=== PATIENT | female | born 1935 | race Caucasian/White ===

== ENCOUNTER → 2017-01-16 | Outpatient (CLI) | payer OTHER ==
[~2017-01-16] MED LIST: ASPI325T45 PO; ATOR-22 PO; CALCTAB5 PO; CHOL1000 PO; DOCU-94 PO; DONE10TA12 PO; GUAI1TAB55 PO; LISI20TA3 PO; LSN40 PO; MCRK/20 PO; MELA1TAB5 PO; METO25TA56 PO; MULT-190 PO; NITR-5 PO; NMN10 PO; NRV/5 PO; NXM/40 PO; OMEP20CA9 PO; POTA-335 PO; TIMO0.2528 OPB; TMPOPS2510 OPB; TRAM-10 PO
[2017-01-16 17:46] LABS: BASO % 0.3 %; BASO ABS # 0.02 K/uL (0-0.2); COMPLETE YES; HEMATOCRIT 36.5 % (37-47); IG% 0.1 %; LYMPH % 39.7 %; LYMPH ABS # 2.76 K/uL (1.2-3.4); MEAN CELL VOLUME 92.2 fL (80-100); MEAN CORPUSCULAR HEMOGLOBIN 30.8 pg (25-34); MEAN CORPUSCULAR HGB CONC 33.4 g/dl (32-36); MEAN PLATELET VOLUME 9.9 fL (7.4-10.4); MONO % 6.2 %; NEUT % 51.7 %; PLATELET COUNT 251 K/uL (130-400); RED BLOOD COUNT 3.96 M/uL (4.2-5.4); WHITE BLOOD COUNT 6.96 K/uL (4.8-10.8)
[2017-01-16 18:12] LABS: ALT/SGPT 24 U/L (12-78); BLOOD UREA NITROGEN 20 mg/dl (7-18); BUN/CREATININE RATIO 23.9 (10-20); CALCIUM 9.3 mg/dl (8.5-10.1); CARBON DIOXIDE 24 mmol/L (21-32); CHLORIDE 105 mmol/L (98-107); CHOLESTEROL 142 mg/dl (0-200); CREATININE 0.84 mg/dl (0.60-1.20); GLUCOSE 126 mg/dl (70-99); POTASSIUM 4.5 mmol/L (3.5-5.1); SODIUM 140 mmol/L (136-145)
[2017-01-16 18:22] LABS: ALB/GLOB RATIO 0.8 (0.9-2); ALKALINE PHOSPHATASE 96 U/L (45-117); AST/SGOT 21 U/L (15-37); CHOLESTEROL/HDL RATIO 2.4; HDL CHOLESTEROL 60 mg/dl; LDL CHOLESTEROL CALCULATED 49 mg/dl; TRIGLYCERIDES 166 mg/dl (0-150); VERY LOW DENSITY LIPOPROT CALC 33 mg/dl
[2017-01-17 06:06] LABS: ESTIMATED AVERAGE GLUCOSE 134 mg/dl; HA1C FLAG Normal (Normal)
== END | disposition home or self-care (01) ==
LOC: C.LABBFT 13:48
PROVIDERS: ATTEND Internal Medicine
DX: E78.5 Hyperlipidemia, unspecified (principal); R73.01 Impaired fasting glucose; I10 Essential (primary) hypertension

== ENCOUNTER 2017-06-14 19:54 | Emergency (ER) | payer OTHER ==
[~2017-06-14] VITALS: Ht 152.4 cm; Wt 62.1 kg
[~2017-06-14 19:54] MED LIST changes: -LSN40 PO; -MCRK/20 PO; -NITR-5 PO; -NRV/5 PO; -OMEP20CA9 PO; -TMPOPS2510 OPB
[2017-06-14 20:17] VITALS: TEMP 36.8; Ht 152.4 cm; Wt 62.1 kg
[2017-06-14 20:55] LABS: URINE APPEARANCE CLEAR (CLEAR); URINE BILIRUBIN NEG (NEG); URINE COLOR YELLOW; URINE NITRITE POS (NEG); URINE SPECIFIC GRAVITY 1.026 (1.000-1.030); UROBILINOGEN NEG (NEG); ZZUR CULT IF INDIC CLEAN CATCH YES
[2017-06-14] MEDS ORDERED: NITR-5 PO (20:55)
[2017-06-14 20:57] LABS: MANUAL MICROSCOPIC REQUIRED? NO; REVIEW REQ? NO
[2017-06-14] MEDS ORDERED: MACROBID 100MG HOME PACK 1 EA VIAL PO ONE (21:00)
[2017-06-14] MEDS ORDERED: MCRK/20 PO (21:01)
[2017-06-14] MEDS ORDERED: TMPOPS2510 OPB (21:01)
[2017-06-14] MEDS ORDERED: OMEP20CA9 PO (21:01)
[2017-06-14] MEDS ORDERED: LSN40 PO (21:01)
[2017-06-14] MEDS ORDERED: NRV/5 PO (21:01)
[2017-06-14 21:21] VITALS: BP 164/69; PULSE 54; O2SAT 96
--- NOTE | 2017-06-14 21:27 | EMERGENCY ROOM VISIT NOTE ---
History First contact with patient: 20:26 Chief Complaint: URINARY SYMPTOMS Stated Complaint: URINARY TRACT INFECTION Nursing Triage Summary: Pt reports UTI for few weeks. Reports increase in urination and burning. History of Present Illness The patient is a 81 year old female who presents to the Emergency Room with complaints of urinary discomfort, suprapubic pressure, burning sensation and incontinence. The patient reports she frequently gets a urinary tract infection , and reports that it always feels the same with the above symptoms. She denies any back pain, fever, nausea or vomiting. The patient has not seen her family doctor for these symptoms. She cannot recall the last antibiotic she received for a UTI, which was approximately 7 months ago. She has never been hospitalized for pyelonephritis. Review of Systems 10 system review was performed and was negative except for pertinent positives and negatives as indicated in history of present illness Past Medical/Surgical History Medical Problems: (1) CVA (cerebral vascular accident) (2) Hypertension (3) Patella fracture Family History Patient reports no known family medical history. Social History Smoking Status: Former Smoker Marital Status: Housing Status: lives with family Occupation Status: retired Current/Historical Medications Scheduled Amlodipine Besylate (Amlodipine Besylate), 5 MG PO DAILY Atorvastatin (Lipitor), 20 MG PO DAILY Cholecalciferol (Vitamin D3), 1 TAB PO DAILY Lisinopril (Lisinopril), 40 MG PO DAILY Memantine (Namenda), 10 MG PO BID Metoprolol Tartrate (Lopressor) (Lopressor), 25 MG PO BID Nitrofurantoin Monohyd Macrocr (Macrobid), 100 MG PO BID Ocuvite Preservision (Ocuvite Preservision), 1 TAB PO DAILY Omeprazole (Prilosec), 20 MG PO DAILY Potassium Chloride (Potassium Chloride ER), 20 MEQ PO DAILY Timolol Maleate (Timolol Maleate), 1 DROP OPB DAILY Physical Exam Vital Signs Date Time Temp Pulse Resp B/P (MAP) Pulse Ox O2 Delivery O2 Flow Rate FiO2 06/14/17 20:17 36.8 58 18 163/66 94 Room Air Physical Exam CONSTITUTIONAL: Healthy and well nourished. Alert and oriented X 3 with positive affect. Patient does not appear in any acute distress. HEENT: Normocephalic, atraumatic. Pupils equal, round and reactive. NECK: Full active range of motion without discomfort. RESPIRATORY: Clear to auscultation bilaterally with no wheezing, crackles, rhonchi or stridor. CARDIOVASCULAR: Regular rate and rhythm with no murmurs, rubs or gallops. GASTROINTESTINAL: Bowel sounds present in all quadrants. Patient has minimal suprapubic tenderness to palpation. Negative McBurney's point tenderness. No left lower quadrant tenderness to palpation. Negative CVA tenderness. MUSCULOSKELETAL: Full range of motion of all joints without discomfort. INTEGUMENTARY: No rash or other significant dermatologic conditions noted. NEUROLOGIC: No focal neurologic deficits noted. Medical Decision & Procedures Laboratory Results Test 06/14/17 20:35 Urine Color YELLOW Urine Appearance CLEAR (CLEAR) Urine pH 5.0 (4.5-7.5) Urine Specific [place] 1.026 (1.000-1.030) Urine Protein TRACE (NEG) Urine Glucose (UA) NEG (NEG) Urine Ketones NEG (NEG) Urine Occult Blood 1+ (NEG) Urine Nitrite POS (NEG) Urine Bilirubin NEG (NEG) Urine Urobilinogen NEG (NEG) Urine Leukocyte Esterase MODERATE (NEG) Urine WBC (Auto) >30 /hpf (0-5) Urine RBC (Auto) 5-10 /hpf (0-4) Urine Hyaline Casts (Auto) 10-30 /lpf (0-5) Urine Epithelial Cells (Auto) 5-10 /lpf (0-5) Urine Bacteria (Auto) 4+ (NEG) Urine microscopy is consistent with UTI. Urine cultures are pending. Medications Administered Medications (Trade) Dose Ordered Sig/[place] Route Start Time Stop Time Status Last Admin Dose Admin Nitrofurantoin (Macrobid Homepack 100MG) 1 homepack UD ONCE PO 06/14/17 21:00 06/14/17 21:01 DC 06/14/17 21:08 1 HOMEPACK ED Course Patient history and physical exam were performed. Nurse's notes were reviewed. Vital signs were reviewed and normal. History and clinical exam, along with urinalysis results, are consistent with UTI. I did review prior medical records from the PCPs office and [facility] records. We were unable to find any recent antibiotic treatment or urinalysis/urine culture results in the PCPs office. Review of hospital records shows that the patient had a presumptive enterococcus infection in 2009, showing sensitivity to Macrobid, and resistance to the most common oral antibiotics. She also had a Citrobacter infection in 2008 that was also susceptible to Macrobid. The case and prior cultures were discussed with Dr. Chinchilla, ED attending physician, who agreed with choosing Macrobid antibiotics for treatment. Dr. Chinchilla also performed an evaluation and agrees with workup and plan of care. The patient was provided a home pack and prescription for Macrobid. She was instructed to follow-up with her family doctor in the next 2-3 days for recheck , returning to the emergency department for any significant worsening pain, fever, vomiting or back pain. Medical Decision Medication Reconcilliation Current Medication List: was personally reviewed by me Blood Pressure Screening Patient's blood pressure: Normal blood pressure Impression Primary Impression: Urinary tract infection Additional Impression: Incontinence in female Departure Information Dispostion Home / Self-Care Prescriptions Nitrofurantoin Monohyd Macrocr (Macrobid) 100 Mg Cap 100 MG PO BID for 6 Days, #12 CAP Prov: Yrn Wilkinson PA 06/14/17 Forms HOME CARE DOCUMENTATION FORM, IMPORTANT VISIT INFORMATION Patient Instructions My [facility] Additional Instructions Complete all nitrofurantoin antibiotics as prescribed, twice daily for a total of 7 days. Your prescription was sent to your pharmacy, and should be available for pickup tomorrow morning during regular business hours. Suggest follow-up with your family doctor if symptoms have not significantly improved within the next 48 hours. Return to the emergency department for progressively worsening pain, back pain, nausea, vomiting or developing fever. Problem Qualifiers Primary Impression: Urinary tract infection Urinary tract infection type: acute cystitis Hematuria presence: with hematuria Qualified Codes: N30.01 - Acute cystitis with hematuria
--- NOTE | 2017-06-15 02:26 | EMERGENCY ROOM VISIT NOTE ---
ED Visit Note First contact with patient: 20:26 HPI: dysuria and lower abdominal pain PE: AFVSS, NAD NC/AT RRR, no murmurs CTAB Abd soft NT/ND Ext: no edema, erythema Neuro: grossly intact Plan: UA+, Patient with h/o of resistant organisms. Resistance review and macrobid previously sensitive. d/c with macrobid and pcp f/u. I reviewed the patient's past medical history, medications, and visit nursing notes. I discussed the case with the physician speech language assistant, examined the patient, and agree with the findings and plan as documented in the physician assistants note.
--- NOTE | 2017-06-16 11:23 | Pharmacy Progress Note ---
ED Pharmacist Culture FollowUp Date of Service: Jun 16, 2017. Patient was sent home with a prescription for Macrobid 100mg PO BID x 7 days total, which should cover the klebsiella pneumoniae growing from the patient's URINE culture. No further action required.
== END 2017-06-14 21:23 | disposition home or self-care (01) ==
LOC: C.EDB 19:55
DX: N30.01 Acute cystitis with hematuria (principal); R32 Unspecified urinary incontinence; I10 Essential (primary) hypertension; Z87.440 Personal history of urinary (tract) infections; Z86.73 Personal history of transient ischemic attack (TIA), and cerebral infarction without residual deficits; Z87.891 Personal history of nicotine dependence; Z79.899 Other long term (current) drug therapy

== ENCOUNTER → 2017-07-31 | Outpatient (CLI) | payer OTHER ==
[~2017-07-31] MED LIST changes: -ASPI325T45 PO; -CALCTAB5 PO; -DOCU-94 PO; -DONE10TA12 PO; -GUAI1TAB55 PO; -LISI20TA3 PO; +LSN40 PO; +MCRK/20 PO; -MELA1TAB5 PO; +NRV/5 PO; -NXM/40 PO; +OMEP20CA9 PO; -POTA-335 PO; -TIMO0.2528 OPB; +TMPOPS2510 OPB; -TRAM-10 PO
[2017-07-31 12:08] LABS: HEMATOCRIT 36.9 % (37-47); MEAN CELL VOLUME 91.6 fL (80-100); MEAN CORPUSCULAR HEMOGLOBIN 30.3 pg (25-34); MEAN CORPUSCULAR HGB CONC 33.1 g/dl (32-36); MEAN PLATELET VOLUME 9.7 fL (7.4-10.4); PLATELET COUNT 238 K/uL (130-400); RED BLOOD COUNT 4.03 M/uL (4.2-5.4); WHITE BLOOD COUNT 8.93 K/uL (4.8-10.8)
[2017-07-31 12:18] LABS: ALT/SGPT 26 U/L (12-78); AST/SGOT 21 U/L (15-37); BLOOD UREA NITROGEN 17 mg/dl (7-18); BUN/CREATININE RATIO 20.6 (10-20); CALCIUM 9.7 mg/dl (8.5-10.1); CARBON DIOXIDE 25 mmol/L (21-32); CHLORIDE 107 mmol/L (98-107); CHOLESTEROL 142 mg/dl (0-200); CREATININE 0.84 mg/dl (0.60-1.20); GLUCOSE 93 mg/dl (70-99); POTASSIUM 4.4 mmol/L (3.5-5.1); SODIUM 139 mmol/L (136-145); TRIGLYCERIDES 167 mg/dl (0-150); VERY LOW DENSITY LIPOPROT CALC 33 mg/dl
[2017-07-31 12:27] LABS: ESTIMATED AVERAGE GLUCOSE 134 mg/dl; HA1C FLAG Normal (Normal)
[2017-07-31 12:28] LABS: ALB/GLOB RATIO 0.8 (0.9-2); ALKALINE PHOSPHATASE 102 U/L (45-117); CHOLESTEROL/HDL RATIO 2.7; HDL CHOLESTEROL 52 mg/dl; LDL CHOLESTEROL CALCULATED 57 mg/dl; THYROID STIMULATING HORMONE 0.855 uIu/ml (0.300-4.500)
== END | disposition home or self-care (01) ==
LOC: C.LABBFT 10:54
PROVIDERS: ATTEND Internal Medicine
DX: E78.5 Hyperlipidemia, unspecified (principal); R73.01 Impaired fasting glucose; I10 Essential (primary) hypertension

== ENCOUNTER → 2017-08-01 | Outpatient (CLI) | payer OTHER ==
[2017-08-01 16:50] LABS: URINE APPEARANCE TURBID (CLEAR); URINE BILIRUBIN NEG (NEG); URINE COLOR YELLOW; URINE NITRITE NEG (NEG); URINE SPECIFIC GRAVITY 1.025 (1.000-1.030); UROBILINOGEN NEG (NEG)
[2017-08-01 16:53] LABS: MANUAL MICROSCOPIC REQUIRED? NO; REVIEW REQ? YES
== END | disposition home or self-care (01) ==
LOC: C.LABSPEC 13:14
PROVIDERS: ATTEND Internal Medicine
DX: N39.0 Urinary tract infection, site not specified (principal)

== ENCOUNTER → 2018-02-02 | Outpatient (CLI) | payer OTHER ==
[2018-02-02 17:11] LABS: ALBUMIN 3.7 gm/dl (3.4-5.0); ALT/SGPT 28 U/L (12-78); AST/SGOT 24 U/L (15-37); BLOOD UREA NITROGEN 17 mg/dl (7-18); CALCIUM 9.3 mg/dl (8.5-10.1); CARBON DIOXIDE 26 mmol/L (21-32); CHOLESTEROL 137 mg/dl (0-200); GLUCOSE 82 mg/dl (70-99); POTASSIUM 4.2 mmol/L (3.5-5.1); SODIUM 139 mmol/L (136-145)
[2018-02-02 17:14] LABS: ALKALINE PHOSPHATASE 97 U/L (45-117); LDL CHOLESTEROL CALCULATED 45 mg/dl; TOTAL PROTEIN 7.8 gm/dl (6.4-8.2)
[2018-02-03 06:56] LABS: HEMOGLOBIN A1C 6.3 % (4.5-5.6)
== END | disposition home or self-care (01) ==
LOC: C.LABBFT 13:02
PROVIDERS: ATTEND Internal Medicine
DX: R73.01 Impaired fasting glucose (principal); E78.5 Hyperlipidemia, unspecified

== ENCOUNTER 2019-10-16 18:38 | Inpatient (IN) ==
[2019-10-16] MEDS ORDERED: SODIUM CHLORIDE 0.9% 500 ML IV ONE ×2 (18:43→18:52)
[2019-10-16 18:52] LABS: Basophils # (auto) 0.04 K/uL (0-0.2); Basophils % (auto) 0.4 %; Eosinophils # (auto) 0.06 K/uL (0-0.5); Eosinophils % (auto) 0.6 %; Hematocrit (blood only) 34.9 % (37-47); Hemoglobin 11.5 g/dL (12.0-16.0); Immature Granulocytes # (auto) 0.02 K/uL (0.00-0.02); Immature Granulocytes % (auto) 0.2 %; Lymphocytes # (auto) 3.01 K/uL (1.2-3.4); Lymphocytes % (auto) 27.9 %; Mean Corpuscular Hemoglobin 31.2 pg (25-34); Mean Corpuscular Volume 94.6 fL (80-100); Mean Platelet Volume 11.1 fL (7.4-10.4); Monocytes # (auto) 0.56 K/uL (0.11-0.59); Monocytes % (auto) 5.2 %; Neutrophils # (auto) 7.08 K/uL (1.4-6.5); Neutrophils % (auto) 65.7 %; Platelet Count 272 K/uL (130-400); RDW Coefficient of Variation 13.9 % (11.5-14.5); Red Blood Count 3.69 M/uL (4.2-5.4); White Blood Count 10.77 K/uL (4.8-10.8)
[2019-10-16 19:05] LABS: Prothrombin Time 10.2 Seconds (9.0-12.0)
[2019-10-16 19:08] LABS: iSTAT Creatinine 1.5 mg/dl (0.6-1.3); iSTAT Hemoglobin 10.9 g/dl (12.0-16.0); iSTAT Ionized Calcium 1.12 mmol/l (1.12-1.32); iSTAT Potassium 4.4 mEq/L (3.3-5.0)
[2019-10-16 19:08] LABS: BUN Creatinine Ratio 19.8 (10-20); Calcium 8.9 mg/dl (8.5-10.1); Creatinine Clr Calc Pharmacy 22.4 ml/min; Est GFR (African American) 35.7; Est GFR (Non-African American) 30.8; Magnesium 2.4 mg/dl (1.8-2.4); Potassium 4.4 mmol/L (3.5-5.1)
[2019-10-16 19:19] LABS: Albumin Globulin Ratio 0.7 (0.9-2); Bilirubin,Total 0.5 mg/dl (0.2-1); Globulin 4.4 gm/dl (2.5-4.0); Phosphorus 3.2 mg/dl (2.5-4.9); Thyroid Stimulating Hormone 2.52 uIu/ml (0.300-4.500); Total Protein 7.4 gm/dl (6.4-8.2); Troponin I 0.023 ng/ml (0-0.045)
--- NOTE | 2019-10-16 19:21 | Emergency Department Note ---
Entered by Lisandro Eddy acting as a scribe for History of Present Illness General Chief complaint: Syncope Stated complaint: SYNCOPE X 2, Time Seen by Provider: 10/16/19 18:42 Source: patient, family (sister) and other (ED nurse) History of Present Illness Onset (ago): hour(s) (prior to arrival) Location: head (syncope) Pain Consistency: + other (episodes) Relieved By: + none Associated symptoms: + denies other symptoms (dizziness) and + loss of appetite The patient is a 83 year old F who presents to the Emergency Room with complaints of episodes of syncope that occurred prior to arrival. The HPI was primarily provided by the patients sister. She states that the patient was lying on her couch when she experienced her first episode of syncope. She notes that she thought, at first, that the patient was experiencing a seizure. She adds that when the patient regained consciousness, she took the patient to the bathroom. She states that when the patient got up, she experienced another episode of syncope. She denies that the patient hit her head during her second episode of syncope. The patient notes that she does not remember passing out. Th e patients sister notes that EMS was called at that time. The ED nurse adds that when EMS arrived, the patient went into V-tach. The patient denies currently experiencing any dizziness. The patients sister adds that the patient experienced a loss of appetite today. She notes that the patient has a history of bradycardia. She adds that the patient is on Levaquin and Lisinopril, among her other medications. She notes that the patients medications were increased recently. Home Medications Home Medications Medication Instructions Recorded Confirmed Type melatonin 3 mg tablet 3 mg PO HS PRN tab 06/21/19 10/16/19 History timolol maleate 0.5 % eye drops 1 drops OPHTHALMIC (EYE) DAILY ml 06/21/19 10/16/19 History calcium carbonate 600 mg calcium 600 mg PO DAILY tab 08/17/19 10/16/19 History (1,500 mg) tablet docusate sodium 100 mg capsule 100 mg PO BID PRN #60 cap 08/17/19 10/16/19 History vit C,W-Hf-wgbxhq-lutein-zeaxan 60 1 cap PO DAILY cap 08/17/19 10/16/19 History mg-13.5 mg-15 mg-2 mg-6 mg capsule potassium chloride 20 mEq 20 meq PO DAILY #90 tab 09/06/19 10/16/19 Rx tablet,extended release memantine 10 mg tablet 10 mg PO BID 90 Days #180 tab 09/10/19 10/16/19 Rx amlodipine 10 mg tablet 10 mg PO DAILY #90 tab 09/27/19 10/16/19 Rx atorvastatin 20 mg tablet 20 mg PO HS #90 tab 09/27/19 10/16/19 Rx lisinopril 40 mg tablet 40 mg PO DAILY #90 tab 09/27/19 10/16/19 Rx omeprazole 20 mg capsule,delayed 20 mg PO DAILY #90 cap 09/27/19 10/16/19 Rx release Allergies Allergy/AdvReac Type Severity Reaction Status Date / Time aspirin Allergy Verified 09/10/19 11:13 Sulfa (Sulfonamide Allergy Verified 09/10/19 11:13 Antibiotics) Past Med/Surg History Medical History Anxiety (Chronic) Bradycardia 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) Cerebral ischemia (Acute) Dementia (Chronic) Depression (Chronic) Dyslipidemia (Chronic) Esophageal reflux Fibromyalgia (Chronic) Glaucoma (Chronic) Hemiparesis (Acute) Hypertension (Chronic) Impaired fasting glucose (Chronic) Migraine headache (Chronic) Family History Brother Diabetes Colon cancer Prostate cancer Mother CHF (congestive heart failure) Tobacco use Sister Diabetes Glaucoma Macular degeneration Father Prostate cancer Tobacco use Pneumonia Daughter Dea disease Social History Preferred Language: Bangladeshi Communication Ability: Effective [employer] Required: No Beliefs That Will Affect Care: None Current Living Situation: Family Current Living Situation Comment: lives w/ sisters Other Information That Helps Us Care for You: No Feels Safe at Home: Yes Safety Concerns: Feels Safe At This Time Smoking Status: Never smoker Do You Dip or Chew Tobacco: No ; Second Hand Exposure: No ; Tobacco Cessation Education Requested by Patient: No Hx Alcohol Use: No Hx Substance Use: No Review of Systems See HPI for pertinent positives & negatives. and A total of 10 systems reviewed and were otherwise negative Physical Exam Vital Signs Vital Signs - 24 hr 10/16/19 18:55 10/16/19 18:59 10/16/19 19:02 Temperature 36.4 C L Temperature Source Oral Pulse Rate 32 L Pulse Rate [Apical] 38 L Pulse Rate from SpO2 Sensor Pulse Rhythm Irregular Pulse Rhythm [Apical] Pulse Strength [Apical] Respiratory Rate 15 14 Respiratory Effort / Characteristics Non-Labored Respiratory Depth Normal Respiratory Pattern Regular Blood Pressure 210/100 H Blood Pressure [Left Arm] 210/100 H Blood Pressure Mean 136 Blood Pressure Mean [Left Arm] 136 Blood Pressure Position Lying Pulse Oximetry 93 91 Oxygen Delivery Method Nasal Cannula Nasal Cannula Oxygen Flow Rate 3 4 Sepsis Recent Fever Within 48 Hours No Sepsis New/Unexplained Change in Mental Status No Sepsis Action Taken by Nursing No Action Required 10/16/19 19:03 10/16/19 19:10 10/16/19 19:33 Temperature Temperature Source Pulse Rate Pulse Rate [Apical] 28 L Pulse Rate from SpO2 Sensor Pulse Rhythm Pulse Rhythm [Apical] Pulse Strength [Apical] Respiratory Rate 12 Respiratory Effort / Characteristics Respiratory Depth Respiratory Pattern Blood Pressure Blood Pressure [Left Arm] 215/58 H Blood Pressure Mean Blood Pressure Mean [Left Arm] 110 Blood Pressure Position Pulse Oximetry 92 Oxygen Delivery Method Nasal Cannula Nasal Cannula Nasal Cannula Oxygen Flow Rate 4 4 Sepsis Recent Fever Within 48 Hours Sepsis New/Unexplained Change in Mental Status Sepsis Action Taken by Nursing 10/16/19 20:01 10/16/19 20:03 10/16/19 20:10 Temperature 36.6 C Temperature Source Pulse Rate 36 L 28 L Pulse Rate [Apical] 35 L Pulse Rate from SpO2 Sensor 29 L 29 L Pulse Rhythm Pulse Rhythm [Apical] Pulse Strength [Apical] Respiratory Rate 14 18 8 L Respiratory Effort / Characteristics Respiratory Depth Respiratory Pattern Blood Pressure Blood Pressure [Left Arm] 215/58 H Blood Pressure Mean Blood Pressure Mean [Left Arm] 110 Blood Pressure Position Pulse Oximetry 92 90 93 Oxygen Delivery Method Nasal Cannula Oxygen Flow Rate 4 Sepsis Recent Fever Within 48 Hours Sepsis New/Unexplained Change in Mental Status Sepsis Action Taken by Nursing 10/16/19 20:20 10/16/19 20:26 10/16/19 20:31 Temperature 36.6 C Temperature Source Oral Pulse Rate 34 L 30 L Pulse Rate [Apical] 29 L Pulse Rate from SpO2 Sensor 33 L 30 L Pulse Rhythm Pulse Rhythm [Apical] Regular Pulse Strength [Apical] Normal Respiratory Rate 18 16 10 L Respiratory Effort / Characteristics Non-Labored Spontaneous Respiratory Depth Normal Respiratory Pattern Blood Pressure Blood Pressure [Left Arm] 201/39 H Blood Pressure Mean Blood Pressure Mean [Left Arm] 93 Blood Pressure Position Pulse Oximetry 91 91 93 Oxygen Delivery Method Nasal Cannula Oxygen Flow Rate 2 Sepsis Recent Fever Within 48 Hours Sepsis New/Unexplained Change in Mental Status Sepsis Action Taken by Nursing 10/16/19 20:33 10/16/19 20:41 10/16/19 20:50 Temperature Temperature Source Pulse Rate 29 L 27 L Pulse Rate [Apical] 30 L Pulse Rate from SpO2 Sensor 29 L 28 L Pulse Rhythm Pulse Rhythm [Apical] Pulse Strength [Apical] Respiratory Rate 12 18 22 Respiratory Effort / Characteristics Respiratory Depth Respiratory Pattern Blood Pressure Blood Pressure [Left Arm] 220/58 H Blood Pressure Mean Blood Pressure Mean [Left Arm] 112 Blood Pressure Position Pulse Oximetry 90 92 94 Oxygen Delivery Method Nasal Cannula Oxygen Flow Rate 2 Sepsis Recent Fever Within 48 Hours Sepsis New/Unexplained Change in Mental Status Sepsis Action Taken by Nursing 10/16/19 21:00 Temperature Temperature Source Pulse Rate 28 L Pulse Rate [Apical] 28 L Pulse Rate from SpO2 Sensor 28 L Pulse Rhythm Pulse Rhythm [Apical] Pulse Strength [Apical] Respiratory Rate 20 Respiratory Effort / Characteristics Respiratory Depth Respiratory Pattern Blood Pressure Blood Pressure [Left Arm] 216/60 H Blood Pressure Mean Blood Pressure Mean [Left Arm] 112 Blood Pressure Position Pulse Oximetry 89 L Oxygen Delivery Method Nasal Cannula Oxygen Flow Rate 4 Sepsis Recent Fever Within 48 Hours Sepsis New/Unexplained Change in Mental Status Sepsis Action Taken by Nursing GENERAL: Awake, alert, fatigued-appearing, in no distress HENT: Normocephalic, atraumatic. Oropharynx with dry mucous membranes and otherwise unremarkable. EYES: Normal conjunctiva. Sclera non-icteric. NECK: Supple. No nuchal rigidity. FROM. No JVD. RESPIRATORY: Diminished at bases, otherwise, clear. CARDIAC: Bradycardic rate, regular rhythm. Extremities warm and well perfused. Strong peripheral Pulses are equal. ABDOMEN: Soft, non-distended. No tenderness to palpation. No rebound or guarding. No masses. RECTAL: Deferred. MUSCULOSKELETAL: Chest examination reveals no tenderness. The back is symmetrical on inspection without obvious abnormality. There is no CVA tenderness to palpation. No joint edema. LOWER EXTREMITIES: Calves are equal size bilaterally and non-tender. No edema. No discoloration. NEURO: Normal sensorium. No sensory or motor deficits noted. SKIN: No rash or jaundice noted. Course Course 1843: The patient was evaluated in room C3. A complete history and physical exam was performed. 1939: I reviewed the patient's case with Dr. Burnett, [facility] [place] [place]. He agrees that there is no need to pace the patient because she is mentating, has pressures, and agrees with keeping her pads on. After seeing how this evolved, he states that Timolol is the likely culprit and less likely to be due to amlodipine. 2040: The patient had a 20-30 seconds polymorphic VT episode. The patient continued to mentate but felt heaviness in her chest. She subsequently went back into a complete heart block with a rate of 30. I discussed this episode with Dr. Burnett, [facility] [place], [place]. He states that transcutaneous pacing could be trialed for now. He states that it is unlikely that the patient will require a transvenous pacer at this stage. 2124: I attempted to pace the patient transcutaneously. I initially obtained capture with 10 milliamps but then capture was lost. Subsequently, Girish Gaines, [facility] PA-C discussed case with Dr. Nj, interventional cardiology, recommends that if the patient is mentating and is hemodynamically stable, then there is no need to pace. He states that Dr. Nj, appetizer packer, will be available for an emergent pacer if necessary. 2127: I reviewed the patient's case with Dr. Kam Kenyon, [facility] Hospitalist. He will evaluate the patient for further management. Administered Medications Acetaminophen (Tylenol) 650 mg PO Q4H PRN PRN Reason: Pain Stop: 11/16/19 13:34 Last Admin: 10/17/19 23:36 Dose: 650 mg Documented by: [id number] Heparin Sodium (Porcine) (Heparin Sodium (Porcine)) 5,000 units SQ Q12 [place] Stop: 11/16/19 08:59 Last Admin: 10/17/19 19:47 Dose: 5,000 units Documented by: [id number] Cosigned by: [id number] Admin: 10/17/19 12:04 Dose: 5,000 units Documented by: [id number] Cosigned by: [id number] Ceftriaxone Sodium 1,000 mg/ (Dextrose) 50 mls @ 100 mls/hr IV Q24H [place]; Protocol Stop: 10/27/19 00:59 Last Infusion: 10/18/19 01:48 Dose: 0 mls/hr Documented by: [id number] Admin: 10/18/19 01:10 Dose: 100 mls/hr Documented by: [id number] Infusion: 10/17/19 02:39 Dose: 0 mls/hr Documented by: [id number] Admin: 10/17/19 00:38 Dose: 100 mls/hr Documented by: [id number] Discontinued Medications Acetaminophen (Tylenol) Confirm Administered Dose 650 mg .ROUTE .STK-MED ONE Stop: 10/17/19 13:39 Last Admin: 10/17/19 13:40 Dose: 650 mg Documented by: [id number] Fentanyl Citrate (Fentanyl Citrate) Confirm Administered Dose 100 mcg .ROUTE .STK-MED ONE Stop: 10/16/19 21:24 Last Increment: 10/16/19 21:25 Dose: 50 mcg Documented by: [id number] Fentanyl Citrate (Fentanyl Citrate) Confirm Administered Dose 100 mcg .ROUTE .STK-MED ONE Stop: 10/17/19 09:51 Last Admin: 10/17/19 11:42 Dose: Not Given Documented by: [id number] Heparin Sodium (Porcine) (Heparin Iv Bolus (Innovation Analyst Use Only)) Confirm Administered Dose 10,000 units .ROUTE .STK-MED ONE Stop: 10/17/19 09:50 Last Admin: 10/17/19 11:41 Dose: Not Given Documented by: [id number] Heparin Sodium/Sodium Chloride (Heparin/Nss 1000 Unit/500ml Flush Bag) Confirm Administered Dose 3,000 units IV .STK-MED ONE Stop: 10/17/19 09:51 Last Admin: 10/17/19 11:42 Dose: Not Given Documented by: [id number] Hydralazine HCl (Hydralazine Hcl) 10 mg IV NOW STA Stop: 10/17/19 09:27 Last Admin: 10/17/19 09:36 Dose: 10 mg Documented by: [id number] Hydralazine HCl (Hydralazine Hcl) 15 mg IV NOW STA Stop: 10/17/19 11:47 Last Admin: 10/17/19 12:04 Dose: 15 mg Documented by: [id number] Sodium Chloride (Nss) 500 mls @ 999 mls/hr IV .Q31M ONE Stop: 10/16/19 19:13 Last Infusion: 10/16/19 21:00 Dose: 0 mls/hr Documented by: [id number] Infusion: 10/16/19 19:05 Dose: 100 mls/hr Documented by: [id number] Admin: 10/16/19 19:00 Dose: 999 mls/hr Documented by: [id number] Sodium Chloride (Nss) 500 mls @ 999 mls/hr IV .Q31M ONE Stop: 10/16/19 19:22 Last Admin: 10/16/19 19:05 Dose: Not Given Documented by: [id number] Magnesium Sulfate/Dextrose (Magnesium Sulfate / D5w) 1 gm in 100 mls @ 100 mls/hr IV ONE ONE Stop: 10/16/19 21:34 Last Infusion: 10/16/19 20:59 Dose: 0 mls/hr Documented by: [id number] Infusion: 10/16/19 20:41 Dose: 400 mls/hr Documented by: [id number] Admin: 10/16/19 20:40 Dose: 100 mls/hr Documented by: [id number] Magnesium Sulfate/Dextrose (Magnesium Sulfate / D5w) 1 gm in 100 mls @ 100 mls/hr IV ONE ONE Stop: 10/17/19 05:58 Last Infusion: 10/17/19 06:18 Dose: 0 mls/hr Documented by: [id number] Admin: 10/17/19 05:12 Dose: 100 mls/hr Documented by: [id number] Lorazepam (Ativan) Confirm Administered Dose 2 mg .ROUTE .STK-MED ONE Stop: 10/16/19 20:55 Last Increment: 10/16/19 21:14 Dose: 0.5 mg Documented by: [id number] Midazolam HCl (Versed) Confirm Administered Dose 2 mg .ROUTE .STK-MED ONE Stop: 10/17/19 09:51 Last Admin: 10/17/19 11:42 Dose: Not Given Documented by: [id number] Nicardipine HCl (Cardene) Confirm Administered Dose 25 mg .ROUTE .STK-MED ONE Stop: 10/17/19 09:50 Last Admin: 10/17/19 11:41 Dose: Not Given Documented by: [id number] Nitroglycerin/Dextrose (Nitroglycerin/D5w 100 Mcg/Ml 20ml Syringe) Confirm Administered Dose 2,000 mcg .ROUTE .STK-MED ONE Stop: 10/17/19 09:51 Last Admin: 10/17/19 11:42 Dose: Not Given Documented by: [id number] Critical Care Time Critical Care Time: Yes Total Critical Care Time: 125 I have personally spent 125 minutes of critical care time in the direct management of this patient. This includes bedside care, interpretation of rosina gnostic studies, and testing, discussion with consultants, patient, and family members, and other required patient management activities. This 125 minutes is in excess of all separately billable procedures. Medical Decision Making Differential Diagnosis Differential diagnosis: Etiologies such as vasovagal event, infection, hypoglycemia, electrolyte abnormalities, cardiac sources, intracerebral event, toxicologic, neurologic, as well as others were entertained. Medical Records Attestation: I reviewed the patient's medical records. Home Medications Current Medication List: was personally reviewed by me Laboratory Data Attestation: I reviewed the patient's lab results. Result diagrams: 10/17/19 04:35 10/17/19 04:35 Lab Results 10/16/19 10/16/19 10/16/19 Range/Units 18:25 18:25 18:25 WBC 10.77 (4.8-10.8) K/uL RBC 3.69 L (4.2-5.4) M/uL Hgb 11.5 L (12.0-16.0) g/dL POC Hgb (12.0-16.0) g/dl Hct 34.9 L (37-47) % POC Hct (37-47) % MCV 94.6 (80-100) fL MCH 31.2 (25-34) pg MCHC 33.0 (32-36) g/dL RDW Std Deviation 48.0 H (36.4-46.3) fL RDW Coeff of Vinh 13.9 (11.5-14.5) % Plt Count 272 (130-400) K/uL MPV 11.1 H (7.4-10.4) fL Immature Gran % (Auto) 0.2 % Neut % (Auto) 65.7 % Lymph % (Auto) 27.9 % [place] % (Auto) 5.2 % Eos % (Auto) 0.6 % Baso % (Auto) 0.4 % Immature Gran # (Auto) 0.02 (0.00-0.02) K/uL Neut # (Auto) 7.08 H (1.4-6.5) K/uL Lymph # (Auto) 3.01 (1.2-3.4) K/uL [place] # (Auto) 0.56 (0.11-0.59) K/uL Eos # (Auto) 0.06 (0-0.5) K/uL Baso # (Auto) 0.04 (0-0.2) K/uL PT 10.2 (9.0-12.0) Seconds INR 1.0 (0.9-1.1) POC Sodium (135-144) mEq/L Sodium 145 (136-145) mmol/L POC Potassium (3.3-5.0) mEq/L Potassium 4.4 (3.5-5.1) mmol/L POC Chloride (101-112) mEq/L Chloride 115 H (98-107) mmol/L Carbon Dioxide 21 (21-32) mmol/L POC Total CO2 (24-31) mEq/l Anion Gap 9.0 (3-11) POC Anion Gap (16-25) mmol/L POC BUN (7-18) mg/dl BUN 31 H (7-18) mg/dl Creatinine 1.56 H (0.6-1.2) mg/dl POC Creatinine (0.6-1.3) mg/dl Est Cr Clr Drug Dosing 22.4 ml/min Est GFR ( Amer) 35.7 Est GFR (Non-Af Amer) 30.8 BUN/Creatinine Ratio 19.8 (10-20) Glucose 124 H (70-99) mg/dl POC Glucose (other) (70-99) mg/dl Calcium 8.9 (8.5-10.1) mg/dl POC Ioniz Calcium Carlos (1.12-1.32) mmol/l Phosphorus 3.2 (2.5-4.9) mg/dl Magnesium 2.4 (1.8-2.4) mg/dl Total Bilirubin 0.5 (0.2-1) mg/dl AST 99 H (15-37) U/L ALT 89 H (12-78) U/L Alkaline Phosphatase 170 H (45-117) U/L Troponin I 0.023 (0-0.045) ng/ml Total Protein 7.4 (6.4-8.2) gm/dl Albumin 3.0 L (3.4-5.0) gm/dl Globulin 4.4 H (2.5-4.0) gm/dl Albumin/Globulin Ratio 0.7 L (0.9-2) Lipase 272 (73-393) U/L TSH 2.520 (0.300-4.500) uIu/ml Random Cortisol mcg/dl Urine Color Urine Appearance (Clear) Urine pH (4.5-7.5) Ur Specific [place] (1.000-1.030) Urine Protein (Negative) Urine Glucose (UA) (Negative) Urine Ketones (Negative) Urine Blood (Negative) Urine Nitrite (Negative) Urine Bilirubin (Negative) Urine Urobilinogen (Negative) Ur Leukocyte Esterase (Negative) Urine RBC (0-4) /hpf Urine WBC (0-5) /hpf Ur Epithelial Cells (0-5) /lpf Ur Renal Epithelial Cell (0-5) /lpf Urine Bacteria (Negative) Hyaline Casts (0-5) /lpf Lyme Disease IgG Ab (Negative) Lyme Disease IgM Ab (Negative) 10/16/19 10/16/19 10/16/19 Range/Units 18:25 18:25 18:56 WBC (4.8-10.8) K/uL RBC (4.2-5.4) M/uL Hgb (12.0-16.0) g/dL POC Hgb 10.9 L (12.0-16.0) g/dl Hct (37-47) % POC Hct 32 L (37-47) % MCV (80-100) fL MCH (25-34) pg MCHC (32-36) g/dL RDW Std Deviation (36.4-46.3) fL RDW Coeff of Vinh (11.5-14.5) % Plt Count (130-400) K/uL MPV (7.4-10.4) fL Immature Gran % (Auto) % Neut % (Auto) % Lymph % (Auto) % [place] % (Auto) % Eos % (Auto) % Baso % (Auto) % Immature Gran # (Auto) (0.00-0.02) K/uL Neut # (Auto) (1.4-6.5) K/uL Lymph # (Auto) (1.2-3.4) K/uL [place] # (Auto) (0.11-0.59) K/uL Eos # (Auto) (0-0.5) K/uL Baso # (Auto) (0-0.2) K/uL PT (9.0-12.0) Seconds INR (0.9-1.1) POC Sodium 145 H (135-144) mEq/L Sodium (136-145) mmol/L POC Potassium 4.4 (3.3-5.0) mEq/L Potassium (3.5-5.1) mmol/L POC Chloride 114 H (101-112) mEq/L Chloride (98-107) mmol/L Carbon Dioxide (21-32) mmol/L POC Total CO2 21 L (24-31) mEq/l Anion Gap (3-11) POC Anion Gap 16.0 (16-25) mmol/L POC BUN 26 H (7-18) mg/dl BUN (7-18) mg/dl Creatinine (0.6-1.2) mg/dl POC Creatinine 1.5 H (0.6-1.3) mg/dl Est Cr Clr Drug Dosing ml/min Est GFR ( Amer) Est GFR (Non-Af Amer) BUN/Creatinine Ratio (10-20) Glucose (70-99) mg/dl POC Glucose (other) 127 H (70-99) mg/dl Calcium (8.5-10.1) mg/dl POC Ioniz Calcium Carlos 1.12 (1.12-1.32) mmol/l Phosphorus (2.5-4.9) mg/dl Magnesium (1.8-2.4) mg/dl Total Bilirubin (0.2-1) mg/dl AST (15-37) U/L ALT (12-78) U/L Alkaline Phosphatase (45-117) U/L Troponin I (0-0.045) ng/ml Total Protein (6.4-8.2) gm/dl Albumin (3.4-5.0) gm/dl Globulin (2.5-4.0) gm/dl Albumin/Globulin Ratio (0.9-2) Lipase (73-393) U/L TSH (0.300-4.500) uIu/ml Random Cortisol 40.12 mcg/dl Urine Color Urine Appearance (Clear) Urine pH (4.5-7.5) Ur Specific [place] (1.000-1.030) Urine Protein (Negative) Urine Glucose (UA) (Negative) Urine Ketones (Negative) Urine Blood (Negative) Urine Nitrite (Negative) Urine Bilirubin (Negative) Urine Urobilinogen (Negative) Ur Leukocyte Esterase (Negative) Urine RBC (0-4) /hpf Urine WBC (0-5) /hpf Ur Epithelial Cells (0-5) /lpf Ur Renal Epithelial Cell (0-5) /lpf Urine Bacteria (Negative) Hyaline Casts (0-5) /lpf Lyme Disease IgG Ab Negative (Negative) Lyme Disease IgM Ab Negative (Negative) 10/16/19 Range/Units 19:20 WBC (4.8-10.8) K/uL RBC (4.2-5.4) M/uL Hgb (12.0-16.0) g/dL POC Hgb (12.0-16.0) g/dl Hct (37-47) % POC Hct (37-47) % MCV (80-100) fL MCH (25-34) pg MCHC (32-36) g/dL RDW Std Deviation (36.4-46.3) fL RDW Coeff of Vinh (11.5-14.5) % Plt Count (130-400) K/uL MPV (7.4-10.4) fL Immature Gran % (Auto) % Neut % (Auto) % Lymph % (Auto) % [place] % (Auto) % Eos % (Auto) % Baso % (Auto) % Immature Gran # (Auto) (0.00-0.02) K/uL Neut # (Auto) (1.4-6.5) K/uL Lymph # (Auto) (1.2-3.4) K/uL [place] # (Auto) (0.11-0.59) K/uL Eos # (Auto) (0-0.5) K/uL Baso # (Auto) (0-0.2) K/uL PT (9.0-12.0) Seconds INR (0.9-1.1) POC Sodium (135-144) mEq/L Sodium (136-145) mmol/L POC Potassium (3.3-5.0) mEq/L Potassium (3.5-5.1) mmol/L POC Chloride (101-112) mEq/L Chloride (98-107) mmol/L Carbon Dioxide (21-32) mmol/L POC Total CO2 (24-31) mEq/l Anion Gap (3-11) POC Anion Gap (16-25) mmol/L POC BUN (7-18) mg/dl BUN (7-18) mg/dl Creatinine (0.6-1.2) mg/dl POC Creatinine (0.6-1.3) mg/dl Est Cr Clr Drug Dosing ml/min Est GFR ( Amer) Est GFR (Non-Af Amer) BUN/Creatinine Ratio (10-20) Glucose (70-99) mg/dl POC Glucose (other) (70-99) mg/dl Calcium (8.5-10.1) mg/dl POC Ioniz Calcium Carlos (1.12-1.32) mmol/l Phosphorus (2.5-4.9) mg/dl Magnesium (1.8-2.4) mg/dl Total Bilirubin (0.2-1) mg/dl AST (15-37) U/L ALT (12-78) U/L Alkaline Phosphatase (45-117) U/L Troponin I (0-0.045) ng/ml Total Protein (6.4-8.2) gm/dl Albumin (3.4-5.0) gm/dl Globulin (2.5-4.0) gm/dl Albumin/Globulin Ratio (0.9-2) Lipase (73-393) U/L TSH (0.300-4.500) uIu/ml Random Cortisol mcg/dl Urine Color Yellow Urine Appearance Slightly Cloudy (Clear) Urine pH 5.5 (4.5-7.5) Ur Specific [place] >= 1.030 (1.000-1.030) Urine Protein 2+ H (Negative) Urine Glucose (UA) Negative (Negative) Urine Ketones Negative (Negative) Urine Blood Trace H (Negative) Urine Nitrite Positive A (Negative) Urine Bilirubin Negative (Negative) Urine Urobilinogen Negative (Negative) Ur Leukocyte Esterase Negative (Negative) Urine RBC 0-4 (0-4) /hpf Urine WBC 10-30 H (0-5) /hpf Ur Epithelial Cells >30 H (0-5) /lpf Ur Renal Epithelial Cell 0-5 (0-5) /lpf Urine Bacteria 4+ H (Negative) Hyaline Casts 0-5 (0-5) /lpf Lyme Disease IgG Ab (Negative) Lyme Disease IgM Ab (Negative) Imaging Data Radiologist's Impression: Radiology results as stated below per my review and the radiologist's interpretation: XR chest 1V portable CLINICAL HISTORY: Chest Pain COMPARISON STUDY: Chest radiograph October 02, 2015. FINDINGS: There is no pneumothorax. Moderate to large left pleural effusion is noted. A small right pleural effusion is noted. There is pulmonary edema. Moderate enlargement of the cardiac silhouette is noted. Bibasilar opacities, left greater than right, are noted. IMPRESSION: 1. Moderate to large left pleural effusion with left basilar opacity which may reflect atelectasis or consolidation. Radiographic follow-up is recommended. 2. Pulmonary edema. 3. Cardiomegaly. Electronically signed by: Genaro Encinas M.D. 10/16/2019 7:[address] OF THE HEAD WITHOUT CONTRAST CLINICAL HISTORY: hx cva, bradycardic, r/o stroke COMPARISON STUDY: Head CT October 04, 2015. CT DOSE: 1270.46 mGy.cm TECHNIQUE: Helical axial images of the head were obtained without IV contrast. Automated exposure control was utilized for the study. A dose lowering technique was utilized adhering to the principles of ALARA. FINDINGS: No acute intracranial hemorrhage, midline shift or mass effect is present. Ventricular system is stable. Old left basal ganglia infarct is noted. White matter hypodensity has slightly progressed. This suggests small vessel disease. There are no findings to suggest acute dural sinus thrombosis or acute territorial infarct. The basilar cisterns are patent. There are no extra axial c ollections. There are no significant calvarial abnormalities. IMPRESSION: 1. No acute intracranial findings. 2. No significant change in appearance of the brain. Old left basal ganglia infarct. Electronically signed by: Genaro Encinas M.D. 10/16/2019 10:[address] OF THE ABDOMEN AND PELVIS WITHOUT CONTRAST CLINICAL HISTORY: transaminitis, assess liver COMPARISON STUDY: CT of the abdomen May 18, 2010. TECHNIQUE: Axial images of the abdomen and pelvis were obtained without IV contrast. Images were reviewed in the axial, sagittal, and coronal planes. Automated exposure control was utilized for the study. A dose lowering technique was utilized adhering to the principles of ALARA. FINDINGS: Please note that the chest CT will be reported separately. Evaluation of the abdomen and pelvis is suboptimal on this unenhanced examination. Unen hanced images of the liver, spleen, adrenal glands, right kidney and pancreas are unremarkable. There is a left renal cysts, as shown on prior contrast enhanced CT. There is no biliary or pancreatic ductal dilatation. There is no evidence for a bowel obstruction. The appendix is normal. Bueno balloon is noted within the bladder which is collapsed. There is no ascites or lymphadenopathy. There are no suspicious osseous lesions. No hydronephrosis is present. Caliber of the abdominal aorta is normal. There is moderate atherosclerotic plaque. No hemoperitoneum or pneumoperitoneum is present. IMPRESSION: 1. No acute process within the abdomen or pelvis on unenhanced exam. 2. No biliary or pancreatic ductal dilatation. 3. Left renal cyst. 4. No bowel obstruction. Normal appendix. Electronically signed by: Genaro Encinas M.D. 10/16/2019 10:[address] OF THE CHEST WITHOUT IV CONTRAST CLINICAL HISTORY: Shortness of breath. COMPARISON STUDY: Chest radiograph October 02, 2015 and October 16, 2019 at 7:09 PM. TECHNIQUE: Axial images of the chest were obtained without IV contrast. Images were reviewed in the axial, sagittal, and coronal planes. IV contrast was not administered for this examination. Automated exposure control was utilized for the study. A dose lowering technique was utilized adhering to the principles of ALARA. FINDINGS: No enlarged axillary, mediastinal or hilar lymph nodes are present. The heart is moderately enlarged. Moderate coronary artery calcification is noted. There is no pericardial effusion. Multiple thyroid nodules are noted, including a exophytic nodule arising from the lower pole of the left lobe. Moderate bilateral pleural effusions, left larger than right, are noted. Extensive left lower lobe opacity with volume loss is noted. There is no pneumothorax. Mild interstitial pulmonary edema is noted. Numerous solid pulmonary nodules measure up to 4 mm. There are additional groundglass nodular opacities within the lungs. Bony thorax is unremarkable. Abdomen and pelvis will be reported separately. IMPRESSION: 1. Mild pulmonary edema with moderate bilateral pleural effusions, left larger than right. Extensive left lower lobe opacity which favors atelectasis although consolidation could appear similar. 2. Numerous indeterminate small solid and groundglass nodules within the lungs. A follow up chest CT in 3 months is recommended. 3. Moderate cardiomegaly and coronary artery calcification. Electronically signed by: Genaro Encinas M.D. 10/16/2019 10:33 PM ECG Data Attestation: I personally reviewed and interpreted this ECG as follows: Indication: + syncope Rate (beats per minute): 31 Rhythm: + other (compete heart block) ECG Intervals/blocks: + Left bundle branch block and + Normal QT-c (458) ECG ST segments: no ST elevation Blood Pressure Blood Pressure Findings: Elevated blood pressure Blood Pressure Disposition: further management by hospitalist SORAIDA Sanderson The patient is a pleasant 83-year-old woman with a past medical history of hypertension, hyperlipidemia, dementia who presents per department with 2 syncopal episodes that occurred just prior to arrival found to be in complete heart block with intermittent brief runs of NSVT of 4-5 beats per HPI. On arrival the patient is fatigued appearing but no acute distress, afebrile with heart rate in the 30s but blood pressure normal to hypertensive. Patient is mentating normally. Bedside echo was negative for pericardial effusion but does show bilateral moderate to large pleural effusions left greater than right. EF is grossly normal. WBC within normal limits. H/H 11.5/34.9 without prior recent values for comparison. Platelets within normal limits. Chemistry with sodium of 145 consistent with the patient's clinically dry appearance. Anion is 1.5 with BUN of 31 consistent with the patient's clinical dry appearance and new from recent. LFTs elevated with AST 99 and ALT 989, nonspecific. Troponin within normal limits 0.023. Reviewed the patient's medications with the patient and her family at the bedside. The family reports that she recently had her amlodipine increased from 5 mg to 10 mg 2 weeks ago and following that began to feel nauseated and had decreased oral intake. She is also on timolol drops which certainly could contribute to the patient's symptoms however is unclear how compliant she is with these medications. Case was reviewed with Dr. Burnett, not any cardiology on-call, and we agree that given the patient is currently mentating normally at her baseline and with stable blood pressure no indication for emergent transvenous or transcutaneous pacing. Agrees with keeping transcutaneous pads on as precaution, Hold Timolol gtts, and admission for [facility] management. Case was discussed with Dr. Kenyon, [facility] hospitalist, who will evaluate the patient for admission. Subsequently the patient had a 20-32nd episode of polymorphic V. tach where she continued to mentate and maintain blood pressures but was symptomatic with heaviness in her chest. Upon resolution of the V. tach she resumed in a bradycardic rhythm with complete heart block. She was ordered for 1 g of magnesium though her exam level was within normal limits. This episode was reviewed with Dr. Kenyon [place] hospitalist. Additionally updated Dr. Burnett, cardiology, regarding the patient's episode and given the patient is continued to mentate with stable blood pressures does not feel emergent pacing is necessary. Could trial transcutaneous pacing if need/if patient is able to tolerate. Can hold anti-arrhythmics (Lidocaine or Amiodarone) for now. TC pacing was attempted however while initially able to obtain mechanical capture subsequently it was lost despite increasing to 40 mA at which point the patient was becoming more restless despite anxiolytic and analgesia, likely further exacerbated in the setting of her dementia; frequently forgetting the explanation of why she was feeling this sensation. ICU JUVENTINO Gaines additionally discussed the case with Dr. Welch, ICU dope heater and subsequently with Dr. Nj, interventional cardiology. Given patient is main taining stable BP and mentation can hold TC pacing at this time and no emergent need for TV pacing however he will be available overnight if emergent pacing is required. Impression & Plan CHB (complete heart block), Syncope, Hypernatremia, Non-sustained ventricular tachycardia, Pleural effusion, bilateral Discharge Plan Visit Data *Final* Discharge Date/Time: 10/16/19 22:04 Chief Complaint: Syncope Stated Complaint: SYNCOPE X 2, ED Provider: Chance Chinchilla Discharge Problem: CHB (complete heart block), Syncope, Hypernatremia, Non-sustained ventricular tachycardia, Pleural effusion, bilateral Patient Disposition: Admitted As Inpatient Discharge Instructions Interventions: ED Discharge Assessment Last Done: 10/16/19 22:04 Discharge Problem: Syncope Qualifiers: Syncope type: unspecified Qualified Code(s): R55 - Syncope and collapse The scribe's documentation has been prepared under my direction and personally reviewed by me in its entirety. I confirm that the note above accurately reflects all work, treatment, procedures, and medical decision making performed by me.
[2019-10-16 19:38] LABS: Appearance Urine Slightly Cloudy (Clear); Bilirubin Urine Negative (Negative); Blood Urine Trace (Negative); Color Urine Yellow; Glucose Urine UA Negative (Negative); Ketones Urine Negative (Negative); Leukocyte Esterase Urine Negative (Negative); Nitrite Urine Positive (Negative); Protein Urine 2+ (Negative); Specific Gravity Urine >= 1.030 (1.000-1.030); Urobilinogen Urine Negative (Negative); pH Urine 5.5 (4.5-7.5)
[2019-10-16 19:55] LABS: Bacteria Urine 4+ (Negative); Epithelial Cell Urine >30 /lpf (0-5); Hyaline Casts Urine 0-5 /lpf (0-5); RBC Urine 0-4 /hpf (0-4); Renal Epithelial Cells Urine 0-5 /lpf (0-5)
[2019-10-16] MEDS ORDERED: MAGNESIUM SULFATE / D5W 1 GM/100 ML BAG IV ONE (20:35)
[2019-10-16] MEDS ORDERED: LORazepam 2 MG/4 ML VIAL ONE (20:54)
[2019-10-16] MEDS ORDERED: fentaNYL citrate 100 MCG/2 ML VIAL ONE (21:23)
--- NOTE | 2019-10-16 21:30 | History & Physical Report ---
Date of Service October 16, 2019 Assessment & Plan (1) Third degree heart block: Ms. Head is a 83-year-old very pleasant female with a past medical history of hemorrhagic CVA, hypertension, dementia, impaired fasting glucose, GERD, hyperlipidemia and glaucoma who was brought to [facility] by ALS due to 2 syncopal episodes prior to arrival. ED course: 500 mL normal saline bolus, 1 g magnesium sulfate, 0.5 mg IV Ativan, 50 mcg IV fentanyl Third-degree heart block with intermittent runs of ventricular tachycardia -Admit to ICU -Patient does not have a prior cardiac history -No precipitating medications on patient's home list, patient is not on a beta- kasey -Patient with elevated blood pressure -200/60 at the time of my examination. Patient asymptomatic and mentating well -Suspect syncopal episodes at home are related to episodes of ventricular tachycardia as opposed to bradycardia -pacer pads in place in case transcutaneous pacing becomes necessary -Rest of management per ICU Left-sided pleural effusion -Chest x-ray revealed moderate to large left-sided pleural effusion with left basilar opacity -Continue oxygen as needed to maintain saturations greater than 94% -will order CT of chest to further evaluate Transaminitis -LFTs elevated on arrival, with an AST of 99, an ALT of 89 and an alk phos of 170 -Likely related to hepatic congestion, however will order a CT abdomen and pelvis to evaluate further Acute kidney injury -Creatinine 1.56 on admission, elevated from normal baseline of 1 -likely prerenal in etiology, related to poor forward flow -avoid nephrotoxic agents -dukes in place, monitor I/Os Positive UA -Urine positive for protein, blood, nitrite, white cells and bacteria as well as epithelial cells -Urine sent for culture -Patient asymptomatic, will defer treatment at this time History of CVA -Patient has a history of hemorrhagic CVA, does not have any residual deficits -Noncontrast CT head ordered Hypertension -Hold home antihypertensives GERD -Hold home PPI given n.p.o. Impaired fasting glucose -Glucose 124 on arrival -Most recent HbA1c was 6.1% -ICU hyperglycemia protocol Dyslipidemia -Hold home atorvastatin given n.p.o. Dementia -Hold home memantine given n.p.o. Glaucoma -Hold home eyedrops CODE STATUS: Extensive discussion was had with the family [2 sisters], as well as the patient, who decided on a FULL CODE STATUS DVT prophylaxis: Heparin 5000 units subcutaneous twice daily Disposition: Admit to ICU (2) Ventricular tachycardia: (3) Esophageal reflux: (4) Impaired fasting glucose: (5) Dyslipidemia: (6) Cerebral ischemia: (7) Dementia: (8) Depression: (9) Glaucoma: (10) Hypertension: History of Present Illness Chief Complaint: Bradycardia Primary Care Provider: Brian Sanchez MD Ms. Head is a 83-year-old very pleasant female with a past medical history of hemorrhagic CVA, hypertension, dementia, impaired fasting glucose, GERD, hyperlipidemia and glaucoma who was brought to [facility] by ALS due to 2 syncopal episodes prior to arrival. Per EMS, patient was in third- degree heart block, and had 2 brief runs of V. tach en route to the hospital. History is largely supplied by the family, as Ms. Head is pleasantly demented and is unsure of the circumstances that brought her into the hospital. Her 2 sisters at the bedside [whom she lives with] report that she was in her usual state of health until earlier this evening. They state that she has 2 separate syncopal episodes. Her sisters were present for these, and states that she did not fall, or hit her head. States states that she was shaking her extremities, but denies a prior history of seizures, and states that she did not bite her tongue, or have any incontinence. Her sister states that she does not have any history of prior heart problems. They do report that her blood pressure medications were changed recently. She was on metoprolol in the past, however this was discontinued, and she is currently on lisinopril and amlodipine. With regards to her history of hemorrhagic CVA, she was life flighted from [facility] to [place] for this approximately 10 years ago. She does not have any residual deficits from this. Ms. Head reports that she feels well at the current time. She denies any chest pain, or shortness of breath. She is aware that she is at [facility], but believes it is the year 1936. Allergies Allergy/AdvReac Type Severity Reaction Status Date / Time aspirin Allergy Verified 09/10/19 11:13 Sulfa (Sulfonamide Allergy Verified 09/10/19 11:13 Antibiotics) Home Medications Home Medications Medication Instructions Recorded Confirmed Type melatonin 3 mg tablet 3 mg PO HS PRN tab 06/21/19 10/16/19 History timolol maleate 0.5 % eye drops 1 drops OPHTHALMIC (EYE) DAILY ml 06/21/19 10/16/19 History calcium carbonate 600 mg calcium 600 mg PO DAILY tab 08/17/19 10/16/19 History (1,500 mg) tablet docusate sodium 100 mg capsule 100 mg PO BID PRN #60 cap 08/17/19 10/16/19 History vit C,O-Kx-uepvuy-lutein-zeaxan 60 1 cap PO DAILY cap 08/17/19 10/16/19 History mg-13.5 mg-15 mg-2 mg-6 mg capsule potassium chloride 20 mEq 20 meq PO DAILY #90 tab 09/06/19 10/16/19 Rx tablet,extended release memantine 10 mg tablet 10 mg PO BID 90 Days #180 tab 09/10/19 10/16/19 Rx amlodipine 10 mg tablet 10 mg PO DAILY #90 tab 09/27/19 10/16/19 Rx atorvastatin 20 mg tablet 20 mg PO HS #90 tab 09/27/19 10/16/19 Rx lisinopril 40 mg tablet 40 mg PO DAILY #90 tab 09/27/19 10/16/19 Rx omeprazole 20 mg capsule,delayed 20 mg PO DAILY #90 cap 09/27/19 10/16/19 Rx release Past Med/Surg History Medical History Anxiety (Chronic) Bradycardia 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) Cerebral ischemia (Acute) Dementia (Chronic) Depression (Chronic) Dyslipidemia (Chronic) Esophageal reflux Fibromyalgia (Chronic) Glaucoma (Chronic) Hemiparesis (Acute) Hypertension (Chronic) Impaired fasting glucose (Chronic) Migraine headache (Chronic) Family History Brother Diabetes Colon cancer Prostate cancer Mother CHF (congestive heart failure) Tobacco use Sister Diabetes Glaucoma Macular degeneration Father Prostate cancer Tobacco use Pneumonia Daughter [place] disease Social History Preferred Language: Hungarian Communication Ability: Effective Patient Care Assistant Required: No Beliefs That Will Affect Care: None Current Living Situation: Family Current Living Situation Comment: lives w/ sisters Other Information That Helps Us Care for You: No Feels Safe at Home: Yes Safety Concerns: Feels Safe At This Time Smoking Status: Never smoker Do You Dip or Chew Tobacco: No ; Second Hand Exposure: No ; Tobacco Cessation Education Requested by Patient: No Hx Alcohol Use: No Hx Substance Use: No Review of Systems Constitutional: no fever, no chills and no fatigue Respiratory: no cough, no dyspnea and no wheezing Cardiovascular: + syncope; no chest pain, no palpitations, no edema and no calf pain Gastrointestinal: no abdominal pain, no nausea, no vomiting and no change in bowel habits Genitourinary: no difficulty urinating Musculoskeletal: no back pain Physical Exam Constitutional: WD/WN, vitals as above no acute distress Eyes: PERRL, conjunctivae normal, anicteric sclerae ENMT: external ear and nose normal, oropharynx normal Respiratory: normal respiratory effort; no respiratory distress and no labored breathing Diminished breath sounds over left lung Cardiovascular: Rate/Rhythm: + bradycardic Extremities: normal capillary refill; no calf tenderness and no pedal edema Gastrointestinal (Abdomen): normal bowel sounds, soft, nontender, no hepatosplenomegaly Musculoskeletal: no cyanosis or clubbing, extremities motor strength 5/5 Skin: no rashes, warm and dry Neurologic: PERRL, EOMI, accommodation nl, no face palsy, no dysarthria moves all extremities; no focal motor deficits Motor/Sensory: no tremor Psychiatric: Orientation: alert Oriented to person and location, however not to time Results & Data Vital Signs (Past 12 Hours) Vital Signs Temp Pulse Pulse Resp BP BP Pulse Ox 10/16/19 21:00 28 L 20 216/60 H 90 10/16/19 20:33 30 L 12 220/58 H 90 10/16/19 20:03 35 L 18 215/58 H 90 10/16/19 19:33 28 L 12 215/58 H 92 10/16/19 19:02 38 L 14 91 10/16/19 18:59 36.4 C L 32 L 15 210/100 H 93 10/16/19 18:55 210/100 H Code Status & VTE Plan VTE Prophylaxis Plan VTE Prophylaxis will be ordered: Yes Critical Care Time Critical Care Time: Yes Total Critical Care Time: 55 Total critical care time was 55 minutes Supervising Physician Co-Signing Physician Notes Attending addendum: I have physically seen this patient, have supervised the medical residents activities, and agree with the H&P unless as otherwise noted. Assessment and Plan: Third-degree heart block/escape ventricular tachycardia- Admit to the ICU Heart rate in the upper 20s to low 30s, with systolic blood pressure in the 200s. Syncopal episodes at home most likely related to V. tach as opposed to her third-degree heart block. Pacer pads in place. Would likely need an AICD. Hold atenolol and discussed with ophthalmology alternative glaucoma medications. 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 Anasarca/left-sided pleural effusion- CT to further assess. Echocardiogram to further assess. Remainder of orders and notations as noted, and per consultants. Resident Activity Tracking Resident Involvement: Resident Care Provided Care Provided: Adult Hospital Medicine
--- NOTE | 2019-10-16 22:01 | Critical Care Consultation ---
Date of Consultation October 16, 2019 History of Present Illness Allergies Allergy/AdvReac Type Severity Reaction Status Date / Time aspirin Allergy Verified 09/10/19 11:13 Sulfa (Sulfonamide Allergy Verified 09/10/19 11:13 Antibiotics) Home Medications Home Medications Medication Instructions Recorded Confirmed Type melatonin 3 mg tablet 3 mg PO HS PRN tab 06/21/19 10/16/19 History timolol maleate 0.5 % eye drops 1 drops OPHTHALMIC (EYE) DAILY ml 06/21/19 10/16/19 History calcium carbonate 600 mg calcium 600 mg PO DAILY tab 08/17/19 10/16/19 History (1,500 mg) tablet docusate sodium 100 mg capsule 100 mg PO BID PRN #60 cap 08/17/19 10/16/19 History vit C,A-Wo-teoiqo-lutein-zeaxan 60 1 cap PO DAILY cap 08/17/19 10/16/19 History mg-13.5 mg-15 mg-2 mg-6 mg capsule potassium chloride 20 mEq 20 meq PO DAILY #90 tab 09/06/19 10/16/19 Rx tablet,extended release memantine 10 mg tablet 10 mg PO BID 90 Days #180 tab 09/10/19 10/16/19 Rx amlodipine 10 mg tablet 10 mg PO DAILY #90 tab 09/27/19 10/16/19 Rx atorvastatin 20 mg tablet 20 mg PO HS #90 tab 09/27/19 10/16/19 Rx lisinopril 40 mg tablet 40 mg PO DAILY #90 tab 09/27/19 10/16/19 Rx omeprazole 20 mg capsule,delayed 20 mg PO DAILY #90 cap 09/27/19 10/16/19 Rx release Patient History Medical History Anxiety (Chronic) Bradycardia 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) Cerebral ischemia (Acute) Dementia (Chronic) Depression (Chronic) Dyslipidemia (Chronic) Esophageal reflux Fibromyalgia (Chronic) Glaucoma (Chronic) Hemiparesis (Acute) Hypertension (Chronic) Impaired fasting glucose (Chronic) Migraine headache (Chronic) Family History Brother Diabetes Colon cancer Prostate cancer Mother CHF (congestive heart failure) Tobacco use Sister Diabetes Glaucoma Macular degeneration Father Prostate cancer Tobacco use Pneumonia Daughter Dea disease Social History Feels Safe at Home: Yes Smoking Status: Unknown if ever smoked Results & Data Vital Signs (Past 12 Hours) Vital Signs Temp Pulse Pulse Resp BP BP Pulse Ox 10/16/19 21:30 28 L 14 200/60 H 92 10/16/19 21:00 28 L 20 216/60 H 90 10/16/19 20:33 30 L 12 220/58 H 90 10/16/19 20:03 35 L 18 215/58 H 90 10/16/19 19:33 28 L 12 215/58 H 92 10/16/19 19:02 38 L 14 91 10/16/19 18:59 36.4 C L 32 L 15 210/100 H 93 10/16/19 18:55 210/100 H
--- NOTE | 2019-10-16 22:28 | CT Scan Report ---
CT OF THE HEAD WITHOUT CONTRAST CLINICAL HISTORY: hx cva, bradycardic, r/o stroke COMPARISON STUDY: Head CT October 04, 2015. CT DOSE: 1270.46 mGy.cm TECHNIQUE: Helical axial images of the head were obtained without IV contrast. Automated exposure con trol was utilized for the study. A dose lowering technique was utilized adhering to the principles o f ALARA. FINDINGS: No acute intracranial hemorrhage, midline shift or mass effect is present. Ventricular syst em is stable. Old left basal ganglia infarct is noted. White matter hypodensity has slightly progress ed. This suggests small vessel disease. There are no findings to suggest acute dural sinus thrombosis or acute territorial infarct. The basilar cisterns are patent. There are no extra axial collections. There are no significant calvarial abnormalities. IMPRESSION: 1. No acute intracranial findings. 2. No significant change in appearance of the brain. Old left basal ganglia infarct. Electronically signed by: Genaro Encinas M.D. 10/16/2019 10:25 PM
--- NOTE | 2019-10-16 22:34 | CT Scan Report ---
CT OF THE CHEST WITHOUT IV CONTRAST CLINICAL HISTORY: Shortness of breath. COMPARISON STUDY: Chest radiograph October 02, 2015 and October 16, 2019 at 7:09 PM. TECHNIQUE: Axial images of the chest were obtained without IV contrast. Images were reviewed in the axial, sagittal, and coronal planes. IV contrast was not administered for this examination. Automat ed exposure control was utilized for the study. A dose lowering technique was utilized adhering to t he principles of ALARA. FINDINGS: No enlarged axillary, mediastinal or hilar lymph nodes are present. The heart is moderatel y enlarged. Moderate coronary artery calcification is noted. There is no pericardial effusion. Multip le thyroid nodules are noted, including a exophytic nodule arising from the lower pole of the left lo be. Moderate bilateral pleural effusions, left larger than right, are noted. Extensive left lower lob e opacity with volume loss is noted. There is no pneumothorax. Mild interstitial pulmonary edema is n oted. Numerous solid pulmonary nodules measure up to 4 mm. There are additional groundglass nodular o pacities within the lungs. Bony thorax is unremarkable. Abdomen and pelvis will be reported separatel y. IMPRESSION: 1. Mild pulmonary edema with moderate bilateral pleural effusions, left larger than right. Extensive left lower lobe opacity which favors atelectasis although consolidation could appear similar. 2. Numerous indeterminate small solid and groundglass nodules within the lungs. A follow up chest CT in 3 months is recommended. 3. Moderate cardiomegaly and coronary artery calcification. Electronically signed by: Genaro Encinas M.D. 10/16/2019 10:33 PM
--- NOTE | 2019-10-16 22:40 | CT Scan Report ---
CT OF THE ABDOMEN AND PELVIS WITHOUT CONTRAST CLINICAL HISTORY: transaminitis, assess liver COMPARISON STUDY: CT of the abdomen May 18, 2010. TECHNIQUE: Axial images of the abdomen and pelvis were obtained without IV contrast. Images were revi ewed in the axial, sagittal, and coronal planes. Automated exposure control was utilized for the stefanie dy. A dose lowering technique was utilized adhering to the principles of ALARA. FINDINGS: Please note that the chest CT will be reported separately. Evaluation of the abdomen and pe lvis is suboptimal on this unenhanced examination. Unenhanced images of the liver, spleen, adrenal gl ands, right kidney and pancreas are unremarkable. There is a left renal cysts, as shown on prior cont rast enhanced CT. There is no biliary or pancreatic ductal dilatation. There is no evidence for a bow el obstruction. The appendix is normal. Bueno balloon is noted within the bladder which is collapsed. There is no ascites or lymphadenopathy. There are no suspicious osseous lesions. No hydronephrosis i s present. Caliber of the abdominal aorta is normal. There is moderate atherosclerotic plaque. No hem operitoneum or pneumoperitoneum is present. IMPRESSION: 1. No acute process within the abdomen or pelvis on unenhanced exam. 2. No biliary or pancreatic ductal dilatation. 3. Left renal cyst. 4. No bowel obstruction. Normal appendix. Electronically signed by: Genaro Encinas M.D. 10/16/2019 10:38 PM
[2019-10-16] MEDS ORDERED: ICU PROTOCOL FOR HYPERGLYCEMIA PRN (22:41)
--- NOTE | 2019-10-16 23:30 | Critical Care Consultation ---
Date of Consultation October 16, 2019 Assessment & Plan (1) Admitted to intensive care unit: Reason Critically Ill: 83-year-old female with profound bradycardia and symptomatic runs of ventricular tachyarrhythmia requiring close hemodynamic monitoring and possible need for transcutaneous versus transvenous pacing. NEURO - * CAM ICU: NEGATIVE * Dementia: * Continue home Rx as prescribed. * h/o Hemorrhagic CVA: * w/o significant residual deficits. * Monitor neuro status. * Will add CT head to r/o other possible contributing factors of bradycardia (i.e. cerebral edema) however much less likely given patient's current state of mentation. CARDIAC/VASCULAR - * Complete Heart Block: * With profound bradycardia. * Patient has h/o bradycardia w/ HRs in the 30s at baseline. * Uncertain as to acuity of CHB, however. * Patient has remained hemodynamically stable and actually hypertensive thro ughout. Assume patient to be reliant on afterload for consistent perfusion as a compensation for her profound bradycardia. * Will allow permissive HTN at this time. * Will not pace as she is completely asymptomatic at this juncture. * Concerns for a Tachy-Byron pattern w/ breakthrough escape V-tach rhythms. * Received mag load in the ED. * Continue to monitor for sustained V-tach. * Would consider addition of dopamine, dobutamine, or isoproterenol if patient becomes symptomatic. * Will check Lyme for sake of completion. Will be on Rocephin regardless for UTI/PNA. * Will defer to cardiology for further recommendations as to pacer/defibrillator necessity. * EKG: Complete heart block w/ marked bradycardia. QTc 448ms. * Monitor on telemetry. RESPIRATORY - * Hypoxia: * concerns for pulmonary edema with bilateral pleural effusions. * ??infectious consolidation in the LLL. * Will cover w/ Rocephin in the setting of UTI. * Supplemental O2 PRN GI/NUTRITION - * NPO pending possible need for emergent transvenous pacer placement. * Elevated liver enzymes. * ??congestive changes for decreased forward flow 2/2 above. * Will trend. RENAL/LYTES - * ROSY: * Received IVF in the ED. * Would avoid further aggressive IVF in the setting of profound HTN and pulmonary edema. - * UTI: * Will cover w/ Rocephin. * Bueno in place - Strict I&Os. ENDO - * No h/o DM or Thyroid Dz * BSGs per unit protocol. ISS --> gtt per unit policy. HEME - * Stable H&H ID - * UTI w/ ??LLL PNA: * Will cover w/ Rocephin LINES/IV ACCESS - * PIVs x2 * Bueno DVT PROPHYLAXIS - * Heparin sq * SCDs CODE STATUS - * Had an extensive conversation with patient r and family at bedside. In addition, I did speak with the patient's son, Ari ([phone]), regarding previous discussions of CODE STATUS and aggressive measures. At this point, they all agreed with proceeding with full CODE STATUS in the event of any cardiovascular collapse or respiratory event. I have personally spent 60 minutes of critical care time in the direct management of this patient. This is a life/limb threatening event. This includes time spent evaluating patient, direct bedside care, chart review, placing orders, interpretation of diagnostic studies, discussion with consultants, patient, and family members, as well as other required patient management activities. This time is exclusive of all separately billable procedures, and teaching time and separate from and in addition to any other critical care service time. Thank you for allowing us to participate in the care of this patient. Please refer to my attending physician's documentation for any further recommendations. (2) CHB (complete heart block): (3) Non-sustained ventricular tachycardia: (4) Syncope: (5) Ventricular tachycardia: (6) Third degree heart block: (7) Pleural effusion, bilateral: (8) Glaucoma: (9) Dyslipidemia: History of Present Illness Attending Physician: Kam Kenyon MD History of Present Illness Patient is an 83-year-old female with a significant past medical history of hypertension, hemorrhagic CVA, glaucoma, dementia, and carotid artery occlusion who presented to the emergency department via EMS secondary to syncope episodes x2. Per family, the patient was noted to have 2 separate episodes of loss of consciousness. Upon EMS arrival, the patient was noted to be bradycardic. The patient went into V. tach transiently as well. She has had increase in her blood pressure medications recently. She is on no beta-blockers. She does have history of bradycardia at baseline. While in the emergency department, the patient was noted to be in complete heart block with a rate in the 20s to 30s. She is mentating well despite her heart rate. Blood pressures been hypertensive with systolic blood pressures in the 200s. She did have an additional run of V. tach lasting 20 to 30 seconds during which time the patient complained of heaviness in her chest. She remained awake throughout this. She received IV magnesium with concerns for polymorphic V. tach. After conversation with cardiology, the patient had a trial of transcutaneous pacing. Despite pacing, the patient had no change in blood pressure. She remained mentating throughout. Upon evaluation in the emergency department, the patient is awake, alert, and oriented to place and date of . Apparently short-term memory is difficult for the patient since her CVA. I did discuss the case with my attending physician and subsequently spoke with interventional cardiology. At this point, interventionalist agrees with avoiding transcutaneous pacing if the patient remains hemodynamically stable and mentating well otherwise. Additionally, he would avoid medications unless absolutely necessary. He agrees that he would be available by phone in the event of need for emergent transvenous pacemaker placement. Allergies Allergy/AdvReac Type Severity Reaction Status Date / Time aspirin Allergy Verified 09/10/19 11:13 Sulfa (Sulfonamide Allergy Verified 09/10/19 11:13 Antibiotics) Home Medications Home Medications Medication Instructions Recorded Confirmed Type melatonin 3 mg tablet 3 mg PO HS PRN tab 06/21/19 10/16/19 History timolol maleate 0.5 % eye drops 1 drops OPHTHALMIC (EYE) DAILY ml 06/21/19 10/16/19 History calcium carbonate 600 mg calcium 600 mg PO DAILY tab 08/17/19 10/16/19 History (1,500 mg) tablet docusate sodium 100 mg capsule 100 mg PO BID PRN #60 cap 08/17/19 10/16/19 History vit C,G-Fi-twcqsb-lutein-zeaxan 60 1 cap PO DAILY cap 08/17/19 10/16/19 History mg-13.5 mg-15 mg-2 mg-6 mg capsule potassium chloride 20 mEq 20 meq PO DAILY #90 tab 09/06/19 10/16/19 Rx tablet,extended release memantine 10 mg tablet 10 mg PO BID 90 Days #180 tab 09/10/19 10/16/19 Rx amlodipine 10 mg tablet 10 mg PO DAILY #90 tab 09/27/19 10/16/19 Rx atorvastatin 20 mg tablet 20 mg PO HS #90 tab 09/27/19 10/16/19 Rx lisinopril 40 mg tablet 40 mg PO DAILY #90 tab 09/27/19 10/16/19 Rx omeprazole 20 mg capsule,delayed 20 mg PO DAILY #90 cap 09/27/19 10/16/19 Rx release Patient History Medical History Anxiety (Chronic) Bradycardia 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) Cerebral ischemia (Acute) Dementia (Chronic) Depression (Chronic) Dyslipidemia (Chronic) Esophageal reflux Fibromyalgia (Chronic) Glaucoma (Chronic) Hemiparesis (Acute) Hypertension (Chronic) Impaired fasting glucose (Chronic) Migraine headache (Chronic) Family History Brother Diabetes Colon cancer Prostate cancer Mother CHF (congestive heart failure) Tobacco use Sister Diabetes Glaucoma Macular degeneration Father Prostate cancer Tobacco use Pneumonia Daughter [place]a disease Social History Preferred Language: Latvian Communication Ability: Effective Manager Of Patient Required: No Beliefs That Will Affect Care: None Current Living Situation: Family Current Living Situation Comment: lives w/ sisters Other Information That Helps Us Care for You: No Feels Safe at Home: Yes Safety Concerns: Feels Safe At This Time Smoking Status: Never smoker Do You Dip or Chew Tobacco: No ; Second Hand Exposure: No ; Tobacco Cessation Education Requested by Patient: No Hx Alcohol Use: No Hx Substance Use: No Review of Systems Review of Systems: A complete 10 point review of systems was reviewed with the patient with pertinent positives and negatives as per history of present illness. All else were negative. Physical Exam Physical Exam: VITAL SIGNS - Vital signs and nursing notes were reviewed. GENERAL - 83-year-old female appearing her stated age who is in no acute distress. Communicates well with provider and answers questions appropriately. Short term memory seems to be an issue. SKIN - Without rashes. HEAD - NC/AT. EYES - PERRL with EOMI bilaterally. Sclera anicteric. Palpebral conjunctiva pink and moist with no injection noted. EARS - No deformities of external structures noted on gross examination bilaterally. NOSE - Midline and without cyanosis. No epistaxis or purulent drainage noted. MOUTH/OROPHARYNX - Without perioral cyanosis. Buccal mucosa pink and moist and without leukoplakia. Tongue midline with equal elevation of palate bilaterally. NECK - Neck with FROM. Supple to palpation. No nuchal rigidity. LUNGS - Chest wall symmetric without accessory muscle use, intercostals retractions, or central cyanosis. Normal vesicular breath sounds CTA B/L. No wheezes, rales, or rhonchi appreciated. CARDIAC - RRR with S1/S2. No murmur, rubs, or gallops appreciated. ABDOMEN - Abdominal contour flat without pulsations or visible masses. BS normoactive all four quadrants. No tenderness, palpable masses, hepatospl enomegaly, or ascites noted. EXTREMITIES - No clubbing or peripheral cyanosis. No pretibial edema present. +3/5 radial and dorsalis pedis pulses palpated throughout. +5/5 strength noted in UE/LE bilaterally. NEUROLOGIC - Cranial nerves II through XII grossly intact. Sensory intact to light touch throughout. PSYCH -patient is alert and oriented to location, date of , remote memory, but with minimal short-term memory. Results & Data Vital Signs (Past 12 Hours) Vital Signs Temp Pulse Pulse Resp BP BP Pulse Ox 10/16/19 22:57 36.6 C 38 L 20 130/80 93 10/16/19 22:04 28 L 14 215/62 H 92 10/16/19 21:30 28 L 14 200/60 H 92 10/16/19 21:00 28 L 20 216/60 H 90 10/16/19 20:33 30 L 12 220/58 H 90 10/16/19 20:03 35 L 18 215/58 H 90 10/16/19 19:33 28 L 12 215/58 H 92 10/16/19 19:02 38 L 14 91 10/16/19 18:59 36.4 C L 32 L 15 210/100 H 93 10/16/19 18:55 210/100 H Coding Level of Care Code Critical Care 1st 30-74 mins Diagnoses Admitted to intensive care unit Z78.9 CHB (complete heart block) I44.2 Non-sustained ventricular tachycardia I47.2 Syncope R55 Syncope type: unspecified Ventricular tachycardia I47.2 Third degree heart block I44.2 Pleural effusion, bilateral J90 Glaucoma H40.9 Dyslipidemia E78.5 (1) Syncope Syncope type: unspecified Qualified Code(s): R55 - Syncope and collapse
--- NOTE | 2019-10-16 23:33 | Procedure Note ---
Procedure Note Date of Service October 16, 2019 Procedure: Arterial Line Placement Attending: Dr. Welch APC: Girish Gaines PA-C Indication: Monitoring on Pressors Anesthesia: Lidocaine 1% Patient is extremely bradycardic with heart rates in the 20s to 30s precluding the use of standard and IVP blood pressure readings and making manual blood pressure readings extremely difficult. After extensive conversation with patient and family, they are agreeable to performing arterial line for close hemodynamic monitoring, particularly in the bradycardic patient with occasional runs of V. tach. Indication, risks, and benefits were explained at length. Emergent consent implied given the lack of ability to perform blood pressure readings and need for immediate close monitoring. A time-out was completed verifying correct patient, procedure, site, positioning, and implant(s) or special equipment if applicable. Allens test was performed to ensure adequate perfusion. Patients LEFT wrist was prepped and draped in the usual sterile fashion. Ultrasound guidance was used to aid needle placement. A 20g Arrow arterial line was introduced into the LEFT Radial artery. Catheter was threaded, and the needle was removed with appropriate blood return. Good waveform was observed. The patient tolerated the procedure well. Confirmation of placement with ultrasound. Blood Loss: Minimal Complications: None Procedural Ultrasound Guidance: Procedure Date: 10/16/2019 Indication: BP monitoring, Frequent lab draws, ABGs, etc. Attending: Dr. Welch APC: Girish Gaines PA-C Artery Identified: YES Line confirmed in Artery with ultrasound: YES Complications: NONE Patient tolerated procedure: WELL Coding CPT Codes Tubes, Drains, and Vasc Access - Tubes, Drains, and Vasc Access: [id number] Insertion Catheter, Artery ([id number])
[2019-10-17] MEDS: cefTRIAXone SODIUM 1,000 MG in DEXTROSE 5% 50 ML IV SCH (00:38)
[2019-10-17 01:10] LABS: Lyme Ab IgG w/WB Rflx Negative (Negative); Lyme Ab IgM w/WB Rflx Negative (Negative)
[2019-10-17] MEDS ORDERED: PNEUMOCOCCAL Polysaccharide Vaccine 25mcg/0.5mL vial/Syr IM ONE (04:00)
[2019-10-17 04:52] LABS: Basophils # (auto) 0.04 K/uL (0-0.2); Basophils % (auto) 0.4 %; Eosinophils # (auto) 0.05 K/uL (0-0.5); Eosinophils % (auto) 0.5 %; Hematocrit (blood only) 33.1 % (37-47); Hemoglobin 10.9 g/dL (12.0-16.0); Immature Granulocytes # (auto) 0.02 K/uL (0.00-0.02); Immature Granulocytes % (auto) 0.2 %; Lymphocytes # (auto) 2.76 K/uL (1.2-3.4); Lymphocytes % (auto) 27.5 %; Mean Corpuscular Hemoglobin 30.7 pg (25-34); Mean Corpuscular Hgb Conc 32.9 g/dL (32-36); Mean Corpuscular Volume 93.2 fL (80-100); Mean Platelet Volume 10.8 fL (7.4-10.4); Monocytes # (auto) 0.78 K/uL (0.11-0.59); Monocytes % (auto) 7.8 %; Neutrophils # (auto) 6.37 K/uL (1.4-6.5); Neutrophils % (auto) 63.6 %; Platelet Count 232 K/uL (130-400); RDW Coefficient of Variation 14.2 % (11.5-14.5); RDW Standard Deviation 48.7 fL (36.4-46.3); Red Blood Count 3.55 M/uL (4.2-5.4); White Blood Count 10.02 K/uL (4.8-10.8)
[2019-10-17] MEDS ORDERED: MAGNESIUM SULFATE / D5W 1 GM/100 ML BAG IV ONE (04:59)
[2019-10-17 05:13] LABS: Albumin Level 2.7 gm/dl (3.4-5.0); BUN Creatinine Ratio 20.1 (10-20); Bilirubin Direct 0.1 mg/dl (0-0.2); Calcium 8.5 mg/dl (8.5-10.1); Creatinine Clr Calc Pharmacy 26.8 ml/min; Est GFR (African American) 44.6; Est GFR (Non-African American) 38.4; Magnesium 2.9 mg/dl (1.8-2.4); Potassium 4.3 mmol/L (3.5-5.1)
[2019-10-17] MEDS ORDERED: ICU PROTOCOL FOR HYPERGLYCEMIA PRN (05:36)
[2019-10-17 05:40] LABS: Bilirubin,Total 0.4 mg/dl (0.2-1); Phosphorus 4.1 mg/dl (2.5-4.9); Total Protein 6.6 gm/dl (6.4-8.2); Troponin I 0.026 ng/ml (0-0.045)
[2019-10-17] MEDS ORDERED: HydrALAZINE HCL 20 MG/ML VIAL IV STA ×2 (09:26→11:46)
[2019-10-17] MEDS ORDERED: HEPARIN (PORCINE) 1000 UNIT/ML 10 ML (CATH LAB USE ONLY) ONE (09:49)
[2019-10-17] MEDS ORDERED: NiCARDipine HCL INJ 2.5 MG/ML 10 ML AMP ONE (09:49)
[2019-10-17] MEDS ORDERED: NITROGLYCERIN/D5W 100MCG/ML 20ML SYR ONE (09:50)
[2019-10-17] MEDS ORDERED: MIDAZOLAM HCL 1 MG/ML 2ML VIAL ONE (09:50)
[2019-10-17] MEDS ORDERED: fentaNYL citrate 100 MCG/2 ML VIAL ONE (09:50)
--- NOTE | 2019-10-17 10:15 | Post Operative Brief Note ---
Cardiology Brief Post Op Date of Surgery October 17, 2019 Pre & Post Diagnosis Operation Date: 10/17/19 10:00 CHB and need for temp pacer Procedure 6 albanian IJ line placed under US guidance. A temp Pacer was placed in the right IJ. Confirmed by mo. Loss of capture at 0.3MA pacer set at 2ma. sutured in place Molder Vacuum Margarita Nj Driver Salesman none Estimated Blood Loss 0 Findings Consistent with Post-Op Diagnosis Pacer dependant Complications none Disposition Accompanied Patient To Recovery: Yes Disposition: Surgical ICU Overlapping Procedure I was immediately available: during the entire case.
[2019-10-17] MEDS: HEPARIN SOD 5,000 UNIT/0.5 ML VIAL SQ SCH ×2 (12:04→19:47)
[2019-10-17] MEDS ORDERED: ACETAMINOPHEN 325 MG TAB ONE (13:38)
--- NOTE | 2019-10-17 14:05 | Cardiology Consultation ---
Date of Consultation October 17, 2019 Assessment & Plan (1) Syncope: It appears that the patient's syncopal events were likely secondary to polymorphic ventricular tachycardia. Have asked Dr. Margarita Nj to place a temporary ventricular pacemaker as this will likely reduce the chance of re current ventricular tachycardia. Discussed the case with Dr. Palmer who agrees. (2) CHB (complete heart block): As above, we will proceed with a temporary ventricular pacemaker. Will ask Dr. Jenkins to place a permanent pacemaker tomorrow. (3) Ventricular tachycardia: Polymorphic ventricular tachycardia likely related to her profound bradycardia and complete heart block. As above, we will place a temporary ventricular pacemaker to reduce the chance of recurrence. No need for amiodarone at this time. (4) Hypertension: Would use intravenous hydralazine to control her blood pressure prior to pacemaker implantation. History of Present Illness Attending Physician: Kam Kenyon MD History of Present Illness Mrs. Head is an 83-year-old female admitted after 2 episodes of syncope and diagnosed with complete heart block during her emergency room evaluation. This constitutes order to assist in her management. The history is obtained from the medical record as the patient has dementia clouds her memory. The patient is currently living with 2 of her sisters. She was witnessed by the sister's to experience 2 separate episodes of syncope and loss of consciousness. Fortunately, she was seated during both of those episodes. The sisters describe shaking extremities while the patient was unresponsive. There was no incontinence nor a postictal state. An ambulance was summoned and during the transport, the patient had 2 episodes of ventricular tachycardia. The patient does not carry a cardiac history. There is no evidence of cardiac catheterization with in her medical record. She does typically follow with Dr. Sanchez in the outpatient setting. The patient was admitted to the intensive care unit and a transcutaneous pacemaker was applied. She had 2 episodes of polymorphic ventricular tachycardia which both resulted in loss of consciousness. Currently, patient is resting comfortably in bed without complaints. Past medical and surgical history 1. Hypertension 2. Hypercholesterolemia 3. Hyperglycemia 4. GERD 5. History of hemorrhagic CVA-2008 6. Dementia 7. Glaucoma Social history , lives with her 2 sisters No tobacco or alcohol. Family history Noncontributory Review of systems A 10 point review of systems was negative except for that described above. Allergies Allergy/AdvReac Type Severity Reaction Status Date / Time aspirin Allergy Verified 11/08/19 11:13 Sulfa (Sulfonamide Allergy Verified 09/10/19 11:13 Antibiotics) Home Medications Home Medications Medication Instructions Recorded Confirmed Type melatonin 3 mg tablet 3 mg PO HS PRN tab 06/21/19 10/16/19 History timolol maleate 0.5 % eye drops 1 drops OPHTHALMIC (EYE) DAILY ml 06/21/19 10/16/19 History calcium carbonate 600 mg calcium 600 mg PO DAILY tab 08/17/19 10/16/19 History (1,500 mg) tablet docusate sodium 100 mg capsule 100 mg PO BID PRN #60 cap 08/17/19 10/16/19 History vit C,O-Rt-ezgthz-lutein-zeaxan 60 1 cap PO DAILY cap 08/17/19 10/16/19 History mg-13.5 mg-15 mg-2 mg-6 mg capsule potassium chloride 20 mEq 20 meq PO DAILY #90 tab 09/06/19 10/16/19 Rx tablet,extended release memantine 10 mg tablet 10 mg PO BID 90 Days #180 tab 09/10/19 10/16/19 Rx amlodipine 10 mg tablet 10 mg PO DAILY #90 tab 09/27/19 10/16/19 Rx atorvastatin 20 mg tablet 20 mg PO HS #90 tab 09/27/19 10/16/19 Rx lisinopril 40 mg tablet 40 mg PO DAILY #90 tab 09/27/19 10/16/19 Rx omeprazole 20 mg capsule,delayed 20 mg PO DAILY #90 cap 09/27/19 10/16/19 Rx release Patient History Medical History Anxiety (Chronic) Bradycardia 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) Cerebral ischemia (Acute) Dementia (Chronic) Depression (Chronic) Dyslipidemia (Chronic) Esophageal reflux Fibromyalgia (Chronic) Glaucoma (Chronic) Hemiparesis (Acute) Hypertension (Chronic) Impaired fasting glucose (Chronic) Migraine headache (Chronic) Family History Brother Diabetes Colon cancer Prostate cancer Mother CHF (congestive heart failure) Tobacco use Sister Diabetes Glaucoma Macular degeneration Father Prostate cancer Tobacco use Pneumonia Daughter [place] disease Social History Preferred Language: Polish Communication Ability: Effective Furniture Rental Consultant Required: No Beliefs That Will Affect Care: None Current Living Situation: Family Current Living Situation Comment: lives w/ sisters Other Information That Helps Us Care for You: No Feels Safe at Home: Yes Safety Concerns: Feels Safe At This Time Smoking Status: Never smoker Do You Dip or Chew Tobacco: No ; Second Hand Exposure: No ; Tobacco Cessation Education Requested by Patient: No Hx Alcohol Use: No Hx Substance Use: No Physical Exam Physical Exam: In general this is an elderly white female lying supine in bed without complaints. HEENT exam is negative. Neck is supple with full carotid upstrokes. No obvious bruits. Jugular venous pressure is difficult to assess. Cardiovascular exam reveals a regular rhythm with distant heart sounds. No obvious murmurs. Lungs no decreased breath sounds at the bases but no rales, rhonchi or wheezes. Abdomen is soft without bruits. Extremities reveal intact radial artery pulses bilaterally. There is no peripheral edema. Results & Data Vital Signs (Past 12 Hours) Vital Signs Temp Pulse Resp BP Pulse Ox 10/17/19 13:45 80 26 H 94 10/17/19 13:30 80 27 H 94 10/17/19 13:15 80 32 H 94 10/17/19 13:06 81 23 162/69 H 93 10/17/19 13:00 80 31 H 92 10/17/19 12:45 80 33 H 93 10/17/19 12:33 80 22 165/63 H 93 10/17/19 12:30 80 24 93 10/17/19 12:16 80 26 H 165/63 H 93 10/17/19 12:15 80 25 H 93 10/17/19 12:00 80 22 93 10/17/19 11:54 80 213/64 H 10/17/19 11:45 80 24 92 10/17/19 11:36 80 26 H 179/65 H 93 10/17/19 11:30 80 94 10/17/19 11:15 80 95 10/17/19 11:00 80 95 10/17/19 10:45 80 96 10/17/19 10:32 80 10/17/19 09:30 30 L 90 10/17/19 09:15 36 L 90 10/17/19 09:00 29 L 89 L 10/17/19 08:45 33 L 91 10/17/19 08:30 27 L 90 10/17/19 08:15 28 L 91 10/17/19 08:00 28 L 208/64 H 90 10/17/19 07:45 28 L 92 10/17/19 07:30 28 L 90 10/17/19 07:15 27 L 91 10/17/19 07:00 33 L 91 10/17/19 06:45 29 L 94 10/17/19 06:10 29 L 92 10/17/19 06:00 27 L 91 10/17/19 05:50 29 L 92 10/17/19 05:40 36.7 C 35 L 91 10/17/19 05:36 31 L 10/17/19 05:30 39 L 91 10/17/19 05:20 30 L 91 10/17/19 05:10 36 L 92 10/17/19 05:00 35 L 90 10/17/19 04:50 42 L 91 10/17/19 04:40 37 L 91 10/17/19 04:30 37 L 90 10/17/19 04:20 34 L 91 10/17/19 04:10 31 L 90 10/17/19 04:00 36.7 C 29 L 91 10/17/19 03:50 36 L 90 10/17/19 03:40 40 L 91 10/17/19 03:30 40 L 91 10/17/19 03:20 38 L 91 10/17/19 03:10 37 L 91 10/17/19 03:00 36 L 91 10/17/19 02:50 39 L 91 10/17/19 02:40 39 L 91 10/17/19 02:30 29 L 91 10/17/19 02:20 30 L 91 10/17/19 02:10 30 L 90 10/17/19 02:00 38 L 92 Laboratory Results CBC notes hemoglobin of 10.9, hematocrit of 33.1, white count 10.02, and platelet count of [id number]. Electrolytes note a sodium of 144, potassium 4.3, chloride 117, CO2 of 21, BUN 26, creatinine 1.3, glucose of 138. Magnesium level on presentation was 2.4 with a follow-up value of 2.9. Initial troponin was 0.023 with a follow-up value of 0.026. TSH was normal at 2.52. Diagnostic Findings EKG notes sinus bradycardia with complete AV dissociation. There is a junctional escape mechanism. pvc monitor noted several episodes of polymorphic ventricular tachycardia. Chest x-ray notes cardiomegaly and a large left pleural effusion. Abdominal CT was negative. Chest CT noted cardiomegaly, pulmonary edema, and bilateral pleural effusions. CT scan of the head was negative. PG Care Time/CCT Total # of Minutes Spent Total Time Spent with Patient: Total time spent is greater than 50% in coordin ation of care (as documented) at patient's floor/unit and/or counseling patient: (1) Syncope Syncope type: unspecified Qualified Code(s): R55 - Syncope and collapse
--- NOTE | 2019-10-17 17:34 | Hospitalist Progress Note ---
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 A temporary ventricular pacemaker is placed by Dr. Margarita Nj to prevent recurrent ventricular tachycardia. Will refer to Dr. Jenkins for placement of a permanent pacemaker as per cardiology notes. Echocardiogram significant for ejection fraction of 60-65%.No regional wall motion abnormality noted. There is a mild concentric left ventricular hypertrophy. An LD has is normal. Patient has large left pleural effusion. There is mild tricuspid regurgitation and mitral regurgitation. Hydralazine for elevated blood pressure as per cardiology. Hold home meds for now amlodipine 10 mg p.o. daily, lisinopril 40 mg p.o. daily. DVT prophylaxis heparin 5000 units every 12 hours. Full code Present on Admission?: Yes (2) CHB (complete heart block): As above, continue management as per ICU team. Present on Admission?: Yes (3) Dyslipidemia: Continue home medicine atorvastatin 20 mg p.o. nightly. Fasting lipid panel pending. Present on Admission?: Yes (4) Dementia: Continue home medicine memantine 10 mg p.o. twice daily. Present on Admission?: Yes (5) UTI (urinary tract infection): Urine positive for trace blood and nitrates. Large epithelial cell and bacteria -not a clean-catch. Urine culture pending. Empirically started ceftriaxone for possible urinary tract infection. Present on Admission?: Yes Subjective Patient is in the ICU , resting in the bed. She is sleepy but arousable. There is a report of syncopal events likely due to polymorphic ventricular tachycardia. Temporary ventricular pacemaker was placed to reduce chance of recurrent ventricular tachycardia by Dr. Margarita Nj. Patient is poor historian and it is difficult to obtain any history from her. Review of Systems Review of Systems: All systems reviewed & are unremarkable except as noted in HPI & below Physical Exam Constitutional: WD/WN, vitals as above no acute distress Eyes: PERRL, conjunctivae normal, anicteric sclerae ENMT: external ear and nose normal, oropharynx normal Respiratory: normal respiratory effort; no respiratory distress and no labored breathing Cardiovascular: Rate/Rhythm: + bradycardic (Severe bradycardia to 28, patient sleeping asymptomatic) Vessels: dorsalis pedis pulses present Extremities: normal capillary refill; no calf tenderness and no pedal edema Gastrointestinal (Abdomen): normal bowel sounds, soft, nontender, no hepatosplenomegaly Musculoskeletal: no cyanosis or clubbing, extremities motor strength 5/5 Skin: no rashes, warm and dry Neurologic: PERRL, EOMI, accommodation nl, no face palsy, no dysarthria moves all extremities; no focal motor deficits Motor/Sensory: no tremor Psychiatric: Orientation: alert Results & Data Vital Signs (Past 12 Hours) Vital Signs Temp Pulse Resp BP Pulse Ox 10/17/19 16:04 80 23 166/62 H 95 10/17/19 16:00 80 24 94 10/17/19 15:45 80 20 94 10/17/19 15:30 80 19 94 10/17/19 15:15 80 21 94 10/17/19 15:04 80 28 H 154/69 H 95 10/17/19 15:00 80 19 94 10/17/19 14:45 80 21 95 10/17/19 14:30 80 21 94 10/17/19 14:15 80 24 95 10/17/19 14:05 80 21 158/74 H 94 10/17/19 14:00 80 24 95 10/17/19 13:45 80 26 H 94 10/17/19 13:30 80 27 H 94 10/17/19 13:15 80 32 H 94 10/17/19 13:06 81 23 162/69 H 93 10/17/19 13:00 80 31 H 92 10/17/19 12:45 80 33 H 93 10/17/19 12:33 80 22 165/63 H 93 10/17/19 12:30 80 24 93 10/17/19 12:16 80 26 H 165/63 H 93 10/17/19 12:15 80 25 H 93 10/17/19 12:00 80 22 93 10/17/19 11:54 80 213/64 H 10/17/19 11:45 80 24 92 10/17/19 11:36 80 26 H 179/65 H 93 10/17/19 11:30 80 94 10/17/19 11:15 80 95 10/17/19 11:00 80 95 10/17/19 10:45 80 96 10/17/19 10:32 80 10/17/19 09:30 30 L 90 10/17/19 09:15 36 L 90 10/17/19 09:00 29 L 89 L 10/17/19 08:45 33 L 91 10/17/19 08:30 27 L 90 10/17/19 08:15 28 L 91 10/17/19 08:00 28 L 208/64 H 90 10/17/19 07:45 28 L 92 10/17/19 07:30 28 L 90 10/17/19 07:15 27 L 91 10/17/19 07:00 33 L 91 10/17/19 06:45 29 L 94 10/17/19 06:10 29 L 92 10/17/19 06:00 27 L 91 10/17/19 05:50 29 L 92 10/17/19 05:40 36.7 C 35 L 91 10/17/19 05:36 31 L PG Care Time/CCT Total # of Minutes Spent Total Time Spent with Patient: Total time spent is greater than 50% in coordination of care (as documented) at patient's floor/unit and/or counseling patient: (1) Syncope Syncope type: unspecified Qualified Code(s): R55 - Syncope and collapse
--- NOTE | 2019-10-17 20:56 | Billing Data ---
Date of Service October 17, 2019 Coding Level of Care Code Critical Care 1st - mins
[2019-10-17] MEDS: ACETAMINOPHEN 325 MG TAB PO PRN (23:36)
[2019-10-18] MEDS: cefTRIAXone SODIUM 1,000 MG in DEXTROSE 5% 50 ML IV SCH (01:10)
[2019-10-18 04:58] LABS: Basophils # (auto) 0.03 K/uL (0-0.2); Basophils % (auto) 0.3 %; Eosinophils # (auto) 0.16 K/uL (0-0.5); Eosinophils % (auto) 1.8 %; Hematocrit (blood only) 33.7 % (37-47); Hemoglobin 10.9 g/dL (12.0-16.0); Immature Granulocytes # (auto) 0.03 K/uL (0.00-0.02); Immature Granulocytes % (auto) 0.3 %; Lymphocytes # (auto) 2.24 K/uL (1.2-3.4); Lymphocytes % (auto) 25.3 %; Mean Corpuscular Hemoglobin 30.5 pg (25-34); Mean Corpuscular Hgb Conc 32.3 g/dL (32-36); Mean Corpuscular Volume 94.4 fL (80-100); Mean Platelet Volume 10.3 fL (7.4-10.4); Monocytes # (auto) 0.61 K/uL (0.11-0.59); Monocytes % (auto) 6.9 %; Neutrophils # (auto) 5.77 K/uL (1.4-6.5); Neutrophils % (auto) 65.4 %; Platelet Count 213 K/uL (130-400); RDW Coefficient of Variation 14.4 % (11.5-14.5); RDW Standard Deviation 49.2 fL (36.4-46.3); Red Blood Count 3.57 M/uL (4.2-5.4); White Blood Count 8.84 K/uL (4.8-10.8)
[2019-10-18 05:24] LABS: Albumin Level 2.4 gm/dl (3.4-5.0); BUN Creatinine Ratio 19.4 (10-20); Bilirubin Direct 0.1 mg/dl (0-0.2); Bilirubin,Total 0.5 mg/dl (0.2-1); Calcium 8.1 mg/dl (8.5-10.1); Creatinine Clr Calc Pharmacy 37.9 ml/min; Est GFR (African American) 67.7; Est GFR (Non-African American) 58.4; Magnesium 2.5 mg/dl (1.8-2.4); Phosphorus 3.9 mg/dl (2.5-4.9); Total Protein 6.1 gm/dl (6.4-8.2)
[2019-10-18] MEDS ORDERED: CEFAZOLIN 250 MG/ML 1 GM VIAL IV SCH (06:00)
--- NOTE | 2019-10-18 07:24 | Critical Care Progress Note ---
Date of Service October 18, 2019 Assessment & Plan (1) Admitted to intensive care unit: Reason Critically Ill: 83-year-old female with profound bradycardia and symptomatic runs of ventricular tachyarrhythmia requiring close hemodynamic monitoring and possible need for transcutaneous versus transvenous pacing. NEURO - CAM ICU: NEGATIVE Dementia: -Continue home Rx as prescribed. 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 -Monitor neuro status. -Will add CT head to r/o other possible contributing factors of bradycardia (i.e. cerebral edema) however much less likely given patient's current state of mentation. CARDIAC/VASCULAR - Complete Heart Block: With profound bradycardia. Patient has h/o bradycardia w/ HRs in the 30s at baseline. Uncertain as to acuity of CHB, however. Patient has remained hemodynamically stable and actually hypertensive throughout. Assume patient to be reliant on afterload for consistent perfusion as a compensation for her profound bradycardia. Patient was not paced as she was completely asymptomatic at that time, permissive hypertension was allowed this was thought to allow for adequate perfusion. There were concerns for tachybradycardia pattern with breakthrough escape V. tach rhythms. We optimized her electrolytes giving a magnesium load in the emergency department. Lyme negative, ekg on presentation was EKG: Complete heart block w/ marked bradycardia. QTc 448ms. -Monitor on telemetry for sustained V-tach. -Temporary pacemaker placed in the evening of 10/17 Loss of capture at 0.3MA pacer set at 2ma -consider addition of dopamine, dobutamine, or isoproterenol if patient becomes symptomatic. -Has been n.p.o. overnight for permanent pacemaker placement today RESPIRATORY - Hypoxia: concerns for pulmonary edema with bilateral pleural effusions with/ without infectious consolidation in the LLL. -Will cover w/ Rocephin in the setting of UTI. -Supplemental O2 PRN GI/NUTRITION - Has been n.p.o. for pacemaker placement Elevated liver enzymes. congestive changes for decreased forward flow 2/2 above. -now downtrending RENAL/LYTES - ROSY: Received IVF in the ED. Would avoid further aggressive IVF in the setting of profound HTN and pulmonary edema. - UTI: continue Rocephin. Bueno in place - Strict I&Os. ENDO - No h/o DM or Thyroid Dz BSGs per unit protocol. ISS --> gtt per unit policy. HEME - Stable H&H ID - UTI w/ ??LLL PNA: Continue Rocephin LINES/IV ACCESS - PIVs x2 Bueno DVT PROPHYLAXIS - Heparin sq SCDs Dispo: ICU CODE STATUS - Per extensive conversation with patient, family at bedside, and patient's son, Ari ([phone]), regarding previous discussions of CODE STATUS and aggressive measures. At this point, they all agreed with proceeding with full CODE STATUS in the event of any cardiovascular collapse or respiratory event. Thank you for allowing us to participate in the care of this patient. Please refer to my attending physician's documentation for any further recommendations. (2) Third degree heart block: (3) Ventricular tachycardia: (4) Esophageal reflux: (5) Impaired fasting glucose: (6) Dyslipidemia: (7) Cerebral ischemia: (8) Dementia: (9) Depression: (10) Glaucoma: (11) Hypertension: Supervising Physician Co-Signing Physician Notes Dr. Wallis was resident physician during care of patient. I separately evaluated patient for gastelum portions of the history and the exam. I was present during the critical portion of medical decision making, and I discussed the case with the resident. I generally agree with the findings and plan. Patient was discussed in multidisciplinary rounds, I evaluated the patient after her return from permanent pacemaker placement. There is no shadowing on the dressing, her pacer appears to be functioning. We have discontinued her pacer pads. She is stable for downgrade out of the ICU. Subjective Patient resting comfortably in bed this morning in no acute distress. Reports no acute events overnight, temporary pacer placed yesterday. Patient has been n.p.o. overnight for permanent pacemaker placement. All questions answered, no acute concerns at present. Physical Exam Physical Exam: General: No acute distress HEENT: Normocephalic atraumatic Neck: No significant lymphadenopathy, trachea midline, normal to visual ins pection Cardiac: Regular rate and rhythm, normal S1, normal S2, I did not appreciated any significant murmurs rubs or gallops, I did not appreciate any significant pedal edema, No calf tenderness, capillary refill is less than 3 seconds Respiratory: Clear to auscultation bilaterally with symmetrical chest rise, I did not appreciate any significant wheezes, rales, rhonchi, no increased work of breathing GI: Normal bowel sounds, soft, nontender in all 4 quadrants, nondistended MSK: No sensory or motor changes, moves all extremities without issue, extremities are warm and well-perfused Skin: [place], clean, dry, intact. Temporary pacemaker in place Neuro: Alert and oriented x4 Psych: Calm, cooperative, logical thought process Results & Data Vital Signs (Past 12 Hours) Vital Signs Temp Pulse Resp BP Pulse Ox 10/18/19 06:00 80 21 151/79 H 92 10/18/19 05:00 80 19 162/86 H 95 10/18/19 04:00 36.5 C 80 19 151/78 H 92 10/18/19 03:00 80 19 158/56 H 93 10/18/19 02:05 80 21 148/54 H 92 10/18/19 01:00 80 20 141/72 H 93 10/18/19 00:35 80 10/18/19 00:00 36.9 C 80 25 H 172/66 H 92 10/17/19 23:00 80 23 159/76 H 93 10/17/19 22:00 80 20 167/66 H 93 10/17/19 21:00 81 25 H 175/66 H 94 10/17/19 20:00 36.7 C 80 25 H 165/66 H 93 Laboratory Results 10/18/19 10/18/19 10/17/19 Range/Units 04:39 04:39 16:00 WBC 8.84 (4.8-10.8) K/uL RBC 3.57 L (4.2-5.4) M/uL Hgb 10.9 L (12.0-16.0) g/dL Hct 33.7 L (37-47) % MCV 94.4 (80-100) fL MCH 30.5 (25-34) pg MCHC 32.3 (32-36) g/dL RDW Std Deviation 49.2 H (36.4-46.3) fL RDW Coeff of Vinh 14.4 (11.5-14.5) % Plt Count 213 (130-400) K/uL MPV 10.3 (7.4-10.4) fL Immature Gran % (Auto) 0.3 % Neut % (Auto) 65.4 % Lymph % (Auto) 25.3 % [place] % (Auto) 6.9 % Eos % (Auto) 1.8 % Baso % (Auto) 0.3 % Immature Gran # (Auto) 0.03 H (0.00-0.02) K/uL Neut # (Auto) 5.77 (1.4-6.5) K/uL Lymph # (Auto) 2.24 (1.2-3.4) K/uL [place] # (Auto) 0.61 H (0.11-0.59) K/uL Eos # (Auto) 0.16 (0-0.5) K/uL Baso # (Auto) 0.03 (0-0.2) K/uL Sodium 140 (136-145) mmol/L Potassium 4.0 (3.5-5.1) mmol/L Chloride 113 H (98-107) mmol/L Carbon Dioxide 23 (21-32) mmol/L Anion Gap 4.0 (3-11) BUN 18 (7-18) mg/dl Creatinine 0.92 D (0.6-1.2) mg/dl Est Cr Clr Drug Dosing 37.9 ml/min Est GFR ( Amer) 67.7 Est GFR (Non-Af Amer) 58.4 BUN/Creatinine Ratio 19.4 (10-20) Glucose 107 H (70-99) mg/dl POC Glucose 111 H (70-99) Calcium 8.1 L (8.5-10.1) mg/dl Phosphorus 3.9 (2.5-4.9) mg/dl Magnesium 2.5 H (1.8-2.4) mg/dl Total Bilirubin 0.5 (0.2-1) mg/dl Direct Bilirubin 0.1 (0-0.2) mg/dl AST 31 (15-37) U/L ALT 46 (12-78) U/L Alkaline Phosphatase 128 H (45-117) U/L Total Protein 6.1 L (6.4-8.2) gm/dl Albumin 2.4 L (3.4-5.0) gm/dl Medications Administered Current Inpatient Medications Acetaminophen (Tylenol) 650 mg PO Q4H PRN PRN Reason: Pain Stop: 11/16/19 13:34 Last Admin: 10/17/19 23:36 Dose: 650 mg Documented by: Acetaminophen (Tylenol) 650 mg PO Q4H PRN PRN Reason: Mild pain (rating 1,2,3) Stop: 11/17/19 13:33 Acetaminophen/Codeine Phosphate (Tylenol W/Codeine #3) 1 - 2 tab PO Q4H PRN PRN Reason: Moderate-Severe Pain Stop: 11/17/19 13:33 Cefazolin Sodium (Ancef) 1,000 mg IV PREOP [facility]; Protocol Stop: 10/18/19 23:59 Last Admin: 10/18/19 14:20 Dose: 1,000 mg Documented by: Heparin Sodium (Porcine) (Heparin Sodium (Porcine)) 5,000 units SQ Q12 [facility] Stop: 11/16/19 08:59 Last Admin: 10/18/19 11:29 Dose: Not Given Documented by: Ceftriaxone Sodium 1,000 mg/ (Dextrose) 50 mls @ 100 mls/hr IV Q24H [facility]; Protocol Stop: 10/27/19 00:59 Last Infusion: 10/18/19 01:48 Dose: Infused Documented by: Lactated Ringer's (Lr) 1,000 mls @ 15 mls/hr IV .Q24H [facility] Stop: 10/21/19 05:09 Last Admin: 10/18/19 10:06 Dose: 15 mls/hr Documented by: Miscellaneous (Icu Protocol For Hyperglycemia) 1 ea N/A PRN PRN; Protocol PRN Reason: Hyperglycemia Protocol Stop: 10/18/19 22:40 Resident Activity Tracking Resident Involvement: Resident Care Provided Care Provided: Adult Hospital Medicine (ICU)
--- NOTE | 2019-10-18 08:29 | Hospitalist Progress Note ---
Date of Service October 18, 2019 Assessment & Plan (1) Third degree heart block: Patient is stable now to be transferred to PCU on telemetry from the ICU. Permanent pacemaker is placed by Dr. 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 Patient tolerated procedure well. Continue supportive treatment. DVT prophylaxis Heparin 5000 units every 12 hours. Cefazolin given prophylactically by cardiology post transfer. Continues a full code per family request. Present on Admission?: Yes (2) Ventricular tachycardia: As above. Continue telemetry. Present on Admission?: Yes (3) Esophageal reflux: Continue omeprazole 20 mg p.o. daily. Present on Admission?: Yes (4) Impaired fasting glucose: Hemoglobin A1c pending. Type II diabetic diet for now. Present on Admission?: Yes (5) Dyslipidemia: Continue home medicine atorvastatin 20 mg p.o. nightly. Fasting lipid panel pending. (6) Dementia: Continue home medicine memantine 10 mg p.o. twice daily. (7) Glaucoma: Continue timolol maleate 0.5% 1 drop in the bilateral eye Present on Admission?: Yes (8) Hypertension: Restart home medicine because patient blood pressure is now picking up. Patient takes at home lisinopril 40 mg p.o. daily, amlodipine 10 mg p.o. daily. Present on Admission?: Yes Subjective Patient is seen and examined at the bedside. She had the placement of permanent pacemaker by Dr. Jenkins today and now she is stable and transfer out of the ICU. Patient is comfortably resting in the bed. She tolerated procedure well. Patient has severe dementia and her son needed to sign a consent for the procedure to be done. Patient is poor historian and it is difficult to review systems with her. Patient is afebrile . Review of Systems Review of Systems: All systems reviewed & are unremarkable except as noted in HPI & below Physical Exam Constitutional: WD/WN, vitals as above no acute distress Eyes: PERRL, conjunctivae normal, anicteric sclerae ENMT: external ear and nose normal, oropharynx normal Respiratory: normal respiratory effort; no respiratory distress and no labored breathing Cardiovascular: Rate/Rhythm: + bradycardic (Severe bradycardia to 28, patient sleeping asymptomatic) Vessels: dorsalis pedis pulses present Extremities: normal capillary refill; no calf tenderness and no pedal edema Gastrointestinal (Abdomen): normal bowel sounds, soft, nontender, no hepatosplenomegaly Musculoskeletal: no cyanosis or clubbing, extremities motor strength 5/5 Skin: no rashes, warm and dry Neurologic: PERRL, EOMI, accommodation nl, no face palsy, no dysarthria moves all extremities; no focal motor deficits Motor/Sensory: no tremor Psychiatric: Orientation: alert Results & Data Vital Signs (Past 12 Hours) Vital Signs Temp Pulse Resp BP Pulse Ox 10/18/19 07:30 80 17 93 10/18/19 07:15 80 21 92 10/18/19 07:05 80 20 137/78 93 10/18/19 07:00 80 19 92 10/18/19 06:45 80 21 93 10/18/19 06:00 80 21 151/79 H 92 10/18/19 05:00 80 19 162/86 H 95 10/18/19 04:00 36.5 C 80 19 151/78 H 92 10/18/19 03:00 80 19 158/56 H 93 10/18/19 02:05 80 21 148/54 H 92 10/18/19 01:00 80 20 141/72 H 93 10/18/19 00:35 80 10/18/19 00:00 36.9 C 80 25 H 172/66 H 92 10/17/19 23:00 80 23 159/76 H 93 10/17/19 22:00 80 20 167/66 H 93 10/17/19 21:00 81 25 H 175/66 H 94 PG Care Time/CCT Total # of Minutes Spent Total Time Spent with Patient: Total time spent is greater than 50% in coordination of care (as documented) at patient's floor/unit and/or counseling patient:
--- NOTE | 2019-10-18 09:49 | Cardiology Progress Note ---
Date of Service October 18, 2019 Assessment & Plan (1) Syncope: Although we do not know for sure why she passed out, she does have complete heart block and she has nonsustained ventricular tachycardia which is polymorphic and appears to be due to an R-on-T phenomenon related to bradycardia. That is the likely cause of her intermittent syncope although I cannot exclude the slow heart rate by itself. (2) CHB (complete heart block): She remains in complete heart block, she is currently pacer dependent when the rate was turned down to 30 bpm. There appears to be no reversible cause. She will need a pacemaker. I discussed this with her and she is agreeable. I also discussed it at length with her daughter sister over the phone including the indications, procedure, risks and alternatives and both are agreeable. Telephone consent was signed by her sister Richelle. She also has 2 sons both of whom are aware that she is having the procedure today. I also discussed conscious sedation and obtained telephone consent for that as well. (3) Ventricular tachycardia: Polymorphic ventricular tachycardia likely related to her profound bradycardia and complete heart block. She has had no recurrence now with an appropriate heart rate with ventricular pacing. It is not likely that she has a substrate for ongoing ventricular arrhythmias since she does not have structural heart disease, she does not have a history of long QT syndrome or medication therapy to cause long QT. I would opt for a pacemaker implantation not an ICD, if we do detect VT on pacemaker monitoring we will need either medical therapy or an ICD upgrade but that is unlikely. (4) Hypertension: Her blood pressure is better controlled with an appropriate heart rate. Subjective She is awake and alert today, she is conversational but has a poor memory. She has no cardiovascular complaints currently but does not really know where she is. Physical Exam Physical Exam: Constitutional: Alert, cooperative and in no distress. HEENT: Unremarkable Neck: No jugular venous distention, carotid pulses are normal and equal bilaterally without bruits. Pulmonary: Clear to auscultation bilaterally. Cardiac: Regular rhythm with no murmur, gallop or rub. Abdomen: Soft, nontender with normal bowel sounds. Extremities: No edema. Distal pulses intact. Neurologic: No focal findings. Gait is steady. Skin: No rash, ecchymoses or petechiae. Results & Data Vital Signs (Past 12 Hours) Vital Signs Temp Pulse Resp BP Pulse Ox 12/16/19 07:30 80 17 93 10/18/19 07:15 80 21 92 10/18/19 07:05 80 20 137/78 93 10/18/19 07:00 80 19 92 10/18/19 06:45 80 21 93 10/18/19 06:00 80 21 151/79 H 92 10/18/19 05:00 80 19 162/86 H 95 10/18/19 04:00 36.5 C 80 19 151/78 H 92 10/18/19 03:00 80 19 158/56 H 93 10/18/19 02:05 80 21 148/54 H 92 10/18/19 01:00 80 20 141/72 H 93 10/18/19 00:35 80 10/18/19 00:00 36.9 C 80 25 H 172/66 H 92 10/17/19 23:00 80 23 159/76 H 93 10/17/19 22:00 80 20 167/66 H 93 Laboratory Results Abnormal lab results 10/17/19 10/17/19 10/18/19 Range/Units 12:08 16:00 04:39 RBC 3.57 L (4.2-5.4) M/uL Hgb 10.9 L (12.0-16.0) g/dL Hct 33.7 L (37-47) % RDW Std Deviation 49.2 H (36.4-46.3) fL Immature Gran # (Auto) 0.03 H (0.00-0.02) K/uL [place] # (Auto) 0.61 H (0.11-0.59) K/uL Chloride (98-107) mmol/L Glucose (70-99) mg/dl POC Glucose 132 H 111 H (70-99) Calcium (8.5-10.1) mg/dl Magnesium (1.8-2.4) mg/dl Alkaline Phosphatase (45-117) U/L Total Protein (6.4-8.2) gm/dl Albumin (3.4-5.0) gm/dl 10/18/19 Range/Units 04:39 RBC (4.2-5.4) M/uL Hgb (12.0-16.0) g/dL Hct (37-47) % RDW Std Deviation (36.4-46.3) fL Immature Gran # (Auto) (0.00-0.02) K/uL [place] # (Auto) (0.11-0.59) K/uL Chloride 113 H (98-107) mmol/L Glucose 107 H (70-99) mg/dl POC Glucose (70-99) Calcium 8.1 L (8.5-10.1) mg/dl Magnesium 2.5 H (1.8-2.4) mg/dl Alkaline Phosphatase 128 H (45-117) U/L Total Protein 6.1 L (6.4-8.2) gm/dl Albumin 2.4 L (3.4-5.0) gm/dl Diagnostic Findings Electrocardiogram: Evidence of sinus rhythm without conduction, ventricular paced rhythm Pacemaker: Turning the temporary pacemaker down results in a ventricular paced rhythm at 30 bpm with no AV conduction, underlying sinus tachycardia Telemetry: Ventricular paced rhythm, no VT since pacemaker implantation PG Care Time/CCT Total # of Minutes Spent Total Time Spent with Patient: Total time spent is greater than 50% in coordination of care (as documented) at patient's floor/unit and/or counseling patient: (1) Syncope Syncope type: unspecified Qualified Code(s): R55 - Syncope and collapse
[2019-10-18] MEDS: LACTATED RINGER'S 1,000 ML IV SCH (10:06)
[2019-10-18] MEDS ORDERED: Nursing to Pharmacy Communication ONE (10:44)
[2019-10-18] MEDS ORDERED: BACITRACIN INJ 50,000 UNIT VIAL ONE (11:26)
[2019-10-18] MEDS ORDERED: LIDOCAINE HCL 1% 20 ML VIAL ONE ×2 (11:26→12:05)
[2019-10-18] MEDS ORDERED: BUPIVACAINE 0.25% 30 ML VIAL ONE (11:26)
[2019-10-18] MEDS: HEPARIN SOD 5,000 UNIT/0.5 ML VIAL SQ SCH ×2 (11:29→20:21)
--- NOTE | 2019-10-18 12:00 | History & Physical Bridge Note ---
Date of Service October 18, 2019 History & Physical Bridge Note I have examined the patient, reviewed the History & Physical and in the interval since the performance of the History & Physical I have noted the following changes of clinical significance: no changes noted
--- NOTE | 2019-10-18 12:01 | Pre Anesthesia Assessment ---
Date of Service October 18, 2019 Pre Sedation Assessment Vital Signs Temp Pulse Resp BP Pulse Ox 10/18/19 07:30 80 17 93 10/18/19 07:15 80 21 92 10/18/19 07:05 80 20 137/78 93 10/18/19 07:00 80 19 92 10/18/19 06:45 80 21 93 10/18/19 06:00 80 21 151/79 H 92 10/18/19 05:00 80 19 162/86 H 95 10/18/19 04:00 36.5 C 80 19 151/78 H 92 10/18/19 03:00 80 19 158/56 H 93 10/18/19 02:05 80 21 148/54 H 92 10/18/19 01:00 80 20 141/72 H 93 10/18/19 00:35 80 10/18/19 00:00 36.9 C 80 25 H 172/66 H 92 10/17/19 23:00 80 23 159/76 H 93 10/17/19 22:00 80 20 167/66 H 93 10/17/19 21:00 81 25 H 175/66 H 94 10/17/19 20:00 36.7 C 80 25 H 165/66 H 93 10/17/19 19:04 80 23 159/67 H 94 10/17/19 19:00 80 24 159/67 H 93 10/17/19 18:00 80 27 H 153/60 H 95 10/17/19 17:00 80 25 H 165/81 H 95 10/17/19 16:04 80 23 166/62 H 95 10/17/19 16:00 80 24 94 10/17/19 15:45 80 20 94 10/17/19 15:30 80 19 94 10/17/19 15:15 80 21 94 10/17/19 15:04 80 28 H 154/69 H 95 10/17/19 15:00 80 19 94 10/17/19 14:45 80 21 95 10/17/19 14:30 80 21 94 10/17/19 14:15 80 24 95 10/17/19 14:05 80 21 158/74 H 94 10/17/19 14:00 80 24 95 10/17/19 13:45 80 26 H 94 10/17/19 13:30 80 27 H 94 10/17/19 13:15 80 32 H 94 12/15/19 13:06 81 23 162/69 H 93 10/17/19 13:00 80 31 H 92 10/17/19 12:45 80 33 H 93 10/17/19 12:33 80 22 165/63 H 93 10/17/19 12:30 80 24 93 10/17/19 12:16 80 26 H 165/63 H 93 10/17/19 12:15 80 25 H 93 Cardiovascular RRR, no murmur, no edema Respiratory normal respiratory effort, lungs clear to auscultation Pre-Sedation Airway Assessment Smoking Status: Never smoker Short, Thick Neck: No Thyromental Distance: > or= 3.5 Finger Breadths Mallampati Class: I ASA: ASA3 NPO Status Date of Last Intake of Fluids: 10/17/19 Time of Last Intake of Fluids: 18:00 Date of Last Intake of Solid Food: 10/17/19 Time of Last Intake of Solid Foods: 18:00 Procedure Planning Contraindications for Sedation: none Current Medications Reviewed: Yes Notes The planned sedation has been discussed with the patient. Informed Consent was obtained. I have identified the patient, determined the appropriateness of sedation and have assessed the patient immediately prior to the procedure. All medicine(s) and interventions are by my order.
[2019-10-18] MEDS ORDERED: MIDAZOLAM HCL 1 MG/ML 2ML VIAL ONE (12:05)
[2019-10-18] MEDS ORDERED: fentaNYL citrate 100 MCG/2 ML VIAL ONE (12:05)
[2019-10-18] MEDS ORDERED: CEFAZOLIN 250 MG/ML 1 GM VIAL ONE (12:06)
[2019-10-18] MEDS ORDERED: WATER, STERILE FOR INJ 10 ML VIAL ONE (12:06)
[2019-10-18] MEDS ORDERED: BACITRACIN OINT 0.9 GM PKT ONE (13:26)
--- NOTE | 2019-10-18 13:33 | Operative Report ---
PG Post Operative Report Pre & Post Diagnosis Operation Date: 10/18/19 11:35 Preoperative diagnosis: Complete heart block Postoperative diagnosis: Same I identified the patient and participated in the time-out.: Yes Procedure Operation Date: 10/18/19 11:35 Actual Procedures p Pacer with A/V Leads (Dual) - Jcarlos Jenkins MD Surgeon Jcarlos Jenkins MD Legal Support Assistant none Estimated Blood Loss 20 Findings Consistent with Post-Op Diagnosis Specimens None Anesthesia Type Local Complications none Disposition Accompanied Patient To Recovery: Yes Disposition: Recovery Room Description of Procedure After obtaining informed consent for the procedure, the patient was brought to the laboratory and prepped and draped in the standard sterile manner. The left prepectoral region was anesthetized with 1% lidocaine local anesthetic and dye was injected the left arm IV site to opacify the left subclavian vein. The subclavian vein was identified and found to be free of obstruction. Left axillary venipuncture was performed by percutaneous technique and a guidewire placed through the left subclavian vein into the superior vena cava. The area was further infiltrated with 1% lidocaine local anesthetic and a 5 cm incision was made parallel to the left clavicle and 2 cm below it and carried down to the anterior pectoralis fascia. A pacemaker pocket was formed by blunt dissection anterior to the pectoralis fascia and a bacitracin-soaked sponge (50,000 units in 50 cc normal saline solution) was placed in the pocket. An 8 [place] Medtronic lead introducer was placed over the guidewire into the left subclavian vein, the dilator and guidewire were removed and a bipolar active fixation steroid tipped ventricular lead was advanced through the introducer into the superior vena cava. A guidewire was placed through the introducer and the introducer was stripped from the lead and guidewire. Another 8 [place] Medtronic lead introducer was placed over the guidewire into the left subclavian vein, the dilator and guidewire were removed and a bipolar active fixation steroid tipped atrial lead was advanced through the introducer into the superior vena cava. A guidewire was placed back through the introducer and the introducer was stripped from the lead and guidewire. Using a curved stylette the ventricular lead was advanced through the right ventricular outflow tract into the pulmonary artery and then using a straight stylette was positioned in the right ventricular apex. The screw was extended fixing the lead in position. Pacing and sensing thresholds were evaluated in bipolar configuration and are recorded on the implant data sheet. Using a curved stylette the atrial lead was positioned in the region of the atrial appendage and the screw extended fixing the lead in position. Pacing and sensing thresholds were evaluated in bipolar configuration and are recorded on the implant data sheet. Once the leads were in position they were attached to the anterior pectoralis fascia using 2 sutures of 2-0 silk around each lead collar. The bacitracin- soaked sponge was removed from the pocket, hemostasis was obtained, the pacemaker was attached to the leads and placed in the pocket with the leads coiled beneath it. Once the permanent pacemaker was attached to the leads and placed in the incision the temporary pacemaker was removed without difficulty. The incision was closed with a running double subcutaneous closure of 3-0 Vicryl absorbable suture, followed by running subcuticular skin closure of 4-0 Vicryl absorbable suture. Bacitracin ointment was placed on the incision and a pressure dressing applied. I attest to the content of the Intraoperative Record and any orders documented therein. Any exceptions are noted below.
[2019-10-18] MEDS ORDERED: ACETAMINOPHEN W/CODEINE #3 1 TAB PO PRN (13:34)
[2019-10-18] MEDS ORDERED: ACETAMINOPHEN 325 MG TAB PO PRN (13:34)
--- NOTE | 2019-10-18 15:20 | Post Anesthesia Assessment ---
Date of Service October 18, 2019 Post Sedation Assessment Vital Signs Temp Pulse Pulse Resp BP BP Pulse Ox 10/18/19 14:46 93 H 14 93 10/18/19 14:45 94 H 16 149/94 H 95 10/18/19 14:30 87 16 94 10/18/19 14:15 94 H 13 95 10/18/19 14:05 172/88 H 96 10/18/19 14:02 95 10/18/19 13:50 89 18 173/77 H 93 10/18/19 13:45 94 H 18 182/90 H 93 10/18/19 13:40 94 H 18 182/90 H 93 10/18/19 11:15 80 22 94 10/18/19 11:05 80 22 175/75 H 94 10/18/19 11:00 80 20 93 10/18/19 10:45 80 25 H 94 10/18/19 10:30 80 21 93 10/18/19 10:15 80 21 93 10/18/19 10:05 80 20 188/82 H 93 10/18/19 10:00 80 23 93 10/18/19 09:45 80 20 94 10/18/19 09:30 80 21 93 10/18/19 09:15 80 20 93 10/18/19 09:05 80 19 141/75 H 93 10/18/19 09:00 80 19 93 10/18/19 08:45 80 19 93 10/18/19 08:30 80 20 93 10/18/19 08:15 80 19 93 10/18/19 08:04 80 23 160/103 H 93 10/18/19 08:00 80 20 93 10/18/19 07:45 80 25 H 91 10/18/19 07:30 80 17 93 10/18/19 07:15 80 21 92 10/18/19 07:05 80 20 137/78 93 10/18/19 07:00 80 19 92 10/18/19 06:45 80 21 93 10/18/19 06:00 80 21 151/79 H 92 10/18/19 05:00 80 19 162/86 H 95 10/18/19 04:00 36.5 C 80 19 151/78 H 92 10/18/19 03:00 80 19 158/56 H 93 10/18/19 02:05 80 21 148/54 H 92 10/18/19 01:00 80 20 141/72 H 93 10/18/19 00:35 80 10/18/19 00:00 36.9 C 80 25 H 172/66 H 92 10/17/19 23:00 80 23 159/76 H 93 10/17/19 22:00 80 20 167/66 H 93 10/17/19 21:00 81 25 H 175/66 H 94 10/17/19 20:00 36.7 C 80 25 H 165/66 H 93 10/17/19 19:04 80 23 159/67 H 94 10/17/19 19:00 80 24 159/67 H 93 10/17/19 18:00 80 27 H 153/60 H 95 10/17/19 17:00 80 25 H 165/81 H 95 10/17/19 16:04 80 23 166/62 H 95 10/17/19 16:00 80 24 94 10/17/19 15:45 80 20 94 10/17/19 15:30 80 19 94 Recovery Score Activity: Moves 4 extremities Respiration: Deep Breath/Cough Circulation: +/-20% PreAnes Value Consciousness: Fully Awake Oxygen Saturation: > 92% On Room Air Post Anesthesia Score: 10 Discharge Sedation Level of Care: Fast Track Phase II Post Sedation Plan On clinical assessment, the patient appears to have tolerated the sedation without complications. Patient is recovering as anticipated. Patient will continue to be monitored by nursing and may be discharged when sedation discharge criteria are met per below protocol. Upon Completions of procedure up to 15 minutes continue every 5 minute vital signs and the P.A.R. score; then discharge to a Phase I or Fast Track to Phase II per the following guidelines: * Discharge Patient to appropriate Phase II area if PAR is 8 or greater or return to pre- procedure baseline. The post - procedure orders will be as directed. * If PAR score is less than 8 or not return to pre-procedure baseline then patient will follow Phase I monitoring till PAR is reached for Phase II. The Phase I may be done in procedure room or may call to secure a Phase I area. * If naloxone or flumazenil are used for reversal, hold in Phase I for continued monitoring from when last reversal dose was given for a minimum of 60 minutes or longer pending the nurse and/or physician discretion of patient condition before discharge to Phase II. Please call the Sedation Physician to re-evaluate and complete post-note for discharge to Phase II area. Do NOT discharge from procedure sedation or Phase 1 until post- sedation evaluation note is complete by procedure /sedation MD Sedation Discharge Instructions to be given to the patient at discharge to home.
--- NOTE | 2019-10-18 15:43 | Billing Data ---
Date of Service October 18, 2019 Coding Level of Care Code 05356 Subseq Hosp Care Lvl 2
[2019-10-18] MEDS: METOPROLOL TARTRATE 50 MG TAB PO SCH (18:38)
[2019-10-18] MEDS: ACETAMINOPHEN 325 MG TAB PO PRN (19:36)
[2019-10-19] MEDS: ACETAMINOPHEN 325 MG TAB PO PRN ×2 (04:02→12:24)
[2019-10-19 07:53] LABS: Basophils # (auto) 0.03 K/uL (0-0.2); Basophils % (auto) 0.4 %; Eosinophils # (auto) 0.22 K/uL (0-0.5); Eosinophils % (auto) 2.7 %; Hemoglobin 11.3 g/dL (12.0-16.0); Immature Granulocytes # (auto) 0.04 K/uL (0.00-0.02); Immature Granulocytes % (auto) 0.5 %; Lymphocytes # (auto) 2.35 K/uL (1.2-3.4); Lymphocytes % (auto) 28.7 %; Mean Corpuscular Hemoglobin 30.5 pg (25-34); Mean Corpuscular Hgb Conc 33.2 g/dL (32-36); Mean Corpuscular Volume 91.9 fL (80-100); Mean Platelet Volume 10.2 fL (7.4-10.4); Monocytes # (auto) 0.64 K/uL (0.11-0.59); Monocytes % (auto) 7.8 %; Neutrophils # (auto) 4.92 K/uL (1.4-6.5); Neutrophils % (auto) 59.9 %; Platelet Count 171 K/uL (130-400); RDW Coefficient of Variation 14.1 % (11.5-14.5); RDW Standard Deviation 46.5 fL (36.4-46.3)
[2019-10-19 08:21] LABS: Albumin Level 2.3 gm/dl (3.4-5.0); BUN Creatinine Ratio 23.8 (10-20); Bilirubin Direct 0.1 mg/dl (0-0.2); Calcium 8.4 mg/dl (8.5-10.1); Creatinine Clr Calc Pharmacy 36.7 ml/min; Est GFR (African American) 65.1; Est GFR (Non-African American) 56.2; Magnesium 2.4 mg/dl (1.8-2.4)
[2019-10-19 08:24] LABS: Bilirubin,Total 0.6 mg/dl (0.2-1); Phosphorus 3.9 mg/dl (2.5-4.9); Total Protein 5.9 gm/dl (6.4-8.2)
[2019-10-19] MEDS: METOPROLOL TARTRATE 50 MG TAB PO SCH ×2 (08:31→21:12)
--- NOTE | 2019-10-19 10:17 | Cardiology Progress Note ---
Date of Service October 19, 2019 Assessment & Plan (1) Syncope: Although we do not know for sure why she passed out, she did have complete heart block and she had nonsustained ventricular tachycardia which was polymorphic and appeared to be due to an R-on-T phenomenon related to bradycardia. That is the likely cause of her intermittent syncope although I cannot exclude the slow heart rate by itself. (2) CHB (complete heart block): She remains in complete heart block, she is currently pacer dependent when the rate was turned down to 40 bpm. There appears to be no reversible cause. The pacemaker is working appropriately to control her ventricular rate. (3) Ventricular tachycardia: Polymorphic ventricular tachycardia likely is related to her profound bradycardia and complete heart block. She has had no recurrence now with an appropriate heart rate with ventricular pacing. It is not likely that she has a substrate for ongoing ventricular arrhythmias since she does not have structural heart disease, she does not have a history of long QT syndrome or medication therapy to cause long QT. The pacemaker will monitor for ventricular arrhythmias and we can treat if indicated. (4) Hypertension: Her blood pressure is better controlled today, with an appropriate heart rate I added beta-blockade yesterday and I would continue it, perhaps even incre asing it if her heart rate continues to be elevated and she continues to be hypertensive. Subjective She is feeling quite well today, she was unaware that she had a pacemaker placed yesterday. She is not having discomfort at her pacemaker site. She has no chest discomfort. Physical Exam Physical Exam: Her pacemaker site is clean and dry, minimal ecchymosis, no swelling or bleeding. Dressing changed. Lungs are clear to examination Cardiac rhythm is regular with no rubs Results & Data Vital Signs (Past 12 Hours) Vital Signs Temp Pulse Pulse Resp BP Pulse Ox 10/19/19 07:29 36.7 C 78 18 159/75 H 93 10/19/19 03:39 37.0 C 79 17 176/76 H 93 10/19/19 00:00 36.7 C 79 75 16 153/71 H 95 Laboratory Results Abnormal lab results 10/19/19 10/19/19 Range/Units 07:35 07:35 RBC 3.70 L (4.2-5.4) M/uL Hgb 11.3 L (12.0-16.0) g/dL Hct 34.0 L (37-47) % RDW Std Deviation 46.5 H (36.4-46.3) fL Immature Gran # (Auto) 0.04 H (0.00-0.02) K/uL [place] # (Auto) 0.64 H (0.11-0.59) K/uL Chloride 109 H (98-107) mmol/L BUN 23 H (7-18) mg/dl BUN/Creatinine Ratio 23.8 H (10-20) Calcium 8.4 L (8.5-10.1) mg/dl Total Protein 5.9 L (6.4-8.2) gm/dl Albumin 2.3 L (3.4-5.0) gm/dl Diagnostic Findings Electrocardiogram post implantation: Sinus rhythm with atrial sensing and ventricular pacing appropriately. Telemetry: Atrial sensing and ventricular pacing, however the telemetry monitors are not picking up the pacer spikes and her QRS is fairly narrow (I did place the lead high in the septum) therefore on telemetry it appears that she is in sinus rhythm but she is not, she is pacing all of the time in the ventricle appropriately. No further ventricular tachycardia. Pacemaker evaluation: Excellent characteristics, she has no R waves and is pacer dependent Chest x-ray: Good lead position, no pneumothorax PG Care Time/CCT Total # of Minutes Spent Total Time Spent with Patient: Total time spent is greater than 50% in coordination of care (as documented) at patient's floor/unit and/or counseling patient: (1) Syncope Syncope type: unspecified Qualified Code(s): R55 - Syncope and collapse
[2019-10-19] MEDS: cefTRIAXone SODIUM 2,000 MG in DEXTROSE 5% 50 ML IV SCH (14:11)
[2019-10-19] MEDS ORDERED: CALCIUM CARBONATE 500 MG CHEWABLE TAB PO PRN (15:05)
[2019-10-19] MEDS: AMLODIPINE BESYLATE 5 MG TAB PO SCH (16:16)
[2019-10-19] MEDS: MEMANTINE HCL 10 MG TAB PO SCH (16:16)
[2019-10-19] MEDS: PANTOprazole 40 MG TAB PO SCH (16:16)
[2019-10-19] MEDS: ATORVASTATIN 20 MG TAB PO SCH (16:17)
[2019-10-19] MEDS: TIMOLOL GFS 0.5% OPH SOLN 74 DROPS/5 ML BTL OPB SCH (16:17)
--- NOTE | 2019-10-19 18:22 | XRay Report ---
XR chest 2V PA/lateral CLINICAL HISTORY: Post pacer implant COMPARISON STUDY: Chest radiograph and chest CT October 16, 2019. FINDINGS: Interval placement of a dual-lead left subclavian pacemaker is noted. Lead tip projects ove r the right atrial appendage and right ventricle. Cardiomegaly is noted. There is no pneumothorax. Mo derate left and small right pleural effusions persist. There is persistent pulmonary edema. IMPRESSION: 1. No pneumothorax following placement of a dual lead left subclavian pacemaker. 2. Moderate left and small right pleural effusions, as shown on prior exam. 3. Persistent pulmonary edema. Electronically signed by: Genaro Encinas M.D. 10/19/2019 6:20 PM
--- NOTE | 2019-10-19 18:23 | Hospitalist Progress Note ---
Date of Service October 19, 2019 Assessment & Plan (1) Third degree heart block: Patient is slowly improving. Permanent pacemaker was placed yesterday by Dr. 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 Patient tolerated procedure well. Continue supportive treatment. DVT prophylaxis Heparin 5000 units every 12 hours. Cefazolin given prophylactically by cardiology post transfer. Continues a full code per family request. Repeat chest x-rays for proper placement of the wires. Continues a full code per her sister's wishes. Home medication is now on the patient schedule. (2) Ventricular tachycardia: As above. Continue telemetry. (3) Esophageal reflux: Continue pantoprazole 40 mg p.o. daily. (4) Impaired fasting glucose: Hemoglobin A1c pending. Type II diabetic diet for now. (5) Dyslipidemia: Continue home medicine atorvastatin 20 mg p.o. nightly. Fasting lipid panel pending. (6) Dementia: Continue home medicine memantine 10 mg p.o. twice daily. (7) Glaucoma: Continue timolol maleate 0.5% 1 drop in the bilateral eye (8) Hypertension: Restart home medicine because patient blood pressure is now picking up. Patient takes at home lisinopril 40 mg p.o. daily, amlodipine 10 mg p.o. daily. Subjective Pt is seen and examined at the bedside together with her family members 2 sisters that take care of patient since her stroke. She is resting in the bed she is comfortable and pleasant. She is at her baseline dementia as per her sisters. Patient is a alert and oriented in person only which is her baseline. P.o. intake is good. Patient had placed pacemaker yesterday which she tolerated very well. The wound is clean dry and intact. No bleeding or bruising is noted or infection. Patient reports no pain whatsoever or any chest discomfort. Patient is poor historian otherwise and complete review of system is not possible with her. Review of Systems Review of Systems: All systems reviewed & are unremarkable except as noted in HPI & below Physical Exam Constitutional: WD/WN, vitals as above no acute distress Eyes: PERRL, conjunctivae normal, anicteric sclerae ENMT: external ear and nose normal, oropharynx normal Respiratory: normal respiratory effort; no respiratory distress and no labored breathing Cardiovascular: Rate/Rhythm: + bradycardic (Severe bradycardia to 28, patient sleeping asymptomatic) Vessels: dorsalis pedis pulses present Extremities: normal capillary refill; no calf tenderness and no pedal edema Gastrointestinal (Abdomen): normal bowel sounds, soft, nontender, no hepatosplenomegaly Musculoskeletal: no cyanosis or clubbing, extremities motor strength 5/5 Skin: no rashes, warm and dry Neurologic: PERRL, EOMI, accommodation nl, no face palsy, no dysarthria moves all extremities; no focal motor deficits Motor/Sensory: no tremor Psychiatric: Orientation: alert Results & Data Vital Signs (Past 12 Hours) Vital Signs Temp Pulse Resp BP Pulse Ox 10/19/19 15:25 36.9 C 66 20 151/73 H 95 10/19/19 12:00 36.7 C 64 19 164/74 H 95 10/19/19 07:29 36.7 C 78 18 159/75 H 93 PG Care Time/CCT Total # of Minutes Spent Total Time Spent with Patient: Total time spent is greater than 50% in coordination of care (as documented) at patient's floor/unit and/or counseling patient:
[2019-10-19] MEDS ORDERED: Nursing to Pharmacy Communication ONE (20:39)
[2019-10-19] MEDS: LACTATED RINGER'S 1,000 ML IV SCH (20:40)
[2019-10-19] MEDS: DOCUSATE SODIUM 100 MG CAP PO SCH (21:05)
[2019-10-19] MEDS: FUROSEMIDE 20 MG in SYRINGE 0 ML IV SCH (21:05)
[2019-10-20] MEDS ORDERED: ONDANSETRON INJ 2 MG/ML 2 ML VIAL IV PRN (07:13)
[2019-10-20 07:17] LABS: Basophils # (auto) 0.03 K/uL (0-0.2); Basophils % (auto) 0.3 %; Eosinophils # (auto) 0.11 K/uL (0-0.5); Eosinophils % (auto) 0.9 %; Hematocrit (blood only) 34.8 % (37-47); Hemoglobin 11.7 g/dL (12.0-16.0); Immature Granulocytes # (auto) 0.05 K/uL (0.00-0.02); Immature Granulocytes % (auto) 0.4 %; Lymphocytes # (auto) 2.55 K/uL (1.2-3.4); Lymphocytes % (auto) 21.7 %; Mean Corpuscular Hemoglobin 30.9 pg (25-34); Mean Corpuscular Hgb Conc 33.6 g/dL (32-36); Mean Corpuscular Volume 91.8 fL (80-100); Mean Platelet Volume 10.3 fL (7.4-10.4); Monocytes # (auto) 0.85 K/uL (0.11-0.59); Monocytes % (auto) 7.2 %; Neutrophils # (auto) 8.16 K/uL (1.4-6.5); Neutrophils % (auto) 69.5 %; Platelet Count 184 K/uL (130-400); RDW Coefficient of Variation 13.8 % (11.5-14.5); RDW Standard Deviation 45.3 fL (36.4-46.3); Red Blood Count 3.79 M/uL (4.2-5.4); White Blood Count 11.75 K/uL (4.8-10.8)
[2019-10-20] MEDS ORDERED: ONDANSETRON INJ 2 MG/ML 2 ML VIAL ONE (07:22)
[2019-10-20 07:40] LABS: Estimated Average Glucose 128 mg/dl; Hemoglobin A1C 6.1 % (4.5-5.6)
[2019-10-20 07:50] LABS: Albumin Level 2.4 gm/dl (3.4-5.0); BUN Creatinine Ratio 25.3 (10-20); Calcium 8.6 mg/dl (8.5-10.1); Creatinine Clr Calc Pharmacy 30.1 ml/min; Est GFR (African American) 51.1; Est GFR (Non-African American) 44.1; Potassium 4.1 mmol/L (3.5-5.1)
[2019-10-20 07:54] LABS: Albumin Globulin Ratio 0.6 (0.9-2); Bilirubin,Total 0.4 mg/dl (0.2-1); Total Protein 6.4 gm/dl (6.4-8.2)
--- NOTE | 2019-10-20 07:54 | XRay Report ---
KUB HISTORY: Acute nausea and vomiting vomiting COMPARISON: CT abdomen and pelvis 10/16/2019. FINDINGS: The bowel gas pattern is non-obstructive. Vascular calcifications are noted within the pelv is. There is no organomegaly. No renal calculi. No ureteral calculi. No pneumoperitoneum or pneumato sis. Degenerative changes of the spine, pelvis and hips. No fracture. IMPRESSION: Nonobstructive bowel gas pattern. ACT 112: Negative or not required by law. The above report was generated using voice recognition software. It may contain grammatical, syntax o r spelling errors. Electronically signed by: Mitul Fletcher M.D. 10/20/2019 7:53 AM
[2019-10-20] MEDS: DOCUSATE SODIUM 100 MG CAP PO SCH ×2 (08:41→20:40)
[2019-10-20] MEDS: lisinopriL 40 MG TAB PO SCH (08:42)
[2019-10-20] MEDS: FUROSEMIDE 20 MG in SYRINGE 0 ML IV SCH ×2 (08:42→20:38)
[2019-10-20] MEDS: METOPROLOL TARTRATE 50 MG TAB PO SCH ×2 (08:42→20:39)
[2019-10-20] MEDS: AMLODIPINE BESYLATE 5 MG TAB PO SCH (08:42)
[2019-10-20] MEDS: ATORVASTATIN 20 MG TAB PO SCH (08:42)
[2019-10-20] MEDS: PANTOprazole 40 MG TAB PO SCH (08:42)
[2019-10-20] MEDS: MEMANTINE HCL 10 MG TAB PO SCH (08:43)
[2019-10-20] MEDS: TIMOLOL GFS 0.5% OPH SOLN 74 DROPS/5 ML BTL OPB SCH (08:43)
[2019-10-20] MEDS: HEPARIN SOD 5,000 UNIT/0.5 ML VIAL SQ SCH ×2 (08:43→20:39)
[2019-10-20] MEDS: POTASSIUM CHLORIDE 20 MEQ TABCR PO SCH (09:30)
--- NOTE | 2019-10-20 12:24 | XRay Report ---
XR chest 1V portable HISTORY: 83 years-old Female possible aspiration acute shortness of breath with possible aspiration pneumonitis COMPARISON: Chest radiograph 10/19/2019 TECHNIQUE: Portable AP view the chest FINDINGS: Cardiac silhouette is enlarged, unchanged. Small bilateral pleural effusions with decreased pulmonary edema. No pneumothorax.. Aeration of the right lung base. Persistent left lung base opacities. Calci fic plaque of the thoracic aortic arch. Left subclavian pacer is unchanged. Degenerative changes note d about the shoulders and spine. IMPRESSION: 1. Cardiomegaly with decreased pulmonary edema. 2. Improved aeration of the right lung base with persistent left lung base opacities suggestive of at electasis or pneumonitis. 3. Small pleural effusions. ACT 112: Negative or not required by law. The above report was generated using voice recognition software. It may contain grammatical, syntax o r spelling errors. Electronically signed by: Mitul Fletcher M.D. 10/20/2019 12:22 PM
[2019-10-20] MEDS: cefTRIAXone SODIUM 2,000 MG in DEXTROSE 5% 50 ML IV SCH (14:40)
--- NOTE | 2019-10-20 16:33 | Hospitalist Progress Note ---
Date of Service October 20, 2019 Assessment & Plan (1) Third degree heart block: Patient is slowly improving. Permanent pacemaker was placed on 10/[address] 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 Patient tolerated procedure well. Continue supportive treatment. DVT prophylaxis Heparin 5000 units every 12 hours. Cefazolin given prophylactically by cardiology post transfer. Continues a full code per family request. (2) Ventricular tachycardia: As above. Continue telemetry. (3) Esophageal reflux: Continue pantoprazole 40 mg p.o. daily. (4) Impaired fasting glucose: Hemoglobin A1c 6.1. Type II diabetic diet continues. Recheck A1c in 3 months with PCP. (5) Dyslipidemia: Continue home medicine atorvastatin 20 mg p.o. nightly. Fasting lipid panel pending. (6) Dementia: Continue home medicine memantine 10 mg p.o. twice daily. (7) Glaucoma: Continue timolol maleate 0.5% 1 drop in the bilateral eye (8) Hypertension: Restart home medicine because patient blood pressure is now picking up. Patient takes at home lisinopril 40 mg p.o. daily, amlodipine 10 mg p.o. daily. (9) Aspiration pneumonitis: On the chest x-rays and clinical exam patient appears to have aspiration pneumonitis. Patient is already on ceftriaxone for urinary tract infection. Added doxycycline 100 mg p.o. twice daily for prophylaxis of developing pneumonia. Procalcitonin negative for now. Patient has slightly elevated white blood cell count, which was not present yesterday. Trend down white blood cell count. Will refer to to speech and swallowing. DuoNebs every 4 hours as needed for cough and shortness of breath. Present on Admission?: Yes (10) Discharge planning issues: If patient clinically stable and signs of infection subsides would consider discharging her home with her sisters and give additional treatment of antibiotics for 5 days. Patient is at high risk of developing pneumonia. Present on Admission?: Yes (11) Acute CHF: On the x-rays it is visible that patient has pulmonary edema with small pleural effusions and atelectasis/pneumonitis, which is decreasing now. Patient is strict in and out, daily weight low-sodium diet and restriction of p.o. fluid to 1200 mils daily. Patient is also on furosemide 20 mg p.o. twice daily. Congestive heart failure appears to be systolic. Present on Admission?: Yes Subjective Pt is seen and examined at the bedside. Patient had episode of vomiting and coughing this morning and she was not awake as usual. There is a concern that she aspirated saliva or food. Chest x-rays continue to be positive for pulmonary edema and possible pneumonitis. Aspiration pneumonitis is not excluded even though procalcitonin is negative. P.o. intake is not as good as yesterday and patient appears to be tired. Patient had placed pacemaker on 10/18 which she tolerated very well. The wound is clean dry and intact. No bleeding or bruising is noted or infection. Patient reports no pain whatsoever or any chest discomfort. Patient is poor historian otherwise and complete review of system is not possible. Patient is afebrile. Review of Systems Review of Systems: All systems reviewed & are unremarkable except as noted in HPI & below Physical Exam Constitutional: WD/WN, vitals as above no acute distress Eyes: PERRL, conjunctivae normal, anicteric sclerae ENMT: external ear and nose normal, oropharynx normal Respiratory: normal respiratory effort; no respiratory distress and no labored breathing Cardiovascular: RRR, no murmur, no edema Vessels: dorsalis pedis pulses present Extremities: normal capillary refill Gastrointestinal (Abdomen): normal bowel sounds, soft, nontender, no hepatosplenomegaly Musculoskeletal: no cyanosis or clubbing, extremities motor strength 5/5 Skin: no rashes, warm and dry Neurologic: PERRL, EOMI, accommodation nl, no face palsy, no dysarthria moves all extremities; no focal motor deficits Motor/Sensory: no tremor Psychiatric: Orientation: alert Results & Data Vital Signs (Past 12 Hours) Vital Signs Temp Pulse Resp BP Pulse Ox 10/20/19 15:15 36.6 C 63 18 166/66 H 96 10/20/19 12:00 36.8 C 69 18 159/66 H 95 10/20/19 08:00 37.0 C 76 16 149/72 H 95 PG Care Time/CCT Total # of Minutes Spent Total Time Spent with Patient: Total time spent is greater than 50% in coor dination of care (as documented) at patient's floor/unit and/or counseling patient:
[2019-10-20] MEDS ORDERED: ALBUT/IPRATROP 3MG/0.5MG NEB 3 ML VIAL NEB PRN (17:03)
[2019-10-20] MEDS: DOXYCYCLINE HYCLATE 100 MG in DEXTROSE 5% 100 ML IV SCH (20:40)
[2019-10-21 07:30] LABS: Basophils # (auto) 0.03 K/uL (0-0.2); Basophils % (auto) 0.4 %; Eosinophils % (auto) 1.2 %; Hematocrit (blood only) 34.7 % (37-47); Hemoglobin 11.8 g/dL (12.0-16.0); Immature Granulocytes # (auto) 0.03 K/uL (0.00-0.02); Immature Granulocytes % (auto) 0.4 %; Lymphocytes # (auto) 2.38 K/uL (1.2-3.4); Lymphocytes % (auto) 28.5 %; Mean Corpuscular Volume 91.1 fL (80-100); Mean Platelet Volume 10.5 fL (7.4-10.4); Monocytes % (auto) 9.6 %; Neutrophils % (auto) 59.9 %; Platelet Count 173 K/uL (130-400); RDW Coefficient of Variation 13.9 % (11.5-14.5); RDW Standard Deviation 45.7 fL (36.4-46.3); Red Blood Count 3.81 M/uL (4.2-5.4); White Blood Count 8.34 K/uL (4.8-10.8)
[2019-10-21 07:58] LABS: Albumin Level 2.4 gm/dl (3.4-5.0); BUN Creatinine Ratio 22.7 (10-20); Creatinine Clr Calc Pharmacy 36.7 ml/min; Est GFR (African American) 65.1; Est GFR (Non-African American) 56.2; Potassium 3.9 mmol/L (3.5-5.1)
[2019-10-21 08:03] LABS: Albumin Globulin Ratio 0.6 (0.9-2); Bilirubin,Total 0.4 mg/dl (0.2-1); Globulin 3.9 gm/dl (2.5-4.0); Total Protein 6.3 gm/dl (6.4-8.2)
[2019-10-21] MEDS: ATORVASTATIN 20 MG TAB PO SCH (08:58)
[2019-10-21] MEDS: lisinopriL 40 MG TAB PO SCH (08:58)
[2019-10-21] MEDS: METOPROLOL TARTRATE 50 MG TAB PO SCH (08:58)
[2019-10-21] MEDS: DOCUSATE SODIUM 100 MG CAP PO SCH (08:58)
[2019-10-21] MEDS: AMLODIPINE BESYLATE 5 MG TAB PO SCH (08:58)
[2019-10-21] MEDS: POTASSIUM CHLORIDE 20 MEQ TABCR PO SCH (08:58)
[2019-10-21] MEDS: PANTOprazole 40 MG TAB PO SCH (08:58)
[2019-10-21] MEDS: MEMANTINE HCL 10 MG TAB PO SCH (08:58)
[2019-10-21] MEDS: FUROSEMIDE 20 MG in SYRINGE 0 ML IV SCH (08:58)
[2019-10-21] MEDS: HEPARIN SOD 5,000 UNIT/0.5 ML VIAL SQ SCH (08:58)
[2019-10-21] MEDS: TIMOLOL GFS 0.5% OPH SOLN 74 DROPS/5 ML BTL OPB SCH (08:59)
[2019-10-21] MEDS: DOXYCYCLINE HYCLATE 100 MG in DEXTROSE 5% 100 ML IV SCH (09:05)
--- NOTE | 2019-10-21 17:27 | Discharge Summary ---
Date of Service October 21, 2019 Admission HPI Per Admitting Provider Ms. Head is a 83-year-old very pleasant female with a past medical history of hemorrhagic CVA, hypertension, dementia, impaired fasting glucose, GERD, hyperlipidemia and glaucoma who was brought to [facility] by ALS due to 2 syncopal episodes prior to arrival. Per EMS, patient was in third- degree heart block, and had 2 brief runs of V. tach en route to the hospital. History is largely supplied by the family, as Ms. Head is pleasantly demented and is unsure of the circumstances that brought her into the hospital. Her 2 sisters at the bedside [whom she lives with] report that she was in her usual state of health until earlier this evening. They state that she has 2 separate syncopal episodes. Her sisters were present for these, and states that she did not fall, or hit her head. States states that she was shaking her extremities, but denies a prior history of seizures, and states that she did not bite her tongue, or have any incontinence. Her sister states that she does not have any history of prior heart problems. They do report that her blood pressure medications were changed recently. She was on metoprolol in the past, however this was discontinued, and she is currently on lisinopril and amlodipine. With regards to her history of hemorrhagic CVA, she was life flighted from [facility] to [place] for this approximately 10 years ago. She does not have any residual deficits from this. Ms. Head reports that she feels well at the current time. She denies any chest pain, or shortness of breath. She is aware that she is at [facility], but believes it is the year 1937. Principal Diagnosis Complete heart block Discharge Exam Constitutional WD/WN, vitals as above Eyes EOM intact bilaterally; no conjunctival abnormality ENMT external ear and nose normal, oropharynx normal Neck trachea midline, no thyromegaly normal visual inspection Respiratory normal respiratory effort, lungs clear to auscultation no respiratory distress Cardiovascular RRR, no murmur, no edema Gastrointestinal (Abdomen) Inspection/Auscultation: abdomen normal to inspection; abdomen not distended Musculoskeletal no cyanosis or clubbing, extremities motor strength 5/5 Skin no rashes, warm and dry Neurologic moves all extremities and awake Psychiatric Orientation: alert, oriented to person and cooperative Discharge Data Allergies Allergy/AdvReac Type Severity Reaction Status Date / Time aspirin Allergy Verified 09/10/19 11:13 Sulfa (Sulfonamide Allergy Verified 09/10/19 11:13 Antibiotics) Consultations 10/16/19 19:48 ED Decision to Admit Stat 10/16/19 22:41 Consult Case Management - Discharge Planning Routine Consult Aviation Safety Equipment Technician Routine 10/17/19 05:36 Consult Case Management - Discharge Planning Routine 10/17/19 06:41 Consult Cardiology Routine Procedures Performed Operation Date: 10/17/19 10:00 Actual Procedures p Ins/RemTemporary Transvenous Pacer - Margarita Nj s Ultrasound Vascular Access - Margarita Nj Operation Date: 10/18/19 11:35 Actual Procedures p Pacer with A/V Leads (Dual) - Jcarlos Jenkins MD Ordered Studies 10/16/19 18:52 US point of care ultrasound Stat 10/16/19 21:29 CT abd pelvis wo con Stat CT chest wo con Stat CT head/brain wo con Stat 10/17/19 09:51 CL Cath Imgs for PACS use only Stat 10/18/19 11:34 CL Cath Imgs for PACS use only Routine Hospital Course (1) Third degree heart block: Permanent pacemaker was placed on 10/[address] 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 - Patient tolerated procedure well. - On the day of discharge, Dr. Jenkins reviewed telemetry. She has clear atrial spikes, but her ventricular lead doesn't show the spike, possibly because it is in the conduction system. However, it is firing well and RH was normal. The patient felt well and wanted to go home. Follow up with cardiology. (2) Aspiration pneumonitis: On the chest x-rays and clinical exam patient appears to have aspiration pneumonitis. - Patient improved over 24 hours. Was on room air by discharge with no shortness of breath. - Seen by SUPPLY SPECIALIST without concerns. - Finish Augmentin x 5 days total. Will also cover her possible UTI. (3) Ventricular tachycardia: As above. Continue telemetry. (4) Esophageal reflux: Continue pantoprazole 40 mg p.o. daily. (5) Impaired fasting glucose: Hemoglobin A1c 6.1. Type II diabetic diet continues. Recheck A1c in 3 months with PCP. (6) Dyslipidemia: Continue home medicine atorvastatin 20 mg p.o. nightly. Fasting lipid panel pending. (7) Dementia: Continue home medicine memantine 10 mg p.o. twice daily. (8) Glaucoma: Continue timolol maleate 0.5% 1 drop in the bilateral eye (9) Hypertension: Restart home medicine because patient blood pressure is now picking up. Patient takes at home lisinopril 40 mg p.o. daily, amlodipine 10 mg p.o. daily. Total Time Total Time Spent Total Time Spent (In Minutes): 35 Discharge Plan Discharge Items Patient Disposition: Home - Home Health Services Reason For Visit: COMPLETE HEART BLOCK Discharge Diagnosis: Complete heart block Activity: Resume your previous activity Non-emergency contact: Primary Care Provider and Padded Products Finisher Call non-emergency contact if: you have any medication questions, your symptoms worsen and your pain is worsening Follow-up/Referrals: Jcarlos Jenkins MD [Physician] - 11/17/18 4:00 pm (Please, follow up at [facility] Cardiology Office with Dr. Jenkins on FridayNovember 17 at 4:00 pm. *[address] [facility], next to this hospital. If you need to change this appointment, call the office at [phone].) Brian Sanchez III, MD [Primary Care Provider] - 10/28/19 3:00 pm (Please, follow up at Dr. Sanchez's office with his associate, Nica MEREDITH, on October 28 at 3:00 pm. *If you need to change this appointment, call their office at [phone].) Diet: Heart Healthy Addtl Attending Provider Instructions: Please take your antibiotics for 3 more days. ACTIVITY RECOMMENDATIONS: * Do not raise affected arm over head for 2 weeks. SPECIAL CARE INSTRUCTIONS: * If bleeding occurs, apply direct pressure to area for 5 minutes. * Call your doctor if you have severe pain, fever, drainage or bleeding at site. * Keep any scheduled doctor's appointment. * Implant Card - hand held device with website information given. SKIN IRRITATION: * You may experience some redness and/or swelling in the area where radiation was administered. If any skin irritation occurs, please contact your family physician. FOLLOW UP VISIT: Keep any scheduled doctor appointments. Pending Studies at Discharge: No Stand-Alone Forms: My [facility] Mail'Inside, Smoking Cessation Medications and DC Order Prescriptions: New acetaminophen-codeine 300-30 mg Tablet 1 tab PO Q4H PRN (Reason: pain) Qty: 10 RF: 0 amoxicillin-pot clavulanate 875-125 mg tablet 1 tab PO BID Qty: 7 RF: 0 Continued potassium chloride 20 mEq tablet extended release 20 meq PO DAILY Qty: 90 RF: 3 amlodipine 10 mg tablet 10 mg PO DAILY Qty: 90 RF: 1 atorvastatin 20 mg tablet 20 mg PO HS Qty: 90 RF: 1 lisinopril 40 mg tablet 40 mg PO DAILY Qty: 90 RF: 1 omeprazole 20 mg capsule,delayed release(DR/EC) 20 mg PO DAILY Qty: 90 RF: 1 timolol maleate 0.5 % drops 1 drops ophthalmic (eye) DAILY RF: 0 melatonin 3 mg tablet 3 mg PO HS PRN (Reason: Insomnia) RF: 0 docusate sodium 100 mg capsule 100 mg PO BID PRN (Reason: Constipation) Qty: 60 RF: 0 vit C,A-Ef-rgdav-lutein-zeaxan 60 mg-13.5 mg- 15 mg-2 mg-6 mg capsule 1 cap PO DAILY RF: 0 calcium carbonate 600 mg calcium (1,500 mg) tablet 600 mg PO DAILY RF: 0 memantine 10 mg tablet 10 mg PO BID 90 Days Qty: 180 RF: 3 Discharge Orders: Discharge Order (Routine); Ordered 10/21/19 Ordered By: James Patiño Admission Data Admit Date/Time: 10/16/19 21:04 Attending Provider: James Patiño Admit Provider: Radha Coughlin Primary Care Provider: Brian Sanchez III Other Providers: Ozzy Welch ; Shola Flores ; Kevin May ; Jonathan Burnett ; Mayank Pena ; Jcarlos Jenkins ; Anibal Owens Jr ; Huang Butler ; Lalitha Savage ; Sri Lerner ; John Bedoya ; John Palmer ; Otoniel Khan ; Julianne Velazco ; Margarita Nj ; James Patiño ; [facility] Other Interventions: Discharge Summary Assessment (RN) Last Done: 10/21/19 14:15 DC Date/Time DO NOT enter until pt leaves facility: 10/21/19 16:50
== END 2019-10-21 16:50 | disposition home health service (06) | DRG 242 ==
LOC: ED 18:38 → SUATTDRO 21:04 → 1E 21:04 → 2S 10-18 15:40

== ENCOUNTER 2022-05-25 03:51 | Inpatient (IN) ==
[2022-05-25] MEDS ORDERED: SODIUM CHLORIDE 0.9% 1000ML 1,000 ML IV STA (04:10)
[2022-05-25] MEDS ORDERED: SODIUM CHLORIDE 0.9% 500 ML IV STA (04:10)
[2022-05-25] MEDS ORDERED: cefTRIAXone SODIUM 1,000 MG/50 ML BAG IV STA (04:14)
[2022-05-25] MEDS ORDERED: fentaNYL citrate 100 MCG/2 ML VIAL IV ONE ×2 (04:28→06:36)
[2022-05-25] MEDS ORDERED: ONDANSETRON INJ 2 MG/ML 2 ML VIAL IV STA (04:28)
[2022-05-25 04:47] LABS: Hematocrit (blood only) 35.8 % (34.1-44.9); Hemoglobin 11.9 g/dl (12.0-16.0); Mean Corpuscular Hemoglobin 29.8 pg (25.0-34.0); Mean Corpuscular Hgb Conc 33.2 g/dL (32.0-36.0); Mean Corpuscular Volume 89.7 fL (80.0-100.0); Mean Platelet Volume 9.8 fL (9.4-12.3); Platelet Count 276 K/uL (130-400); RDW Coefficient of Variation 13.5 % (11.5-14.5); RDW Standard Deviation 44.3 fL (36.4-46.3); Red Blood Count 3.99 M/uL (3.93-5.22); White Blood Count 9.32 K/ul (4.8-10.8)
[2022-05-25 04:56] LABS: Alanine Aminotransferase 54 U/L (7-52); Albumin Globulin Ratio 1.1 (0.9-2); Albumin Level 4.1 gm/dl (3.4-5.0); Alkaline Phosphatase 114 U/L (34-104); Anion Gap 15 (3-11); Aspartate Aminotransferase 58 U/L (13-39); BUN Creatinine Ratio 33.3 (10-20); Bilirubin,Total 0.7 mg/dl (0.2-1.0); Blood Urea Nitrogen 36 mg/dl (6-23); Calcium 9.5 mg/dl (8.5-10.1); Carbon Dioxide 19 mmol/L (21-32); Chloride 102 mmol/L (98-107); Est GFR (African American) 54.6 ml/min; Est GFR (Non-African American) 47.1 ml/min; Globulin 3.8 gm/dl (2.5-4.0); Glucose 182 mg/dl (70-99(Fasting)); Lipase 38 U/L (11-82); Potassium 3.8 mmol/L (3.5-5.1); Sodium 136 mmol/L (136-145); Total Protein 7.9 gm/dl (6.0-8.3)
[2022-05-25] MEDS ORDERED: SODIUM CHLORIDE 0.9% 1000ML 1,000 ML IV ONE (04:59)
[2022-05-25] MEDS ORDERED: PIPERACILLIN/TAZOBACTAM 4.5 GM/120 ML BAG IV ONE (05:01)
[2022-05-25 05:15] LABS: Basophils # (auto) 0.02 K/uL (0-0.2); Basophils % (auto) 0.2 %; Eosinophils # (auto) 0.02 K/uL (0-0.50); Eosinophils % (auto) 0.2 %; Immature Granulocytes # (auto) 0.13 K/uL (0.00-0.02); Immature Granulocytes % (auto) 1.4 %; Lymphocytes # (auto) 0.62 K/uL (1.2-3.4); Lymphocytes % (auto) 6.7 %; Monocytes # (auto) 0.04 K/uL (0.24-0.82); Monocytes % (auto) 0.4 %; Neutrophils # (auto) 8.49 K/uL (1.4-6.5); Neutrophils % (auto) 91.1 %
--- NOTE | 2022-05-25 05:31 | Emergency Department Note ---
History of Present Illness General Chief complaint: Hematuria Stated complaint: BLOOD IN URINE Time Seen by Provider: 05/25/22 04:10 Source: patient, family and RN notes reviewed Mode of arrival: ambulatory Limitations: clinical acuity (Pain) History of Present Illness Provider complaint: Left flank pain, hematuria Onset (ago): day(s) 5 Location: abdomen (Left) Severity: moderate Pain Consistency: + constant Maximum Pain Intensity: 4 Current Pain Intensity: 4 Quality: + aching Relieved By: + none Exacerbated By: + movement Associated symptoms: + fever/chills Treatments prior to arrival: cold therapy Home Medications Medication Instructions Recorded Confirmed Type melatonin 3 mg tablet 3 mg PO HS PRN Insomnia 06/21/19 02/19/22 History timolol maleate 0.5 % eye drops 1 drops OPB DAILY 06/21/19 02/19/22 History calcium carbonate 600 mg calcium 600 mg PO DAILY 08/17/19 02/19/22 History (1,500 mg) tablet docusate sodium 100 mg capsule 100 mg PO BID PRN Constipation #60 08/17/1902/01 History caps vit C,K-Sb-xpcotn-lutein-zeaxan 60 1 cap PO DAILY 08/17/19 02/19/22 History mg-13.5 mg-15 mg-2 mg-6 mg capsule potassium chloride 20 mEq 20 meq PO DAILY #90 tabs 09/04/20 08/06/21 Rx tablet,extended release lisinopril 40 mg tablet 40 mg PO DAILY #90 tabs 09/06/20 08/06/21 Rx aspirin 81 mg tablet,delayed 81 mg PO DAILY 10/17/20 02/19/22 History release (Adult Low Dose Aspirin) cafvpqqelb-lupgzkyuowsbr-kmfazudc 1 cap PO Q6H PRN headache #30 caps 03/13/21 02/19/22 Rx 50 mg-325 mg-40 mg capsule cholecalciferol (vitamin D3) 25 25 mcg PO DAILY 03/22/21 02/19/22 History mcg (1,000 unit) capsule mecobalamin (vitamin B12) 1,000 1,000 mcg PO DAILY 03/22/21 02/19/22 History mcg chewable tablet memantine 10 mg tablet 10 mg PO BID 90 days #180 tabs 09/12/21 02/19/22 Rx nystatin 100,000 unit/gram topical 1 applic topical BID #30 grams 10/12/21 02/19/22 Rx powder amlodipine 10 mg tablet 10 mg PO DAILY #90 tabs 01/15/22 02/19/22 Rx metformin 500 mg tablet 500 mg PO DAILY #90 tabs 01/30/22 02/19/22 Rx omeprazole 20 mg capsule,delayed 20 mg PO DAILY #90 caps 03/14/22 Rx release atorvastatin 40 mg tablet 40 mg PO HS #90 tabs 04/30/22 Rx Allergies Allergy/AdvReac Type Severity Reaction Status Date / Time aspirin Allergy Unknown Verified 02/19/22 14:10 Sulfa (Sulfonamide Allergy Unknown Verified 02/19/22 14:10 Antibiotics) Past Med/Surg History Medical History Anxiety Bradycardia 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 Cerebral ischemia CHB (complete heart block) with pacemaker insertion CVA (cerebral vascular accident) Dementia Depression Dyslipidemia Esophageal reflux Fibromyalgia Glaucoma Hemiparesis Hypertension Migraine headache Patella fracture Type 2 diabetes mellitus without complication Ventricular tachycardia Surgical History History of cataract surgery Status post biventricular cardiac pacemaker insertion (10/18/19) Recurrent syncope, 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 Family History Brother Diabetes Colon cancer Prostate cancer Mother CHF (congestive heart failure) Tobacco use Sister Diabetes Glaucoma Macular degeneration Father Prostate cancer Tobacco use Pneumonia Daughter Clayton disease Other Coronary heart disease Denies family history of Ovarian cancer Breast cancer Social History Smoking Status: Never smoker Second Hand Exposure: No; Hx Alcohol Use: No Hx Substance Use: No Preferred Language: Tamazight Communication Ability: Impaired Scoring Machine Operator Required: No Beliefs That Will Affect Care: None marital status: marital status details: previously twice Current Living Situation: Family Current Living Situation Comment: lives w/ sisters (2) + niece current occupational status: retired 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 and A total of 10 systems reviewed and were otherwise negative Physical Exam Vital Signs Vital Signs - 24 hr 05/25/22 05:54 05/25/22 06:27 05/25/22 06:50 Pulse Rate Pulse Rate [Left Apical] 74 114 H 117 H Pulse Rate from SpO2 Sensor Pulse Rhythm [Left Apical] Regular Pulse Strength [Left Apical] Normal Respiratory Rate 20 24 20 Respiratory Effort / Characteristics Non-Labored Spontaneous Non-Labored Spontaneous Non-Labored Respiratory Depth Normal Normal Normal Respiratory Pattern Tachypnea Blood Pressure Blood Pressure [Right Arm] 154/62 H 152/46 H 134/75 Blood Pressure Mean Blood Pressure Mean [Right Arm] 92 81 94 Blood Pressure Position [Right Arm] Lying Pulse Oximetry 94 97 92 Oxygen Delivery Method Room Air Room Air Room Air 05/25/22 07:10 05/25/22 08:00 05/25/22 08:00 Pulse Rate 118 H 95 H Pulse Rate [Left Apical] 95 H Pulse Rate from SpO2 Sensor 95 H Pulse Rhythm [Left Apical] Pulse Strength [Left Apical] Respiratory Rate 16 19 Respiratory Effort / Characteristics Non-Labored Respiratory Depth Normal Respiratory Pattern Blood Pressure 146/67 H 133/72 Blood Pressure [Right Arm] 133/72 Blood Pressure Mean 92 Blood Pressure Mean [Right Arm] 92 Blood Pressure Position [Right Arm] Pulse Oximetry 91 95 Oxygen Delivery Method Room Air Room Air Vital signs reviewed. General: Somewhat ill-appearing 86-year-old female, in discomfort but no dis tress. HEENT: No scleral icterus, PERRLA, neck supple. Dry mucous membranes Cardiovascular: Tachycardic but regular, no extra sounds Pulmonary: Clear to auscultation bilaterally, normal work of breathing. Abdomen: Soft, nontender to percussion of the anterior abdomen, pain noted to palpation over the central to mid left abdomen, no rebound or guarding Musculoskeletal: Atraumatic, no peripheral edema. Neurologic: Awake, alert and oriented x3. Answers questions really. Skin: Warm, dry, no rash Eyes PERRL, conjunctivae normal, anicteric sclerae ENMT external ear and nose normal, oropharynx normal Neck trachea midline, no thyromegaly Respiratory normal respiratory effort, lungs clear to auscultation Cardiovascular RRR, no murmur, no edema Gastrointestinal (Abdomen) normal bowel sounds, soft, nontender, no hepatosplenomegaly Course Administered Medications Cyanocobalamin (Cyanocobalamin (B-12) 500 Mcg Tablet) 1,000 mcg PO DAILY [place] Stop: 06/24/22 11:59 Last Admin: 05/25/22 12:51 Dose: 1,000 mcg Documented By: ALEX Lactated Ringer's (Lr) 1,000 mls @ 80 mls/hr IV .[id number] [place] Stop: 05/26/22 12:26 Last Admin: 05/26/22 00:03 Dose: 80 mls/hr Documented By: Infusion: 05/26/22 00:03 Dose: 80 mls/hr Documented By: Admin: 05/25/22 11:33 Dose: 80 mls/hr Documented By: ALEX Cefepime HCl 2,000 mg/ Syringe 20 mls @ 5 mls/min IV Q24H [facility]; Protocol Stop: 06/04/22 13:59 Last Admin: 05/25/22 14:46 Dose: 5 mls/min Documented By: ALEX Insulin Aspart (Insulin Aspart Per Unit) 0 units SC ACHS [place] Stop: 06/24/22 11:29 Last Admin: 05/25/22 20:36 Dose: Not Given Documented By: Admin: 05/25/22 17:29 Dose: Not Given Documented By: Admin: 05/25/22 12:39 Dose: 1 units Documented By: ALEX Co-signed By: ANGELES Lactobacillus Acidophilus (Advanced Probiotic 1250 Mg Capsule) 2 cap PO DAILY [place] Stop: 06/24/22 11:59 Last Admin: 05/25/22 12:51 Dose: 2 cap Documented By: ALEX Memantine (Memantine Hcl 10 Mg Tab) 10 mg PO BID [place] Stop: 06/24/22 11:59 Last Admin: 05/25/22 21:30 Dose: 10 mg Documented By: Admin: 05/25/22 12:51 Dose: 10 mg Documented By: ALEX Miscellaneous (*Fioricet*Order Awaiting Action) 1 each N/A QS [place] Stop: 06/24/22 15:59 Last Admin: 05/26/22 00:02 Dose: Not Given Documented By: Admin: 05/25/22 15:31 Dose: Not Given Documented By: ALEX Multivitamins/Minerals (Cerovite Adv Formula Tab) 1 tab PO DAILY [place] Stop: 06/24/22 11:59 Last Admin: 05/25/22 12:51 Dose: 1 tab Documented By: ALEX Nystatin (Nystatin Powder 15gm Btl) 1 appln EXT BID [place] Stop: 06/24/22 11:59 Last Admin: 05/25/22 21:30 Dose: 1 appln Documented By: Admin: 05/25/22 12:51 Dose: 1 appln Documented By: ALEX Pantoprazole Sodium (Pantoprazole 40 Mg Tab) 40 mg PO BID [place] Stop: 06/24/22 11:59 Last Admin: 05/25/22 21:29 Dose: 40 mg Documented By: Admin: 05/25/22 12:51 Dose: 40 mg Documented By: ALEX Timolol Maleate (Timolol Maleate 0.5% Op Soln 5 Ml Btl) 1 drops OPB DAILY [place] Stop: 06/24/22 11:59 Last Admin: 05/25/22 12:52 Dose: 1 drops Documented By: ALEX Discontinued Medications Acetaminophen (Acetaminophen 1000 Mg/100 Ml Iv) 1,000 mg IV NOW STA Stop: 05/25/22 06:37 Last Admin: 05/25/22 06:53 Dose: 1,000 mg Documented By: AUDREY Fentanyl Citrate (Fentanyl Citrate 100 Mcg/2 Ml Vial) 25 mcg IV NOW ONE Stop: 05/25/22 04:29 Last Admin: 05/25/22 05:13 Dose: 25 mcg Documented By: AUDREY Fentanyl Citrate (Fentanyl Citrate 100 Mcg/2 Ml Vial) 25 mcg IV NOW ONE Stop: 05/25/22 06:37 Last Admin: 05/25/22 09:00 Dose: 25 mcg Documented By: MAGGY Fentanyl Citrate (Fentanyl Citrate 100 Mcg/2 Ml Vial) Confirm Administered Dose 100 mcg .ROUTE .STK-MED ONE Stop: 05/25/22 08:58 Last Admin: 05/25/22 09:00 Dose: Not Given Documented By: MAGGY Sodium Chloride (Nss 1000ml) 1,000 mls @ 125 mls/hr IV .Q8H [facility]A Stop: 05/25/22 12:09 Last Infusion: 05/25/22 14:46 Dose: 0 mls/hr Documented By: Admin: 05/25/22 05:57 Dose: 125 mls/hr Documented By: AUDREY Sodium Chloride (Nss) 500 mls @ 999 mls/hr IV .Q31M [facility]A Stop: 05/25/22 04:40 Last Infusion: 05/25/22 05:15 Dose: 0 mls/hr Documented By: Admin: 05/25/22 04:15 Dose: 999 mls/hr Documented By: TW Ceftriaxone Sodium (Rocephin) 1,000 mg in 50 mls @ 100 mls/hr IV NOW STA Stop: 05/25/22 04:43 Last Infusion: 05/25/22 05:32 Dose: 0 mls/hr Documented By: Admin: 05/25/22 05:03 Dose: 100 mls/hr Documented By: AUDREY Sodium Chloride (Nss 1000ml) 1,000 mls @ 999 mls/hr IV .Q1H1M ONE Stop: 05/25/22 05:59 Last Infusion: 05/25/22 05:56 Dose: 0 mls/hr Documented By: Admin: 05/25/22 05:03 Dose: 999 mls/hr Documented By: AUDREY Piperacillin Sod/Tazobactam Sod (Zosyn) 4.5 gm in 120 mls @ 240 mls/hr IV NOW ONE Stop: 05/25/22 05:30 Last Infusion: 05/25/22 05:57 Dose: 0 mls/hr Documented By: Admin: 05/25/22 05:14 Dose: 240 mls/hr Documented By: AUDREY Ioversol (Optiray 320 100ml) 95 ml IV ONCE ONE Stop: 05/25/22 05:52 Last Admin: 05/25/22 05:48 Dose: 95 ml Documented By: LUNA Metoprolol Tartrate (Metoprolol Tartrate 1 Mg/Ml Vial) 5 mg IV NOW STA Stop: 05/25/22 07:03 Last Admin: 05/25/22 07:10 Dose: 5 mg Documented By: MAGGY Ondansetron HCl (Ondansetron Inj 2 Mg/Ml 2 Ml Vial) 4 mg IV NOW STA Stop: 05/25/22 04:29 Last Admin: 05/25/22 04:33 Dose: 4 mg Documented By: ROCHELLE Medical Decision Making Differential Diagnosis Appendicitis, ovarian cyst, ovarian torsion, ectopic , TOA, PID, infections, diverticulitis, UTI, obstruction, mesenteric ischemia, aortic pathology, inflammatory bowel disease, renal colic, PUD, pancreatitis, biliary pathology, hernia, volvulus, constipation, as well as other pathologies. Medical Records Attestation: I reviewed the patient's medical records. Home Medications Current Medication List: was personally reviewed by me Laboratory Data Attestation: I reviewed the patient's lab results. Result diagrams: 05/25/22 18:47 05/25/22 04:25 Lab Results 05/25/22 05/25/22 05/25/22 Range/Units 04:25 04:25 04:25 WBC 9.32 (4.8-10.8) K/ul RBC 3.99 (3.93-5.22) M/uL Hgb 11.9 L (12.0-16.0) g/dl Hct 35.8 (34.1-44.9) % MCV 89.7 (80.0-100.0) fL MCH 29.8 (25.0-34.0) pg MCHC 33.2 (32.0-36.0) g/dL RDW Std Deviation 44.3 (36.4-46.3) fL RDW Coeff of Vinh 13.5 (11.5-14.5) % Plt Count 276 (130-400) K/uL MPV 9.8 (9.4-12.3) fL Immature Gran % (Auto) 1.4 % Neut % (Auto) 91.1 % Lymph % (Auto) 6.7 % Camas % (Auto) 0.4 % Eos % (Auto) 0.2 % Baso % (Auto) 0.2 % Neut # (Auto) 8.49 H (1.4-6.5) K/uL Lymph # (Auto) 0.62 L (1.2-3.4) K/uL [place] # (Auto) 0.04 L (0.24-0.82) K/uL Eos # (Auto) 0.02 (0-0.50) K/uL Baso # (Auto) 0.02 (0-0.2) K/uL Immature Gran # (Auto) 0.13 H (0.00-0.02) K/uL Sodium 136 (136-145) mmol/L Potassium 3.8 (3.5-5.1) mmol/L Chloride 102 (98-107) mmol/L Carbon Dioxide 19 L (21-32) mmol/L Anion Gap 15 H (3-11) BUN 36 H (6-23) mg/dl Creatinine 1.08 (0.6-1.2) mg/dl Est Cr Clr Drug Dosing Not Reportable Est GFR ( Amer) 54.6 ml/min Est GFR (Non-Af Amer) 47.1 ml/min BUN/Creatinine Ratio 33.3 H (10-20) Glucose 182 H (70-99(Fasting)) mg/dl Lactate 4.3 H* (0.4-2.0) mmol/L Calcium 9.5 (8.5-10.1) mg/dl Magnesium (1.7-2.4) mg/dl Total Bilirubin 0.7 (0.2-1.0) mg/dl AST 58 H (13-39) U/L ALT 54 H (7-52) U/L Alkaline Phosphatase 114 H (34-104) U/L Total Protein 7.9 (6.0-8.3) gm/dl Albumin 4.1 (3.4-5.0) gm/dl Globulin 3.8 (2.5-4.0) gm/dl Albumin/Globulin Ratio 1.1 (0.9-2) Lipase 38 (11-82) U/L Urine Color Urine Appearance (Clear) Urine pH (4.5-7.5) Ur Specific Goodman (1.000-1.030) Urine Protein (Negative) Urine Glucose (UA) (Negative) Urine Ketones (Negative) Urine Blood (Negative) Urine Nitrite (Negative) Urine Bilirubin (Negative) Urine Urobilinogen (Negative) Ur Leukocyte Esterase (Negative) Urine RBC (0-4) /hpf Urine WBC (0-5) /hpf Ur Epithelial Cells (0-5) /lpf Urine Bacteria (Negative) SARS-CoV-2, RNA, NAAT (NEGATIVE) 05/25/22 05/25/22 05/25/22 Range/Units 04:25 05:21 06:23 WBC (4.8-10.8) K/ul RBC (3.93-5.22) M/uL Hgb (12.0-16.0) g/dl Hct (34.1-44.9) % MCV (80.0-100.0) fL MCH (25.0-34.0) pg MCHC (32.0-36.0) g/dL RDW Std Deviation (36.4-46.3) fL RDW Coeff of Vinh (11.5-14.5) % Plt Count (130-400) K/uL MPV (9.4-12.3) fL Immature Gran % (Auto) % Neut % (Auto) % Lymph % (Auto) % Cam[place] % (Auto) % Eos % (Auto) % Baso % (Auto) % Neut # (Auto) (1.4-6.5) K/uL Lymph # (Auto) (1.2-3.4) K/uL Cam[place] # (Auto) (0.24-0.82) K/uL Eos # (Auto) (0-0.50) K/uL Baso # (Auto) (0-0.2) K/uL Immature Gran # (Auto) (0.00-0.02) K/uL Sodium (136-145) mmol/L Potassium (3.5-5.1) mmol/L Chloride (98-107) mmol/L Carbon Dioxide (21-32) mmol/L Anion Gap (3-11) BUN (6-23) mg/dl Creatinine (0.6-1.2) mg/dl Est Cr Clr Drug Dosing Est GFR ( Amer) ml/min Est GFR (Non-Af Amer) ml/min BUN/Creatinine Ratio (10-20) Glucose (70-99(Fasting)) mg/dl Lactate 5.1 H* (0.4-2.0) mmol/L Calcium (8.5-10.1) mg/dl Magnesium 1.8 (1.7-2.4) mg/dl Total Bilirubin (0.2-1.0) mg/dl AST (13-39) U/L ALT (7-52) U/L Alkaline Phosphatase (34-104) U/L Total Protein (6.0-8.3) gm/dl Albumin (3.4-5.0) gm/dl Globulin (2.5-4.0) gm/dl Albumin/Globulin Ratio (0.9-2) Lipase (11-82) U/L Urine Color Urine Appearance (Clear) Urine pH (4.5-7.5) Ur Specific Goodman (1.000-1.030) Urine Protein (Negative) Urine Glucose (UA) (Negative) Urine Ketones (Negative) Urine Blood (Negative) Urine Nitrite (Negative) Urine Bilirubin (Negative) Urine Urobilinogen (Negative) Ur Leukocyte Esterase (Negative) Urine RBC (0-4) /hpf Urine WBC (0-5) /hpf Ur Epithelial Cells (0-5) /lpf Urine Bacteria (Negative) SARS-CoV-2, RNA, NAAT NEGATIVE (NEGATIVE) 05/25/22 Range/Units 06:23 WBC (4.8-10.8) K/ul RBC (3.93-5.22) M/uL Hgb (12.0-16.0) g/dl Hct (34.1-44.9) % MCV (80.0-100.0) fL MCH (25.0-34.0) pg MCHC (32.0-36.0) g/dL RDW Std Deviation (36.4-46.3) fL RDW Coeff of Vinh (11.5-14.5) % Plt Count (130-400) K/uL MPV (9.4-12.3) fL Immature Gran % (Auto) % Neut % (Auto) % Lymph % (Auto) % [place] % (Auto) % Eos % (Auto) % Baso % (Auto) % Neut # (Auto) (1.4-6.5) K/uL Lymph # (Auto) (1.2-3.4) K/uL [place] # (Auto) (0.24-0.82) K/uL Eos # (Auto) (0-0.50) K/uL Baso # (Auto) (0-0.2) K/uL Immature Gran # (Auto) (0.00-0.02) K/uL Sodium (136-145) mmol/L Potassium (3.5-5.1) mmol/L Chloride (98-107) mmol/L Carbon Dioxide (21-32) mmol/L Anion Gap (3-11) BUN (6-23) mg/dl Creatinine (0.6-1.2) mg/dl Est Cr Clr Drug Dosing Est GFR ( Amer) ml/min Est GFR (Non-Af Amer) ml/min BUN/Creatinine Ratio (10-20) Glucose (70-99(Fasting)) mg/dl Lactate (0.4-2.0) mmol/L Calcium (8.5-10.1) mg/dl Magnesium (1.7-2.4) mg/dl Total Bilirubin (0.2-1.0) mg/dl AST (13-39) U/L ALT (7-52) U/L Alkaline Phosphatase (34-104) U/L Total Protein (6.0-8.3) gm/dl Albumin (3.4-5.0) gm/dl Globulin (2.5-4.0) gm/dl Albumin/Globulin Ratio (0.9-2) Lipase (11-82) U/L Urine Color Red Urine Appearance Cloudy A (Clear) Urine pH 7.5 (4.5-7.5) Ur Specific Goodman 1.020 (1.000-1.030) Urine Protein 2+ H (Negative) Urine Glucose (UA) Negative (Negative) Urine Ketones Negative (Negative) Urine Blood 3+ H (Negative) Urine Nitrite Negative (Negative) Urine Bilirubin Negative (Negative) Urine Urobilinogen Negative (Negative) Ur Leukocyte Esterase 1+ H (Negative) Urine RBC >30 H (0-4) /hpf Urine WBC >30 H (0-5) /hpf Ur Epithelial Cells 0-5 (0-5) /lpf Urine Bacteria Negative (Negative) SARS-CoV-2, RNA, NAAT (NEGATIVE) Imaging Data Radiologist's Impression: Abdomen/Pelvis CT 05/25/22 04:10 CT SCAN OF THE ABDOMEN AND PELVIS WITH IV CONTRAST CLINICAL HISTORY: Generalized abdominal pain. Hematuria. COMPARISON STUDY: Abdominal CT dated 10/11/2020. TECHNIQUE: Following the IV administration of 95 cc of Optiray 320, CT scan of the abdomen and pelvis is performed from the lung bases to the proximal femora. Images are reviewed in the axial, sagittal, and coronal planes. IV contrast was administered without complication. A dose lowering technique was utilized adhering to the principles of ALARA. CT DOSE: 335.83 mGy.cm FINDINGS: Lung bases: The heart is enlarged and without pericardial effusion. The coronary arteries are densely calcified. Pacemaker leads are noted. Scattered bibasilar pulmonary nodules measure up to 3 mm and are unchanged. The lung bases are otherwise clear noting bibasilar scarring/atelectasis. Circumferential wall thickening is noted in the distal esophagus. Liver: The contrast-enhanced liver is enlarged, measuring 19.7 cm in length. Hepatic attenuation is heterogeneous. There is no intrahepatic biliary ductal dilatation. The hepatic veins and portal veins are patent. There is mild periportal edema, likely related to hydration status. Gallbladder: Mildly distended but otherwise normal in appearance. Spleen: Heterogeneity and parenchymal scarring of the spleen is consistent with a remote splenic infarct.. Pancreas: Moderately atrophic and grossly unremarkable. Adrenal glands: Unremarkable. Kidneys: The contrast enhanced kidneys demonstrate mild cortical atrophy. There is mild left hydronephrosis with an extrarenal pelvis. There is significant urothelial thickening and enhancement seen involving the left ureter and the left renal pelvis with left-sided perinephric inflammation. No obstructing calculus or lesion is identified. A 4.1 cm simple cyst is again seen in the left kidney. Left renal enhancement is slightly heterogeneous. There is no right- sided hydronephrosis. A 1.0 cm cyst is noted in the right kidney. Abdominal vasculature: The abdominal aorta is normal in course and caliber noting moderate to advanced atherosclerotic calcification. Bowel: There is no bowel obstruction. The appendix is well-visualized and normal. Peritoneum: There is no intraperitoneal free air or abdominal ascites. There is a small fat-containing umbilical hernia. Lymphadenopathy: None. Pelvic viscera: The the bladder wall appears thickened and there is mild pericystic infiltration. The uterus and adnexa are normal as visualized. Skeletal structures: The skeletal structures are osteopenic. There is mild lumbosacral spondylosis. No lytic or blastic lesions are seen. IMPRESSION: 1. Findings suggest cystitis with ascending urinary tract infection/pyelonephritis on the left. Correlate with clinical findings and urinalysis. 2. There is mild associated left-sided hydronephrosis. No obstructing calculus or lesion is identified. 3. The distal esophagus appears circumferentially thick walled. Correlate clinically for evidence of esophagitis. This could be further assessed with endoscopy if clinically warranted. 4. Hepatomegaly. 5. Additional findings as above. ACT 112: Negative or not required by law. Electronically signed by: Ranjith Galarza M.D. 05/25/2022 6:17 AM Blood Pressure Blood Pressure Findings: Elevated blood pressure Blood Pressure Disposition: Referred to patients primary care provider MDM Narrative This patient was evaluated and appeared to be in no significant distress. IV access was obtained and laboratory work was drawn. The patient was medicated wi th IV fentanyl for her discomfort. IV hydration was initiated. CT imaging was performed of the abdomen pelvis after the laboratory work reveals mild leukocytosis. Patient is set up to have a colonoscopy performed. She was given additional IV fentanyl for her discomfort and lastly a dose of intravenous acetaminophen. Patient symptoms seem to improved. CT reveals evidence of diverticulitis without abscess or perforation. The patient was given 4.5 g of IV Zosyn. IV fluids were continued. I did speak with the hospitalist service will evaluate the patient for admission and further management. I also spoke with general surgery who will see the patient for consult. Impression & Plan Diverticular disease Discharge Plan Visit Data Chief Complaint: Hematuria Stated Complaint: BLOOD IN URINE ED Provider: Jess Santos Discharge Problem: Diverticular disease Patient Disposition: Admitted As Inpatient Condition: Fair Discharge Instructions Interventions: ED Discharge Assessment Last Done: 05/25/22 10:39
[2022-05-25] MEDS ORDERED: OPTIRAY 320 100ml IV ONE (05:51)
--- NOTE | 2022-05-25 06:19 | CT Scan Report ---
CT SCAN OF THE ABDOMEN AND PELVIS WITH IV CONTRAST CLINICAL HISTORY: Generalized abdominal pain. Hematuria. COMPARISON STUDY: Abdominal CT dated 10/11/2020. TECHNIQUE: Following the IV administration of 95 cc of Optiray 320, CT scan of the abdomen and pelvi s is performed from the lung bases to the proximal femora. Images are reviewed in the axial, sagittal , and coronal planes. IV contrast was administered without complication. A dose lowering technique wa s utilized adhering to the principles of ALARA. CT DOSE: 335.83 mGy.cm FINDINGS: Lung bases: The heart is enlarged and without pericardial effusion. The coronary arteries are densely calcified. Pacemaker leads are noted. Scattered bibasilar pulmonary nodules measure up to 3 mm and a re unchanged. The lung bases are otherwise clear noting bibasilar scarring/atelectasis. Circumferenti al wall thickening is noted in the distal esophagus. Liver: The contrast-enhanced liver is enlarged, measuring 19.7 cm in length. Hepatic attenuation is h eterogeneous. There is no intrahepatic biliary ductal dilatation. The hepatic veins and portal veins are patent. There is mild periportal edema, likely related to hydration status. Gallbladder: Mildly distended but otherwise normal in appearance. Spleen: Heterogeneity and parenchymal scarring of the spleen is consistent with a remote splenic infa rct.. Pancreas: Moderately atrophic and grossly unremarkable. Adrenal glands: Unremarkable. Kidneys: The contrast enhanced kidneys demonstrate mild cortical atrophy. There is mild left hydronep hrosis with an extrarenal pelvis. There is significant urothelial thickening and enhancement seen inv olving the left ureter and the left renal pelvis with left-sided perinephric inflammation. No obstruc ting calculus or lesion is identified. A 4.1 cm simple cyst is again seen in the left kidney. Left re nal enhancement is slightly heterogeneous. There is no right-sided hydronephrosis. A 1.0 cm cyst is n oted in the right kidney. Abdominal vasculature: The abdominal aorta is normal in course and caliber noting moderate to advance d atherosclerotic calcification. Bowel: There is no bowel obstruction. The appendix is well-visualized and normal. Peritoneum: There is no intraperitoneal free air or abdominal ascites. There is a small fat-containin g umbilical hernia. Lymphadenopathy: None. Pelvic viscera: The the bladder wall appears thickened and there is mild pericystic infiltration. The uterus and adnexa are normal as visualized. Skeletal structures: The skeletal structures are osteopenic. There is mild lumbosacral spondylosis. N o lytic or blastic lesions are seen. IMPRESSION: 1. Findings suggest cystitis with ascending urinary tract infection/pyelonephritis on the left. Corre late with clinical findings and urinalysis. 2. There is mild associated left-sided hydronephrosis. No obstructing calculus or lesion is identifie d. 3. The distal esophagus appears circumferentially thick walled. Correlate clinically for evidence of esophagitis. This could be further assessed with endoscopy if clinically warranted. 4. Hepatomegaly. 5. Additional findings as above. ACT 112: Negative or not required by law. Electronically signed by: Ranjith Galarza M.D. 05/25/2022 6:17 AM
[2022-05-25] MEDS ORDERED: ACETAMINOPHEN 1000 MG/100 ML IV IV STA (06:36)
[2022-05-25] MEDS ORDERED: METOPROLOL TARTRATE 1 MG/ML VIAL IV STA (07:02)
[2022-05-25 07:27] LABS: Appearance Urine Cloudy (Clear); Bilirubin Urine Negative (Negative); Blood Urine 3+ (Negative); Color Urine Red; Glucose Urine UA Negative (Negative); Ketones Urine Negative (Negative); Leukocyte Esterase Urine 1+ (Negative); Nitrite Urine Negative (Negative); Protein Urine 2+ (Negative); Urobilinogen Urine Negative (Negative); pH Urine 7.5 (4.5-7.5)
[2022-05-25 07:32] LABS: Bacteria Urine Negative (Negative); Epithelial Cell Urine 0-5 /lpf (0-5); RBC Urine >30 /hpf (0-4); WBC Urine >30 /hpf (0-5)
--- NOTE | 2022-05-25 08:33 | History & Physical Report ---
Date of Service May 25, 2022 Assessment & Plan (1) Sepsis: Plan: 2nd to GNR UTI. There is a urine culture from 05/24/22 growing >100,000 CFU of GNR. Blood cultures sent. Has associated lactic acidosis, confusion, dehydration. Plan - * follow blood/urine cx's * place on telemetry * lactated ringers 80cc/hr x 2 L * repeat lactate now * abx - cefepime, then narrow once full culture results are available * pain meds prn * start with clear liquid diet due to recent vomiting * other supportive care (2) Pyelonephritis of left kidney: Plan: 2nd to GNR. see #1 above. IV fluids, antibiotics, pain meds. (3) Gross hematuria: Plan: 2nd to UTI/pyelonephritis. I cannot exclude a passed kidney stone but unlikely (2019 CT a/p without any kidney stones). Hematuria should clear as infection clears. Hold aspirin for now. If any worsening of hematuria then urology consultation. She may need dukes if the hematuria starts to clot and causes retention. (4) Acute metabolic encephalopathy: Plan: 2nd to #1. Supportive care. Avoid sedatives. (5) Hypertension: Plan: HOLD amlodipine. HOLD lisinopril. (6) Glaucoma: Plan: Continue usual drops. (7) Dementia: Plan: By history it sounds as if she has mod-severe dementia. Chronic poor appetite could be dementia-related. Continue namenda. (8) Dyslipidemia: Plan: Hold statin due to abnormal LFTs. (9) Type 2 diabetes mellitus without complication: Plan: Hold metformin. BSGs ac/hs. Dm clear liquid diet. Novolog SSI - correction only since she will be on a restricted diet for now. (10) Esophageal reflux: Plan: Esophageal thickening on CT despite use of PPI at home. Increase PPI to BID dosing. (11) Abnormal LFTs: Plan: 2nd fatty liver? Gall bladder distended on CT but no other signs of acute cholecystitis. Hold statin. Repeat LFTs am. (12) History of stroke: Plan: Hold his asa for now due to severity of hematuria. But resume when safe to do so. (13) Status cardiac pacemaker: (14) DVT prophylaxis: Plan: SCDs for now due to hematuria. Plan Will contact her sons to update them about her admission. 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 The patient lives with 2 younger sisters and a niece. However, she is accompanied in the ER by a close friend who provides most of the history. During my assessment the patient complains of mild left sided abdominal pain and left flank pain. She had fever with rigors just prior to coming to the ER according to her friend. Additionally, she has had poor oral intake, but her friend states her appetite is chronically poor. Lastly, her friend states that Ms Head was more confused that her typical baseline when she went to her home to pick her up to bring her to [facility]. In the ER the patient received 30cc/kg of isotonic fluid, broad-spectrum IV antibiotics, and lopressor for tachycardia. EKG with ventricular pacing. During my assessment was back in NSR with ectopy. Allergies Allergy/AdvReac Type Severity Reaction Status Date / Time aspirin Allergy Unknown Verified 02/19/22 14:10 Sulfa (Sulfonamide Allergy Unknown Verified 02/19/22 14:10 Antibiotics) Home Medications Medication Instructions Recorded Confirmed Type melatonin 3 mg tablet 3 mg PO HS PRN Insomnia 06/21/19 02/19/22 History timolol maleate 0.5 % eye drops 1 drops OPB DAILY 06/21/19 02/19/22 History calcium carbonate 600 mg calcium 600 mg PO DAILY 08/17/19 02/19/22 History (1,500 mg) tablet docusate sodium 100 mg capsule 100 mg PO BID PRN Constipation #60 08/17/19 02/19/22 History caps vit C,Q-Fr-lsqzqd-lutein-zeaxan 60 1 cap PO DAILY 08/17/19 02/19/22 History mg-13.5 mg-15 mg-2 mg-6 mg capsule potassium chloride 20 mEq 20 meq PO DAILY #90 tabs 09/04/20 08/06/21 Rx tablet,extended release lisinopril 40 mg tablet 40 mg PO DAILY #90 tabs 09/06/20 08/06/21 Rx aspirin 81 mg tablet,delayed 81 mg PO DAILY 10/17/20 02/19/22 History release (Adult Low Dose Aspirin) ttuklfmdoc-kbcsxcibciwjm-nxuorwgn 1 cap PO Q6H PRN headache #30 caps 03/13/21 02/19/22 Rx 50 mg-325 mg-40 mg capsule cholecalciferol (vitamin D3) 25 25 mcg PO DAILY 03/22/21 02/19/22 History mcg (1,000 unit) capsule mecobalamin (vitamin B12) 1,000 1,000 mcg PO DAILY 03/22/21 02/19/22 History mcg chewable tablet memantine 10 mg tablet 10 mg PO BID 90 days #180 tabs 09/12/21 02/19/22 Rx nystatin 100,000 unit/gram topical 1 applic topical BID #30 grams 10/12/21 02/19/22 Rx powder amlodipine 10 mg tablet 10 mg PO DAILY #90 tabs 01/15/22 02/19/22 Rx metformin 500 mg tablet 500 mg PO DAILY #90 tabs 01/30/22 02/19/22 Rx omeprazole 20 mg capsule,delayed 20 mg PO DAILY #90 caps 03/14/22 Rx release atorvastatin 40 mg tablet 40 mg PO HS #90 tabs 04/30/22 Rx Past Med/Surg History Medical History (Updated 05/25/22 @ 08:36 by Corbin Raines) Anxiety Bradycardia 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 Cerebral ischemia CHB (complete heart block) with pacemaker insertion CVA (cerebral vascular accident) Dementia Depression Dyslipidemia Esophageal reflux Fibromyalgia Glaucoma Hemiparesis Hypertension Migraine headache Patella fracture Type 2 diabetes mellitus without complication Ventricular tachycardia Surgical History (Updated 05/25/22 @ 08:36 by Corbin Raines) History of cataract surgery Status post biventricular cardiac pacemaker insertion (10/18/19) Recurrent syncope, 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 Family History Brother Diabetes Colon cancer Prostate cancer Mother CHF (congestive heart failure) Tobacco use Sister Diabetes Glaucoma Macular degeneration Father Prostate cancer Tobacco use Pneumonia Daughter [place] disease Other Coronary heart disease Denies family history of Ovarian cancer Breast cancer Social History (Updated 05/25/22 @ 08:29 by Corbin Raines) Smoking Status: Never smoker Second Hand Exposure: No; Hx Alcohol Use: No Hx Substance Use: No Preferred Language: Swedish Communication Ability: Effective Criminal Investigator Customs Required: No Beliefs That Will Affect Care: None marital status: marital status details: previously twice Current Living Situation: Family Current Living Situation Comment: lives w/ sisters (2) + niece current occupational status: retired 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 [employer] How many Children do You have: 2 How many Children do You have Comment: sons Feels Safe at Home: Yes caffeine: Yes Seatbelt Use: always Review of Systems Review of Systems: limited ROS due to her confusion - By report - fevers and rigors at home; poor appetite chronically; ?weight loss Denies headaches Denies chest pain Denies cough or dyspnea Vomiting x 1 in the ER upon arrival Endorses abdominal pain and flank/back pain Endorses dysuria and frequency with hematuria Denies arthralgias/myalgias Denies headache Physical Exam Physical Exam: gen - looks unwell, confused, but awake & follows commands eyes - lens implants b/l, PERRL HENT - TMs not seen 2nd cerumen; MM dry in mouth; no lesions neck - no JVD; ?goiter heart - tachycardic, s1 s2, no murmur lungs - CTA b/l abd - soft, tender left upper abdomen with +CVA tenderness on left, ND, BS+, no HSM ext - no edema, pulses 2+ b/l skin - no rash lymph - no cervical lymph nodes neuro - strength 5/5 x 4 exts; DTRs 2+ b/l upper & lower exts; no facial droop psych - awake, but oriented to person only Results & Data Results & Data ([facility]) Vital Signs (Past 12 Hours) Vital Signs Temp Pulse Pulse Resp BP BP Pulse Ox 05/25/22 08:00 95 H 16 133/72 91 05/25/22 07:10 118 H 146/67 H 05/25/22 06:50 117 H 20 134/75 92 05/25/22 06:27 114 H 24 152/46 H 97 05/25/22 05:54 74 20 154/62 H 94 05/25/22 05:09 60 24 150/81 H 95 05/25/22 04:20 123 H 22 95 05/25/22 04:11 96 05/25/22 03:55 37.7 C H 124 H 20 118/67 95 O2 Del Method 05/25/22 08:00 Room Air 05/25/22 07:10 05/25/22 06:50 Room Air 05/25/22 06:27 Room Air 05/25/22 05:54 Room Air 05/25/22 05:09 Room Air 05/25/22 04:20 Room Air 05/25/22 04:11 Room Air 05/25/22 03:55 Room Air Laboratory Results Laboratory Results - last 24 hr 05/25/22 05/25/22 05/25/22 04:25 04:25 04:25 WBC 9.32 RBC 3.99 Hgb 11.9 L Hct 35.8 MCV 89.7 MCH 29.8 MCHC 33.2 RDW Std Deviation 44.3 RDW Coeff of Vinh 13.5 Plt Count 276 MPV 9.8 Immature Gran % (Auto) 1.4 Neut % (Auto) 91.1 Lymph % (Auto) 6.7 [place] % (Auto) 0.4 Eos % (Auto) 0.2 Baso % (Auto) 0.2 Neut # (Auto) 8.49 H Lymph # (Auto) 0.62 L [place] # (Auto) 0.04 L Eos # (Auto) 0.02 Baso # (Auto) 0.02 Immature Gran # (Auto) 0.13 H Sodium 136 Potassium 3.8 Chloride 102 Carbon Dioxide 19 L Anion Gap 15 H BUN 36 H Creatinine 1.08 Est Cr Clr Drug Dosing Not Reportable Est GFR ( Amer) 54.6 Est GFR (Non-Af Amer) 47.1 BUN/Creatinine Ratio 33.3 H Glucose 182 H Lactate 4.3 H* Calcium 9.5 Total Bilirubin 0.7 AST 58 H ALT 54 H Alkaline Phosphatase 114 H Total Protein 7.9 Albumin 4.1 Globulin 3.8 Albumin/Globulin Ratio 1.1 Lipase 38 Urine Color Urine Appearance Urine pH Ur Specific [place] Urine Protein Urine Glucose (UA) Urine Ketones Urine Blood Urine Nitrite Urine Bilirubin Urine Urobilinogen Ur Leukocyte Esterase Urine RBC Urine WBC Ur Epithelial Cells Urine Bacteria SARS-CoV-2, RNA, NAAT 05/25/22 05/25/22 05/25/22 05:21 06:23 06:23 WBC RBC Hgb Hct MCV MCH MCHC RDW Std Deviation RDW Coeff of Vinh Plt Count MPV Immature Gran % (Auto) Neut % (Auto) Lymph % (Auto) [place] % (Auto) Eos % (Auto) Baso % (Auto) Neut # (Auto) Lymph # (Auto) [place] # (Auto) Eos # (Auto) Baso # (Auto) Immature Gran # (Auto) Sodium Potassium Chloride Carbon Dioxide Anion Gap BUN Creatinine Est Cr Clr Drug Dosing Est GFR ( Amer) Est GFR (Non-Af Amer) BUN/Creatinine Ratio Glucose Lactate 5.1 H* Calcium Total Bilirubin AST ALT Alkaline Phosphatase Total Protein Albumin Globulin Albumin/Globulin Ratio Lipase Urine Color Red Urine Appearance Cloudy A Urine pH 7.5 Ur Specific [place] 1.020 Urine Protein 2+ H Urine Glucose (UA) Negative Urine Ketones Negative Urine Blood 3+ H Urine Nitrite Negative Urine Bilirubin Negative Urine Urobilinogen Negative Ur Leukocyte Esterase 1+ H Urine RBC >30 H Urine WBC >30 H Ur Epithelial Cells 0-5 Urine Bacteria Negative SARS-CoV-2, RNA, NAAT NEGATIVE Diagnostic Findings Abdomen/Pelvis CT 05/25/22 04:10 CT SCAN OF THE ABDOMEN AND PELVIS WITH IV CONTRAST CLINICAL HISTORY: Generalized abdominal pain. Hematuria. COMPARISON STUDY: Abdominal CT dated 10/11/2020. TECHNIQUE: Following the IV administration of 95 cc of Optiray 320, CT scan of the abdomen and pelvis is performed from the lung bases to the proximal femora. Images are reviewed in the axial, sagittal, and coronal planes. IV contrast was administered without complication. A dose lowering technique was utilized adhering to the principles of ALARA. CT DOSE: 335.83 mGy.cm FINDINGS: Lung bases: The heart is enlarged and without pericardial effusion. The coronary arteries are densely calcified. Pacemaker leads are noted. Scattered bibasilar pulmonary nodules measure up to 3 mm and are unchanged. The lung bases are otherwise clear noting bibasilar scarring/atelectasis. Circumferential wall thickening is noted in the distal esophagus. Liver: The contrast-enhanced liver is enlarged, measuring 19.7 cm in length. Hepatic attenuation is heterogeneous. There is no intrahepatic biliary ductal dilatation. The hepatic veins and portal veins are patent. There is mild periportal edema, likely related to hydration status. Gallbladder: Mildly distended but otherwise normal in appearance. Spleen: Heterogeneity and parenchymal scarring of the spleen is consistent with a remote splenic infarct.. Pancreas: Moderately atrophic and grossly unremarkable. Adrenal glands: Unremarkable. Kidneys: The contrast enhanced kidneys demonstrate mild cortical atrophy. There is mild left hydronephrosis with an extrarenal pelvis. There is significant urothelial thickening and enhancement seen involving the left ureter and the lef t renal pelvis with left-sided perinephric inflammation. No obstructing calculus or lesion is identified. A 4.1 cm simple cyst is again seen in the left kidney. Left renal enhancement is slightly heterogeneous. There is no right-sided hydronephrosis. A 1.0 cm cyst is noted in the right kidney. Abdominal vasculature: The abdominal aorta is normal in course and caliber noting moderate to advanced atherosclerotic calcification. Bowel: There is no bowel obstruction. The appendix is well-visualized and normal. Peritoneum: There is no intraperitoneal free air or abdominal ascites. There is a small fat-containing umbilical hernia. Lymphadenopathy: None. Pelvic viscera: The the bladder wall appears thickened and there is mild pericystic infiltration. The uterus and adnexa are normal as visualized. Skeletal structures: The skeletal structures are osteopenic. There is mild lumbosacral spondylosis. No lytic or blastic lesions are seen. IMPRESSION: 1. Findings suggest cystitis with ascending urinary tract infection/pyelonephritis on the left. Correlate with clinical findings and urinalysis. 2. There is mild associated left-sided hydronephrosis. No obstructing calculus or lesion is identified. 3. The distal esophagus appears circumferentially thick walled. Correlate clinically for evidence of esophagitis. This could be further assessed with endoscopy if clinically warranted. 4. Hepatomegaly. 5. Additional findings as above. ACT 112: Negative or not required by law. Electronically signed by: Ranjith Galarza M.D. 05/25/2022 6:17 AM EKG - atrial sensed ventricularly paced rhythm Code Status & VTE Plan Code Status per pt's friend - no advanced directive/living will to her knowledge patient unable to answer her wishes about code status - thus, full code unless her sons feel otherwise VTE Prophylaxis Plan VTE Prophylaxis will be ordered: Yes PG Care Time/CCT Total # of Minutes Spent Total Time Spent with Patient: Total time spent is greater than 50% in coordination of care (as documented) at patient's floor/unit and/or counseling patient: Coding Level of Care Code 25104 Initial Inpt Care Lvl 3 Diagnoses Sepsis A41.9 Pyelonephritis of left kidney N12 Gross hematuria R31.0 Acute metabolic encephalopathy G93.41 Hypertension I10 Glaucoma H40.9 Dementia F03.90 Dyslipidemia E78.5 Type 2 diabetes mellitus without complication E11.9 Esophageal reflux K21.9 Abnormal LFTs R79.89 History of stroke Z86.73 Status cardiac pacemaker Z95.0 DVT prophylaxis Z29.9
[2022-05-25] MEDS ORDERED: fentaNYL citrate 100 MCG/2 ML VIAL ONE (08:57)
[2022-05-25] MEDS ORDERED: MELATONIN 3 MG TAB PO PRN (11:27)
[2022-05-25] MEDS ORDERED: ONDANSETRON INJ 2 MG/ML 2 ML VIAL IV PRN (11:27)
[2022-05-25] MEDS ORDERED: ACETAMINOPHEN 325 MG TAB PO PRN (11:27)
[2022-05-25] MEDS: LACTATED RINGER'S 1,000 ML IV SCH (11:33)
[2022-05-25] MEDS ORDERED: GLUCOSE 10 TAB/TUBE PO PRN (12:00)
[2022-05-25] MEDS ORDERED: CARBOHYDRATES FOR HYPOGLYCEMIA PO PRN (12:00)
[2022-05-25] MEDS ORDERED: GLUCAGON FOR INJ 1 MG VIAL IM PRN (12:00)
[2022-05-25] MEDS ORDERED: DEXTROSE 50% 50 ML SYRINGE IV PRN (12:00)
[2022-05-25] MEDS ORDERED: GLUCOSE 40% GEL 15 GM TUBE PO PRN (12:00)
[2022-05-25] MEDS: INSULIN ASPART PER UNIT SC SCH ×3 (12:39→20:36)
[2022-05-25] MEDS: CEROVITE ADV FORMULA TAB PO SCH (12:51)
[2022-05-25] MEDS: ADVANCED PROBIOTIC 1250 MG CAPSULE PO SCH (12:51)
[2022-05-25] MEDS: MEMANTINE HCL 10 MG TAB PO SCH ×2 (12:51→21:30)
[2022-05-25] MEDS: NYSTATIN POWDER 15GM BTL EXT SCH ×2 (12:51→21:30)
[2022-05-25] MEDS: CYANOCOBALAMIN (B-12) 500 MCG TABLET PO SCH (12:51)
[2022-05-25] MEDS: PANTOprazole 40 MG TAB PO SCH ×2 (12:51→21:29)
[2022-05-25] MEDS: TIMOLOL MALEATE 0.5% OP SOLN 5 ML BTL OPB SCH (12:52)
[2022-05-25] MEDS ORDERED: CEFEPIME 2,000 MG in SYRINGE 0 ML IV SCH (14:00)
[2022-05-25 18:57] LABS: Hematocrit (blood only) 30.4 % (34.1-44.9); Hemoglobin 10.1 g/dl (12.0-16.0)
--- NOTE | 2022-05-25 20:36 | Urology Consultation ---
Date of Consultation May 25, 2022 Assessment & Plan (1) Gross hematuria: Patient has been admitted on the hospitalist service. We recommend proceeding as follows: Continue resuscitation with IV fluids and continue broad-spectrum antibiotics (patient is receiving cefepime) secondary to sepsis. Follow for results of blood and urine cultures and antibiotics can thereafter be tailored based on these culture results Maintain Dukes catheter for present time until hematuria clears and also for maximal drainage I suspect the patient's gross hematuria is in part due to patient's underlying pyelonephritis and possible cystitis. After discussion with RN it was also noted that the patient was pulling on her Dukes catheter which may have contributed to this problem. It is noted that the hematuria is starting to clear so we will continue to follow this. If patient's Dukes catheter becomes clogged with clots manual irrigation can be employed. The patient is noted to have a drop of her hemoglobin and hematocrit. I do suspect that this is in large part due to the fact that she may have been deh ydrated at time of admission and then received resuscitation with IV fluids it could have caused some of this noted drop. Would recommend following serial labs. The patient is noted to be hemodynamically stable she has been normotensive since admission. She was noted to be tachycardic at time of admission with a heart rate as high as 118. This has subsequently normalized. It should also be noted that the patient did have 1 recorded fever on 05/25/2022 at approximately 4:00 AM and she has been afebrile since. At the present time there is no need for any urologic procedure. Supervising Physician Co-Signing Physician Notes Discussed patient with RAQUEL. Agree with plan. Reviewed patient's chart, labs and imaging. Hemodynamically stable, leukocytosis and lactic acidosis downtrending, creatinine stable. CT scan shows findings concerning for pyelonephritis with left hydronephrosis. 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 No other obvious source of obstruction. Agree that anemia is partly due to hemodilution as hematuria is mild and typically does not cause a significant drop. Continue IV antibiotics and follow up cultures. Maintain dukes catheter. Notify urology if patient decompensates as we would then likely need to discuss left ureteral stent placement. History of Present Illness Reason for Consultation: Pyelonephritis and hematuria Attending Physician: Corbin Raines History of Present Illness This is an 86-year-old female who presented to [facility] secondary to sepsis. Should be noted that the patient has dementia and was therefore noted to be a poor historian. Patient reportedly presented to the emergency department after 5 to 7 days of not feeling well with some generalized abdominal and back pain. There is also report the patient developed gross hematuria. Patient reportedly had some fevers and rigors prior to coming to the emergency department. She was also noted to have poor oral intake. No additional information could be obtained due to to the fact that the patient had dementia. Patient had a Dukes catheter placed due to her gross hematuria. She was resuscitated with intravenous fluids. She had blood and urine cultures obtained. And she has been initiated on antibiotics and initially received Rocephin and Zosyn in the emergency department. Her antibiotics have subsequently and switched to cefepime. Since admission to the hospital the patient has had labs and imaging which I independent reviewed. She did have a CT scan of the abdomen and pelvis that showed findings concerning for cystitis along with pyelonephritis on the left- hand side. There is also some left-sided hydronephrosis. No obstructing renal stones were noted. Labs including CBC were white blood cell count was normal. Her initial hemoglobin at time of presentation was 11.9. It is subsequently dropped to 10.1. Initial hematocrit was 35.8 which is now dropped to 30.4. Platelet count was noted to be within normal range. Chemistry profile showed sodium and potassium are both normal. Patient's BUN and creatinine are were 36 and 1.0. At time of presentation the patient did have a lactic acid level of 4.3 which peaked at 5.1. Subsequent values have shown a decrease of this value to 2.5. Urinalysis did show 3+ blood. It was negative for nitrites but did have 1+ leukocyte Estrace. There were greater than 30 white blood cells per high-power field and no bacteria. A COVID test was noted be negative. At the time of my interview the patient was resting comfortably in bed and she was in no distress. Allergies Allergy/AdvReac Type Severity Reaction Status Date / Time aspirin Allergy Unknown Verified 02/19/22 14:10 Sulfa (Sulfonamide Allergy Unknown Verified 02/19/22 14:10 Antibiotics) Home Medications Medication Instructions Recorded Confirmed Type melatonin 3 mg tablet 3 mg PO HS PRN Insomnia 06/21/19 02/19/22 History timolol maleate 0.5 % eye drops 1 drops OPB DAILY 06/21/19 02/19/22 History calcium carbonate 600 mg calcium 600 mg PO DAILY 08/17/19 02/19/22 History (1,500 mg) tablet docusate sodium 100 mg capsule 100 mg PO BID PRN Constipation #60 08/17/19 02/19/22 History caps vit C,V-Ep-jxnabi-lutein-zeaxan 60 1 cap PO DAILY 08/17/19 02/19/22 History mg-13.5 mg-15 mg-2 mg-6 mg capsule potassium chloride 20 mEq 20 meq PO DAILY #90 tabs 09/04/20 08/06/21 Rx tablet,extended release lisinopril 40 mg tablet 40 mg PO DAILY #90 tabs 09/06/20 08/06/21 Rx aspirin 81 mg tablet,delayed 81 mg PO DAILY 10/17/20 02/19/22 History release (Adult Low Dose Aspirin) lnahrcoqzx-miqfgmdrfqvpj-tdbohjvg 1 cap PO Q6H PRN headache #30 caps 03/13/21 02/19/22 Rx 50 mg-325 mg-40 mg capsule cholecalciferol (vitamin D3) 25 25 mcg PO DAILY 03/22/21 02/19/22 History mcg (1,000 unit) capsule mecobalamin (vitamin B12) 1,000 1,000 mcg PO DAILY 03/22/21 02/19/22 History mcg chewable tablet memantine 10 mg tablet 10 mg PO BID 90 days #180 tabs 09/12/21 02/19/22 Rx nystatin 100,000 unit/gram topical 1 applic topical BID #30 grams 10/12/21 02/19/22 Rx powder amlodipine 10 mg tablet 10 mg PO DAILY #90 tabs 01/15/22 02/19/22 Rx metformin 500 mg tablet 500 mg PO DAILY #90 tabs 01/30/22 02/19/22 Rx omeprazole 20 mg capsule,delayed 20 mg PO DAILY #90 caps 03/14/22 Rx release atorvastatin 40 mg tablet 40 mg PO HS #90 tabs 04/30/22 Rx Patient History Medical History Anxiety Bradycardia 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 Cerebral ischemia CHB (complete heart block) with pacemaker insertion CVA (cerebral vascular accident) Dementia Depression Dyslipidemia Esophageal reflux Fibromyalgia Glaucoma Hemiparesis Hypertension Migraine headache Patella fracture Type 2 diabetes mellitus without complication Ventricular tachycardia Surgical History History of cataract surgery Status post biventricular cardiac pacemaker insertion (10/18/19) Recurrent syncope, 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 Family History Brother Diabetes Colon cancer Prostate cancer Mother CHF (congestive heart failure) Tobacco use Sister Diabetes Glaucoma Macular degeneration Father Prostate cancer Tobacco use Pneumonia Daughter Dea disease Other Coronary heart disease Denies family history of Ovarian cancer Breast cancer Social History Smoking Status: Never smoker Second Hand Exposure: No; Hx Alcohol Use: No Hx Substance Use: No Preferred Language: Thai Communication Ability: Impaired Traffic Control Specialist Required: No Beliefs That Will Affect Care: None marital status: marital status details: previously twice Current Living Situation: Family Current Living Situation Comment: lives w/ sisters (2) + niece current occupational status: retired 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 [employer] How many Children do You have: 2 How many Children do You have Comment: sons Feels Safe at Home: Yes caffeine: Yes Seatbelt Use: always Assistive Devices: Wheelchair Review of Systems Review of Systems: Unobtainable due to cognitive status Physical Exam Constitutional: WD/WN, vitals as above Eyes: no conjunctival abnormality ENMT: Ears: no hearing impairment Mouth: no oropharynx abnormality Neck: trachea midline Respiratory: normal respiratory effort; no respiratory distress and no labored breathing Cardiovascular: Rate/Rhythm: regular rate and regular rhythm Vessels: dorsalis pedis pulses present and radial pulses present Gastrointestinal (Abdomen): Soft, nonrigid, nondistended, and nontender to palpation Musculoskeletal: No calf tenderness. Feet are warm and nonmottled with palpable pulses. Skin: no rashes Neurologic: moves all extremities Psychiatric: Alert to person. Confused to place and time. Genitourinary: no CVA tenderness Dukes catheter is noted to be in place. Blood-tinged urine is noted in the collection bag however Dukes is noted to be draining appropriately. Results & Data ([facility]) Vital Signs (Past 12 Hours) Vital Signs Temp Pulse Pulse Pulse Resp BP BP 05/25/22 19:29 36.8 C 83 15 130/69 05/25/22 16:00 37.2 C 82 18 137/73 05/25/22 11:27 97 H 05/25/22 11:06 05/25/22 11:06 37.0 C 98 H 20 05/25/22 10:39 36.5 C 98 H 18 138/70 05/25/22 09:30 95 H 22 123/66 05/25/22 09:00 97 H 20 05/25/22 08:30 94 H 24 121/67 BP Pulse Ox O2 Del Method 05/25/22 19:29 95 Room Air 05/25/22 16:00 98 Room Air 05/25/22 11:27 05/25/22 11:06 Room Air 05/25/22 11:06 154/75 H 95 Room Air 05/25/22 10:39 94 Room Air 05/25/22 09:30 93 Room Air 05/25/22 09:00 94 Room Air 05/25/22 08:30 95 Room Air PG Care Time/CCT Total # of Minutes Spent Total Time Spent with Patient: Total time spent is greater than 50% in coordination of care (as documented) at patient's floor/unit and/or counseling patient: Coding Level of Care Code 17732 Inpt Consult Level 5 Diagnoses Gross hematuria R31.0
[2022-05-26] MEDS: LACTATED RINGER'S 1,000 ML IV SCH (00:03)
[2022-05-26 06:38] LABS: Hematocrit (blood only) 30.4 % (34.1-44.9); Mean Corpuscular Hemoglobin 29.8 pg (25.0-34.0); Mean Corpuscular Hgb Conc 32.9 g/dL (32.0-36.0); Mean Corpuscular Volume 90.5 fL (80.0-100.0); Mean Platelet Volume 9.5 fL (9.4-12.3); Platelet Count 194 K/uL (130-400); RDW Coefficient of Variation 14.4 % (11.5-14.5); RDW Standard Deviation 47.4 fL (36.4-46.3); Red Blood Count 3.36 M/uL (3.93-5.22); White Blood Count 27.63 K/ul (4.8-10.8)
[2022-05-26 07:11] LABS: BUN Creatinine Ratio 19.1 (10-20); Bilirubin,Total 0.5 mg/dl (0.2-1.0); Calcium 8.3 mg/dl (8.5-10.1); Creatinine Clr Calc Pharmacy 28.8 ml/min; Est GFR (African American) 43.2 ml/min; Est GFR (Non-African American) 37.3 ml/min; Globulin 3.1 gm/dl (2.5-4.0); Potassium 4.1 mmol/L (3.5-5.1); Total Protein 6.1 gm/dl (6.0-8.3)
[2022-05-26] MEDS: INSULIN ASPART PER UNIT SC SCH ×4 (08:27→20:44)
[2022-05-26] MEDS: MEMANTINE HCL 10 MG TAB PO SCH ×2 (08:27→20:43)
[2022-05-26] MEDS: CEROVITE ADV FORMULA TAB PO SCH (08:27)
[2022-05-26] MEDS: ADVANCED PROBIOTIC 1250 MG CAPSULE PO SCH (08:27)
[2022-05-26] MEDS: NYSTATIN POWDER 15GM BTL EXT SCH ×2 (08:27→20:44)
[2022-05-26] MEDS: CYANOCOBALAMIN (B-12) 500 MCG TABLET PO SCH (08:27)
[2022-05-26] MEDS: PANTOprazole 40 MG TAB PO SCH ×2 (08:27→20:43)
[2022-05-26] MEDS: TIMOLOL MALEATE 0.5% OP SOLN 5 ML BTL OPB SCH (08:27)
--- NOTE | 2022-05-26 08:34 | Urology Progress Note ---
Date of Service May 26, 2022 Assessment & Plan (1) Gross hematuria: (2) UTI (urinary tract infection): (3) Pyelonephritis of left kidney: Plan 86-year-old female who was admitted with suspected left pyelonephritis and hematuria Her labs did slightly worsened today which is not unexpected with her infection. Her CT scan this admission did show some left proximal hydroureter which was slightly worsened compared to a previous CT scan. 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 Sometimes you will see some hydronephrosis with pyelonephritis as well. As she is hemodynamically stable and afebrile, I do not think she warrants cystoscopy with left ureteral stent placement at this time. However, if her labs were to continue to worsen, would likely recommend intervention. We can conservatively monitor with antibiotics at this time. Maintain Bueno catheter. Continue antibiotics and follow-up cultures. Per the patient's request, I did speak with her Sister Richelle and updated her on her clinical course. Her son is her POA. Recommend making patient n.p.o. at midnight in the event that her labs continue to worsen tomorrow and we would need to discuss left ureteral stent placement Urology to follow Admission and Anticipated Discharge Date Admission Date: May 25, 2022 Subjective No acute issues overnight. Hemodynamically stable and afebrile. Patient denies any complaints today. She denies any left flank pain. Leukocytosis lucio to 27.6 from 9.3 yesterday. Creatinine slightly went up from 1.08-1.31. Lactate has down trended from 4.5-2.5. Hemoglobin stable at 10. Urine culture is growing Proteus which is sensitive to cefepime, which she is currently on. Blood cultures are prelim negative. Review of Systems Review of Systems: 14 point review of systems negative outside of what is listed above in HPI Physical Exam Physical Exam: General: Alert and oriented, no acute distress HEENT: Normocephalic, mucous membranes moist Cardiovascular: Regular rate Pulmonary: Nonlabored respirations Abdomen: Nondistended : No CVA tenderness. Bueno catheter draining pink-tinged urine Extremities: Moves all 4 spontaneously Neuro: No gross deficits Skin: Warm, dry, no rashes noted Results & Data ([facility]) Vital Signs (Past 12 Hours) Vital Signs Temp Pulse Resp BP Pulse Ox O2 Del Method 05/26/22 07:24 36.9 C 87 18 135/69 91 05/26/22 03:24 36.8 C 82 15 132/74 95 Room Air 05/25/22 23:04 36.7 C 87 17 133/74 94 Room Air PG Care Time/CCT Total # of Minutes Spent Total Time Spent with Patient: Total time spent is greater than 50% in coordination of care (as documented) at patient's floor/unit and/or counseling patient: Coding Level of Care Code 41160 Subseq Hosp Care Lvl 2 Diagnoses Gross hematuria R31.0 UTI (urinary tract infection) N39.0 Pyelonephritis of left kidney N12
--- NOTE | 2022-05-26 11:16 | Electrocardiogram Report ---
Test Reason : Blood Pressure : / mmHG Vent. Rate : 115 BPM Atrial Rate : 115 BPM P-R Int : 198 ms QRS Dur : 158 ms QT Int : 386 ms P-R-T Axes : 066 079 -17 degrees QTc Int : 533 ms Atrial-sensed ventricular-paced rhythm Sinus tachycardia Abnormal ECG When compared with ECG of 11-OCT-2020 14:05, Vent. rate has increased BY 15 BPM Confirmed by Modesto Bennett ([id number]) on 05/26/2022 11:15:34 AM Referred By: REFERRED SELF Confirmed By:Modesto Bennett
[2022-05-26] MEDS: MoRPHine SULFATE 2 MG/ML CARP IV PRN ×2 (11:37→17:17)
[2022-05-26] MEDS: cefTRIAXone SODIUM 1,000 MG in DEXTROSE 5% 50 ML IV SCH (13:02)
--- NOTE | 2022-05-26 15:31 | Ultrasound Report ---
US gallbladder CLINICAL HISTORY: abnormal LFTs, eval biliary tract pathology COMPARISON STUDY: Right upper quadrant ultrasound October 21, 2021. CT of the abdomen and pelvis Ju 2021. FINDINGS: No hepatic lesions are identified. There is no biliary ductal dilatation. Common bile duct measures 3 mm in caliber. Gallbladder is mildly distended. There are no gallstones. There is no gallb ladder wall thickening. No pancreatic abnormalities are identified by sonography. There is no right h ydronephrosis. Subcentimeter right renal cyst is incidentally noted. No right hydronephrosis. IMPRESSION: No gallstones or biliary ductal dilatation. ACT 112: Negative or not required by law. Electronically signed by: Genaro Encinas M.D. 05/26/2022 3:28 PM
--- NOTE | 2022-05-26 21:07 | Hospitalist Progress Note ---
Date of Service May 26, 2022 Assessment & Plan (1) Sepsis: Plan: 2nd to Proteus UTI/pyelonephritis on left. Blood cultures not final but thus far negative. Despite her looking much better today clinically her WBC count lucio and her Cr lucio a little as well. Plan - * follow blood cx's * despite the rise in WBC I think we can de-escalate abx from cefepime to rocephin 1gm daily IV * advance diet * dukes * appreciate urology consultation (2) Pyelonephritis of left kidney: Plan: 2nd to proteus. see #1 above. (3) Gross hematuria: Plan: 2nd to UTI/pyelonephritis. I cannot exclude a passed kidney stone but unlikely (2019 CT a/p without any kidney stones). Hematuria is beginning to clear as infection clears. Hold aspirin. Appreciate urology consult. Small chance, given the rise in creatinine overnight, she could need cysto. (4) Acute metabolic encephalopathy: Plan: 2nd to #1. Supportive care. Avoid sedatives. Improved today. (5) Hypertension: Plan: Cont to HOLD amlodipine and lisinopril. (6) Glaucoma: Plan: Continue usual drops. (7) Dementia: Plan: By history it sounds as if she has mod-severe dementia. Chronic poor appetite could be dementia-related. Continue namenda. (8) Dyslipidemia: Plan: Cont to hold statin due to abnormal LFTs. (9) Type 2 diabetes mellitus without complication: Plan: Hold metformin. BSGs ac/hs. Novolog SSI. (10) Esophageal reflux: Plan: Esophageal thickening on CT despite use of PPI at home. Increased PPI to BID dosing. (11) Abnormal LFTs: Plan: WORSE today. 2nd to sepsis/poor hepatic perfusion? other? Hold statin. Repeat LFTs am. GB u/s today just to ensure no other pathology. (12) History of stroke: Plan: Hold his asa for now due to severity of hematuria. But resume when safe to do so. (13) Status cardiac pacemaker: (14) DVT prophylaxis: Plan: SCDs for now due to hematuria. Plan updated pt's some Ari who lives in [place] (did so yesterday) updated pt's sister at bedside today Admission and Anticipated Discharge Date Admission Date: May 25, 2022 Subjective pt sitting up in bed just finished dinner sister at bedside - she stated that Cherelle ate "a good dinner" patient very awake/alert today - asking questions, even smiled c/o mild abd pain only tele overnight wnl urine in dukes bag nearly clear today - hematuria nearly resolved Review of Systems Review of Systems: gen - feeling better overall cv - no cp pulm - no dyspnea GI - no vomiting per report Physical Exam Physical Exam: gen - looks much better today, awake, alert mouth - MMM neck - no JVD heart - RRR, s1 s2, no murmur lungs - CTA b/l abd - soft, minimally tender central abdomen, BS+; no CVA tenderness b/l today ext - no edema, pulses 2+ b/l psych - awake, much more alert today - but oriented to person only Results & Data Results & Data ([facility]) Vital Signs (Past 12 Hours) Vital Signs Temp Pulse Resp BP Pulse Ox O2 Del Method 05/26/22 19:44 37.0 C 82 18 115/68 95 Room Air 05/26/22 15:29 37.1 C 76 18 136/74 94 Room Air 05/26/22 11:27 80 05/26/22 11:15 36.9 C 76 19 125/72 96 Laboratory Results Laboratory Results - last 24 hr 05/26/22 05/26/22 05/26/22 06:23 06:23 07:15 WBC 27.63 H RBC 3.36 L Hgb 10.0 L Hct 30.4 L MCV 90.5 MCH 29.8 MCHC 32.9 RDW Std Deviation 47.4 H RDW Coeff of Vinh 14.4 Plt Count 194 MPV 9.5 Sodium 135 L Potassium 4.1 Chloride 104 Carbon Dioxide 25 Anion Gap 6 BUN 25 H Creatinine 1.31 H Est Cr Clr Drug Dosing 28.8 Est GFR ( Amer) 43.2 Est GFR (Non-Af Amer) 37.3 BUN/Creatinine Ratio 19.1 Glucose 125 H POC Glucose 138 H Calcium 8.3 L Total Bilirubin 0.5 AST 326 H ALT 462 H Alkaline Phosphatase 99 Total Protein 6.1 D Albumin 3.0 L Globulin 3.1 Albumin/Globulin Ratio 1.0 05/26/22 05/26/22 05/26/22 11:12 16:22 20:29 WBC RBC Hgb Hct MCV MCH MCHC RDW Std Deviation RDW Coeff of Vinh Plt Count MPV Sodium Potassium Chloride Carbon Dioxide Anion Gap BUN Creatinine Est Cr Clr Drug Dosing Est GFR ( Amer) Est GFR (Non-Af Amer) BUN/Creatinine Ratio Glucose POC Glucose 134 H 113 H 179 H Calcium Total Bilirubin AST ALT Alkaline Phosphatase Total Protein Albumin Globulin Albumin/Globulin Ratio PG Care Time/CCT Total # of Minutes Spent Total Time Spent with Patient: Total time spent is greater than 50% in coordination of care (as documented) at patient's floor/unit and/or counseling patient: Coding Level of Care Code 87452 Subseq Hosp Care Lvl 2 Diagnoses Sepsis A41.9 Pyelonephritis of left kidney N12 Gross hematuria R31.0 Acute metabolic encephalopathy G93.41 Hypertension I10 Glaucoma H40.9 Dementia F03.90 Dyslipidemia E78.5 Type 2 diabetes mellitus without complication E11.9 Esophageal reflux K21.9 Abnormal LFTs R79.89 History of stroke Z86.73 Status cardiac pacemaker Z95.0 DVT prophylaxis Z29.9
[2022-05-27 07:14] LABS: Basophils # (auto) 0.06 K/uL (0-0.2); Basophils % (auto) 0.3 %; Eosinophils # (auto) 0.11 K/uL (0-0.50); Eosinophils % (auto) 0.6 %; Hematocrit (blood only) 29.6 % (34.1-44.9); Immature Granulocytes # (auto) 0.11 K/uL (0.00-0.02); Immature Granulocytes % (auto) 0.6 %; Lymphocytes # (auto) 2.75 K/uL (1.2-3.4); Lymphocytes % (auto) 15.1 %; Mean Corpuscular Hemoglobin 29.7 pg (25.0-34.0); Mean Corpuscular Hgb Conc 33.8 g/dL (32.0-36.0); Mean Corpuscular Volume 87.8 fL (80.0-100.0); Mean Platelet Volume 9.9 fL (9.4-12.3); Monocytes # (auto) 1.11 K/uL (0.24-0.82); Monocytes % (auto) 6.1 %; Neutrophils # (auto) 14.11 K/uL (1.4-6.5); Neutrophils % (auto) 77.3 %; Platelet Count 189 K/uL (130-400); RDW Coefficient of Variation 13.8 % (11.5-14.5); RDW Standard Deviation 44.7 fL (36.4-46.3); Red Blood Count 3.37 M/uL (3.93-5.22); White Blood Count 18.25 K/ul (4.8-10.8)
[2022-05-27 07:56] LABS: BUN Creatinine Ratio 18.1 (10-20); Bilirubin Direct 0.1 mg/dl (0-0.2); Bilirubin,Total 0.5 mg/dl (0.2-1.0); Calcium 8.3 mg/dl (8.5-10.1); Creatinine Clr Calc Pharmacy 40.1 ml/min; Est GFR (African American) 64.6 ml/min; Est GFR (Non-African American) 55.7 ml/min; Potassium 3.7 mmol/L (3.5-5.1); Total Protein 6.2 gm/dl (6.0-8.3)
[2022-05-27] MEDS: MEMANTINE HCL 10 MG TAB PO SCH ×2 (08:04→20:55)
[2022-05-27] MEDS: CYANOCOBALAMIN (B-12) 500 MCG TABLET PO SCH (08:04)
[2022-05-27] MEDS: ADVANCED PROBIOTIC 1250 MG CAPSULE PO SCH (08:04)
[2022-05-27] MEDS: CEROVITE ADV FORMULA TAB PO SCH (08:04)
[2022-05-27] MEDS: PANTOprazole 40 MG TAB PO SCH ×2 (08:04→20:56)
[2022-05-27] MEDS: NYSTATIN POWDER 15GM BTL EXT SCH ×2 (08:05→20:56)
[2022-05-27] MEDS: TIMOLOL MALEATE 0.5% OP SOLN 5 ML BTL OPB SCH (08:05)
[2022-05-27] MEDS: INSULIN ASPART PER UNIT SC SCH ×4 (08:05→20:40)
--- NOTE | 2022-05-27 09:30 | Urology Progress Note ---
Date of Service May 27, 2022 Assessment & Plan (1) Pyelonephritis of left kidney: (2) UTI (urinary tract infection): (3) Gross hematuria: Plan 86-year-old female who was admitted with suspected left pyelonephritis and hematuria -Remains afebrile and hemodynamically stable. -Labs reviewed-White count down from 27.6318.25 today, hemoglobin 10.0, creatinine 0.94. -Urine culture final with Proteus, repeat urine culture negative; Blood cultures prelim negative x48 hours. -Antibiotics changed from Cefepime to Rocephin. -No acute intervention warranted at this time. -Given her clinical improvement, will continue to conservatively monitor with antibiotics and supportive care. -Maintain Bueno catheter. Hematuria appears to be clearing. Continue to monitor. -Continue antibiotics and follow-up cultures. -Urology to follow Admission and Anticipated Discharge Date Admission Date: May 25, 2022 Subjective Patient examined at bedside this AM. Awake, resting in bed on arrival. No acute distress. No fevers. Denies any pain or discomfort. Bueno catheter intact, draining light pink urine with some sediment. Offers no additional complaints or concerns at time of exam. Review of Systems Constitutional: as per Subjective / HPI Genitourinary: as per Subjective / HPI Physical Exam Constitutional: no acute distress Respiratory: no respiratory distress and no labored breathing Gastrointestinal (Abdomen): Percussion/Palpation: abdomen soft; abdomen nontender Skin: No visible rashes or lesions Neurologic: awake Psychiatric: Orientation: alert, oriented to person and cooperative Genitourinary: Bueno catheter intact Results & Data ([facility]) Vital Signs (Past 12 Hours) Vital Signs Temp Pulse Pulse Resp BP Pulse Ox O2 Del Method 05/27/22 08:08 37.1 C 79 17 146/76 H 93 05/27/22 03:57 37.0 C 86 18 159/78 H 95 Room Air 05/26/22 22:20 80 05/26/22 23:38 37.2 C 83 16 129/74 Room Air PG Care Time/CCT Total # of Minutes Spent Total Time Spent with Patient: Total time spent is greater than 50% in coordination of care (as documented) at patient's floor/unit and/or counseling patient: Coding Level of Care Code 34593 Subseq Hosp Care Lvl 2 Diagnoses Pyelonephritis of left kidney N12 UTI (urinary tract infection) N39.0 Gross hematuria R31.0
[2022-05-27] MEDS: cefTRIAXone SODIUM 1,000 MG in DEXTROSE 5% 50 ML IV SCH (12:33)
[2022-05-27] MEDS ORDERED: BUTALBITAL/ACETAMIN/CAFFEINE TAB PO PRN (14:11)
--- NOTE | 2022-05-27 20:02 | Hospitalist Progress Note ---
Date of Service May 27, 2022 Assessment & Plan (1) Sepsis: Plan: 2nd to Proteus UTI/pyelonephritis on left. Blood cultures remain negative. Previous severe leukocytosis improved today. Plan - * follow blood cx's * cont rocephin 1gm daily IV - day #3 of IV abx * daily labs * dukes * appreciate urology consultation - since hematuria is resolving nicely no plans for cysto at this time Plan 10-14 days of antibiotic therapy for pyelo. (2) Pyelonephritis of left kidney: Plan: 2nd to proteus. see #1 above. (3) Gross hematuria: Plan: 2nd to UTI/pyelonephritis. I cannot exclude a passed kidney stone but unlikely (2019 CT a/p without any kidney stones). Hematuria continues to improve. Cont to hold aspirin at least 1-2 more days. Appreciate urology consult. NO plans for cystoscopy today. (4) Acute metabolic encephalopathy: Plan: 2nd to #1. Supportive care. Avoid sedatives. Improved. (5) Hypertension: Plan: Cont to HOLD amlodipine and lisinopril. Likely will need to reinstitute 1 of them soon. Trend BPs. (6) Glaucoma: Plan: Continue usual drops. (7) Dementia: Plan: By history it sounds as if she has mod-severe dementia. Chronic poor appetite could be dementia-related. Continue namenda. Lives with sister and her niece who provide 26/05 care. (8) Dyslipidemia: Plan: Cont to hold statin due to abnormal LFTs. (9) Type 2 diabetes mellitus without complication: Plan: Hold metformin. BSGs ac/hs. Novolog SSI. (10) Esophageal reflux: Plan: Esophageal thickening on CT despite use of PPI at home. Increased PPI to BID dosing. (11) Abnormal LFTs: Plan: 2nd to sepsis/poor hepatic perfusion? 2nd to cefepime use on hospital day #1? other? Cont to hold statin. Repeat LFTs am. GB u/s negative. AST/ALT did improve today. (12) History of stroke: Plan: Hold asa for now due to severity of hematuria. But resume when safe to do so. (13) Status cardiac pacemaker: (14) DVT prophylaxis: Plan: SCDs for now due to hematuria. Plan updated pt's son Ari 05/25 who lives in [place] -- phone: [phone] updated pt's sister at bedside yesterday updated pt's sister by phone today PT, OT needed Admission and Anticipated Discharge Date Admission Date: May 25, 2022 Subjective patient sleeping upon arrival easily awoke c/o minimal amount of abdominal discomfort no vomiting by report eating fair by report tele overnight wnl dukes - urine in bag MUCH improved; hematuria nearly resolved Review of Systems Review of Systems: cv - denies cp pulm - denies dyspnea GI - denies nausea Physical Exam Physical Exam: gen - NAD mouth - MMM neck - no JVD heart - RRR, s1 s2, no murmur lungs - CTA b/l abd - soft, NT, BS+; no CVA tenderness b/l ext - no edema, pulses 2+ b/l - dukes in place, urine in bag nearly cleared (ie no hematuria) psych - awake, oriented to person only Results & Data Results & Data ([facility]) Vital Signs (Past 12 Hours) Vital Signs Temp Pulse Resp BP Pulse Ox O2 Del Method 05/27/22 19:43 36.8 C 79 18 127/72 95 Room Air 05/27/22 15:53 37.3 C 70 17 131/74 93 Room Air 05/27/22 12:04 36.9 C 70 17 142/76 H 93 Room Air 05/27/22 10:13 67 05/27/22 08:08 37.1 C 79 17 146/76 H 93 Laboratory Results Laboratory Results - last 24 hr 05/26/22 05/27/22 05/27/22 20:29 06:47 06:47 WBC 18.25 H RBC 3.37 L Hgb 10.0 L Hct 29.6 L MCV 87.8 MCH 29.7 MCHC 33.8 RDW Std Deviation 44.7 RDW Coeff of Vinh 13.8 Plt Count 189 MPV 9.9 Immature Gran % (Auto) 0.6 Neut % (Auto) 77.3 Lymph % (Auto) 15.1 [place] % (Auto) 6.1 Eos % (Auto) 0.6 Baso % (Auto) 0.3 Neut # (Auto) 14.11 H Lymph # (Auto) 2.75 [place] # (Auto) 1.11 H Eos # (Auto) 0.11 Baso # (Auto) 0.06 Immature Gran # (Auto) 0.11 H Sodium 134 L Potassium 3.7 Chloride 102 Carbon Dioxide 24 Anion Gap 8 BUN 17 Creatinine 0.94 D Est Cr Clr Drug Dosing 40.1 Est GFR ( Amer) 64.6 Est GFR (Non-Af Amer) 55.7 BUN/Creatinine Ratio 18.1 Glucose 124 H POC Glucose 179 H Calcium 8.3 L Total Bilirubin 0.5 Direct Bilirubin 0.1 AST 117 H ALT 273 H Alkaline Phosphatase 103 Total Protein 6.2 Albumin 3.0 L 05/27/22 05/27/22 05/27/22 07:10 11:09 16:21 WBC RBC Hgb Hct MCV MCH MCHC RDW Std Deviation RDW Coeff of Vinh Plt Count MPV Immature Gran % (Auto) Neut % (Auto) Lymph % (Auto) [place] % (Auto) Eos % (Auto) Baso % (Auto) Neut # (Auto) Lymph # (Auto) [place] # (Auto) Eos # (Auto) Baso # (Auto) Immature Gran # (Auto) Sodium Potassium Chloride Carbon Dioxide Anion Gap BUN Creatinine Est Cr Clr Drug Dosing Est GFR ( Amer) Est GFR (Non-Af Amer) BUN/Creatinine Ratio Glucose POC Glucose 131 H 190 H 99 Calcium Total Bilirubin Direct Bilirubin AST ALT Alkaline Phosphatase Total Protein Albumin Diagnostic Findings blood cx's remain negative to date repeat urine cx from admission negative PG Care Time/CCT Total # of Minutes Spent Total Time Spent with Patient: Total time spent is greater than 50% in coordination of care (as documented) at patient's floor/unit and/or counseling patient: Coding Level of Care Code 58225 Subseq Hosp Care Lvl 2 Diagnoses Sepsis A41.9 Pyelonephritis of left kidney N12 Gross hematuria R31.0 Acute metabolic encephalopathy G93.41 Hypertension I10 Glaucoma H40.9 Dementia F03.90 Dyslipidemia E78.5 Type 2 diabetes mellitus without complication E11.9 Esophageal reflux K21.9 Abnormal LFTs R79.89 History of stroke Z86.73 Status cardiac pacemaker Z95.0 DVT prophylaxis Z29.9
[2022-05-28 08:41] LABS: Basophils # (auto) 0.04 K/uL (0-0.2); Basophils % (auto) 0.4 %; Eosinophils # (auto) 0.09 K/uL (0-0.50); Eosinophils % (auto) 0.8 %; Hematocrit (blood only) 33.3 % (34.1-44.9); Immature Granulocytes # (auto) 0.12 K/uL (0.00-0.02); Immature Granulocytes % (auto) 1.1 %; Lymphocytes # (auto) 2.17 K/uL (1.2-3.4); Lymphocytes % (auto) 20.3 %; Mean Corpuscular Hemoglobin 29.4 pg (25.0-34.0); Mean Platelet Volume 10.2 fL (9.4-12.3); Monocytes % (auto) 9.3 %; Neutrophils # (auto) 7.29 K/uL (1.4-6.5); Neutrophils % (auto) 68.1 %; Platelet Count 209 K/uL (130-400); RDW Coefficient of Variation 13.8 % (11.5-14.5); RDW Standard Deviation 44.9 fL (36.4-46.3); Red Blood Count 3.74 M/uL (3.93-5.22); White Blood Count 10.71 K/ul (4.8-10.8)
[2022-05-28] MEDS: INSULIN ASPART PER UNIT SC SCH ×2 (08:48→12:04)
[2022-05-28] MEDS: ADVANCED PROBIOTIC 1250 MG CAPSULE PO SCH (08:50)
[2022-05-28] MEDS: PANTOprazole 40 MG TAB PO SCH (08:50)
[2022-05-28] MEDS: CEROVITE ADV FORMULA TAB PO SCH (08:50)
[2022-05-28] MEDS: CYANOCOBALAMIN (B-12) 500 MCG TABLET PO SCH (08:51)
[2022-05-28] MEDS: TIMOLOL MALEATE 0.5% OP SOLN 5 ML BTL OPB SCH (08:52)
[2022-05-28] MEDS: NYSTATIN POWDER 15GM BTL EXT SCH (08:52)
[2022-05-28] MEDS: MEMANTINE HCL 10 MG TAB PO SCH (08:52)
[2022-05-28 09:04] LABS: BUN Creatinine Ratio 15.9 (10-20); Calcium 8.6 mg/dl (8.5-10.1); Creatinine Clr Calc Pharmacy 59.8 ml/min; Est GFR (African American) 95.5 ml/min; Est GFR (Non-African American) 82.4 ml/min; Potassium 3.6 mmol/L (3.5-5.1)
[2022-05-28] MEDS: cefTRIAXone SODIUM 1,000 MG in DEXTROSE 5% 50 ML IV SCH (12:06)
--- NOTE | 2022-05-28 13:33 | Urology Progress Note ---
Date of Service May 28, 2022 Assessment & Plan (1) Pyelonephritis of left kidney: (2) UTI (urinary tract infection): (3) Gross hematuria: Plan 86-year-old female who was admitted with suspected left pyelonephritis and hematuria -Remains afebrile and hemodynamically stable. -Labs reviewed-White count down to 10.71 today, hemoglobin 11.0, creatinine 0.63. -Urine culture final with Proteus, repeat urine culture negative; Blood cultures prelim negative x48 hours. -Continues on IV ceftriaxone. -No acute intervention warranted. -Hematuria has cleared. OK for voiding trial prior to discharge. -Continue antibiotics. Recommend treating based on Proteus positive culture, ca n transition to oral upon discharge for a total of 14 days of antibiotic therapy. -We will arrange outpatient follow-up with our service. -Urology will sign off for now. Please contact us with any further questions, concerns, or changes in patient status. Admission and Anticipated Discharge Date Admission Date: May 25, 2022 Subjective Patient examined at bedside this afternoon. Awake, resting in bed on arrival. No acute distress. Denies any pain or discomfort at present. Bueno catheter intact, draining clear yellow urine. No fevers. Denies nausea or vomiting. Offers no additional complaints at time of exam. Review of Systems Constitutional: as per Subjective / HPI Genitourinary: as per Subjective / HPI Physical Exam Constitutional: no acute distress Respiratory: no respiratory distress and no labored breathing Gastrointestinal (Abdomen): Percussion/Palpation: abdomen soft; abdomen nontender Neurologic: awake Psychiatric: Orientation: alert, oriented to person and cooperative Genitourinary: Bueno catheter intact Results & Data ([facility]) Vital Signs (Past 12 Hours) Vital Signs Temp Pulse Resp BP Pulse Ox O2 Del Method 05/28/22 11:00 36.8 C 71 18 144/73 H 96 Room Air 05/28/22 07:05 36.5 C 84 16 154/76 H 96 Room Air 05/28/22 03:34 36.6 C 85 18 137/76 94 Room Air PG Care Time/CCT Total # of Minutes Spent Total Time Spent with Patient: Total time spent is greater than 50% in coordination of care (as documented) at patient's floor/unit and/or counseling patient: Coding Level of Care Code 00396 Subseq Hosp Care Lvl 2 Diagnoses Pyelonephritis of left kidney N12 UTI (urinary tract infection) N39.0 Gross hematuria R31.0
--- NOTE | 2022-05-28 13:53 | Discharge Summary ---
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 The patient lives with 2 younger sisters and a niece. However, she is accompanied in the ER by a close friend who provides most of the history. During my assessment the patient complains of mild left sided abdominal pain and left flank pain. She had fever with rigors just prior to coming to the ER according to her friend. Additionally, she has had poor oral intake, but her friend states her appetite is chronically poor. Lastly, her friend states that Ms Head was more confused that her typical baseline when she went to her home to pick her up to bring her to [facility]. In the ER the patient received 30cc/kg of isotonic fluid, broad-spectrum IV antibiotics, and lopressor for tachycardia. EKG with ventricular pacing. During my assessment was back in NSR with ectopy. Principal Diagnosis Acute pyelonephritis, sepsis, gross hematuria Discharge Exam gen - NAD mouth - MMM neck - no JVD heart - RRR, s1 s2, no murmur lungs - CTA b/l abd - soft, NT, BS+; no CVA tenderness b/l ext - no edema, pulses 2+ b/l - dukes in place, urine in bag nearly cleared (ie no hematuria) psych - awake, oriented to person only Discharge Data Allergies Allergy/AdvReac Type Severity Reaction Status Date / Time aspirin Allergy Unknown Verified 02/19/22 14:10 Sulfa (Sulfonamide Allergy Unknown Verified 02/19/22 14:10 Antibiotics) Consultations 05/25/22 07:05 ED Decision to Admit Stat 05/25/22 19:34 Consult Urology Routine Ordered Studies 05/25/22 04:10 CT abd pelvis IV con only Urgent 05/26/22 09:34 US gallbladder Routine Hospital Course (1) Sepsis: 2nd to Proteus UTI/pyelonephritis on left. Blood cultures remain negative. Previous severe leukocytosis now resolved * Received rocephin 1gm daily IV x4 days and will convert to oral antibiotics on discharge -Cipro 500 Mg p.o. twice daily for 7 more days * dukes catheter was removed on the day of discharge and she is voiding * appreciate urology consultation - since hematuria is resolving nicely no plans for cysto at this time. Follow-up with urology as an outpatient-this will be arranged by urology (2) Pyelonephritis of left kidney: 2nd to proteus. see #1 above. (3) Gross hematuria: 2nd to UTI/pyelonephritis. I cannot exclude a passed kidney stone but unlikely (2019 CT a/p without any kidney stones). Hematuria now resolved Aspirin can be restarted on discharge Appreciate urology consult. NO plans for cystoscopy (4) Acute metabolic encephalopathy: 2nd to sepsis and pyelonephritis Now improved (5) Hypertension: Held amlodipine and lisinopril for sepsis but restarted as blood pressures improved (6) Glaucoma: Continue usual drops. (7) Dementia: By history it sounds as if she has mod-severe dementia. Chronic poor appetite could be dementia-related. Continue namenda. Lives with sister and her niece who provide 26/05 care. (8) Dyslipidemia: Held statin due to abnormal LFTs, but this can be restarted on discharge Follow CMP as an outpatient with PCP in 1 week (9) Type 2 diabetes mellitus without complication: Okay to restart metformin on discharge. Was treated with NovoLog sliding scale here Well-controlled with hemoglobin A1c 6.8% (10) Esophageal reflux: Esophageal thickening on CT despite use of PPI at home. Increased PPI to BID dosing. Follow-up as an outpatient and could consider EGD-possibility this could represent malignancy, but given advanced age and dementia, will defer to PCP and patient family to decide (11) Abnormal LFTs: Likely secondary to sepsis/poor hepatic perfusion Held statin. GB u/s negative. AST/ALT did continue to improve Okay to restart statin on discharge and check CMP as an outpatient (12) History of stroke: Initially held aspirin due to severity of hematuria, but this can be restarted as hematuria resolved and infection improving (13) Status cardiac pacemaker: (14) DVT prophylaxis: SCDs only provided due to hematuria Plan Disposition-stable for discharge to home Total Time Total Time Spent Total Time Spent (In Minutes): 35 minutes Discharge Plan Discharge Items Patient Disposition: Home - Self-Care Reason For Visit: sepsis, UTI Discharge Diagnosis: Acute pyelonephritis, UTI, sepsis Condition on Discharge: Good Activity: As commented below Bathing: No limitations Exercise/Sports: Gradually increase as tolerated Non-emergency contact: Primary Care Provider Call non-emergency contact if: you have any medication questions, your symptoms worsen, your pain is not controlled and you have a fever Follow-up/Referrals: Brian Sanchez III, MD [Primary Care Provider] - 06/04/22 11:00 am (Follow up within 1-2 weeks.) Diet: Carb Consistent or DM2 Addtl Attending Provider Instructions: Please finish out 7 more days of an antibiotic called Cipro that is to be taken twice a day. This is to continue to treat your kidney infection. Please follow up with your PCP within 1-2 weeks and have your Comprehensive metabolic panel (blood work) checked at that time to make sure your kidney function and liver enzymes are normal. Pending Studies at Discharge: Yes (Blood cultures-final) Stand-Alone Forms: My [facility] [email or web address], Smoking Cessation Medications and DC Order Prescriptions: New ciprofloxacin HCl [Cipro] 500 mg tablet 500 mg PO BID Qty: 14 0RF Continued potassium chloride 20 mEq tablet extended release 20 meq PO DAILY Qty: 90 3RF Hold Instructions: Per [facility] D/C summary lisinopril 40 mg tablet 40 mg PO DAILY Qty: 90 3RF Hold Instructions: per [facility] D/[facility] summary fqkxdezlna-nyqytdgmsibqm-impm 50-325-40 mg capsule 1 cap PO Q6H PRN (Reason: headache) Qty: 30 0RF cholecalciferol (vitamin D3) 25 mcg (1,000 unit) capsule 25 mcg PO DAILY mecobalamin (vitamin B12) 1,000 mcg tablet,chewable 1,000 mcg PO DAILY memantine 10 mg tablet 10 mg PO BID 90 Days Qty: 180 3RF nystatin 100,000 unit/gram powder 1 applic topical BID Qty: 30 2RF amlodipine 10 mg tablet 10 mg PO DAILY Qty: 90 3RF Hold Instructions: per [facility] D/C summary metformin 500 mg tablet 500 mg PO DAILY Qty: 90 3RF Rx Instructions: with a meal omeprazole 20 mg capsule,delayed release(DR/EC) 20 mg PO DAILY Qty: 90 3RF atorvastatin 40 mg tablet 40 mg PO HS Qty: 90 3RF timolol maleate 0.5 % drops 1 drops OPB DAILY melatonin 3 mg tablet 3 mg PO HS PRN (Reason: Insomnia) docusate sodium 100 mg capsule 100 mg PO BID PRN (Reason: Constipation) Qty: 60 vit C,G-Gm-tfvzt-lutein-zeaxan 60 mg-13.5 mg- 15 mg-2 mg-6 mg capsule 1 cap PO DAILY calcium carbonate 600 mg calcium (1,500 mg) tablet 600 mg PO DAILY aspirin [Adult Low Dose Aspirin] 81 mg tablet,delayed release (DR/EC) 81 mg PO DAILY Discharge Orders: Discharge Order (Routine); Ordered 05/28/22 Ordered By: Miriam Hendricks Admission Data Admit Date/Time: 05/25/22 08:21 Attending Provider: Miriam Hendricks Admit Provider: Corbin Raines Primary Care Provider: Brian Sanchez III Other Providers: Johan Olivarez ; Ebenezer Sauceda ; Corbin Raines ; Stephie Hendricks ; Tino Houston ; Kelby Gonzalez Other Interventions: Discharge Summary Assessment (RN) Last Done: 05/28/22 15:11 Coding Level of Care Code D/C DAY MANAGEMENT >30 MINS Diagnoses Sepsis A41.9 Pyelonephritis of left kidney N12 Gross hematuria R31.0 Acute metabolic encephalopathy G93.41 Hypertension I10 Glaucoma H40.9 Dementia F03.90 Dyslipidemia E78.5 Type 2 diabetes mellitus without complication E11.9 Esophageal reflux K21.9 Abnormal LFTs R79.89 History of stroke Z86.73 Status cardiac pacemaker Z95.0 DVT prophylaxis Z29.9
== END 2022-05-28 16:00 | disposition home or self-care (01) | DRG 871 ==
LOC: ED 03:51 → SUATTDRO 08:21 → 2S 08:21

== ENCOUNTER 2023-10-14 17:53 | Inpatient (IN) ==
--- NOTE | 2023-10-14 18:09 | Emergency Department Note ---
Impression & Plan AMS (altered mental status), COVID-19, Acute UTI (urinary tract infection) ED Provider Note ED Provider Note NAME: MARIE WONG AGE:87 SEX: Female : 1935 ARRIVES VIA: EMS INFORMANT: EMS ED PROVIDER(s): Ashley Cerrato DO CHIEF COMPLAINT: Altered mental status HPI: This is an 87-year-old female presents emergency department due to concern by family for altered mental status. Patient here earlier in the day and discharged home. Patient denies any pain at bedside exam but cannot provide any additional history. She thinks she is at home currently. Cannot otherwise answer questions of orientation. PAST MEDICAL HISTORY:See Below PAST SURGICAL HISTORY:See Below FAMILY HISTORY:See Below SOCIAL HISTORY:See Below HOME MEDICATIONS:See Below ALLERGIES:See Below VITALS:See Below PHYSICAL EXAMINATION: GENERAL: alert, well appearing, well nourished, no distress, non-toxic EYE EXAM: normal conjunctiva, PERRL and EOM's grossly intact OROPHARYNX: no exudate, no erythema, lips, buccal mucosa, and tongue normal and mucous membranes are moist NECK: supple, no nuchal rigidity, no adenopathy, non-tender LUNGS: Clear to auscultation. Normal chest wall mechanics, no w/r/r HEART: no murmurs, S1 normal and S2 normal ABDOMEN: abdomen soft, non-tender, normo-active bowel sounds, no masses, no rebound or guarding. BACK: Back is symmetrical on inspection and there is no deformity, no midline tenderness, no CVA tenderness. SKIN: no rashes, petechiae, orbruising UPPER EXTREMITIES: upper extremities are grossly normal. FROM, nml pulses b/l. LOWER EXTREMITIES: No pitting edema. FROM, nml pulses b/l. NEURO EXAM: Pleasantly confused, cranial nerves II-XII grossly intact, normal speech, no facial droop,nogross weakness of arms, no gross weakness of legs. Gross sensation intact. No ataxia. Tremulous. Vital Signs: reviewed and remarkable Differential Diagnosis: Differential diagnoses includes but is not limited to toxic, metabolic, infectious, traumatic, cardiac, neurologic, hematologic, psychiatric and inflammatory etiologies. MEDICAL DECISION MAKING: This is an 87-year-old female presents emerged department via EMS. Patient unable to provide much history due to history of cognitive decline, although was just in the emergency department earlier today. Patient afebrile and vital signs stable although she was noted to be slightly tachycardic. Patient denied any complaints of pain but cannot provide any additional history. Labs drawn and sent, IV established, EKG and chest were performed bedside interpreted by me and patient monitored on telemetry. She did appear clinically dehydrated and was started on gentle IV fluid rehydration. She was sent for CT head additionally due to her confusion and initial unclear etiology of her presentation as no family or friends present at the bedside. I did eventually speak with the patient's sister after I called and left message. She stated the patient had returned home from her evaluation earlier today and shortly after that had fallen in the house. We did discuss her recent COVID diagnosis and that this could contribute to increased weakness, and dizziness. We discussed her labs and imaging here. Due to concern for evolving urinary tract infection she was also given IV Rocephin after review of prior urine cultures. Case discussed with the hospitalist for additional evaluation and management Consultation(s): 2044: Discussed with Dr. Barba, [place] hospitalist, for additional evaluation and mgmt. ER Treatment Provided: See below 2033: Discussed with sisterRichelle. Patient lives with niece and a neighbor helps her as well. Diagnostics Interpreted By Me: -ECG: Paced at 113, left axis, prolonged intervals, nonspecific ST/T wave changes, baseline artifact -Cardiac Monitoring: An order was placed for continuous cardiac monitoring. The monitor shows a rate of 102 with paced rhythm. -Laboratory studies: As stated above and show below. -Imaging studies: X-ray Chest: A single view study of the chest was reviewed and was negative for cardiomegaly, focal infiltrate, effusion, pulmonary edema, or wide mediastinum. 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 Cerebral ischemia Dementia Depression Glaucoma Patella fracture Hypertension CVA (cerebral vascular accident) Surgical History Status post biventricular cardiac pacemaker insertion (10/18/19) Recurrent syncope, 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 History of cataract surgery Family History Brother Diabetes Colon cancer Prostate cancer Mother CHF (congestive heart failure) Tobacco use Sister Diabetes Glaucoma Macular degeneration Father Prostate cancer Tobacco use Pneumonia Daughter [place] disease Other Coronary heart disease Denies family history of Ovarian cancer Breast cancer Social History Smoking Status: Unknown if ever smoked Second Hand Exposure: No; Do You Dip or Chew Tobacco: No; Hx Alcohol Use: No Hx Substance Use: No Preferred Language: Luxembourgish Communication Ability: Effective Communication Ability Comment: Héctor Hand Paster Required: No Beliefs That Will Affect Care: None marital status: marital status details: previously twice Current Living Situation: Family Current Living Situation Comment: lives w/ sisters (2) + niece current occupational status: 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 [employer] How many Children do You have: 2 How many Children do You have Comment: sons Feels Safe at Home: Yes caffeine: Yes Seatbelt Use: always Assistive Devices: Bedside Commode and Walker Allergies Allergies Allergy/AdvReac Type Severity Reaction Status Date / Time aspirin Allergy Unknown Unknown Verified 10/14/23 19:41 Sulfa (Sulfonamide Allergy Unknown Unknown Verified 10/14/23 19:41 Antibiotics) Home Meds Home Medications Medication Instructions Recorded Confirmed melatonin 3 mg tablet 3 mg PO HS PRN Insomnia 06/21/19 10/14/23 timolol maleate 0.5 % eye drops 1 drops OPB DAILY 06/21/19 10/14/23 calcium carbonate 600 mg calcium 600 mg PO DAILY 08/17/19 10/14/23 (1,500 mg) tablet docusate sodium 100 mg capsule 100 mg PO BID PRN Constipation #60 08/17/19 10/14/23 caps vit C,B-Zq-sddsqr-lutein-zeaxan 60 1 cap PO DAILY 08/17/19 10/14/23 mg-13.5 mg-15 mg-2 mg-6 mg capsule aspirin 81 mg tablet,delayed 81 mg PO DAILY 10/17/20 10/14/23 release (Adult Low Dose Aspirin) cholecalciferol (vitamin D3) 25 25 mcg PO DAILY 03/22/21 10/14/23 mcg (1,000 unit) capsule mecobalamin (vitamin B12) 1,000 1,000 mcg PO DAILY 03/22/21 10/14/23 mcg chewable tablet mirtazapine 15 mg tablet 15 mg PO DAILY 10/14/23 10/14/23 Previous Rx's Medication Instructions Recorded potassium chloride 20 mEq 20 meq PO DAILY #90 tabs 09/04/20 tablet,extended release qhdcepfuww-dhbyzoiqtzvaq-cteoehit 1 cap PO Q6H PRN headache #30 caps 03/13/21 50 mg-325 mg-40 mg capsule nystatin 100,000 unit/gram topical 1 applic topical BID #30 grams 10/12/21 powder metformin 500 mg tablet 500 mg PO DAILY #90 tabs 01/20/23 amlodipine 10 mg tablet 10 mg PO DAILY #90 tabs 02/28/23 omeprazole 20 mg capsule,delayed 20 mg PO DAILY #90 caps 03/05/23 release memantine 10 mg tablet 10 mg PO BID 90 days #180 tabs 05/12/23 lisinopril 40 mg tablet 40 mg PO DAILY #90 tabs 07/08/23 atorvastatin 40 mg tablet 40 mg PO HS #90 tabs 08/05/23 methenamine hippurate 1 gram tablet 1 g PO BID #60 tabs 08/07/23 nirmatrelvir 150 mg-ritonavir 100 See Rx Instructions PO .COMPLEX 10/14/23 mg tablets in a dose pack #20 ea (Paxlovid) Results & Data (ED) Vital Signs Vital Signs - 24 hr 10/14/23 17:49 10/14/23 19:06 10/14/23 19:10 Temperature 37.1 C Temperature Source Oral Pulse Rate 115 H 113 H Pulse Rate [Left Apical] 110 H Pulse Rhythm Regular Pulse Rhythm [Left Apical] Pulse Strength Normal Pulse Strength [Left Apical] Respiratory Rate 22 20 Respiratory Effort / Characteristics Non-Labored Spontaneous Non-Labored Spontaneous Respiratory Depth Normal Normal Blood Pressure 168/58 H Blood Pressure [Left Arm] 127/98 Blood Pressure Mean 94 Blood Pressure Mean [Left Arm] 107 Pulse Oximetry 98 96 Oxygen Delivery Method Room Air Room Air Sepsis Recent Fever Within 48 Hours No Sepsis New/Unexplained Change in Mental Status No Sepsis Action Taken by Nursing Physician Notified 10/14/23 19:38 10/14/23 20:15 Temperature Temperature Source Pulse Rate Pulse Rate [Left Apical] 111 H 111 H Pulse Rhythm Pulse Rhythm [Left Apical] Regular Regular Pulse Strength Pulse Strength [Left Apical] Normal Normal Respiratory Rate 20 20 Respiratory Effort / Characteristics Non-Labored Spontaneous Non-Labored Spontaneous Respiratory Depth Normal Normal Blood Pressure Blood Pressure [Left Arm] 162/70 H 135/86 Blood Pressure Mean Blood Pressure Mean [Left Arm] 100 102 Pulse Oximetry 97 96 Oxygen Delivery Method Room Air Room Air Sepsis Recent Fever Within 48 Hours Sepsis New/Unexplained Change in Mental Status Sepsis Action Taken by Nursing Laboratory Data 10/14/23 19:39 10/14/23 19:39 Lab Results 10/14/23 10/14/23 Range/Units 19:00 19:39 WBC 9.17 (4.8-10.8) K/ul RBC 3.73 L (4.20-5.40) M/uL Hgb 10.8 L (12.0-16.0) g/dl Hct 33.0 L (37.0-47.0) % MCV 88.5 (80.0-100.0) fL MCH 29.0 (25.0-34.0) pg MCHC 32.7 (32.0-36.0) g/dL RDW Std Deviation 46.6 H (36.4-46.3) fL RDW Coeff of Vinh 14.5 (11.5-14.5) % Plt Count 262 (130-400) K/uL MPV 9.8 (9.4-12.4) fL Immature Gran % (Auto) 0.5 % Neut % (Auto) 67.8 % Lymph % (Auto) 17.3 % Owen % (Auto) 13.7 % Eos % (Auto) 0.2 % Baso % (Auto) 0.5 % Neut # (Auto) 6.20 (1.40-6.50) K/uL Lymph # (Auto) 1.59 (1.20-3.40) K/uL Owen # (Auto) 1.26 H (0.11-0.59) K/uL Eos # (Auto) 0.02 (0.00-0.50) K/uL Baso # (Auto) 0.05 (0.00-0.20) K/uL Immature Gran # (Auto) 0.05 (0.01-0.20) K/uL Sodium 134 L (136-145) mmol/L Potassium 4.0 (3.5-5.1) mmol/L Chloride 103 (98-107) mmol/L Carbon Dioxide 20 L (21-32) mmol/L Anion Gap 11 (3-11) BUN 21 (6-23) mg/dl Creatinine 0.94 (0.6-1.2) mg/dl Est Cr Clr Drug Dosing 40.8 ml/min Est GFR ( Amer) 64.1 ml/min Est GFR (Non-Af Amer) 55.3 ml/min BUN/Creatinine Ratio 22.3 H (10-20) Glucose 145 H (70-99(Fasting)) mg/dl Calcium 8.8 (8.6-10.3) mg/dl Magnesium 1.6 L (1.7-2.4) mg/dl Total Bilirubin 0.4 (0.2-1.0) mg/dl AST 35 (13-39) U/L ALT 29 (7-52) U/L Alkaline Phosphatase 93 (34-104) U/L Troponin I High Sens 31.7 H (0-14) pg/ml Total Protein 7.5 (6.0-8.3) gm/dl Albumin 3.7 (3.4-5.0) gm/dl Globulin 3.8 (2.5-4.0) gm/dl Albumin/Globulin Ratio 1.0 (0.9-2) Lipase 44 (11-82) U/L TSH 0.687 (0.300-4.500) uIu/ml Urine Color Yellow Urine Appearance Clear (Clear) Urine pH 5.5 (4.5-7.5) Ur Specific [place] 1.017 (1.000-1.030) Urine Protein 1+ H (Negative) Urine Glucose (UA) Negative (Negative) Urine Ketones Negative (Negative) Urine Blood 1+ H (Negative) Urine Nitrite Negative (Negative) Urine Bilirubin Negative (Negative) Urine Urobilinogen Negative (Negative) Ur Leukocyte Esterase 1+ H (Negative) Urine WBC (Auto) 10-30 H (0-5) /hpf Urine RBC (Auto) 0-4 (0-4) /hpf U Hyaline Cast (Auto) 1-5 (0-5) /lpf U Epithel Cells (Auto) 0-5 (0-5) /lpf Urine Bacteria (Auto) 4+ H (Negative) Administered Medications Sodium Chloride (Nss) 1,000 mls @ 125 mls/hr IV .Q8H [place] Stop: 11/13/23 18:14 Last Admin: 10/14/23 18:47 Dose: 125 mls/hr Documented By: TW Discontinued Medications Ceftriaxone Sodium (Rocephin) 2,000 mg in 50 mls @ 100 mls/hr IV NOW STA Stop: 10/14/23 20:25 Last Infusion: 10/14/23 20:46 Dose: Infused Documented By: Admin: 10/14/23 20:15 Dose: 100 mls/hr Documented By: TW Magnesium Sulfate/Dextrose (Magnesium Sulfate / D5w) 1 gm in 100 mls @ 100 mls/hr IV NOW STA Stop: 10/14/23 21:20 Last Infusion: 10/14/23 22:44 Dose: Infused Documented By: Admin: 10/14/23 21:26 Dose: 100 mls/hr Documented By: AUDREY Imaging Data Radiologist's Impression: Chest X-Ray 10/14/23 18:05 XR chest 1V portable CLINICAL HISTORY: Altered mental status. COMPARISON STUDY: Chest CT March 19, 2021. Chest radiograph performed earlier today. FINDINGS: Dual lead left subclavian pacemaker is in place. No pneumothorax or pleural effusion is present. There is no consolidation to suggest pneumonia. There is mild cardiomegaly. There is pulmonary vascular congestion without overt pulmonary edema. Chronic proximal left humeral deformity is incidentally noted. IMPRESSION: Pulmonary vascular congestion without overt pulmonary edema. ACT 112: Negative or not required by law. Electronically signed by: Genaro Encinas M.D. 10/14/2023 6:[address] 10/14/23 18:05 CT OF THE HEAD WITHOUT CONTRAST CLINICAL HISTORY: Altered mental status. COMPARISON STUDY: Head CT October 01, 2022. CT DOSE: 547.75 mGy.cm TECHNIQUE: Helical axial images of the head were obtained without IV contrast. Automated exposure control was utilized for the study. A dose lowering technique was utilized adhering to the principles of ALARA. FINDINGS: No acute intracranial hemorrhage, midline shift or mass effect is present. The ventricular system is stable. Basal cisterns are patent. White matter hypodensities are unchanged and favor small vessel disease. Old infarct within the left basal ganglia is unchanged. There are no findings to suggest acute dural sinus thrombosis or acute territorial infarct. The appearance of the brain is unchanged. There is no acute calvarial fracture. The right sphenoid sinus is largely opacified. There is mild ethmoid sinus mucosal thickening. IMPRESSION: 1. No acute intracranial findings. No change in appearance of the brain. 2. Largely opacified right sphenoid sinus. ACT 112: Negative or not required by law. Electronically signed by: Genaro Encinas M.D. 10/14/2023 6:48 PM Discharge Plan Visit Data Chief Complaint: Altered Mental Status Stated Complaint: ALTERED MENTAL STATUS ED Provider: Ashley Cerrato Discharge Problem: AMS (altered mental status), COVID-19, Acute UTI (urinary tract infection)
--- NOTE | 2023-10-14 18:42 | XRay Report ---
XR chest 1V portable CLINICAL HISTORY: Altered mental status. COMPARISON STUDY: Chest CT March 19, 2021. Chest radiograph performed earlier today. FINDINGS: Dual lead left subclavian pacemaker is in place. No pneumothorax or pleural effusion is pre sent. There is no consolidation to suggest pneumonia. There is mild cardiomegaly. There is pulmonary vascular congestion without overt pulmonary edema. Chronic proximal left humeral deformity is inciden tally noted. IMPRESSION: Pulmonary vascular congestion without overt pulmonary edema. ACT 112: Negative or not required by law. Electronically signed by: Genaro Encinas M.D. 10/14/2023 6:41 PM
[2023-10-14] MEDS: SODIUM CHLORIDE 0.9% 1,000 ML IV SCH (18:47)
--- NOTE | 2023-10-14 18:49 | CT Scan Report ---
CT OF THE HEAD WITHOUT CONTRAST CLINICAL HISTORY: Altered mental status. COMPARISON STUDY: Head CT October 01, 2022. CT DOSE: 547.75 mGy.cm TECHNIQUE: Helical axial images of the head were obtained without IV contrast. Automated exposure con trol was utilized for the study. A dose lowering technique was utilized adhering to the principles o f ALARA. FINDINGS: No acute intracranial hemorrhage, midline shift or mass effect is present. The ventricular system is stable. Basal cisterns are patent. White matter hypodensities are unchanged and favor small vessel disease. Old infarct within the left basal ganglia is unchanged. There are no findings to sug gest acute dural sinus thrombosis or acute territorial infarct. The appearance of the brain is unchan ged. There is no acute calvarial fracture. The right sphenoid sinus is largely opacified. There is mi ld ethmoid sinus mucosal thickening. IMPRESSION: 1. No acute intracranial findings. No change in appearance of the brain. 2. Largely opacified right sphenoid sinus. ACT 112: Negative or not required by law. Electronically signed by: Genaro Encinas M.D. 10/14/2023 6:48 PM
[2023-10-14 19:26] LABS: Appearance Urine Clear (Clear); Bacteria Urine Automated 4+ (Negative); Bilirubin Urine Negative (Negative); Blood Urine 1+ (Negative); Color Urine Yellow; Epithelial Cell Urine Auto 0-5 /lpf (0-5); Glucose Urine UA Negative (Negative); Ketones Urine Negative (Negative); Leukocyte Esterase Urine 1+ (Negative); Nitrite Urine Negative (Negative); Protein Urine 1+ (Negative); RBC Urine Automated 0-4 /hpf (0-4); Specific Gravity Urine 1.017 (1.000-1.030); Urobilinogen Urine Negative (Negative); pH Urine 5.5 (4.5-7.5)
[2023-10-14] MEDS ORDERED: cefTRIAXone SODIUM 2,000 MG/50 ML BAG IV STA (19:56)
[2023-10-14 19:57] LABS: Basophils # (auto) 0.05 K/uL (0.00-0.20); Basophils % (auto) 0.5 %; Eosinophils # (auto) 0.02 K/uL (0.00-0.50); Eosinophils % (auto) 0.2 %; Hemoglobin 10.8 g/dl (12.0-16.0); Immature Granulocytes # (auto) 0.05 K/uL (0.01-0.20); Immature Granulocytes % (auto) 0.5 %; Lymphocytes # (auto) 1.59 K/uL (1.20-3.40); Lymphocytes % (auto) 17.3 %; Mean Corpuscular Hgb Conc 32.7 g/dL (32.0-36.0); Mean Corpuscular Volume 88.5 fL (80.0-100.0); Mean Platelet Volume 9.8 fL (9.4-12.4); Monocytes # (auto) 1.26 K/uL (0.11-0.59); Monocytes % (auto) 13.7 %; Neutrophils % (auto) 67.8 %; Platelet Count 262 K/uL (130-400); RDW Coefficient of Variation 14.5 % (11.5-14.5); RDW Standard Deviation 46.6 fL (36.4-46.3); Red Blood Count 3.73 M/uL (4.20-5.40); White Blood Count 9.17 K/ul (4.8-10.8)
[2023-10-14 20:13] LABS: Albumin Level 3.7 gm/dl (3.4-5.0); BUN Creatinine Ratio 22.3 (10-20); Bilirubin,Total 0.4 mg/dl (0.2-1.0); Calcium 8.8 mg/dl (8.6-10.3); Creatinine Clr Calc Pharmacy 40.8 ml/min; Est GFR (African American) 64.1 ml/min; Est GFR (Non-African American) 55.3 ml/min; Globulin 3.8 gm/dl (2.5-4.0); Magnesium 1.6 mg/dl (1.7-2.4); Total Protein 7.5 gm/dl (6.0-8.3)
[2023-10-14 20:20] LABS: Troponin I High Sensitivity 31.7 pg/ml (0-14)
[2023-10-14] MEDS ORDERED: MAGNESIUM SULFATE / D5W 1 GM/100 ML BAG IV STA (20:21)
[2023-10-14 20:29] LABS: Thyroid Stimulating Hormone 0.687 uIu/ml (0.300-4.500)
--- NOTE | 2023-10-14 21:12 | History & Physical Report ---
Date of Service October 14, 2023 Assessment & Plan (1) AMS (altered mental status): Plan: -AMS due to acute metabolic encephalopathy almost certainly due to UTI + COVID -No particularly concerning lab abnormalities noted -Head CT negative -Will have regular neuro checks throughout night -Deferring ammonia testing for now -Treatment outlined below for UTI + COVID (2) COVID-19: Plan: -COVID positive on admission -Currently w/o any hypoxia or notable respiratory symptoms -COVID precautions -Supportive care as needed, does not need steroids/remdesivir. Deferring Paxlovid while inpatient -Currently stable respiratory status on RA (3) Acute UTI (urinary tract infection): Plan: -UA positive on admission, pt does not report urinary symptoms though interview limited by AMS -Will continue cefriaxone, initiated in ER -UCx, BCx pending -Review of previous UCx involves MDR E Coli though sensitive to Rocephin -Currently hemodynamically stable, afebrile, no leukocytosis -Monitor CBC (4) Elevated troponin I level: Plan: -Modest troponin elevation 32.5 -> 30.2 -> 31.7 -EKG w/o signs of ischemia -Likely type 2 [place]/demand, will stop trending troponin -Low concern for ACS at present -Telemetry monitoring (5) Anemia: Plan: -Hgb 10.8 on admission -Appears at baseline -No acute bleeding concern at present -Monitor CBC (6) Hyponatremia: Plan: -Na 134 on admission -Likely 2/2 poor oral intake -Fluid repletion ongoing -Monitor BMP (7) Hypomagnesemia: Plan: -Mg 1.6 on admission -Repleting in ER -Monitor Mg (8) Weakness: Plan: -Generalized weakness secondary to UTI/COVID, chronic comorbidities -PT/OT ordered (9) Status cardiac pacemaker: Plan: -EKG w/ paced rhythm -Noted sinus tachycardia in ER, likely physiologic/compensatory to acute illness -Telemetry monitoring (10) History of stroke: Plan: -Continue aspirin, atorvastatin (11) Type 2 diabetes mellitus without complication: Plan: -BSG acceptable on admission -Hold metformin -Lantus, SSI in hospital (12) Esophageal reflux: Plan: -Continue omeprazole (13) Dyslipidemia: Plan: -Continue atorvastatin (14) Dementia: Plan: -Continue memantine (15) Depression: Plan: -Continue Remeron (16) Glaucoma: Plan: -Continue timolol (17) Hypertension: Plan: -BP stable at present -Continue amlodipine, lisinopril Plan FENGI: DM2 Code status: Full for now, unable to properly assess due to AMS DVT prophylaxis: SCDs Isolation: COVID Unit: Medical/surgical with telemetry Disposition planning: Pending PT/OT History of Present Illness Chief Complaint: Confusion Primary Care Provider: Lucero Alves MD Pt is 87 yo F with PMH HTN, HLD, DM2, pacemaker, anemia, GERD, dementia, depression, glaucoma, previous CVA presenting with confusion. History primarily obtained from chart review due to pt's altered mental status. Pt has apparently had several days of fatigue, generalized weakness and reduced oral intake along with productive cough. This AM she tried to get up from couch but slid down and fell to ground w/o head strike or loss of consciousness. This fall was witnessed by pt's family member. She was brought to ER, found to have COVID infection and discharged with prescription for Paxlovid. However, pt later had confusion during day and was brought in by family for re-evaluation. Pt arrived to ER with HR 100s-120s. Initial evaluation significant for Hgb 10.8, Na 134, Mg 1.6, troponin 32.5, UA w/ LEs, WBCs, bacteria. COVID positive. CXR w/ mild pulmonary vascular congestion. Head CT negative. EKG w/ ventricular paced rhythm. ER interventions include Rocephin 2g, 1L NSS mIVF at 125 cc/hr. At present, pt remains confused and no meaningful interview could be done. She does not report any acutely pressing complaints. Allergies Allergy/AdvReac Type Severity Reaction Status Date / Time aspirin Allergy Unknown Unknown Verified 10/14/23 19:41 Sulfa (Sulfonamide Allergy Unknown Unknown Verified 10/14/23 19:41 Antibiotics) Home Medications Medication Instructions Recorded Confirmed Type melatonin 3 mg tablet 3 mg PO HS PRN Insomnia 06/21/19 10/14/23 History timolol maleate 0.5 % eye drops 1 drops OPB DAILY 06/21/19 10/14/23 History calcium carbonate 600 mg calcium 600 mg PO DAILY 08/17/19 10/14/23 History (1,500 mg) tablet docusate sodium 100 mg capsule 100 mg PO BID PRN Constipation #60 08/17/19 10/14/23 History caps vit C,Y-Tq-mxtuol-lutein-zeaxan 60 1 cap PO DAILY 08/17/19 10/14/23 History mg-13.5 mg-15 mg-2 mg-6 mg capsule potassium chloride 20 mEq 20 meq PO DAILY #90 tabs 09/04/20 10/14/23 Rx tablet,extended release aspirin 81 mg tablet,delayed 81 mg PO DAILY 10/17/20 10/14/23 History release (Adult Low Dose Aspirin) [id number]-[id number]-[id number] 1 cap PO Q6H PRN headache #30 caps 03/13/21 10/14/23 Rx 50 mg-325 mg-40 mg capsule cholecalciferol (vitamin D3) 25 25 mcg PO DAILY 03/22/21 10/14/23 History mcg (1,000 unit) capsule mecobalamin (vitamin B12) 1,000 1,000 mcg PO DAILY 03/22/21 10/14/23 History mcg chewable tablet nystatin 100,000 unit/gram topical 1 applic topical BID #30 grams 10/12/21 10/14/23 Rx powder metformin 500 mg tablet 500 mg PO DAILY #90 tabs 01/20/23 10/14/23 Rx amlodipine 10 mg tablet 10 mg PO DAILY #90 tabs 02/28/23 10/14/23 Rx omeprazole 20 mg capsule,delayed 20 mg PO DAILY #90 caps 03/05/23 10/14/23 Rx release memantine 10 mg tablet 10 mg PO BID 90 days #180 tabs 05/12/23 10/14/23 Rx lisinopril 40 mg tablet 40 mg PO DAILY #90 tabs 07/08/23 10/14/23 Rx atorvastatin 40 mg tablet 40 mg PO HS #90 tabs 08/05/23 10/14/23 Rx methenamine hippurate 1 gram tablet 1 g PO BID #60 tabs 08/07/23 10/14/23 Rx mirtazapine 15 mg tablet 15 mg PO DAILY 10/14/23 10/14/23 History nirmatrelvir 150 mg-ritonavir 100 See Rx Instructions PO .COMPLEX 10/14/23 10/14/23 Rx mg tablets in a dose pack #20 ea (Paxlovid) Past Med/Surg History Medical History (Updated 10/14/23 @ 21:23 by Su Vides MD) Fall UTI (urinary tract infection) Gross hematuria Paronychia of great toe Type 2 diabetes mellitus without complication Aspiration pneumonitis Pleural effusion, bilateral Syncope CHB (complete heart block) with pacemaker insertion Ventricular tachycardia Bradycardia Esophageal reflux Shingles Anxiety Dyslipidemia Fibromyalgia Migraine headache Hemiparesis 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 Cerebral ischemia Dementia Depression Glaucoma Patella fracture Hypertension CVA (cerebral vascular accident) Surgical History Status post biventricular cardiac pacemaker insertion (10/18/19) Recurrent syncope, 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 History of cataract surgery Family History Brother Diabetes Colon cancer Prostate cancer Mother CHF (congestive heart failure) Tobacco use Sister Diabetes Glaucoma Macular degeneration Father Prostate cancer Tobacco use Pneumonia Daughter Luna disease Other Coronary heart disease Denies family history of Ovarian cancer Breast cancer Social History Smoking Status: Unknown if ever smoked Second Hand Exposure: No; Do You Dip or Chew Tobacco: No; Hx Alcohol Use: No Hx Substance Use: No Preferred Language: [place] Communication Ability: Effective Communication Ability Comment: Héctor Assistant Import Manager Required: No Beliefs That Will Affect Care: None marital status: marital status details: previously twice Current Living Situation: Family Current Living Situation Comment: lives w/ sisters (2) + niece current occupational status: 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 [employer] How many Children do You have: 2 How many Children do You have Comment: sons Feels Safe at Home: Yes caffeine: Yes Seatbelt Use: always Assistive Devices: Bedside Commode and Walker Review of Systems Review of Systems: Per HPI/Subjective Physical Exam Physical Exam: General: tired-appearing, no acute distress HEENT: PERRL, EOMI, conjunctivae clear without injection, anicteric sclerae, dry mucous membranes, clear oropharynx without exudate or erythema Neck: supple, trachea midline, no thyromegaly, no JVD, no cervical lymphadenopathy CV: RRR, normal S1 and S2, no murmurs Resp: CTAB, no increased work of breathing, no crackles or wheezes Abd: Soft, nontender, nondistended, no guarding or rebound, no hepatosplenomegaly MSK: Normal bulk of all four extremities Neuro: AO to person only, no focal motor or sensory deficits Skin: no rashes or lesions, warm and dry Ext: no LE peripheral edema or erythema, capillary refill <2s in all four extremities, 2+ LE peripheral pulses b/l Results & Data Results & Data Vital Signs (Past 12 Hours) Vital Signs Temp Pulse Pulse Resp BP BP Pulse Ox 10/14/23 20:15 111 H 20 135/86 96 10/14/23 19:38 111 H 20 162/70 H 97 10/14/23 19:10 110 H 20 127/98 96 10/14/23 19:06 113 H 10/14/23 17:49 37.1 C 115 H 22 168/58 H 98 O2 Del Method 10/14/23 20:15 Room Air 10/14/23 19:38 Room Air 10/14/23 19:10 Room Air 10/14/23 19:06 10/14/23 17:49 Room Air Code Status & VTE Plan VTE Prophylaxis Plan VTE Prophylaxis will be ordered: Yes Supervising Physician Co-Signing Physician Notes I have personally seen, evaluated and examined the patient. I have also personally discussed the management of the patient with the resident physician and I agree with the exam findings documented in the history and physical examination and the documented assessment and plan unless otherwise stated below. HEENT: Normocephalic atraumatic pupils are equal round and reactive to light bilaterally. No scleral icterus no conjunctival injection external auditory canals are patent septum is in the midline nose is without discharge oral mucosa is pink and moist without lesion. NECK: Supple no rigidity no lymphadenopathy no thyromegaly no carotid bruits no JVD no masses. HEART: Regular rate and rhythm I do not appreciate any ectopy or rub. No murmur. LUNGS: Clear to auscultation bilaterally and anteriorly with no evidence of adventitious sounds/wheezes rales or rhonchi. ABDOMEN: Soft nontender, no rebound, no peritoneal signs, positive bowel sounds, no appreciable organomegaly. EXTREMITIES: Intact, no peripheral cyanosis, clubbing or edema. Strength is 5 out of 5 in extremities x4, no pathological reflexes. NEUROLOGICAL: Cranial nerves II through XII are grossly intact with no focal deficit elicited upon examination. No tremor. She follows all commands however she is only alert and oriented to person. She is somewhat confused to place and time some of this is chronic unknown the degree of chronicity however Assessment/plan as described above in resident physician's documentation. Will need director social service consultation and probably physical therapy consultation after confusion improves. Will continue telemetry neurological checks IV Rocephin until blood cultures and urine culture returned old urine cultures were reviewed with the patient did have multidrug-resistant E. coli however was sensitive to Rocephin. Continue gentle IV fluid Resident Activity Tracking Resident Involvement: Resident Care Provided Care Provided: Adult Hospital Medicine (17) Hypertension Hypertension type: primary hypertension Qualified Code(s): I10 - Essential (primary) hypertension
[2023-10-15] MEDS ORDERED: ONDANSETRON INJ 2 MG/ML 2 ML VIAL IV PRN (00:47)
[2023-10-15] MEDS ORDERED: ACETAMINOPHEN 325 MG TAB PO PRN (00:47)
[2023-10-15] MEDS: MEMANTINE HCL 10 MG TAB PO SCH ×3 (02:04→20:13)
[2023-10-15] MEDS: ATORVASTATIN 40 MG TAB PO SCH ×2 (02:04→20:13)
[2023-10-15] MEDS ORDERED: Nursing to Pharmacy Communication SCH (02:15)
[2023-10-15] MEDS: SODIUM CHLORIDE 0.9% 1,000 ML IV SCH (04:04)
[2023-10-15 07:03] LABS: Hematocrit (blood only) 29.1 % (37.0-47.0); Hemoglobin 9.7 g/dl (12.0-16.0); Mean Corpuscular Hemoglobin 29.1 pg (25.0-34.0); Mean Corpuscular Hgb Conc 33.3 g/dL (32.0-36.0); Mean Corpuscular Volume 87.4 fL (80.0-100.0); Mean Platelet Volume 10.1 fL (9.4-12.4); Platelet Count 227 K/uL (130-400); RDW Coefficient of Variation 14.7 % (11.5-14.5); RDW Standard Deviation 47.3 fL (36.4-46.3); Red Blood Count 3.33 M/uL (4.20-5.40); White Blood Count 6.52 K/ul (4.8-10.8)
[2023-10-15 07:20] LABS: BUN Creatinine Ratio 20.9 (10-20); Creatinine Clr Calc Pharmacy 44.6 ml/min; Est GFR (African American) 71.4 ml/min; Est GFR (Non-African American) 61.6 ml/min; Magnesium 1.9 mg/dl (1.7-2.4); Potassium 3.6 mmol/L (3.5-5.1)
--- NOTE | 2023-10-15 07:46 | Hospitalist Progress Note ---
Date of Service October 15, 2023 Assessment & Plan (1) AMS (altered mental status): Plan: -AMS due to acute metabolic encephalopathy almost certainly due to UTI + COVID. Was seen in ER, dx COVID and given rx for Paxlovid and dc, however worsened confusion and represented to ER> -No particularly concerning lab abnormalities noted -Head CT negative -Will have regular neuro checks throughout night -Deferring ammonia testing for now -Treatment outlined below for UTI + COVID B12 prior wnl, on supplementation. TSH wnl 10/15 AMS suspected 2nd to UTI/COVID. Prior admit for sepsis/pyelonephritis/acute metabolic encephalopathy May 2022. US renal/bladder ordered given hx stones for evaluation Urine/blood cultures pending, continues on Ceftriaxone IV daily PT/OT consults pending (sister at bedside reports lives in home w/ sisters/family, possible need for rehab/HH PT pending) (2) COVID-19: Plan: + testing on admission, +cough but no shortness of breath/hypoxia reported Was given paxlovid from ER, deferring as discussed w/ sister in room given unsure when symptoms started w/ her COVID but can cause GI side effects and as is not hypoxic at present will avoid use at present time CXR on admission w/ pulm vascular congestion w/o overt pulm edema Stopped IVF to prevent volume overload but may need to resume gentle IVF pending PO intake this afternoon (3) Acute UTI (urinary tract infection): Plan: UA positive on admission, pt does not report urinary symptoms though interview limited by AMS Will continue cefriaxone, initiated in ER UCx, BCx pending -Review of previous UCx involves MDR E Coli though sensitive to Rocephin Currently hemodynamically stable, afebrile, no leukocytosis (but did have LEFT shift on admit) F/u cultures Monitor CBC in AM (4) Elevated troponin I level: Plan: -Modest troponin elevation 32.5 -> 30.2 -> 31.7 -EKG w/o signs of ischemia -Likely type 2 [place]/demand, will stop trending troponin. Patient DENIES Chest pain but does have some reproducible pain likely from coughing. Will order voltaren gel Low concern for ACS at present. Telemetry monitoring (5) Anemia: Plan: -Hgb 10.8 on admission, 9.7 after IVF on admission. No bleeding reported. Monitor CBC, check iron studies w/ AM labs (on oral B12 at baseline per med rec), can check folic acid fecal occult for completeness if able to obtain CBC in AM (6) Hyponatremia: Plan: -Na 134 on admission. TSH wnl. Likely 2/2 poor oral intake IVF NS @ 125cc/hr on admission. Na 137 on repeat and will monitor (7) Hypomagnesemia: Plan: -Mg 1.6 on admission, IV replacement ordered Repeat 1.9 (8) Weakness: Plan: Generalized weakness secondary to UTI/COVID, chronic comorbidities PT/OT ordered (9) Status cardiac pacemaker: Plan: EKG w/ paced rhythm Noted sinus tachycardia in ER, likely physiologic/compensatory to acute illness Telemetry monitoring Will have pacemaker interrogated, ?any arrhythmia w/ antiviral therapy (10) History of stroke: Plan: Continue aspirin, atorvastatin CT head negative for acute CVA on admission (11) Type 2 diabetes mellitus without complication: Plan: -BSG acceptable on admission. A1c 7.4 in March Home metformin held, placed on BSG AC/HS, SSI while inpatient POC Glu most recently 142 Monitor for need for D5 to IVF pending PO intake Monitor BSGs (12) Esophageal reflux: Plan: Continue omeprazole/hospital equivalent (13) Dyslipidemia: Plan: Continue atorvastatin (14) Dementia: Plan: -Continue memantine TSH wnl, Urine infected as above. On B12 at baseline Lives w/ family at baseline Tx infection Frequent orientation PT/OT evals to be undertaken (15) Depression: Plan: Continue Remeron (16) Glaucoma: Plan: -Continue timolol (17) Hypertension: Plan: -BP stable at present 159/75 -Continue amlodipine, lisinopril Plan Code status: Full for now, unable to properly assess due to AMS DVT prophylaxis: SCDs, added Lovenox SQ given +COVID/mostly sedentary at home. No evidence for DVT at present Disposition planning: Pending PT/OT Admission and Anticipated Discharge Date Admission Date: October 14, 2023 Subjective Evaluated this morning, sister at bedside. Resting, didn't get great sleep last night. + cough/rib discomfort from coughing. She denies significant shortness of breath. Not much of an appetite. Discussed allowing to rest for now/will attempt to get up to eat this afternoon. Holding off further IVF for now to prevent volume overload but may need gentle IVF pending PO intkae this afternoon. Per sister, lives in home/mostly on the couch, with two sisters and granddaughter. Discussed obtaining PT evals prior to home to see if any need for rehab vs HH therapy. She is inquiring about dc from ER rather than keeping her -- possible they thought COVID source of symptoms but treating for UTI/labs discussed. Questions/concerns addressed at this time. Physical Exam 2 Physical Exam: General: tired-appearing, no acute distress, sleeping in bed, sister at bedside HEENT: PERRL, EOMI, conjunctivae clear without injection, anicteric sclerae, mmm, clear oropharynx without exudate or erythema Neck: supple, trachea midline, no thyromegaly, no JVD, no cervical lymphadenopathy Resp: CTAB, no increased work of breathing, no crackles or wheezes +cough, nonproductive, 93% on ROOM AIR CV: RRR, no significant m/r/g, no pitting edema/calf tenderness Abd: Soft, nontender, nondistended, no guarding or rebound, no hepatosplenomegaly MSK/Neuro: nonfocal, answering questions as able, no slurred speech/facial droop Psych: alert/awakens to name, not oriented to place/time at present. cooperative. sister at bedside Results & Data Results & Data Vital Signs (Past 12 Hours) Vital Signs Temp Pulse Pulse Pulse Resp BP BP 10/15/23 07:36 36.8 C 81 18 151/80 H 10/15/23 07:22 10/15/23 02:00 10/15/23 01:52 37.8 C H 97 H 20 151/74 H 10/15/23 01:50 96 H 10/15/23 00:16 100 H 16 161/73 H 10/14/23 23:07 104 H 10/14/23 22:50 106 H 20 160/71 H 10/14/23 20:15 111 H 20 135/86 Pulse Ox O2 Del Method 10/15/23 07:36 92 Room Air 10/15/23 07:22 Room Air 10/15/23 02:00 Room Air 10/15/23 01:52 95 Room Air 10/15/23 01:50 10/15/23 00:16 94 Room Air 10/14/23 23:07 10/14/23 22:50 95 Room Air 10/14/23 20:15 96 Room Air Laboratory Results 10/15/23 06:42 10/15/23 06:42 Diagnostic Findings Chest X-Ray 10/14/23 18:05 XR chest 1V portable CLINICAL HISTORY: Altered mental status. COMPARISON STUDY: Chest CT March 19, 2021. Chest radiograph performed earlier today. FINDINGS: Dual lead left subclavian pacemaker is in place. No pneumothorax or pleural effusion is present. There is no consolidation to suggest pneumonia. There is mild cardiomegaly. There is pulmonary vascular congestion without overt pulmonary edema. Chronic proximal left humeral deformity is incidentally noted. IMPRESSION: Pulmonary vascular congestion without overt pulmonary edema. ACT 112: Negative or not required by law. Electronically signed by: Genaro Encinas M.D. 10/14/2023 6:[address] 10/14/23 18:05 CT OF THE HEAD WITHOUT CONTRAST CLINICAL HISTORY: Altered mental status. COMPARISON STUDY: Head CT October 01, 2022. CT DOSE: 547.75 mGy.cm TECHNIQUE: Helical axial images of the head were obtained without IV contrast. Automated exposure control was utilized for the study. A dose lowering technique was utilized adhering to the principles of ALARA. FINDINGS: No acute intracranial hemorrhage, midline shift or mass effect is present. The ventricular system is stable. Basal cisterns are patent. White matter hypodensities are unchanged and favor small vessel disease. Old infarct within the left basal ganglia is unchanged. There are no findings to suggest acute dural sinus thrombosis or acute territorial infarct. The appearance of the brain is unchanged. There is no acute calvarial fracture. The right sphenoid sinus is largely opacified. There is mild ethmoid sinus mucosal thickening. IMPRESSION: 1. No acute intracranial findings. No change in appearance of the brain. 2. Largely opacified right sphenoid sinus. ACT 112: Negative or not required by law. Electronically signed by: Genaro Encinas M.D. 10/14/2023 6:48 PM PG Care Time/CCT Total # of Minutes Spent Total Time Spent with Patient: Total time spent is greater than 50% in coordination of care (as documented) at patient's floor/unit and/or counseling patient: Coding Level of Care Code 71808 SUB INP/OBS CARE 3/50MIN Diagnoses AMS (altered mental status) R41.82 COVID-19 U07.1 Acute UTI (urinary tract infection) N39.0 Elevated troponin I level R79.89 Anemia D64.9 Hyponatremia E87.1 Hypomagnesemia E83.42 Weakness R53.1 Status cardiac pacemaker Z95.0 History of stroke Z86.73 Type 2 diabetes mellitus without complication E11.9 Esophageal reflux K21.9 Dyslipidemia E78.5 Dementia F03.90 Depression F32.9 Glaucoma H40.9 Primary hypertension I10 Hypertension type: primary hypertension (17) Hypertension Hypertension type: primary hypertension Qualified Code(s): I10 - Essential (primary) hypertension
--- NOTE | 2023-10-15 09:03 | Ultrasound Report ---
ULTRASOUND KIDNEYS AND BLADDER CLINICAL HISTORY: Nephrolithiasis. COMPARISON STUDY: Abdominal CT dated 06/01/2022 TECHNIQUE: Real-time, grayscale, and color flow sonography of the kidneys and bladder is performed. I mages are reviewed in the transverse and longitudinal planes. FINDINGS: Kidneys: The kidneys demonstrate mild cortical atrophy. Echotexture there is normal. The right kidney measures 10.1 cm in length and the left kidney measures 10.3 cm in length. There is no hydronephros is. No shadowing renal calculi are identified. A 3.5 cm cyst is seen on the left. There is no sonogra phic evidence of contour deforming renal mass lesion. No perinephric fluid is identified. Bladder: The bladder is normal in appearance. Ureteral jets were not seen. IMPRESSION: No acute sonographic abnormality is seen involving the kidneys or bladder. ACT 112: Negative or not required by law. Electronically signed by: Ranjith Galarza M.D. 10/15/2023 9:01 AM
[2023-10-15] MEDS: INSULIN ASPART PER UNIT CHARGE SC SCH ×4 (09:12→20:09)
[2023-10-15] MEDS: MIRTAZAPINE TAB 15 MG TAB PO SCH (09:13)
[2023-10-15] MEDS: lisinopril 40 MG TAB PO SCH (09:13)
[2023-10-15] MEDS: TIMOLOL MALEATE 0.25% OP SOLN 5 ML BTL OPB SCH (09:14)
[2023-10-15] MEDS: amLODIPine BESYLATE 5 MG TAB PO SCH (09:14)
[2023-10-15] MEDS: PANTOprazole 40 MG TAB PO SCH (09:14)
[2023-10-15] MEDS: ASPIRIN 81 MG ECTAB PO SCH (09:14)
[2023-10-15] MEDS: LANTUS PER UNIT CHARGE SQ SCH ×2 (09:28→20:10)
[2023-10-15] MEDS: ENOXAPARIN INJ 40 MG/0.4 ML SYR SQ SCH (12:46)
[2023-10-15] MEDS: DICLOFENAC SOD 1% GEL 100 GM TUBE EXT SCH ×3 (12:55→20:13)
--- NOTE | 2023-10-15 14:21 | Electrocardiogram Report ---
Test Reason : Blood Pressure : / mmHG Vent. Rate : 113 BPM Atrial Rate : 113 BPM P-R Int : 000 ms QRS Dur : 140 ms QT Int : 380 ms P-R-T Axes : 000 -40 055 degrees QTc Int : 521 ms Poor data quality, interpretation may be adversely affected Ventricular-paced rhythm Suspect sinus tachycardia Abnormal ECG When compared with ECG of 14-OCT-2023 11:55, Vent. rate has increased BY 22 BPM Confirmed by Jcarlos Jenkins ([id number]) on 10/15/2023 2:21:28 PM Also confirmed by Jcarlos Jenkins ([id number]) on 10/15/2023 2:22:53 PM Also confirmed by Jcarlos Jenkins ([id number]) on 10/15/2023 2:23:08 PM Referred By: REFERRED SELF Confirmed By:Jcarlos Jenkins
[2023-10-15] MEDS ORDERED: SODIUM CHLORIDE 0.9% 1,000 ML IV SCH (16:00)
[2023-10-15] MEDS: cefTRIAXone SODIUM 1,000 MG in DEXTROSE 5 % MINI-B 50 ML IV SCH (20:12)
--- NOTE | 2023-10-16 07:43 | Hospitalist Progress Note ---
Date of Service October 16, 2023 Assessment & Plan (1) AMS (altered mental status): Plan: AMS due to acute metabolic encephalopathy almost certainly due to UTI + COVID. Was seen in ER, dx COVID and given rx for Paxlovid and dc, however worsened confusion and represented to ER -No particularly concerning lab abnormalities noted -Head CT negative -Will have regular neuro checks throughout night -Deferring ammonia testing for now -Treatment outlined below for UTI + COVID B12 prior wnl, on supplementation. TSH wnl 10/16 AMS suspected 2nd to UTI/COVID. Prior admit for sepsis/pyelonephritis/acute metabolic encephalopathy May 2022. US renal/bladder ordered given hx stones for evaluation -- negative for stone/obstruction Mentation MUCH IMPROVED SINCE ABX/IVF Urine cx now with gram negative bacilli on preliminary -- monitor final cx/sensitivites Blood cultures pending, NGTD continues on Ceftriaxone IV daily Additional 1L IVF overnight for poor PO intake/fatigue during the day yesterday. Feeding herself this morning, no further IVF for now PT/OT consults pending (sister at bedside reports lives in home w/ sisters/family, possible need for rehab/ PT pending -- patient/family wanting to go home w/ HHPT -- CM notified) (2) COVID-19: Plan: + testing on admission, +cough but no shortness of breath/hypoxia reported Was given paxlovid from ER, deferring as discussed w/ sister in room given unsure when symptoms started w/ her COVID but can cause GI side effects and as is not hypoxic at present will avoid use at present time CXR on admission w/ pulm vascular congestion w/o overt pulm edema Additional 1L IVF overnight for PO intake, much improved and holding off any further 93% on RA (3) Acute UTI (urinary tract infection): Plan: UA positive on admission, pt does not report urinary symptoms though interview limited by AMS Continue cefriaxone, initiated in ER UCx, BCx pending -Review of previous UCx involves MDR E Coli though sensitive to Rocephin Currently hemodynamically stable, afebrile, no leukocytosis (but did have LEFT shift on admit) WBC 5.6k, afebrile F/u cultures -- gnb on prelim --monitor final cx/sensitivities, possible switch to PO abx for tomorrow Monitor CBC in AM (4) Elevated troponin I level: Plan: -Modest troponin elevation 32.5 -> 30.2 -> 31.7 -EKG w/o signs of ischemia -Likely type 2 [place]/demand, will stop trending troponin. Patient DENIES Chest pain but does have some reproducible pain likely from coughing. Will order voltaren gel Low concern for ACS at present. Telemetry monitoring (5) Anemia: Plan: Hgb 10.8 on admission, 9.7 after IVF on admission. No bleeding reported. Monitor CBC, check iron studies w/ AM labs (on oral B12 at baseline per med rec), can check folic acid acute on chronic anemia, no need for supplementation. Repeat hgb 10.9 despite additional 1L IVF overight fecal occult for completeness if able to obtain monitor for any bleeding (6) Hyponatremia: Plan: Na 134 on admission. TSH wnl. Likely 2/2 poor oral intake. IVF on admission/additional overnight as above Repeat stable 140, no further IVF. Improvement in PO intake (7) Hypomagnesemia: Plan: -Mg 1.6 on admission, IV replacement ordered and repeat stable 1.8 (8) Weakness: Plan: Generalized weakness secondary to UTI/COVID, chronic comorbidities IMPROVING, awaiting PT/OT evals (9) Status cardiac pacemaker: Plan: EKG w/ paced rhythm Noted sinus tachycardia in ER, likely physiologic/compensatory to acute illness Telemetry monitoring Can have pacemaker interrogated, ?any arrhythmia w/ antiviral therapy - f/u in AM (10) History of stroke: Plan: Continue aspirin, atorvastatin CT head negative for acute CVA on admission (11) Type 2 diabetes mellitus without complication: Plan: BSG acceptable on admission. A1c 7.4 in March Home metformin held, placed on BSG AC/HS, SSI while inpatient BSGs stable/improved, improvement in PO intake Monitor (12) Esophageal reflux: Plan: Continue omeprazole/hospital equivalent no increased issues reported (13) Dyslipidemia: Plan: Continue atorvastatin (14) Dementia: Plan: Continue memantine TSH wnl, Urine infected as above. 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 PO supplementation ordered. Improvement in PO appetite today Monitor BMP/mag in AM Plan DVT prophylaxis: SCDs, added Lovenox SQ 10/15 given +COVID/mostly sedentary at home. No evidence for DVT at present likely switch to PO abx pending urine/blood cultures Disposition: pending PT/OT evals updated sister at bedside this morning, and sister Richelle Luna" by phone -- they would like to take patient home at dc, agreeable to HH PT (CM notified). 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 Admission and Anticipated Discharge Date Admission Date: October 14, 2023 Supervising Physician Co-Signing Physician Notes The patient was not seen by me. The chart was reviewed. Case discussed with EVELIN Brand. Agree with assessment and plan Subjective Eval this morning, doing much better. Reports feeling well. Fed breakfast. Not yet seen by therapy -- not active at home at baseline and does need assistance getting up. Will see how she does but her ultimate wish is to go home. Sister at bedside agreeable to plan but would like to talk w/ her sister (Richelle uLna") about rehab/dc planning. Will call. No fever/chills, chest pain, shortness of breath. Good appetite. Purewick with yellow urine draining. Sister Cady said they are all a little sick at home but super close and would not want rehab. Discussed therapy and will see how she does and talk with her sister more this evening. Questions/concerns addressed at this time. Physical Exam 2 Physical Exam: General: improved appearance, more awake/alert, talkative, sister at bedside, patient reports feeling much better Head normocephalic, atraumatic, mmm, trachea midline Resp: even, unlabored, slightly diminished in the bases but no w/c/r, on room air. no cough today CV: RRR, no significant mrg, no pitting edema/calf tenderness GI +BS, soft/NT : purewick draining yellow urine MSK/Neuro: generalized weakness but nonfocal, no slurred speech/facial droop, answering questions appropriately Psych: alert, oriented to person/place, not event, appearing closer to baseline Results & Data Results & Data Vital Signs (Past 12 Hours) Vital Signs Temp Pulse Pulse Resp BP Pulse Ox O2 Del Method 10/16/23 04:00 36.5 C 96 H 18 131/81 96 Room Air 10/15/23 23:33 89 10/15/23 22:22 Room Air 10/15/23 22:12 36.6 C 86 18 149/83 H 95 Room Air Laboratory Results 10/16/23 07:37 10/16/23 07:37 Diagnostic Findings Renal Ultrasound 10/15/23 07:20 ULTRASOUND KIDNEYS AND BLADDER CLINICAL HISTORY: Nephrolithiasis. COMPARISON STUDY: Abdominal CT dated 06/01/2022 TECHNIQUE: Real-time, grayscale, and color flow sonography of the kidneys and bladder is performed. Images are reviewed in the transverse and longitudinal planes. FINDINGS: Kidneys: The kidneys demonstrate mild cortical atrophy. Echotexture there is normal. The right kidney measures 10.1 cm in length and the left kidney measures 10.3 cm in length. There is no hydronephrosis. No shadowing renal calculi are identified. A 3.5 cm cyst is seen on the left. There is no sonographic evidence of contour deforming renal mass lesion. No perinephric fluid is identified. Bladder: The bladder is normal in appearance. Ureteral jets were not seen. IMPRESSION: No acute sonographic abnormality is seen involving the kidneys or bladder. ACT 112: Negative or not required by law. Electronically signed by: Ranjith Galarza M.D. 10/15/2023 9:01 AM PG Care Time/CCT Total # of Minutes Spent Total Time Spent with Patient: Total time spent is greater than 50% in coordination of care (as documented) at patient's floor/unit and/or counseling patient: Coding Level of Care Code 61597 SUB INP/OBS CARE 3/50MIN Diagnoses AMS (altered mental status) R41.82 COVID-19 U07.1 Acute UTI (urinary tract infection) N39.0 Elevated troponin I level R79.89 Anemia D64.9 Hyponatremia E87.1 Hypomagnesemia E83.42 Weakness R53.1 Status cardiac pacemaker Z95.0 History of stroke Z86.73 Type 2 diabetes mellitus without complication E11.9 Esophageal reflux K21.9 Dyslipidemia E78.5 Dementia F03.90 Depression F32.9 Glaucoma H40.9 Primary hypertension I10 Hypertension type: primary hypertension Hypokalemia E87.6 (17) Hypertension Hypertension type: primary hypertension Qualified Code(s): I10 - Essential (primary) hypertension
[2023-10-16 08:30] LABS: Albumin Level 3.2 gm/dl (3.4-5.0); BUN Creatinine Ratio 19.7 (10-20); Bilirubin,Total 0.3 mg/dl (0.2-1.0); Calcium 8.2 mg/dl (8.6-10.3); Creatinine Clr Calc Pharmacy 62.8 ml/min; Est GFR (African American) 95.8 ml/min; Est GFR (Non-African American) 82.7 ml/min; Globulin 3.3 gm/dl (2.5-4.0); Magnesium 1.8 mg/dl (1.7-2.4); Potassium 3.2 mmol/L (3.5-5.1); Total Protein 6.5 gm/dl (6.0-8.3)
[2023-10-16 08:31] LABS: Basophils # (auto) 0.03 K/uL (0.00-0.20); Basophils % (auto) 0.5 %; Eosinophils # (auto) 0.02 K/uL (0.00-0.50); Eosinophils % (auto) 0.4 %; Hematocrit (blood only) 32.8 % (37.0-47.0); Hemoglobin 10.9 g/dl (12.0-16.0); Immature Granulocytes # (auto) 0.02 K/uL (0.01-0.20); Immature Granulocytes % (auto) 0.4 %; Lymphocytes % (auto) 42.2 %; Mean Corpuscular Hemoglobin 29.4 pg (25.0-34.0); Mean Corpuscular Hgb Conc 33.2 g/dL (32.0-36.0); Mean Corpuscular Volume 88.4 fL (80.0-100.0); Mean Platelet Volume 10.7 fL (9.4-12.4); Monocytes # (auto) 0.69 K/uL (0.11-0.59); Monocytes % (auto) 12.1 %; Neutrophils # (auto) 2.53 K/uL (1.40-6.50); Neutrophils % (auto) 44.4 %; Platelet Count 230 K/uL (130-400); Platelet Estimate Normal (Normal); RDW Coefficient of Variation 14.7 % (11.5-14.5); RDW Standard Deviation 47.4 fL (36.4-46.3); Red Blood Count 3.71 M/uL (4.20-5.40); White Blood Count 5.69 K/ul (4.8-10.8)
[2023-10-16] MEDS: ENOXAPARIN INJ 40 MG/0.4 ML SYR SQ SCH (08:38)
[2023-10-16] MEDS: MEMANTINE HCL 10 MG TAB PO SCH ×2 (08:39→20:26)
[2023-10-16] MEDS: lisinopril 40 MG TAB PO SCH (08:39)
[2023-10-16] MEDS: DICLOFENAC SOD 1% GEL 100 GM TUBE EXT SCH ×4 (08:39→20:26)
[2023-10-16] MEDS: ASPIRIN 81 MG ECTAB PO SCH (08:39)
[2023-10-16] MEDS: PANTOprazole 40 MG TAB PO SCH (08:39)
[2023-10-16] MEDS: amLODIPine BESYLATE 5 MG TAB PO SCH (08:39)
[2023-10-16] MEDS: MIRTAZAPINE TAB 15 MG TAB PO SCH (08:39)
[2023-10-16] MEDS: TIMOLOL MALEATE 0.25% OP SOLN 5 ML BTL OPB SCH (08:40)
[2023-10-16 08:52] LABS: Ferritin 179.3 ng/ml (8-388)
[2023-10-16] MEDS: INSULIN ASPART PER UNIT CHARGE SC SCH ×4 (08:55→20:10)
[2023-10-16] MEDS: LANTUS PER UNIT CHARGE SQ SCH ×2 (08:56→20:10)
[2023-10-16] MEDS ORDERED: POTASSIUM CHLORIDE PWD 20 MEQ PACK PO ONE (09:00)
[2023-10-16] MEDS: ATORVASTATIN 40 MG TAB PO SCH (20:25)
[2023-10-16] MEDS: cefTRIAXone SODIUM 1,000 MG in DEXTROSE 5 % MINI-B 50 ML IV SCH (20:26)
--- NOTE | 2023-10-17 07:35 | Hospitalist Progress Note ---
Date of Service October 17, 2023 Assessment & Plan (1) AMS (altered mental status): Plan: AMS due to acute metabolic encephalopathy almost certainly due to UTI + COVID. Was seen in ER, dx COVID and given rx for Paxlovid and dc, however worsened confusion and represented to ER -No particularly concerning lab abnormalities noted -Head CT negative -Will have regular neuro checks throughout night -Deferring ammonia testing for now -Treatment outlined below for UTI + COVID B12 prior wnl, on supplementation. TSH wnl 10/16 AMS suspected 2nd to UTI/COVID. Prior admit for sepsis/pyelonephritis/acute metabolic encephalopathy May 2022. US renal/bladder ordered given hx stones for evaluation -- negative for stone/obstruction Mentation MUCH IMPROVED SINCE ABX/IVF Urine cx now with gram negative bacilli on preliminary -- monitor final cx/sensitivites Blood cultures pending, NGTD x 48hrs continues on Ceftriaxone IV daily Additional 1L IVF overnight for poor PO intake/fatigue during the day yesterday. Feeding herself this morning, no further IVF for now PT/OT consults pending (sister at bedside reports lives in home w/ sisters/family, possible need for rehab/HH PT pending -- patient/family wanting to go home w/ HHPT -- CM notified) 10/17 Urine cx pansensitive ecoli, got 3 doses IV Ceftriaxone --> transitioning to Keflex PO for additional 2 days to complete course. PT eval rec 24hr care, continued use wc for ambulation at home, can have home health if family wanting to take her home. Per discussion w/ sister on phone today, pref keeping over weekend and they will take her home Friday. Illness at home. CM [place] HH [place]. (2) COVID-19: Plan: + testing on admission, +cough but no shortness of breath/hypoxia reported Was given paxlovid from ER, deferring as discussed w/ sister in room given unsure when symptoms started w/ her COVID but can cause GI side effects and as is not hypoxic at present will avoid use at present time CXR on admission w/ pulm vascular congestion w/o overt pulm edema Additional 1L IVF overnight for PO intake, much improved and holding off any further 94% on RA (3) Acute UTI (urinary tract infection): Plan: UA/cx w/ Ecoli, pansensitive. Completed 3 days of IV ceftriaxone, transitioning to Keflex to complete additional 2 day course Improvement in mentation/etc w/ treatment (4) Elevated troponin I level: Plan: Modest troponin elevation 32.5 -> 30.2 -> 31.7 EKG w/o signs of ischemia Likely type 2 [place]/demand, will stop trending troponin. Patient DENIES Chest pain but does have some reproducible pain likely from coughing. Will order voltaren gel Low concern for ACS at present. Telemetry monitoring without issue (5) Anemia: Plan: Hgb 10.8 on admission, 9.7 after IVF on admission. No bleeding reported. Monitor CBC, check iron studies w/ AM labs (on oral B12 at baseline per med rec), can check folic acid acute on chronic anemia, no need for supplementation. Repeat hgb 10.9 despite additional 1L IVF overight fecal occult for completeness if able to obtain, no bleeding reported (6) Hyponatremia: Plan: Na 134 on admission. TSH wnl. Likely 2/2 poor oral intake. IVF on admission/additional overnight as above Repeat stable off IVF, improvement in PO intake (7) Hypomagnesemia: Plan: -Mg 1.6 on admission, IV replacement ordered and repeat stable (8) Weakness: Plan: Generalized weakness secondary to UTI/COVID, chronic comorbidities IMPROVING -- did well w/ therapy and ok to return home w/ family support (9) Status cardiac pacemaker: Plan: EKG w/ paced rhythm Noted sinus tachycardia in ER, likely physiologic/compensatory to acute illness Telemetry monitoring (10) History of stroke: Plan: Continue aspirin, atorvastatin CT head negative for acute CVA on admission (11) Type 2 diabetes mellitus without complication: Plan: BSG acceptable on admission. A1c 7.4 in March Home metformin held, placed on BSG AC/HS, SSI while inpatient BSGs stable/improved, improvement in PO intake Monitor (12) Esophageal reflux: Plan: Continue omeprazole/hospital equivalent no increased issues reported (13) Dyslipidemia: Plan: Continue atorvastatin (14) Dementia: Plan: Continue memantine TSH wnl, Urine infected as above. 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 PO supplementation ordered and improvement in PO intake and normal on AM labs BMP in AM for stability Plan DVT prophylaxis: SCDs, added Lovenox SQ 10/15 given +COVID/mostly sedentary at home. No evidence for DVT at present Dispo: home w/ family, likely on Friday. Discussed w/ sister Richelle Luna" on phone today. CM aware, working on HH PT (difficulty finding services at present time) Admission and Anticipated Discharge Date Admission Date: October 14, 2023 Supervising Physician Co-Signing Physician Notes The patient was not seen by me. The chart was reviewed. Case discussed with EVELIN Brand. Agree with assessment and plan Subjective Seen this morning, sitting up in the chair. Good appetite. No CP/SOB/fever. Discussed chaning abx to oral option. Discussed home with HH rather than rehab based on patient/family wishes. Spoke with sister Richelle Luna" in room -- niece very under the weather and sister ok but she isn't feeling the best and don't think they can adequately care at present time and asking for additional days inpatient and taking her home on Friday. CM contacted regarding such, difficulty getting HH and will buy some time to arrange for this upcoming week. Patient knows in hospital, pleasant confusion/dementia. Support provided. Questions/concerns addressed at this time. Physical Exam 2 Physical Exam: General: improved appearance, more awake/alert, talkative, sitting up in chair, NAD, pleasant confusion at times but cooperative Head normocephalic, atraumatic, mmm, trachea midline Resp: even, unlabored, slightly diminished in the bases but no w/c/r, on room air. no cough today 94% CV: RRR, no significant mrg, no pitting edema/calf tenderness GI +BS, soft/NT : purewick draining yellow urine MSK/Neuro: generalized weakness but nonfocal, no slurred speech/facial droop, answering questions appropriately Psych: alert, oriented to person, place (at times), not events pleasantly confused Results & Data Results & Data Vital Signs (Past 12 Hours) Vital Signs Temp Pulse Pulse Resp BP Pulse Ox O2 Del Method 10/17/23 04:00 36.9 C 85 18 151/87 H 94 Room Air 10/16/23 23:45 36.8 C 72 18 157/79 H 92 Room Air 10/16/23 23:12 77 Laboratory Results 10/16/23 07:37 10/17/23 06:37 PG Care Time/CCT Total # of Minutes Spent Total Time Spent with Patient: Total time spent is greater than 50% in coordination of care (as documented) at patient's floor/unit and/or counseling patient: Coding Level of Care Code 73309 SUB INP/OBS CARE 2/35MIN Diagnoses AMS (altered mental status) R41.82 COVID-19 U07.1 Acute UTI (urinary tract infection) N39.0 Elevated troponin I level R79.89 Anemia D64.9 Hyponatremia E87.1 Hypomagnesemia E83.42 Weakness R53.1 Status cardiac pacemaker Z95.0 History of stroke Z86.73 Type 2 diabetes mellitus without complication E11.9 Esophageal reflux K21.9 Dyslipidemia E78.5 Dementia F03.90 Depression F32.9 Glaucoma H40.9 Primary hypertension I10 Hypertension type: primary hypertension Hypokalemia E87.6 (17) Hypertension Hypertension type: primary hypertension Qualified Code(s): I10 - Essential (primary) hypertension
[2023-10-17 07:39] LABS: BUN Creatinine Ratio 20.6 (10-20); Calcium 8.8 mg/dl (8.6-10.3); Creatinine Clr Calc Pharmacy 57.6 ml/min; Est GFR (African American) 92.4 ml/min; Est GFR (Non-African American) 79.8 ml/min; Magnesium 1.7 mg/dl (1.7-2.4); Potassium 3.7 mmol/L (3.5-5.1)
[2023-10-17] MEDS: amLODIPine BESYLATE 5 MG TAB PO SCH (08:44)
[2023-10-17] MEDS: MIRTAZAPINE TAB 15 MG TAB PO SCH (08:44)
[2023-10-17] MEDS: MEMANTINE HCL 10 MG TAB PO SCH ×2 (08:44→21:22)
[2023-10-17] MEDS: PANTOprazole 40 MG TAB PO SCH (08:45)
[2023-10-17] MEDS: ENOXAPARIN INJ 40 MG/0.4 ML SYR SQ SCH (08:45)
[2023-10-17] MEDS: TIMOLOL MALEATE 0.25% OP SOLN 5 ML BTL OPB SCH (08:45)
[2023-10-17] MEDS: ASPIRIN 81 MG ECTAB PO SCH (08:45)
[2023-10-17] MEDS: lisinopril 40 MG TAB PO SCH (08:45)
[2023-10-17] MEDS: DICLOFENAC SOD 1% GEL 100 GM TUBE EXT SCH ×4 (08:47→21:22)
[2023-10-17] MEDS: INSULIN ASPART PER UNIT CHARGE SC SCH ×4 (10:03→21:23)
[2023-10-17] MEDS: LANTUS PER UNIT CHARGE SQ SCH ×2 (10:04→21:23)
[2023-10-17] MEDS: cephALEXin 500 MG CAP PO SCH ×2 (11:58→21:23)
[2023-10-17] MEDS: ATORVASTATIN 40 MG TAB PO SCH (21:22)
--- NOTE | 2023-10-18 07:49 | Hospitalist Progress Note ---
Date of Service October 18, 2023 Assessment & Plan (1) AMS (altered mental status): Plan: AMS due to acute metabolic encephalopathy almost certainly due to UTI + COVID. -Was seen in ER, dx COVID and given rx for Paxlovid and dc, however worsened confusion and represented to ER -Prior admit for sepsis/pyelonephritis/acute metabolic encephalopathy May 2022. US renal/bladder ordered given hx stones for evaluation -- negative for stone/obstruction Head CT negative, neurochecks B12 prior wnl, on supplementation. TSH wnl Mentation MUCH IMPROVED SINCE ABX/IVF, now discontinued and PO intake improved Urine cx pansensitive ecoli, got 3 doses IV Ceftriaxone & transitioned to Keflex PO to complete course (5 days after 10/19) Blood cultures remain NGTD 10/18 -- fatigued this morning (similar reported yesterday) -- review of labs w/ stable BUN/Cr but only took water this morning. 500cc D5 given hypoglycemia yesterday and day prior until more PO intake. CANCELLED further glargine and can utilize SSI for now PT eval rec 24hr care, continued use wc for ambulation at home, can have home health if family wanting to take her home. Per discussion w/ sister on phone 10/17, pref keeping over weekend and they will take her home Friday. Illness at home. CM working on arranging HH at [facility] --> HH nursing for as early as this upcoming Friday and HH therapy later int he week arranged (2) COVID-19: Plan: + testing on admission, +cough but no shortness of breath/hypoxia reported Was given paxlovid from ER, deferring as discussed w/ sister in room given unsure when symptoms started w/ her COVID but can cause GI side effects and as is not hypoxic at present will avoid use at present time CXR on admission w/ pulm vascular congestion w/o overt pulm edema Additional 1L IVF for decreased PO intake, much improved 10/17 and held off any further d5 x 500cc as above On room air (3) Acute UTI (urinary tract infection): Plan: UA/cx w/ Ecoli, pansensitive. Completed 3 days of IV ceftriaxone, transitioning to Keflex to complete additional 2 day course Improvement in mentation/etc w/ treatment (4) Type 2 diabetes mellitus without complication: Plan: BSG acceptable on admission. A1c 7.4 in March Home metformin held, placed on BSG AC/HS, SSI while inpatient Had been placed on glargine 5u BID w/ SSI --> BSG w/ low to 60s afternoon 10/16 and again yesterday (not notified) As patient ONLY on metformin 500mg daily at baseline, HELD further glargine and can utilize sliding scale insulin for now to prevent hypoglycemia D5 @ 80cc x 500cc as above given glargine this AM and poor PO intake today Monitor BSGs (5) Elevated troponin I level: Plan: Modest troponin elevation 32.5 -> 30.2 -> 31.7 EKG w/o signs of ischemia Likely type 2 DC/demand, will stop trending troponin. Patient DENIES Chest pain but does have some reproducible pain likely from coughing. Will order voltaren gel Low concern for ACS at present. Telemetry monitoring without issue. Can downgrade off telemetry today (6) Anemia: Plan: Hgb 10.8 on admission, 9.7 after IVF on admission. No bleeding reported. Monitor CBC, check iron studies w/ AM labs (on oral B12 at baseline per med rec), can check folic acid acute on chronic anemia, no need for supplementation. Repeat hgb 10.9 despite additional 1L IVF overnight 10/16 fecal occult for completeness if able to obtain, no bleeding reported (7) Hyponatremia: Plan: Na 134 on admission. TSH wnl. Likely 2/2 poor oral intake. IVF on admission/additional overnight as above Repeat stable off IVF, improvement in PO intake day prior but decreased PO this morning (8) Hypomagnesemia: Plan: -Mg 1.6 on admission, IV replacement ordered and repeat stable (9) Weakness: Plan: Generalized weakness secondary to UTI/COVID, chronic comorbidities IMPROVING -- did well w/ therapy 10/17 and ok to return home w/ family support and will continue to monitor (10) Status cardiac pacemaker: Plan: EKG w/ paced rhythm Noted sinus tachycardia in ER, likely physiologic/compensatory to acute illness Telemetry monitoring (11) History of stroke: Plan: Continue aspirin, atorvastatin CT head negative for acute CVA on admission (12) Esophageal reflux: Plan: Continue omeprazole/hospital equivalent no increased issues reported (13) Dyslipidemia: Plan: Continue atorvastatin (14) Dementia: Plan: Continue memantine TSH wnl, Urine infected as above. 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 20meq ordered w/ D5 as above Plan DVT prophylaxis: SCDs, added Lovenox SQ 10/15 given +COVID/mostly sedentary at home. No evidence for DVT at present Dispo: home w/ family, likely on Friday. Discussed w/ sister Richelle Luna" on phone today. CM aware, working on PT (difficulty finding services at present time) Admission and Anticipated Discharge Date Admission Date: October 14, 2023 Supervising Physician Co-Signing Physician Notes The patient was not seen by me. The chart was reviewed. Case discussed with EVELIN Brand. Agree with assessment and plan Subjective Eval this morning, resting in bed. Purewick with yellow draining urine. Tired this morning like yesterday but discussed getting her up into the chair this afternoon but she is wanting to rest at present time. No CP/SOB reported. Unclear if ate much for breakfast but messaged nursing to discuss and req getting patient up to chair this afternoon. Questions/concerns addressed at this time. Physical Exam Physical Exam: General: elderly female resting in bed, NAD, pleasant confusion Head normocephalic, atraumatic, mm slightly dry, trachea midline Resp: even, unlabored, slightly diminished in the bases but no w/c/r, on room air. no cough today CV: RRR, no significant mrg, no pitting edema/calf tenderness GI +BS, soft/NT : purewick draining clear yellow urine MSK/Neuro: generalized weakness but nonfocal, no slurred speech/facial droop, answering questions appropriately Psych: alert, oriented to person, intermittently to time but not events. pleasant Results & Data Results & Data Vital Signs (Past 12 Hours) Vital Signs Temp Pulse Pulse Resp BP Pulse Ox O2 Del Method 10/18/23 07:11 69 10/18/23 03:05 36.5 C 80 18 178/72 H 94 Room Air 10/17/23 23:11 36.7 C 81 18 157/70 H 94 Room Air 10/17/23 21:58 88 10/17/23 20:08 36.7 C 84 18 167/70 H 95 Room Air Laboratory Results 10/18/23 10/18/23 10/18/23 Range/Units 11:53 09:33 08:26 Sodium 136 (136-145) mmol/L Potassium 3.6 (3.5-5.1) mmol/L Chloride 102 (98-107) mmol/L Carbon Dioxide 23 (21-32) mmol/L Anion Gap 11 (3-11) BUN 12 (6-23) mg/dl Creatinine 0.65 (0.6-1.2) mg/dl Est Cr Clr Drug Dosing 59.9 ml/min Est GFR ( Amer) 93.8 ml/min Est GFR (Non-Af Amer) 81.0 ml/min BUN/Creatinine Ratio 18.5 (10-20) Glucose 103 H (70-99(Fasting)) mg/dl POC Glucose 128 H 103 H (70-99) mg/dl Calcium 9.0 (8.6-10.3) mg/dl Magnesium 1.7 (1.7-2.4) mg/dl 10/17/23 10/17/23 10/17/23 Range/Units 20:13 17:52 17:28 Sodium (136-145) mmol/L Potassium (3.5-5.1) mmol/L Chloride (98-107) mmol/L Carbon Dioxide (21-32) mmol/L Anion Gap (3-11) BUN (6-23) mg/dl Creatinine (0.6-1.2) mg/dl Est Cr Clr Drug Dosing ml/min Est GFR ( Amer) ml/min Est GFR (Non-Af Amer) ml/min BUN/Creatinine Ratio (10-20) Glucose (70-99(Fasting)) mg/dl POC Glucose 171 H 87 67 L* (70-99) mg/dl Calcium (8.6-10.3) mg/dl Magnesium (1.7-2.4) mg/dl 10/17/23 10/17/23 Range/Units 17:27 12:50 Sodium (136-145) mmol/L Potassium (3.5-5.1) mmol/L Chloride (98-107) mmol/L Carbon Dioxide (21-32) mmol/L Anion Gap (3-11) BUN (6-23) mg/dl Creatinine (0.6-1.2) mg/dl Est Cr Clr Drug Dosing ml/min Est GFR ( Amer) ml/min Est GFR (Non-Af Amer) ml/min BUN/Creatinine Ratio (10-20) Glucose (70-99(Fasting)) mg/dl POC Glucose 64 L* 139 H (70-99) mg/dl Calcium (8.6-10.3) mg/dl Magnesium (1.7-2.4) mg/dl PG Care Time/CCT Total # of Minutes Spent Total Time Spent with Patient: Total time spent is greater than 50% in coordination of care (as documented) at patient's floor/unit and/or counseling patient: Coding Level of Care Code 94832 SUB INP/OBS CARE 235MIN Diagnoses AMS (altered mental status) R41.82 COVID-19 U07.1 Acute UTI (urinary tract infection) N39.0 Type 2 diabetes mellitus without complication E11.9 Elevated troponin I level R79.89 Anemia D64.9 Hyponatremia E87.1 Hypomagnesemia E83.42 Weakness R53.1 Status cardiac pacemaker Z95.0 History of stroke Z86.73 Esophageal reflux K21.9 Dyslipidemia E78.5 Dementia F03.90 Depression F32.9 Glaucoma H40.9 Primary hypertension I10 Hypertension type: primary hypertension Hypokalemia E87.6 (17) Hypertension Hypertension type: primary hypertension Qualified Code(s): I10 - Essential (primary) hypertension
[2023-10-18] MEDS: ASPIRIN 81 MG ECTAB PO SCH (08:15)
[2023-10-18] MEDS: PANTOprazole 40 MG TAB PO SCH (08:15)
[2023-10-18] MEDS: MIRTAZAPINE TAB 15 MG TAB PO SCH (08:16)
[2023-10-18] MEDS: lisinopril 40 MG TAB PO SCH (08:16)
[2023-10-18] MEDS: amLODIPine BESYLATE 5 MG TAB PO SCH (08:16)
[2023-10-18] MEDS: ENOXAPARIN INJ 40 MG/0.4 ML SYR SQ SCH (08:17)
[2023-10-18] MEDS: DICLOFENAC SOD 1% GEL 100 GM TUBE EXT SCH ×4 (08:17→20:47)
[2023-10-18] MEDS: TIMOLOL MALEATE 0.25% OP SOLN 5 ML BTL OPB SCH (08:18)
[2023-10-18] MEDS: cephALEXin 500 MG CAP PO SCH ×2 (08:18→20:47)
[2023-10-18] MEDS: MEMANTINE HCL 10 MG TAB PO SCH ×2 (08:18→20:47)
[2023-10-18] MEDS: INSULIN ASPART PER UNIT CHARGE SC SCH ×4 (08:44→22:56)
[2023-10-18] MEDS: LANTUS PER UNIT CHARGE SQ SCH (08:53)
[2023-10-18 10:27] LABS: BUN Creatinine Ratio 18.5 (10-20); Creatinine Clr Calc Pharmacy 59.9 ml/min; Est GFR (African American) 93.8 ml/min; Magnesium 1.7 mg/dl (1.7-2.4); Potassium 3.6 mmol/L (3.5-5.1)
[2023-10-18] MEDS ORDERED: DEXTROSE 5% 1,000 ML IV SCH (12:30)
[2023-10-18] MEDS ORDERED: POTASSIUM CHLORIDE PWD 20 MEQ PACK PO ONE (12:32)
[2023-10-18] MEDS ORDERED: POTASSIUM CHLORIDE 20 MEQ in DEXTROSE 5% 1,000 ML IV SCH (15:00)
[2023-10-18] MEDS: ATORVASTATIN 40 MG TAB PO SCH (20:47)
[2023-10-19 06:37] LABS: Hematocrit (blood only) 32.4 % (37.0-47.0); Mean Corpuscular Hemoglobin 28.8 pg (25.0-34.0); Mean Corpuscular Volume 84.8 fL (80.0-100.0); Mean Platelet Volume 10.1 fL (9.4-12.4); Platelet Count 267 K/uL (130-400); RDW Standard Deviation 43.4 fL (36.4-46.3); Red Blood Count 3.82 M/uL (4.20-5.40); White Blood Count 6.45 K/ul (4.8-10.8)
[2023-10-19 06:59] LABS: BUN Creatinine Ratio 25.5 (10-20); Calcium 8.9 mg/dl (8.6-10.3); Est GFR (African American) 64.1 ml/min; Est GFR (Non-African American) 55.3 ml/min; Magnesium 1.7 mg/dl (1.7-2.4); Potassium 3.7 mmol/L (3.5-5.1)
[2023-10-19] MEDS: ASPIRIN 81 MG ECTAB PO SCH (07:38)
[2023-10-19] MEDS: MIRTAZAPINE TAB 15 MG TAB PO SCH (07:38)
[2023-10-19] MEDS: amLODIPine BESYLATE 5 MG TAB PO SCH (07:39)
[2023-10-19] MEDS: lisinopril 40 MG TAB PO SCH (07:39)
[2023-10-19] MEDS: PANTOprazole 40 MG TAB PO SCH (07:39)
[2023-10-19] MEDS: ENOXAPARIN INJ 40 MG/0.4 ML SYR SQ SCH (07:40)
[2023-10-19] MEDS: MEMANTINE HCL 10 MG TAB PO SCH ×2 (07:40→20:22)
[2023-10-19] MEDS: DICLOFENAC SOD 1% GEL 100 GM TUBE EXT SCH ×4 (07:41→20:22)
[2023-10-19] MEDS: TIMOLOL MALEATE 0.25% OP SOLN 5 ML BTL OPB SCH (07:41)
[2023-10-19 07:42] LABS: ALC (manual) 3.61 K/uL (1.2-3.4); ANC (manual) 2.26 K/uL (1.4-6.5); Eosinophils # (manual) 0.13 K/uL (0-0.50); Eosinophils % (manual) 2 %; Large Granular Lymph # (manua 1.48 K/uL; Large Granular Lymph % (manual) 23 %; Lymphocytes # (manual) 2.13 K/uL (1.2-3.4); Lymphocytes % (manual) 33 %; Monocytes # (manual) 0.45 K/uL (0.11-0.59); Monocytes % (manual) 7 %; Neutrophils # (manual) 2.26 K/uL (1.40-6.50); Neutrophils % (manual) 35 %
--- NOTE | 2023-10-19 07:53 | Hospitalist Progress Note ---
Date of Service October 19, 2023 Assessment & Plan (1) AMS (altered mental status): Plan: AMS due to acute metabolic encephalopathy almost certainly due to UTI + COVID. -Was seen in ER, dx COVID and given rx for Paxlovid and dc, however worsened confusion and represented to ER -Prior admit for sepsis/pyelonephritis/acute metabolic encephalopathy May 2022. US renal/bladder ordered given hx stones for evaluation -- negative for stone/obstruction Head CT negative, neurochecks B12 prior wnl, on supplementation. TSH wnl Mentation MUCH IMPROVED SINCE ABX/IVF, now discontinued and PO intake improved Urine cx pansensitive ecoli, got 3 doses IV Ceftriaxone & transitioned to Keflex PO to complete course (5 days after 10/19) Blood cultures remain NGTD Pleasant confusion continues but around baseline dementia Fatigued this morning (similar reported yesterday) but wakes up in afternoon/was visiting with friend/ate supper Was given 500cc IVF w/ D5 as hypoglycemic days prior and CANCELLED glargine as ordered on admission (only on 500mg metformin at baseline) and using SSI as needed PT eval rec 24hr care, continued use wc for ambulation at home, can have home health if family wanting to take her home. Per discussion w/ sister this week, pref keeping over weekend and they will take her home Friday due to illnesses at home and them wanting to make sure able to take care of her CM working on arranging HH [facility] --> HH nursing for as early as this upcoming Friday and HH therapy later in the week arranged *Check overnight pulse ox given periods of apnea while sleeping/daytime sleeping at home to see if possibly contributing. (2) COVID-19: Plan: + testing on admission, +cough but no shortness of breath/hypoxia reported Was given Paxlovid from ER, deferring as discussed w/ sister in room given unsure when symptoms started w/ her COVID but can cause GI side effects and as is not hypoxic at present will avoid use at present time CXR on admission w/ pulm vascular congestion w/o overt pulm edema Additional 1L IVF for decreased PO intake, much improved 10/17 and held off any further but did give 500cc for above w/ D5 On room air 97% RA at present, no wheezing/SOB reported (3) Acute UTI (urinary tract infection): Plan: UA/cx w/ Ecoli, pansensitive. Completed 3 days of IV ceftriaxone, transitioned to Keflex to complete additional 2 day course Improvement in mentation/etc w/ treatment (4) Type 2 diabetes mellitus without complication: Plan: BSG acceptable on admission. A1c 7.4 in March Home metformin held, placed on BSG AC/HS, SSI while inpatient Had been placed on glargine 5u BID w/ SSI --> BSG w/ low to 60s afternoon 10/16 and 10/17 (not notified) and as patient ONLY on metformin 500mg daily at baseline, HELD further glargine and can utilize sliding scale insulin for now to prevent hypoglycemia D5 @ 80cc x 500cc as above given glargine this AM and poor PO intake today Improved PO intake last evening , BSGs stable without further lows (5) Elevated troponin I level: Plan: Modest troponin elevation 32.5 -> 30.2 -> 31.7 EKG w/o signs of ischemia Likely type 2 [place]/demand, will stop trending troponin. Patient DENIES Chest pain but does have some reproducible pain likely from coughing. Will order voltaren gel Low concern for ACS at present. Telemetry monitoring without issue. Can downgrade off telemetry today (6) Anemia: Plan: Hgb 10.8 on admission, 9.7 after IVF on admission. Monitor CBC, check iron studies w/ AM labs (on oral B12 at baseline per med rec), can check folic acid acute on chronic anemia, no need for supplementation. Repeat hgb improved despite additional IVF. most recent 11.0 fecal occult for completeness if able to obtain, no bleeding reported (7) Hyponatremia: Plan: Na 134 on admission. TSH wnl. Likely 2/2 poor oral intake. IVF on admission/additional overnight as above Repeat Na 132 today but will hold off any additional fluids for now and monitor PO intake. If remaining low/PO intake ok will add urine na/serum osm to AM labs (8) Hypomagnesemia: Plan: Mg 1.6 on admission, IV replacement ordered and repeat stable (9) Weakness: Plan: Generalized weakness secondary to UTI/COVID, chronic comorbidities IMPROVING -- did well w/ therapy 10/17 and ok to return home w/ family support and will continue to monitor at baseline, lives pretty much on the cough per family (10) Status cardiac pacemaker: Plan: EKG w/ paced rhythm Noted sinus tachycardia in ER, likely physiologic/compensatory to acute illness Telemetry monitoring w/ NSR/1st degree AV block. Rates paced and will downgrade off tele today (11) History of stroke: Plan: CT head negative for acute CVA on admission Continue aspirin, atorvastatin (12) Esophageal reflux: Plan: Continue omeprazole/hospital equivalent no increased issues reported (13) Dyslipidemia: Plan: Continue atorvastatin (14) Dementia: Plan: Continue memantine TSH wnl, Urine infected as above. 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 No evidence for DVT at present Discussed w/ sister Richelle Luna" on phone and planning for home w/ family on Friday. CM aware and arranged for nursing and therapy this upcoming week Admission and Anticipated Discharge Date Admission Date: October 14, 2023 Supervising Physician Co-Signing Physician Notes The patient was not seen by me. The chart was reviewed. Case discussed with EVELIN rBand. Agree with assessment and plan Subjective Eval this morning, resting in bed. Awoke to name. Was up watching TV all night, not sure what she was watching but she thinks it was something good. Discussed likely lot of sleeping at home, does have some apneic periods w/ sleep. Discussed will check overnight sleep study and see about giving her some improvement in energy. She chuckled at this and said that she could use some energy. Ate some for dinner, has some belly grumbling but denies wanting to eat anything yet this morning. Did eat w/ friend in room last night. No significant dehydration. No CP/SOB reported or nausea. Otherwise will anticipate discharge for tomorrow. Questions/concerns addressed at this time. Physical Exam 2 Physical Exam: General: elderly female resting in bed, NAD, pleasant confusion, eyes closed initially but opened upon request. laughing at jokes about getting to do what she wants at her age Head normocephalic, atraumatic, mm, trachea midline Resp: even, unlabored, slightly diminished in the bases but no w/c/r, on room air. no cough today97% on room air CV: RRR, no significant mrg, no pitting edema/calf tenderness GI +BS, soft/NT : purewick draining clear yellow urine MSK/Neuro: generalized weakness but nonfocal, no slurred speech/facial droop, answering questions appropriately but dementia at baseline Psych: alert, oriented to person, intermittently to time but not events. pleasant Results & Data Results & Data Vital Signs (Past 12 Hours) Vital Signs Temp Pulse Pulse Resp BP BP Pulse Ox 10/19/23 07:46 36.4 C L 76 19 152/66 H 96 10/19/23 06:54 60 10/19/23 03:14 36.4 C L 67 18 124/69 96 10/18/23 22:52 36.5 C 69 18 112/62 93 10/18/23 20:07 36.7 C 75 18 121/66 93 O2 Del Method 10/19/23 07:46 Room Air 10/19/23 06:54 10/19/23 03:14 Room Air 10/18/23 22:52 Room Air 10/18/23 20:07 Room Air Laboratory Results 10/19/23 06:00 10/19/23 06:00 PG Care Time/CCT Total # of Minutes Spent Total Time Spent with Patient: Total time spent is greater than 50% in coordination of care (as documented) at patient's floor/unit and/or counseling patient: Coding Level of Care Code 32677 SUB INP/OBS CARE 2/35MIN Diagnoses AMS (altered mental status) R41.82 COVID-19 U07.1 Acute UTI (urinary tract infection) N39.0 Type 2 diabetes mellitus without complication E11.9 Elevated troponin I level R79.89 Anemia D64.9 Hyponatremia E87.1 Hypomagnesemia E83.42 Weakness R53.1 Status cardiac pacemaker Z95.0 History of stroke Z86.73 Esophageal reflux K21.9 Dyslipidemia E78.5 Dementia F03.90 Depression F32.9 Glaucoma H40.9 Primary hypertension I10 Hypertension type: primary hypertension Hypokalemia E87.6 (17) Hypertension Hypertension type: primary hypertension Qualified Code(s): I10 - Essential (primary) hypertension
[2023-10-19] MEDS: INSULIN ASPART PER UNIT CHARGE SC SCH ×4 (08:38→20:22)
[2023-10-19] MEDS: cephALEXin 500 MG CAP PO SCH ×2 (08:39→20:23)
[2023-10-19] MEDS: ATORVASTATIN 40 MG TAB PO SCH (20:21)
[2023-10-20 07:34] LABS: Hematocrit (blood only) 35.1 % (37.0-47.0); Hemoglobin 11.6 g/dl (12.0-16.0); Mean Corpuscular Hemoglobin 28.8 pg (25.0-34.0); Mean Corpuscular Volume 87.1 fL (80.0-100.0); Mean Platelet Volume 9.9 fL (9.4-12.4); Platelet Count 302 K/uL (130-400); RDW Standard Deviation 44.8 fL (36.4-46.3); Red Blood Count 4.03 M/uL (4.20-5.40); White Blood Count 6.75 K/ul (4.8-10.8)
[2023-10-20 07:51] LABS: Creatinine Clr Calc Pharmacy 50.5 ml/min; Est GFR (African American) 81.6 ml/min; Est GFR (Non-African American) 70.4 ml/min; Magnesium 1.9 mg/dl (1.7-2.4); Potassium 4.3 mmol/L (3.5-5.1)
--- NOTE | 2023-10-20 08:05 | Hospitalist Progress Note ---
Date of Service October 20, 2023 Assessment & Plan (1) AMS (altered mental status): Plan: AMS due to acute metabolic encephalopathy almost certainly due to UTI + COVID. -Was seen in ER, dx COVID and given rx for Paxlovid and dc, however worsened confusion and represented to ER -Prior admit for sepsis/pyelonephritis/acute metabolic encephalopathy May 2022. US renal/bladder ordered given hx stones for evaluation -- negative for stone/obstruction Head CT negative, neurochecks B12 prior wnl, on supplementation. TSH wnl Mentation MUCH IMPROVED SINCE ABX/IVF, now discontinued and PO intake improved Urine cx pansensitive ecoli, got 3 doses IV Ceftriaxone & transitioned to Keflex PO to complete course (5 days after 10/19) Blood cultures remain NGTD Pleasant confusion continues but around baseline dementia Fatigued this morning (similar reported yesterday) but wakes up in afternoon/was visiting with friend/ate supper Was given 500cc IVF w/ D5 as hypoglycemic days prior and CANCELLED glargine as ordered on admission (only on 500mg metformin at baseline) and using SSI as needed PT eval rec 24hr care, continued use wc for ambulation at home, can have home health if family wanting to take her home. Per discussion w/ sister this week, pref keeping over weekend and they will take her home Friday due to illnesses at home and them wanting to make sure able to take care of her CM [place] --> HH nursing for as early as this upcoming Friday and HH therapy later in the week arranged *Check overnight pulse ox given periods of apnea while sleeping/daytime sleeping at home to see if possibly contributing. Does appear to have some desaturations at night. Will have CM arrange supplemental O2 HS, can discuss outpt sleep study in f/u with PCP (2) COVID-19: Plan: + testing on admission, +cough but no shortness of breath/hypoxia reported Was given Paxlovid from ER, deferring as discussed w/ sister in room given unsure when symptoms started w/ her COVID but can cause GI side effects and as is not hypoxic at present will avoid use at present time CXR on admission w/ pulm vascular congestion w/o overt pulm edema Additional 1L IVF for decreased PO intake, much improved 10/17 and held off any further but did give 500cc for above w/ D5 On room air 97% RA at present, no wheezing/SOB reported (3) Acute UTI (urinary tract infection): Plan: UA/cx w/ Ecoli, pansensitive. Completed 3 days of IV ceftriaxone, transitioned to Keflex to complete additional 2 day course Improvement in mentation/etc w/ treatment (4) Type 2 diabetes mellitus without complication: Plan: BSG acceptable on admission. A1c 7.4 in March Home metformin held, placed on BSG AC/HS, SSI while inpatient Had been placed on glargine 5u BID w/ SSI --> BSG w/ low to 60s afternoon 10/16 and 10/17 (not notified) and as patient ONLY on metformin 500mg daily at baseline, HELD further glargine and can utilize sliding scale insulin for now to prevent hypoglycemia D5 @ 80cc x 500cc as above given glargine this AM and poor PO intake today Improved PO intake last evening , BSGs stable without further lows (5) Elevated troponin I level: Plan: Modest troponin elevation 32.5 -> 30.2 -> 31.7 EKG w/o signs of ischemia Likely type 2 [place]/demand, will stop trending troponin. Patient DENIES Chest pain but does have some reproducible pain likely from coughing. Will order voltaren gel Low concern for ACS at present. Telemetry monitoring without issue. Can downgrade off telemetry today (6) Anemia: Plan: Hgb 10.8 on admission, 9.7 after IVF on admission. Monitor CBC, check iron studies w/ AM labs (on oral B12 at baseline per med rec), can check folic acid acute on chronic anemia, no need for supplementation. Repeat hgb improved despite additional IVF. most recent 11.0 fecal occult for completeness if able to obtain, no bleeding reported (7) Hyponatremia: Plan: Na 134 on admission. TSH wnl. Likely 2/2 poor oral intake. IVF on admission/additional overnight as above Repeat Na 132 today but will hold off any additional fluids for now and monitor PO intake. If remaining low/PO intake ok will add urine na/serum osm to AM labs (8) Hypomagnesemia: Plan: Mg 1.6 on admission, IV replacement ordered and repeat stable (9) Weakness: Plan: Generalized weakness secondary to UTI/COVID, chronic comorbidities IMPROVING -- did well w/ therapy 10/17 and ok to return home w/ family support and will continue to monitor at baseline, lives pretty much on the cough per family (10) Status cardiac pacemaker: Plan: EKG w/ paced rhythm Noted sinus tachycardia in ER, likely physiologic/compensatory to acute illness Telemetry monitoring w/ NSR/1st degree AV block. Rates paced and will downgrade off tele today (11) History of stroke: Plan: CT head negative for acute CVA on admission Continue aspirin, atorvastatin (12) Esophageal reflux: Plan: Continue omeprazole/hospital equivalent no increased issues reported (13) Dyslipidemia: Plan: Continue atorvastatin (14) Dementia: Plan: Continue memantine TSH wnl, Urine infected as above. On B12 at baseline Lives w/ family at baseline Tx infection Frequent orientation PT/OT evals Planning dc w/ family support, hopefully tomorrow (15) Depression: Plan: Continue Remeron mood stable, would like to go home if possible as above - planning for friday (16) Glaucoma: Plan: -Continue timolol (17) Hypertension: Plan: BP stable at present in hospital setting, 155/66 Continue amlodipine, lisinopril (18) Hypokalemia: Plan: 3.2 on AM labs -- likely 2nd to poor PO intake DRAINMAN and PO replacement ordered 3.7 on am labs and will monitor BMP in AM for stability Plan DVT prophylaxis: SCDs, added Lovenox SQ 10/15 given +COVID/mostly sedentary at home. No evidence for DVT at present Discussed w/ sister Richelle Luna" on phone and planning for home w/ family on Friday. CM aware and arranged for nursing and therapy this upcoming week Admission and Anticipated Discharge Date Admission Date: October 14, 2023 Results & Data Results & Data Vital Signs (Past 12 Hours) Vital Signs Temp Pulse Pulse Resp BP Pulse Ox Pulse Ox 10/20/23 02:37 63 93 10/19/23 22:13 72 95 10/19/23 20:30 10/19/23 20:12 36.8 C 76 16 146/70 H 94 O2 Del Method O2 Del Method 10/20/23 02:37 Room Air 10/19/23 22:13 Room Air 10/19/23 20:30 Room Air 10/19/23 20:12 Room Air PG Care Time/CCT Total # of Minutes Spent Total Time Spent with Patient: Total time spent is greater than 50% in coordination of care (as documented) at patient's floor/unit and/or counseling patient: Coding Diagnoses AMS (altered mental status) R41.82 COVID-19 U07.1 Acute UTI (urinary tract infection) N39.0 Type 2 diabetes mellitus without complication E11.9 Elevated troponin I level R79.89 Anemia D64.9 Hyponatremia E87.1 Hypomagnesemia E83.42 Weakness R53.1 Status cardiac pacemaker Z95.0 History of stroke Z86.73 Esophageal reflux K21.9 Dyslipidemia E78.5 Dementia F03.90 Depression F32.9 Glaucoma H40.9 Primary hypertension I10 Hypertension type: primary hypertension Hypokalemia E87.6 (17) Hypertension Hypertension type: primary hypertension Qualified Code(s): I10 - Essential (primary) hypertension
[2023-10-20 08:23] LABS: Lyme Ab IgG w/WB Rflx Negative (Negative)
[2023-10-20 08:24] LABS: Lyme Ab IgM w/WB Rflx Negative (Negative)
[2023-10-20] MEDS: INSULIN ASPART PER UNIT CHARGE SC SCH (08:39)
[2023-10-20] MEDS: DICLOFENAC SOD 1% GEL 100 GM TUBE EXT SCH (08:40)
[2023-10-20] MEDS: TIMOLOL MALEATE 0.25% OP SOLN 5 ML BTL OPB SCH (08:40)
[2023-10-20] MEDS: PANTOprazole 40 MG TAB PO SCH (08:41)
[2023-10-20] MEDS: MEMANTINE HCL 10 MG TAB PO SCH (08:41)
[2023-10-20] MEDS: cephALEXin 500 MG CAP PO SCH (08:41)
[2023-10-20] MEDS: amLODIPine BESYLATE 5 MG TAB PO SCH (08:42)
[2023-10-20] MEDS: ENOXAPARIN INJ 40 MG/0.4 ML SYR SQ SCH (08:42)
[2023-10-20] MEDS: lisinopril 40 MG TAB PO SCH (08:43)
[2023-10-20] MEDS: MIRTAZAPINE TAB 15 MG TAB PO SCH (08:43)
[2023-10-20] MEDS: ASPIRIN 81 MG ECTAB PO SCH (08:43)
[2023-10-20 09:00] LABS: Basophils # (auto) 0.03 K/uL (0.00-0.20); Basophils % (auto) 0.4 %; Eosinophils # (auto) 0.36 K/uL (0.00-0.50); Eosinophils % (auto) 5.3 %; Immature Granulocytes # (auto) 0.03 K/uL (0.01-0.20); Immature Granulocytes % (auto) 0.4 %; Lymphocytes # (auto) 3.33 K/uL (1.20-3.40); Lymphocytes % (auto) 49.3 %; Monocytes # (auto) 0.63 K/uL (0.11-0.59); Monocytes % (auto) 9.3 %; Neutrophils # (auto) 2.37 K/uL (1.40-6.50); Neutrophils % (auto) 35.3 %; RBC Morphology Unremarkable
--- NOTE | 2023-10-20 10:04 | Discharge Summary ---
Date of Service October 20, 2023 Admission HPI Per Admitting Provider Pt is 87 yo F with PMH HTN, HLD, DM2, pacemaker, anemia, GERD, dementia, depression, glaucoma, previous CVA presenting with confusion. History primarily obtained from chart review due to pt's altered mental status. Pt has apparently had several days of fatigue, generalized weakness and reduced oral intake along with productive cough. This AM she tried to get up from couch but slid down and fell to ground w/o head strike or loss of consciousness. This fall was witnessed by pt's family member. She was brought to ER, found to have COVID infection and discharged with prescription for Paxlovid. However, pt later had confusion during day and was brought in by family for re-evaluation. Pt arrived to ER with HR 100s-120s. Initial evaluation significant for Hgb 10.8, Na 134, Mg 1.6, troponin 32.5, UA w/ LEs, WBCs, bacteria. COVID positive. CXR w/ mild pulmonary vascular congestion. Head CT negative. EKG w/ ventricular paced rhythm. ER interventions include Rocephin 2g, 1L NSS mIVF at 125 cc/hr. At present, pt remains confused and no meaningful interview could be done. She does not report any acutely pressing complaints. Principal Diagnosis AMS, Weakness, UTI, COVID General: tired-appearing, no acute distress HEENT: PERRL, EOMI, conjunctivae clear without injection, anicteric sclerae, dry mucous membranes, clear oropharynx without exudate or erythema Neck: supple, trachea midline, no thyromegaly, no JVD, no cervical lymphadenopathy CV: RRR, normal S1 and S2, no murmurs Resp: CTAB, no increased work of breathing, no crackles or wheezes Abd: Soft, nontender, nondistended, no guarding or rebound, no hepatosplenomegaly MSK: Normal bulk of all four extremities Neuro: AO to person only, no focal motor or sensory deficits Skin: no rashes or lesions, warm and dry Ext: no LE peripheral edema or erythema, capillary refill <2s in all four extremities, 2+ LE peripheral pulses b/l Discharge Exam General: elderly female resting in bed, NAD, pleasant confusion at times but at baseline, eyes closed initially but opened upon request. laughing at jokes about getting to do what she wants at her age Head normocephalic, atraumatic, mm improved, trachea midline Resp: even, unlabored, slightly diminished in the bases but no w/c/r, on room air. no cough during encounter, on room air CV: RRR, no significant mrg, no pitting edema/calf tenderness GI +BS, soft/NT : purewick draining clear yellow urine MSK/Neuro: generalized weakness but nonfocal, no slurred speech/facial droop, answering questions appropriately but dementia at baseline Psych: alert, oriented to person, intermittently to time but not events. pleasant Discharge Data Allergies Allergy/AdvReac Type Severity Reaction Status Date / Time Sulfa (Sulfonamide Allergy Unknown Unknown Verified 10/14/23 19:41 Antibiotics) Consultations 10/14/23 20:46 ED Decision to Admit Stat Ordered Studies Chest X-Ray 10/14/23 18:05 XR chest 1V portable CLINICAL HISTORY: Altered mental status. COMPARISON STUDY: Chest CT March 19, 2021. Chest radiograph performed earlier today. FINDINGS: Dual lead left subclavian pacemaker is in place. No pneumothorax or pleural effusion is present. There is no consolidation to suggest pneumonia. There is mild cardiomegaly. There is pulmonary vascular congestion without overt pulmonary edema. Chronic proximal left humeral deformity is incidentally noted. IMPRESSION: Pulmonary vascular congestion without overt pulmonary edema. ACT 112: Negative or not required by law. Electronically signed by: Genaro Encinas M.D. 10/14/2023 6:[address] 10/14/23 18:05 CT OF THE HEAD WITHOUT CONTRAST CLINICAL HISTORY: Altered mental status. COMPARISON STUDY: Head CT October 01, 2022. CT DOSE: 547.75 mGy.cm TECHNIQUE: Helical axial images of the head were obtained without IV contrast. Automated exposure control was utilized for the study. A dose lowering technique was utilized adhering to the principles of ALARA. FINDINGS: No acute intracranial hemorrhage, midline shift or mass effect is present. The ventricular system is stable. Basal cisterns are patent. White matter hypodensities are unchanged and favor small vessel disease. Old infarct within the left basal ganglia is unchanged. There are no findings to suggest acute dural sinus thrombosis or acute territorial infarct. The appearance of the brain is unchanged. There is no acute calvarial fracture. The right sphenoid sinus is largely opacified. There is mild ethmoid sinus mucosal thickening. IMPRESSION: 1. No acute intracranial findings. No change in appearance of the brain. 2. Largely opacified right sphenoid sinus. ACT 112: Negative or not required by law. Electronically signed by: Genaro Encinas M.D. 10/14/2023 6:48 PM Renal Ultrasound 10/15/23 07:20 ULTRASOUND KIDNEYS AND BLADDER CLINICAL HISTORY: Nephrolithiasis. COMPARISON STUDY: Abdominal CT dated 06/01/2022 TECHNIQUE: Real-time, grayscale, and color flow sonography of the kidneys and bladder is performed. Images are reviewed in the transverse and longitudinal planes. FINDINGS: Kidneys: The kidneys demonstrate mild cortical atrophy. Echotexture there is normal. The right kidney measures 10.1 cm in length and the left kidney measures 10.3 cm in length. There is no hydronephrosis. No shadowing renal calculi are identified. A 3.5 cm cyst is seen on the left. There is no sonographic evidence of contour deforming renal mass lesion. No perinephric fluid is identified. Bladder: The bladder is normal in appearance. Ureteral jets were not seen. IMPRESSION: No acute sonographic abnormality is seen involving the kidneys or bladder. ACT 112: Negative or not required by law. Electronically signed by: Ranjith Galarza M.D. 10/15/2023 9:01 AM Hospital Course (1) AMS (altered mental status): AMS due to acute metabolic encephalopathy almost certainly due to UTI + COVID. -Was seen in ER, dx COVID and given rx for Paxlovid and dc, however worsened confusion and represented to ER Prior admit for sepsis/pyelonephritis/acute metabolic encephalopathy May 2022. US renal/bladder ordered given hx stones for evaluation -- negative for stone/obstruction Head CT negative, neurochecks ordered B12 prior wnl, on supplementation. TSH wnl Mentation MUCH IMPROVED SINCE ABX/IVF, now discontinued and PO intake improved IVF/supportive care provided Urine cx pansensitive ecoli, got 3 doses IV Ceftriaxone & transitioned to Keflex PO and completed course while inpatient Blood cultures remain NGTD Did have some witnessed apnea while sleeping and obtained overnight study which did demonstrate drops at night. Suspect underlying sleep apnea.CM provided w/ rx for 2L to be worn at night. Discussed w/ sister Cady and O2 at home through [employer]. Cm arranged as well as home health/home PT given evals while inpatient and family/patient wishes to return home at discharge w/ family support. Can have further discussions w/ PCP/sleep study in follow up. Rec better sleep/wake hygiene (appears she is more of a night owl) (2) COVID-19: + testing on admission, +cough but no shortness of breath/hypoxia reported and remained stable on room air and paxlovid given in ER not continued given GI side effects/treatment for UTI as above isolation precautions undertaken while inpatient 96% on RA prior to dc (3) Acute UTI (urinary tract infection): UA/cx w/ Ecoli, pansensitive. Completed course IV ceftriaxone/keflex while inpatient Mentation back to baseline dementia (4) Type 2 diabetes mellitus without complication: BSG acceptable on admission. A1c 7.4 in March Home metformin held, placed on BSG AC/HS, SSI while inpatient Had been placed on glargine 5u BID w/ SSI --> BSG w/ low to 60s afternoon 10/16 and 10/17 (not notified) and as patient ONLY on metformin 500mg daily at baseline, HELD further glargine and can utilize sliding scale insulin for now to prevent hypoglycemia D5 @ 80cc x 500cc as above given glargine this AM and poor PO intake today BSgs remained stable, can resume home metformin once daily at dc (5) Elevated troponin I level: Modest troponin elevation 32.5 -> 30.2 -> 31.7 EKG w/o signs of ischemia Likely type 2 DE/demand, will stop trending troponin. Patient DENIES Chest pain but does have some reproducible pain likely from coughing and improved w/ voltaren without any futher reports No further CP reported/stable on telemetry (6) Anemia: Hgb 10.8 on admission, 9.7 after IVF on admission and improved w/ treatment UTI and remained stable. No bleeding reported Iron studies w/ anemia of chronic disease f/u PCP (7) Hyponatremia: Na 134 on admission. TSH wnl. Likely 2nd to poor PO intake Stable prior to dc, improved PO intake (8) Hypomagnesemia: Mg 1.6 on admission, IV replacement ordered and repeat remained stable (9) Weakness: Generalized weakness secondary to UTI/COVID, chronic comorbidities IMPROVING -- did well w/ therapy 10/17 and ok to return home w/ family support and will continue to monitor at baseline, lives pretty much on the couch per family (10) Status cardiac pacemaker: EKG w/ paced rhythm Noted sinus tachycardia in ER, likely physiologic/compensatory to acute illness Telemetry monitoring w/ NSR/1st degree AV block. Rates paced and will downgraded off tele (11) History of stroke: CT head negative for acute CVA on admission Continued aspirin, atorvastatin (12) Esophageal reflux: Continued omeprazole/hospital equivalent no increased issues reported (13) Dyslipidemia: Continued atorvastatin (14) Dementia: Continued memantine TSH wnl, Urine infected as above. On B12 at baseline Lives w/ family at baseline Frequent orientation PT/OT evals Planned dc w/ family support (15) Depression: Continued Remeron mood stable (16) Glaucoma: -Continued timolol (17) Hypertension: Continued on amlodipine/lisinopril (18) Hypokalemia: 2nd to PO intake, replacement ordered and remained stable Plan DVT prophylaxis: SCDs, added Lovenox SQ 10/15 given +COVID/mostly sedentary at home. No evidence for DVT at present Discussed w/ sister Richelle Luna" on phone prior to dc and arrangement of O2 at night and outpatient sleep study. Completed course of abx for UTI while inpatient Home health arranged at dc I certify that this patient is under my care and that I, or a physicians medical administrative assistant working with me, had a face to-face encounter that meets the home health [id number] encounter requirements with this patient. The encounter with the patient was in whole, or in part, for the following medical condition, which is the primary reason for home health care (list medical condition): UTI, COVID I certify that, based on my findings, the following services are medically necessary home health services: My clinical findings support the need for the above services because: Caregiver Instruct Med Mgmt, Safety, Disease Process, Signs to Report Home Safety Assessment Medication Compliance OT Assess ADL Status and Restore Function w ADLs PT Assessment for Endurance / Balance / Strength PT Eval for Safety and Mobility PT Eval for Safety, Gait Training, Assistive Devices PT Gait and Balance Training, Strengthening and Safety Safety Skilled Nsg Assessment Skilled Nsg Assess Pt Illness, Disease and Sx Monitoring S/S to Report to Provider Teach on Disease Management and Interventions Vital Signs Further, I certify that my clinical findings support that this patient is homebound (i.e. absences from home require considerable and taxing effort and are for medical reasons or congregation services or infrequently or of short duration when for other reasons) because: Transportation Assistance/Unable to Leave Home Unassisted Certification for Home Health Services: Based on the above findings, I certify that this patient is confined to the home and needs intermittent retirement care, physical therapy and/or speech therapy or continues to need occupational therapy. The patient is under my care, and I have initiated the establishment of the plan of care. This patient will be followed by a physician who will periodically review the plan of care. Total Time Total Time Spent Total Time Spent (In Minutes): 45 Discharge Plan Discharge Items Patient Disposition: Home - Self-Care Reason For Visit: AMS, UTI, COVID Discharge Diagnosis: You have been hospitalized for an acute medical problem. During your stay at [facility], we have made an effort to correct the problem that brought you to the hospital while keeping you as comfortable as possible. Medications were used to bring your condition under control and your discharge instructions will include directions for any medications you should take after leaving the hospital. Please make sure you see your Primary Care Provider as part of your follow up plan. Goals: You have been hospitalized for an acute medical problem. During your stay at [facility], we have made an effort to correct the problem that brought you to the hospital while keeping you as comfortable as possible. Medications were used to bring your condition under control and your discharge instructions will include directions for any medications you should take after leaving the hospital. Please make sure you see your Primary Care Provider as part of your follow up plan. Activity: As commented below Non-emergency contact: Primary Care Provider Call non-emergency contact if: you have any medication questions, your symptoms worsen, your pain is not controlled and you have a fever Follow-up/Referrals: Lucero Alves MD [Primary Care Provider] - Diet: Carb Consistent or DM2 and Heart Healthy Addtl Attending Provider Instructions: You have been hospitalized for confusion and altered mental status and found to be positive for covid. Your xray did not show any evidence for pneumonia and your CT of the head was negative for stroke. Your urine was positive for infection and you completed treatment while in the hospital. You also had a test done to check you oxygen at night and you do drop and have been set up with oxygen to wear at night and can talk with your family doctor about having an outpatient sleep study. This left untreated can lead to daytime sleepiness and worsened blood pressure/heart failure. You should follow up with your primary care in the next 7-10 days. Please return to the ER with any worsened confusion, shortness of breath, chest pain, or for any other symptoms concerning for you. It has been a pleasure being a part of the medical team providing for you while you have been in the hospital. Take care! Pending Studies at Discharge: No Stand-Alone Forms: My [facility] [employer], Smoking Cessation Medications and DC Order Prescriptions: Continued potassium chloride 20 mEq tablet extended release 20 meq PO DAILY Qty: 90 3RF Hold Instructions: Per [employer] D/C summary [id number]-jlvfihpnpwmcm-kqkj 50-325-40 mg capsule 1 cap PO Q6H PRN (Reason: headache) Qty: 30 0RF cholecalciferol (vitamin D3) 25 mcg (1,000 unit) capsule 25 mcg PO DAILY mecobalamin (vitamin B12) 1,000 mcg tablet,chewable 1,000 mcg PO DAILY nystatin 100,000 unit/gram powder 1 applic topical BID Qty: 30 2RF metformin 500 mg tablet 500 mg PO DAILY Qty: 90 3RF Rx Instructions: with a meal amlodipine 10 mg tablet 10 mg PO DAILY Qty: 90 3RF Hold Instructions: per [employer] D/C summary omeprazole 20 mg capsule,delayed release(DR/EC) 20 mg PO DAILY Qty: 90 3RF memantine 10 mg tablet 10 mg PO BID 90 Days Qty: 180 3RF lisinopril 40 mg tablet 40 mg PO DAILY Qty: 90 3RF Hold Instructions: per [employer] D/C summary atorvastatin 40 mg tablet 40 mg PO HS Qty: 90 3RF methenamine hippurate 1 gram tablet 1 g PO BID Qty: 60 11RF melatonin 3 mg tablet 3 mg PO HS PRN (Reason: Insomnia) docusate sodium 100 mg capsule 100 mg PO BID PRN (Reason: Constipation) Qty: 60 vit C,Y-Rj-rrwsq-lutein-zeaxan 60 mg-13.5 mg- 15 mg-2 mg-6 mg capsule 1 cap PO DAILY calcium carbonate 600 mg calcium (1,500 mg) tablet 600 mg PO DAILY aspirin [Adult Low Dose Aspirin] 81 mg tablet,delayed release (DR/EC) 81 mg PO DAILY mirtazapine 15 mg tablet 15 mg PO DAILY timolol maleate 0.25 % drops 1 drp OPB QAM Discontinued Paxlovid 150-100 mg tablets,dose pack See Rx Instructions .ROUTE .COMPLEX Qty: 20 0RF Rx Instructions: take ONE 150 mg tablet of nirmatrelvir with ONE 100 mg tablet of ritonavir twice daily for 5 days Discharge Orders: Discharge Order (Routine); Ordered 10/20/23 Ordered By: Heather Koenig Admission Data Admit Date/Time: 10/14/23 21:10 Attending Provider: Rikki Gill Admit Provider: Su Vides Primary Care Provider: Lucero Alves Other Providers: [facility] Fax; Viet Barba Other Interventions: Discharge Summary Assessment (RN) Last Done: 10/20/23 11:11 Coding Level of Care Code 06761 INP/OBS DISCH >30 MIN Diagnoses AMS (altered mental status) R41.82 COVID-19 U07.1 Acute UTI (urinary tract infection) N39.0 Type 2 diabetes mellitus without complication E11.9 Elevated troponin I level R79.89 Anemia D64.9 Hyponatremia E87.1 Hypomagnesemia E83.42 Weakness R53.1 Status cardiac pacemaker Z95.0 History of stroke Z86.73 Esophageal reflux K21.9 Dyslipidemia E78.5 Dementia F03.90 Depression F32.9 Glaucoma H40.9 Primary hypertension I10 Hypertension type: primary hypertension Hypokalemia E87.6
== END 2023-10-20 11:36 | disposition home or self-care (01) | DRG 177 ==
LOC: ED 17:53 → EDINP 21:10 → SUATTDRO 21:10 → 2N 10-15 01:32

== ENCOUNTER 2025-01-17 08:42 | Inpatient (IN) ==
[2025-01-17] MEDS: SODIUM CHLORIDE 0.9% 1,000 ML IV SCH (09:08)
[2025-01-17] MEDS: ACETAMINOPHEN 1,000 MG/100 ML VIAL IV STA (09:10)
--- NOTE | 2025-01-17 09:32 | XRay Report ---
XR chest 1V portable CLINICAL HISTORY: Sepsis COMPARISON STUDY: 10/14/2023 FINDINGS: Stable pacemaker. Stable cardiomegaly without pulmonary vascular congestion. Inspiration is shallow. No effusion, consolidation, or pneumothorax. Stable old fracture proximal left humerus. IMPRESSION: No acute findings. ACT 112: Negative or not required by law. Electronically signed by: Ralph Mack M.D. 01/17/2025 9:31 AM
--- NOTE | 2025-01-17 09:45 | CT Scan Report ---
CT OF THE HEAD WITHOUT CONTRAST CLINICAL HISTORY: Altered mental status. COMPARISON STUDY: Head CT October 14, 2023. CT DOSE: 625.8 mGy.cm TECHNIQUE: Helical axial images of the head were obtained without IV contrast. Automated exposure con trol was utilized for the study. A dose lowering technique was utilized adhering to the principles o f ALARA. FINDINGS: No acute intracranial hemorrhage, midline shift or mass effect is present. Ventricular syst em is stable. The basal cisterns are patent. There are no extra-axial collections. White matter hypod ensities are unchanged. 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 There are no findings to sugge st acute dural sinus thrombosis or acute territorial infarct. There are no calvarial fractures. Right sphenoid sinus is largely opacified and contains secretions. Similar findings were shown on prior CT . There are also secretions within the left sphenoid sinus. There is mild ethmoid sinus mucosal thick ening. IMPRESSION: 1. No acute intracranial findings. No significant change in appearance of the brain. 2. Sphenoid and ethmoid sinus opacification, as described above. ACT 112: Negative or not required by law. Electronically signed by: Genaro Encinas M.D. 01/17/2025 9:43 AM
[2025-01-17] MEDS: CEFEPIME 2000MG 2,000 MG/20 ML SYR IV STA (10:27)
[2025-01-17 10:45] LABS: Basophils # (auto) 0.04 K/uL (0.00-0.20); Basophils % (auto) 0.3 %; Eosinophils # (auto) 0.02 K/uL (0.00-0.50); Eosinophils % (auto) 0.1 %; Immature Granulocytes # (auto) 0.09 K/uL (0.01-0.20); Immature Granulocytes % (auto) 0.6 %; Lymphocytes # (auto) 1.68 K/uL (1.20-3.40); Lymphocytes % (auto) 10.9 %; Mean Corpuscular Hemoglobin 28.5 pg (25.0-34.0); Mean Corpuscular Hgb Conc 31.3 g/dL (32.0-36.0); Mean Corpuscular Volume 91.2 fL (80.0-100.0); Mean Platelet Volume 10.2 fL (9.4-12.4); Monocytes # (auto) 1.18 K/uL (0.11-0.59); Monocytes % (auto) 7.7 %; Neutrophils # (auto) 12.36 K/uL (1.40-6.50); Neutrophils % (auto) 80.4 %; Platelet Count 254 K/uL (130-400); RDW Coefficient of Variation 14.6 % (11.5-14.5); RDW Standard Deviation 48.7 fL (36.4-46.3); Red Blood Count 3.51 M/uL (4.20-5.40); White Blood Count 15.37 K/ul (4.8-10.8)
[2025-01-17 11:01] LABS: Albumin Level 3.6 gm/dl (3.4-5.0); BUN Creatinine Ratio 38.8 (10-20); Bilirubin,Total 0.4 mg/dl (0.2-1.0); Calcium 9.1 mg/dl (8.6-10.3); Creatinine Clr Calc Pharmacy 33.6 ml/min; Magnesium 2.1 mg/dl (1.7-2.4); Potassium 4.2 mmol/L (3.5-5.1); Total Protein 7.3 gm/dl (6.0-8.3)
[2025-01-17 11:02] LABS: Appearance Urine Clear (Clear); Bacteria Urine Automated 4+ (None Seen); Bilirubin Urine Negative (Negative); Blood Urine 1+ (Negative); Cast Urine Automated 0-2 /lpf (0-2); Color Urine Yellow; Epithelial Cell Urine Auto 0-2 /hpf (0-2); Glucose Urine UA Trace (Negative); Ketones Urine Negative (Negative); Leukocyte Esterase Urine Trace (Negative); Nitrite Urine Positive (Negative); Protein Urine 1+ (Negative); Specific Gravity Urine 1.019 (1.000-1.030); Urobilinogen Urine Negative (Negative)
[2025-01-17 11:07] LABS: Troponin I High Sensitivity 42.7 pg/ml (0-14)
--- NOTE | 2025-01-17 12:48 | History & Physical Report ---
Date of Service January 17, 2025 Assessment & Plan (1) Recurrent UTI: Plan: Complicated UTI Leukocytosis of 15.3 Infected appearing UA - Lactic normal No hypotension or tachycardia. She is not septic Febrile Prior urine cultures positive for E. coli, Enterococcus faecalis in 2021 Received cefepime. No history of resistant organisms. Narrow to Rocephin @ next scheduled dosing time. Follow culture sensitivities Procalcitonin normal Due to high fever and possible nausea/vomiting GI illness quad screen has also been ordered. This is pending. Patient is not hypoxic, denies shortness of breath and respiratory symptoms. No evidence of pneumonia on x-ray. If positive for flu placed on droplet precautions and add Tamiflu. No abdominal pain, flank pain, or back pain on exam to necessitate CT. She is not septic at time of admitting assessment Demand ischemia High-sensitivity troponin 42.7, repeat pending. No evidence of CHF. Suspect demand Ventricular paced rhythm on admission, tachycardic suspect with volume contraction with poor intake and UTI Patient denies chest pain at time of assessment Type II DM Hold antiglycemic's/metformin Continue bolus SSI as needed. On prior hospitalizations with conservative doses of glargine has had hyperglycemia; basal insulin has been deferred due to this. Goal BSG [id number] Chronic stable issues: Third-degree heart block: S/p pacemaker Hypertension: Continue lisinopril/amlodipine Hyperlipidemia: Continue statin Dementia: Continue memantine, Remeron. Delirium precautions DVT prophylaxis: Lovenox CODE STATUS: Full code per chart review, collateral not available at time of admission Disposition: Medical telemetry Diet: Type II DM (2) Type 2 diabetes mellitus without complication: (3) Pacemaker: (4) Non-sustained ventricular tachycardia: (5) Third degree heart block: (6) Dyslipidemia: (7) Fibromyalgia: History of Present Illness Primary Care Provider: Lucero Alves MD Cherelle is an 89-year-old female with a past medical history of NSVT, third-degree heart block s/p pacemaker, cerebral ischemia, dementia, hypertension, type II DM who presents with fever, weakness, confusion. Hx limited by dementia. Due to high fever quad screen has been ordered to screen for flu. Chest x-ray no acute findings Clear seen at the bedside. Due to dementia and mental status is not able to give any meaningful history at time of bedside visit. She has a friend at bedside who reports that per Cherelle sister Richelle she had some nausea, poor appetite, fever and possibly an episode of emesis yesterday. Cherelle reports she feels "okay ". Denies chest pain, chest pressure, shortness of breath, abdominal pain, dysuria, falls. On exam she does not grimace and has no guarding or indication of discomfort on abdominal palpation. She smiles occasionally during exam and is pleasant but mostly keeps her eyes closed and is tremulous and repeats "the Lord is good, he is good "but that does not give other meaningful history or generally answer questions more than giving affirmation/declination Call was placed to patient's sister Richelle who is reportedly her medical de cision-maker as well. Call was placed at [phone]. No answer x 2, voicemail was left for call back. Prior history shows full code, will continue this for now. Patient does not demonstrate DMC regarding her medical decisions at time of admission Sister Richelle primary phone# [phone] Medical History: Reviewed Medications: Reviewed Surgical History: Reviewed Family history: Reviewed Allergies: Reviewed Social History: Reviewed Code Status: Full code per chart review Allergies Allergy/AdvReac Type Severity Reaction Status Date / Time Sulfa (Sulfonamide Allergy Unknown Unknown Verified 09/27/24 11:41 Antibiotics) Home Medications Medication Instructions Recorded Confirmed Type melatonin 3 mg tablet 3 mg PO HS PRN Insomnia 06/21/19 01/17/25 History calcium carbonate 600 mg PO DAILY 08/17/19 01/17/25 History docusate sodium 100 mg capsule 100 mg PO BID PRN Constipation #60 08/17/19 01/17/25 History caps vit C,Z-Jy-aprhdt-lutein-zeaxan 60 1 cap PO DAILY 08/17/19 01/17/25 History mg-13.5 mg-15 mg-2 mg-6 mg capsule cholecalciferol (vitamin D3) 25 25 mcg PO DAILY 03/22/21 01/17/25 History mcg (1,000 unit) capsule mecobalamin (vitamin B12) 1,000 1,000 mcg PO DAILY 03/22/21 01/17/25 History mcg chewable tablet timolol maleate 0.25 % eye drops 1 drp OPB QAM 10/15/23 01/17/25 History omeprazole 20 mg capsule,delayed 20 mg PO DAILY #90 caps 02/09/24 01/17/25 Rx release methenamine hippurate 1 gram tablet 1 g PO BID #60 tabs 02/11/24 01/17/25 Rx memantine 10 mg tablet 10 mg PO BID 90 days #180 tabs 04/06/24 01/17/25 Rx mirtazapine 15 mg tablet 15 mg PO DAILY #90 tabs 04/20/24 01/17/25 Rx metformin 500 mg tablet 500 mg PO BID 90 days #180 tabs 07/01/24 01/17/25 Rx amlodipine 10 mg tablet 10 mg PO DAILY #90 tabs 12/28/24 01/17/25 Rx atorvastatin 40 mg tablet 40 mg PO HS 01/17/25 01/17/25 History lisinopril 40 mg tablet 40 mg PO QAM 01/17/25 01/17/25 History nystatin 100,000 unit/gram topical 1 applic topical BID PRN Other 01/17/25 01/17/25 History powder Past Med/Surg History Problem List Obstruction of left ureteropelvic junction (UPJ) Anemia Recurrent UTI Diverticular disease (Acute) Status cardiac pacemaker History of stroke Type 2 diabetes mellitus without complication Onychomycosis Medicare annual wellness visit, subsequent Pacemaker [employer] 10/2019 Non-sustained ventricular tachycardia (Acute) Third degree heart block Esophageal reflux Anxiety (Chronic) Dyslipidemia (Chronic) Fibromyalgia (Chronic) Migraine headache (Chronic) Hemiparesis (Acute) 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) Cerebral ischemia (Acute) Dementia (Chronic) Depression (Chronic) Glaucoma (Chronic) Hypertension (Chronic) Medical History Pyelonephritis of left kidney COVID-19 Fall Gross hematuria Paronychia of great toe Type 2 diabetes mellitus without complication Aspiration pneumonitis Pleural effusion, bilateral Syncope CHB (complete heart block) Ventricular tachycardia Bradycardia Esophageal reflux Shingles Anxiety Dyslipidemia Fibromyalgia Migraine headache Hemiparesis 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 Cerebral ischemia Dementia Depression Glaucoma Patella fracture Hypertension CVA (cerebral vascular accident) Surgical History Status post biventricular cardiac pacemaker insertion (10/18/19) History of cataract surgery Family History Brother Diabetes Colon cancer Prostate cancer Mother CHF (congestive heart failure) Tobacco use Sister Diabetes Glaucoma Macular degeneration Father Prostate cancer Tobacco use Pneumonia Daughter Dea disease Other Coronary heart disease Denies family history of Ovarian cancer Breast cancer Social History Smoking Status: Never smoker Second Hand Exposure: No; Do You Dip or Chew Tobacco: No; Hx Alcohol Use: No Hx Substance Use: No Preferred Language: Swiss Communication Ability: Effective Communication Ability Comment: Hé[employer] [place] Required: No Beliefs That Will Affect Care: None marital status: marital status details: previously twice Current Living Situation: Family Current Living Situation Comment: lives w/ sisters (2) + niece current occupational status: 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 No acute distress. Follows some commands, limited historian HEENT: Atraumatic, normocephalic. Vision and hearing grossly intact. Mucous membranes dry Pulm: Diminished but grossly clear symmetrical chest rise. No increased work of breathing. No respiratory distress. Cardiac: RRR, -mrg. Radial pulses intact and symmetrical. Abdominal: Nontender, nondistended, soft. Extremities: Warm, dry Results & Data Results & Data Vital Signs (Past 12 Hours) Vital Signs Temp Pulse Pulse Resp BP BP Pulse Ox 01/17/25 12:00 37.6 C H 84 18 134/50 L 96 01/17/25 10:28 37.6 C H 94 H 18 139/74 96 01/17/25 10:00 37.7 C H 97 H 18 165/84 H 96 01/17/25 09:41 96 01/17/25 09:05 75 01/17/25 09:03 79 21 151/64 H 95 01/17/25 08:45 38.4 C H 73 23 151/64 H 96 O2 Del Method 01/17/25 12:00 Room Air 01/17/25 10:28 Room Air 01/17/25 10:00 Room Air 01/17/25 09:41 Room Air 01/17/25 09:05 01/17/25 09:03 Room Air 01/17/25 08:45 Room Air PG Care Time/CCT Total # of Minutes Spent Total Time Spent with Patient: Total time spent is greater than 50% in coordination of care (as documented) at patient's floor/unit and/or counseling patient: Coding Level of Care Code 31174 INT INP/OBS CARE 3/75MIN Diagnoses Recurrent UTI N39.0 Type 2 diabetes mellitus without complication E11.9 Pacemaker Z95.0 Non-sustained ventricular tachycardia I47.2 Third degree heart block I44.2 Dyslipidemia E78.5 Fibromyalgia M79.7
[2025-01-17] MEDS: LACTATED RINGER'S 1,000 ML IV SCH (13:14)
[2025-01-17 14:17] LABS: Influenza A virus by PCR Negative (Neg); Influenza B virus by PCR Negative (Neg); RSV by PCR Negative (Neg); SARS CoV2 RNA(COVID-19) Ceph NEGATIVE (Negative)
[2025-01-17] MEDS ORDERED: CHLORASEPTIC (PHENOL) 1.4% SOLN 180 ML BTL MT PRN (14:38)
--- NOTE | 2025-01-17 14:44 | Electrocardiogram Report ---
Test Reason : Blood Pressure : */* mmHG Vent. Rate : 122 BPM Atrial Rate : 129 BPM P-R Int : * ms QRS Dur : 152 ms QT Int : 370 ms P-R-T Axes : * -4 -62 degrees QTcB Int : 527 ms Ventricular-paced rhythm consider pacemaker-mediated tachycardia or SVT Abnormal ECG When compared with ECG of 14-Oct-2023 19:01, Vent. rate has increased by 9 bpm Confirmed by Kelby Palmer ([id number] on 01/17/2025 2:43:54 PM Referred By: Confirmed By: Kelby Palmer
[2025-01-17] MEDS ORDERED: PHARMACY GLYCEMIC MGMT CONSULT PRN (15:22)
[2025-01-17] MEDS ORDERED: GLUCOSE 10 TAB/TUBE PO PRN (15:22)
[2025-01-17] MEDS ORDERED: DOCUSATE SODIUM 100 MG CAP PO PRN (15:22)
[2025-01-17] MEDS ORDERED: GLUCAGON FOR INJ 1 MG VIAL SQ PRN (15:22)
[2025-01-17] MEDS ORDERED: GLUCOSE 40% GEL 15 GM TUBE PO PRN (15:22)
[2025-01-17] MEDS ORDERED: CARBOHYDRATES FOR HYPOGLYCEMIA PO PRN (15:22)
[2025-01-17] MEDS ORDERED: DEXTROSE 50% 50 ML SYRINGE IV PRN (15:22)
[2025-01-17] MEDS: ENOXAPARIN INJ 40 MG/0.4 ML SYR SQ SCH (16:22)
[2025-01-17] MEDS: INSULIN ASPART PER UNIT CHARGE SC SCH (17:46)
[2025-01-17] MEDS: ACETAMINOPHEN 325 MG TAB PO PRN (19:52)
[2025-01-17] MEDS: MEMANTINE HCL 10 MG TAB PO SCH (19:52)
[2025-01-17] MEDS: ATORVASTATIN 40 MG TAB PO SCH (19:52)
[2025-01-17] MEDS: MELATONIN 3 MG TAB PO PRN (19:52)
--- NOTE | 2025-01-18 06:15 | Emergency Department Note ---
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 tach, dementia, carotid artery occlusion with history of stroke, hypertension and UTI presents emergency department with complaints of altered mental status and was noted to be febrile by EMS. Patient is unable to give any additional report. 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 REVIEW OF SYSTEMS: A review of systems was performed with positives and pertinent negatives listed in the history of present illness. 10 systems were reviewed and are otherwise negative. ALLERGIES: see below MEDICATIONS: see below PMH: see below SOCIAL HISTORY: see below DDx: Viral syndrome, pneumonia, UTI, metabolic abnormality, intracranial hemorrhage, intracranial mass, stroke, electrolyte abnormality, dehydration among others. PHYSICAL EXAM: Vital signs reviewed. Noted to be febrile General: Elderly, chronically ill-appearing 89-year-old female, in no distress but altered HEENT: No conjunctival injection. Dry mucous membranes Cardiovascular: Regular rate and rhythm, no extra sounds. Pulmonary: Clear to auscultation bilaterally, normal work of breathing. Abdomen: Soft, nontender, nondistended, positive bowel sounds. Musculoskeletal: Atraumatic, no peripheral edema. Neurologic: Patient awake, unable to answer questions appropriately. Confused and unable to answer questions regarding year and current location. Skin: Warm, dry, no rash EMERGENCY DEPARTMENT COURSE/MDM: This patient was evaluated and appeared to be in no significant distress. IV access was obtained and laboratory work was drawn. The patient was placed on satellite project site monitor noted to be in a paced rhythm. She was given 1 g of IV Tylenol and hydrated with normal saline solution. Laboratory work reveals a leukocytosis. UA is concerning for infection and will be sent for culture. The patient was given 2 g of IV cefepime after blood cultures were obtained. Lactate and procalcitonin are normal. High-sensitivity troponin is slightly elevated at 42. She does have a chronically elevated troponin. The case was discussed with the hospitalist service to evaluate the patient for admission and further management. MONITORING: An order for cardiac monitoring was placed and the patient is noted to be in a normal sinus rhythm at 94 beats per minute. RADIOLOGY: Chest x-ray to my interpretation reveals no evidence of focal consolidation. Head CT per radiology: IMPRESSION: 1. No acute intracranial findings. No significant change in appearance of the brain. 2. Sphenoid and ethmoid sinus opacification, as described above. EKG: To my interpretation reveals a ventricularly paced rhythm at 122 bpm. QTc of 527. No acute ischemic change is apparent. DISPOSITION: Admission Past Med/Surg History Problem List (Updated 01/18/25 @ 06:32 by Jess Santos MD) Fever (Acute) UTI (urinary tract infection) (Acute) AMS (altered mental status) (Acute) Obstruction of left ureteropelvic junction (UPJ) Anemia Recurrent UTI Diverticular disease (Acute) Status cardiac pacemaker History of stroke Type 2 diabetes mellitus without complication Onychomycosis Medicare annual wellness visit, subsequent Pacemaker [employer] 10/2019 Non-sustained ventricular tachycardia (Acute) Third degree heart block Esophageal reflux Anxiety (Chronic) Dyslipidemia (Chronic) Fibromyalgia (Chronic) Migraine headache (Chronic) Hemiparesis (Acute) 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) Cerebral ischemia (Acute) Dementia (Chronic) Depression (Chronic) Glaucoma (Chronic) Hypertension (Chronic) Medical History Pyelonephritis of left kidney COVID-19 Fall Gross hematuria Paronychia of great toe Type 2 diabetes mellitus without complication Aspiration pneumonitis Pleural effusion, bilateral Syncope CHB (complete heart block) Ventricular tachycardia Bradycardia Esophageal reflux Shingles Anxiety Dyslipidemia Fibromyalgia Migraine headache Hemiparesis 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 Supervisor Required: No Beliefs That Will Affect Care: None marital status: marital status details: previously twice Current Living Situation: Alone Current Living Situation Comment: lives w/ sisters (2) + niece current occupational status: retired 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 [employer] How many Children do You have: 2 How many Children do You have Comment: sons Feels Safe at Home: Yes Diet: regular caffeine: Yes Physical Activity Frequency: Does not Exercise Seatbelt Use: always Assistive Devices: Bedside Commode, Walker and Wheelchair Allergies Allergies Allergy/AdvReac Type Severity Reaction Status Date / Time Sulfa (Sulfonamide Allergy Unknown Unknown Verified 09/27/24 11:41 Antibiotics) Home Meds Home Medications Medication Instructions Recorded Confirmed melatonin 3 mg tablet 3 mg PO HS PRN Insomnia 06/21/19 01/17/25 calcium carbonate 600 mg PO DAILY 08/17/19 01/17/25 docusate sodium 100 mg capsule 100 mg PO BID PRN Constipation #60 08/17/19 01/17/25 caps vit C,I-Yf-ixdaij-lutein-zeaxan 60 1 cap PO DAILY 08/17/19 01/17/25 mg-13.5 mg-15 mg-2 mg-6 mg capsule cholecalciferol (vitamin D3) 25 25 mcg PO DAILY 03/22/21 01/17/25 mcg (1,000 unit) capsule mecobalamin (vitamin B12) 1,000 1,000 mcg PO DAILY 03/22/21 01/17/25 mcg chewable tablet timolol maleate 0.25 % eye drops 1 drp OPB QAM 10/15/23 01/17/25 atorvastatin 40 mg tablet 40 mg PO HS 01/17/25 01/17/25 lisinopril 40 mg tablet 40 mg PO QAM 01/17/25 01/17/25 nystatin 100,000 unit/gram topical 1 applic topical BID PRN Other 01/17/25 01/17/25 powder Previous Rx's Medication Instructions Recorded omeprazole 20 mg capsule,delayed 20 mg PO DAILY #90 caps 02/09/24 release methenamine hippurate 1 gram tablet 1 g PO BID #60 tabs 04/10/24 memantine 10 mg tablet 10 mg PO BID 90 days #180 tabs 04/06/24 mirtazapine 15 mg tablet 15 mg PO DAILY #90 tabs 04/20/24 metformin 500 mg tablet 500 mg PO BID 90 days #180 tabs 07/01/24 amlodipine 10 mg tablet 10 mg PO DAILY #90 tabs 12/28/24 Results & Data (ED) Vital Signs Vital Signs - 24 hr 01/17/25 08:45 01/17/25 09:03 01/17/25 09:05 Temperature 38.4 C H Temperature Source Oral Pulse Rate 73 75 Pulse Rate [Apical] 79 Pulse Rhythm Regular Pulse Strength Normal Pulse Strength [Apical] Respiratory Rate 23 21 Respiratory Effort / Characteristics Respiratory Depth Normal Normal Respiratory Pattern Regular Blood Pressure 151/64 H Blood Pressure [Right Arm] 151/64 H Blood Pressure Mean 93 Blood Pressure Mean [Right Arm] 93 Pulse Oximetry 96 95 Oxygen Delivery Method Room Air Room Air Sepsis Recent Fever Within 48 Hours Yes Sepsis New/Unexplained Change in Mental Status Yes Sepsis Action Taken by Nursing Physician Notified 01/17/25 09:41 01/17/25 10:00 01/17/25 10:28 Temperature 37.7 C H 37.6 C H Temperature Source Oral Oral Pulse Rate Pulse Rate [Apical] 97 H 94 H Pulse Rhythm Pulse Strength Pulse Strength [Apical] Normal Normal Respiratory Rate 18 18 Respiratory Effort / Characteristics Non-Labored Spontaneous Non-Labored Spontaneous Respiratory Depth Normal Normal Respiratory Pattern Regular Regular Blood Pressure Blood Pressure [Right Arm] 165/84 H 139/74 Blood Pressure Mean Blood Pressure Mean [Right Arm] 111 95 Pulse Oximetry 96 96 96 Oxygen Delivery Method Room Air Room Air Room Air Sepsis Recent Fever Within 48 Hours Sepsis New/Unexplained Change in Mental Status Sepsis Action Taken by Nursing 01/17/25 12:00 01/17/25 13:03 Temperature 37.6 C H 37.2 C Temperature Source Oral Oral Pulse Rate Pulse Rate [Apical] 84 72 Pulse Rhythm Pulse Strength Pulse Strength [Apical] Normal Normal Respiratory Rate 18 19 Respiratory Effort / Characteristics Non-Labored Spontaneous Non-Labored Spontaneous Respiratory Depth Normal Normal Respiratory Pattern Regular Blood Pressure Blood Pressure [Right Arm] 134/50 L 130/51 L Blood Pressure Mean Blood Pressure Mean [Right Arm] 78 77 Pulse Oximetry 96 99 Oxygen Delivery Method Room Air Room Air Sepsis Recent Fever Within 48 Hours Sepsis New/Unexplained Change in Mental Status Sepsis Action Taken by Longterm Medications Current Medication List: was personally reviewed by me Laboratory Data Attestation: I reviewed the patient's lab results. 01/17/25 10:20 01/17/25 10:20 Lab Results 01/17/25 01/17/25 01/17/25 Range/Units 10:20 12:40 12:46 WBC 15.37 H (4.8-10.8) K/ul RBC 3.51 L (4.20-5.40) M/uL Hgb 10.0 L (12.0-16.0) g/dl Hct 32.0 L (37.0-47.0) % MCV 91.2 (80.0-100.0) fL MCH 28.5 (25.0-34.0) pg MCHC 31.3 L (32.0-36.0) g/dL RDW Std Deviation 48.7 H (36.4-46.3) fL RDW Coeff of Vinh 14.6 H (11.5-14.5) % Plt Count 254 (130-400) K/uL MPV 10.2 (9.4-12.4) fL Immature Gran % (Auto) 0.6 % Neut % (Auto) 80.4 % Lymph % (Auto) 10.9 % Finney % (Auto) 7.7 % Eos % (Auto) 0.1 % Baso % (Auto) 0.3 % Neut # (Auto) 12.36 H (1.40-6.50) K/uL Lymph # (Auto) 1.68 (1.20-3.40) K/uL Finney # (Auto) 1.18 H (0.11-0.59) K/uL Eos # (Auto) 0.02 (0.00-0.50) K/uL Baso # (Auto) 0.04 (0.00-0.20) K/uL Immature Gran # (Auto) 0.09 (0.01-0.20) K/uL Sodium 140 (136-145) mmol/L Potassium 4.2 (3.5-5.1) mmol/L Chloride 108 H (98-107) mmol/L Carbon Dioxide 26 (21-32) mmol/L Anion Gap 6 (3-11) BUN 40 H (6-23) mg/dl Creatinine 1.03 (0.6-1.2) mg/dl Est Cr Clr Drug Dosing 33.6 ml/min eGFR 52.63 BUN/Creatinine Ratio 38.8 H (10-20) Glucose 255 H (70-99(Fasting)) mg/dl Lactate 1.8 (0.4-2.0) mmol/L Calcium 9.1 (8.6-10.3) mg/dl Magnesium 2.1 (1.7-2.4) mg/dl Total Bilirubin 0.4 (0.2-1.0) mg/dl Direct Bilirubin 0.0 (0-0.2) mg/dl AST 16 (13-39) U/L ALT 12 (7-52) U/L Alkaline Phosphatase 101 (34-104) U/L Troponin I High Sens 42.7 H 43.2 H (0-14) pg/ml Total Protein 7.3 (6.0-8.3) gm/dl Albumin 3.6 (3.4-5.0) gm/dl Procalcitonin 0.11 (0-0.5) ng/ml SARS-CoV-2 (PCR) NEGATIVE (Negative) Influenza Type A (PCR) Negative (Neg) Influenza Type B (PCR) Negative (Neg) RSV (RT-PCR) Negative (Neg) Administered Medications Acetaminophen (Acetaminophen 325 Mg Tab) 650 mg PO Q4H PRN PRN Reason: Pain or Fever Stop: 02/16/25 15:21 Last Admin: 01/17/25 19:52 Dose: 650 mg Documented By: AES Atorvastatin Calcium (Atorvastatin 40 Mg Tab) 40 mg PO HS [place] Stop: 02/16/25 20:59 Last Admin: 01/17/25 19:52 Dose: 40 mg Documented By: AES Enoxaparin Sodium (Enoxaparin Inj 40 Mg/0.4 Ml Syr) 40 mg SQ Q24H [place] Stop: 02/16/25 15:59 Last Admin: 01/17/25 16:22 Dose: 40 mg Documented By: [facility] Lactated Ringer's (Lr) 1,000 mls @ 80 mls/hr IV .[id number] [place] Stop: 01/18/25 13:14 Last Admin: 01/18/25 03:58 Dose: 80 mls/hr Documented By: Infusion: 01/18/25 01:44 Dose: Infused Documented By: Admin: 01/17/25 13:14 Dose: 80 mls/hr Documented By: COSTA Insulin Aspart (Insulin Aspart Per Unit Charge) 0 units SC ACHS [facility] Stop: 02/16/25 16:29 Last Admin: 01/17/25 20:03 Dose: 1 units Documented By: KRUNAL Co-signed By: KEMAL Admin: 01/17/25 17:46 Dose: 1 units Documented By: PASTORA Co-signed By: NANCY Melatonin (Melatonin 3 Mg Tab) 3 mg PO HS PRN PRN Reason: Insomnia Stop: 02/16/25 15:21 Last Admin: 01/17/25 19:52 Dose: 3 mg Documented By: KRUNAL Memantine (Memantine Hcl 10 Mg Tab) 10 mg PO BID [place] Stop: 02/16/25 20:59 Last Admin: 01/17/25 19:52 Dose: 10 mg Documented By: KRUNAL Discontinued Medications Sodium Chloride (Nss) 1,000 mls @ 999 mls/hr IV .Q1H1M [facility] Stop: 01/17/25 10:00 Last Infusion: 01/17/25 10:11 Dose: Infused Documented By: Admin: 01/17/25 09:08 Dose: 999 mls/hr Documented By: COSTA Acetaminophen (Ofirmev) 1,000 mg in 100 mls @ 400 mls/hr IV NOW STA Stop: 01/17/25 09:09 Last Infusion: 01/17/25 10:11 Dose: Infused Documented By: Admin: 01/17/25 09:10 Dose: 400 mls/hr Documented By: COSTA Cefepime HCl (Maxipime 2000mg) 2,000 mg in 20 mls @ 5 mls/min IV NOW STA; Protocol Stop: 01/17/25 08:58 Last Admin: 01/17/25 10:27 Dose: 5 mls/min Documented By: COSTA Imaging Data Radiologist's Impression: Chest X-Ray 01/17/25 08:54 XR chest 1V portable CLINICAL HISTORY: Sepsis COMPARISON STUDY: 10/14/2023 FINDINGS: Stable pacemaker. Stable cardiomegaly without pulmonary vascular congestion. Inspiration is shallow. No effusion, consolidation, or pneumothorax. Stable old fracture proximal left humerus. IMPRESSION: No acute findings. ACT 112: Negative or not required by law. Electronically signed by: Ralph Mack M.D. 01/17/2025 9:[address] 01/17/25 09:03 CT OF THE HEAD WITHOUT CONTRAST CLINICAL HISTORY: Altered mental status. COMPARISON STUDY: Head CT October 14, 2023. CT DOSE: 625.8 mGy.cm TECHNIQUE: Helical axial images of the head were obtained without IV contrast. Automated exposure control was utilized for the study. A dose lowering technique was utilized adhering to the principles of ALARA. FINDINGS: No acute intracranial hemorrhage, midline shift or mass effect is present. Ventricular system is stable. The basal cisterns are patent. There are no extra-axial collections. White matter hypodensities are unchanged. 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 There are no findings to suggest acute dural sinus thrombosis or acute territorial infarct. There are no calvarial fractures. Right sphenoid sinus is largely opacified and contains secretions. Similar findings were shown on prior CT. There are also secretions within the left sphenoid sinus. There is mild ethmoid sinus mucosal thickening. IMPRESSION: 1. No acute intracranial findings. No significant change in appearance of the brain. 2. Sphenoid and ethmoid sinus opacification, as described above. ACT 112: Negative or not required by law. Electronically signed by: Genaro Encinas M.D. 01/17/2025 9:43 AM Discharge Plan Visit Data Chief Complaint: Urinary Symptoms ED Provider: Jess Santos Discharge Problem: AMS (altered mental status), UTI (urinary tract infection), Fever Patient Disposition: Admitted As Inpatient Discharge Instructions Interventions: ED Discharge Assessment Last Done: 01/17/25 14:59 Discharge Problem: AMS (altered mental status) Qualifiers: Altered mental status type: delirium Qualified Code(s): R41.0 - Disorientation, unspecified UTI (urinary tract infection) Qualifiers: Urinary tract infection type: acute cystitis Hematuria presence: without hematuria Qualified Code(s): N30.00 - Acute cystitis without hematuria Fever Qualifiers: Fever type: unspecified Qualified Code(s): R50.9 - Fever, unspecified
--- NOTE | 2025-01-18 08:04 | Hospitalist Progress Note ---
Date of Service January 18, 2025 Assessment & Plan (1) Recurrent UTI: (2) Type 2 diabetes mellitus without complication: (3) Pacemaker: (4) Non-sustained ventricular tachycardia: (5) Third degree heart block: (6) Dyslipidemia: (7) Fibromyalgia: Plan 89yo F presented with fever, weakness, confusion along with poor appetite, nausea and possible emesis x 1.(Hx limited by dementia). UA concerning for UTI Lactic wnl. No hypotension/tachycardia or sepsis. Procal wnl. Flu/RSV/COVID negative. CXR w/o acute process #Complicated UTI -- suspected cause for fever/weakness/confusion/Metabolic encephalopathy Cefepime given in ER WBC 15k on admission w infected appearing UA and temp 38.4C --> Repeat WBC 16k, temp 37.3C this morning Continue Ceftriaxone IV, noting 1st dose not til AM 01/18 and ?cause for WBC co ntinue elevation Urine cx ecoli on preliminary, monitor final cx/sensitivities Blood cultures pending from ER on admission -- follow LR @80cc/hr and BUN/Cr elevated 40/1.03 on admission and improved to 20/0.81 on repeat Tylenol 1gm IV q8h prn - RN to provide NOW for back pain suspect 2nd to UTI and will monitor. +BM 01/18 as well, monitor for issues Speech consulted, aspiration precautions. PT/OT consults pending Monitor labs, exam on repeat #Demand ischemia Trop 42.7 on admission with repeat 43.2 suspected 2nd to demand ischemia. Paced on monitor and denies CP at this time. Pacemaker interrogation has been ordered and remains paced on email campaign specialist for any issues #Type II DM Only on metformin at baseline -- prior hospitalization with conservative glargine caused hyperglycemia Basal deferred due to this, did hold AM dose 01/18 for poor PO intake and can continue for BSG 200s this afternoon/monitor Chronic stable issues: Third-degree heart block: S/p pacemaker in place and interrogation has been ordered Hypertension: BP stable. Continue lisinopril/amlodipine as able but unable to give PO this morning and Hydralazine IV has been ordered HLD: continues on statin Dementia: continues on memantine, remeron. Delirium precautions/prevention strategies to be in place DVT proph: lovenox SQ while inpatient Dispo: continued inpatient stay on IV abx, IVF, monitoring urine cx. Therapy evals pending and CM to follow for possible SNF/rehab prior to return prior living situation Admission and Anticipated Discharge Date Admission Date: January 17, 2025 Supervising Physician Co-Signing Physician Notes The patient was not seen by me. The chart was reviewed. Case discussed with EVELIN Brand. Agree with assessment and plan Subjective Eval this morning, resting in bed, Having some L lower back pain, RN to administer Tylenol. Had some pocketing of meds this morning, reports poor appetite at present. No significant abdominal pain but does have some pain to flank and suprapubic region. Speech consult placed. Remains on abx, urine cx pending. Denies any chest pain, shortness of breath, nausea/vomiting at this time. Physical Exam Physical Exam: General: 89yo female sitting in bed, reporting RIGHT lower back pain/flank pain and suprapubic discomfort, mild distress (RN to provide dose tylenol) HEENT: head atraumatic, normocephalic, mm dry, trachea midline Resp: even/unlabored, slightly diminished in the bases but no wheezing/rales, on room air CV: paced on telemetry, no pitting edema/calf tenderness GI: +BS, slight distension, +tenderness R flank/R CVA, no rigidity/guarding : purewick draining slightly cloudy/yellow urine MSK/Neuro: nonfocal, no slurred speech/facial droop but +dementia at baseline Psych: alert to person, not place/time/events but cooperative with exam Results & Data Results & Data Vital Signs (Past 12 Hours) Vital Signs Temp Pulse Pulse Resp BP Pulse Ox O2 Del Method 01/18/25 07:49 37.7 C H 87 20 162/77 H 92 Room Air 01/18/25 07:18 86 01/18/25 02:41 36.3 C L 93 H 18 136/84 99 Room Air 01/18/25 02:38 Room Air 01/18/25 02:36 82 01/17/25 23:27 36.3 C L 88 18 111/53 L 96 Room Air Diagnostic Findings Chest X-Ray 01/17/25 08:54 XR chest 1V portable CLINICAL HISTORY: Sepsis COMPARISON STUDY: 10/14/2023 FINDINGS: Stable pacemaker. Stable cardiomegaly without pulmonary vascular congestion. Inspiration is shallow. No effusion, consolidation, or pneumothorax. Stable old fracture proximal left humerus. IMPRESSION: No acute findings. ACT 112: Negative or not required by law. Electronically signed by: Ralph Mack M.D. 01/17/2025 9:[address] 01/17/25 09:03 CT OF THE HEAD WITHOUT CONTRAST CLINICAL HISTORY: Altered mental status. COMPARISON STUDY: Head CT October 14, 2023. CT DOSE: 625.8 mGy.cm TECHNIQUE: Helical axial images of the head were obtained without IV contrast. Automated exposure control was utilized for the study. A dose lowering technique was utilized adhering to the principles of ALARA. FINDINGS: No acute intracranial hemorrhage, midline shift or mass effect is present. Ventricular system is stable. The basal cisterns are patent. There are no extra-axial collections. White matter hypodensities are unchanged. 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 There are no findings to suggest acute dural sinus thrombosis or acute territorial infarct. There are no calvarial fractures. Right sphenoid sinus is largely opacified and contains secretions. Similar findings were shown on prior CT. There are also secretions within the left sphenoid sinus. There is mild ethmoid sinus mucosal thickening. IMPRESSION: 1. No acute intracranial findings. No significant change in appearance of the brain. 2. Sphenoid and ethmoid sinus opacification, as described above. ACT 112: Negative or not required by law. Electronically signed by: Genaro Encinas M.D. 01/17/2025 9:43 AM PG Care Time/CCT Total # of Minutes Spent Total Time Spent with Patient: Total time spent is greater than 50% in coordination of care (as documented) at patient's floor/unit and/or counseling patient: Coding Level of Care Code 02470 SUB INP/OBS CARE 3/50MIN Diagnoses Recurrent UTI N39.0 Type 2 diabetes mellitus without complication E11.9 Pacemaker Z95.0 Non-sustained ventricular tachycardia I47.2 Third degree heart block I44.2 Dyslipidemia E78.5 Fibromyalgia M79.7
[2025-01-18 08:20] LABS: Basophils # (auto) 0.05 K/uL (0.00-0.20); Basophils % (auto) 0.3 %; Eosinophils # (auto) 0.02 K/uL (0.00-0.50); Eosinophils % (auto) 0.1 %; Hematocrit (blood only) 31.2 % (37.0-47.0); Immature Granulocytes # (auto) 0.08 K/uL (0.01-0.20); Immature Granulocytes % (auto) 0.5 %; Lymphocytes # (auto) 4.05 K/uL (1.20-3.40); Mean Corpuscular Hgb Conc 32.1 g/dL (32.0-36.0); Mean Corpuscular Volume 90.4 fL (80.0-100.0); Mean Platelet Volume 10.4 fL (9.4-12.4); Monocytes # (auto) 1.36 K/uL (0.11-0.59); Monocytes % (auto) 8.4 %; Neutrophils # (auto) 10.62 K/uL (1.40-6.50); Neutrophils % (auto) 65.7 %; Platelet Count 252 K/uL (130-400); RDW Coefficient of Variation 14.6 % (11.5-14.5); RDW Standard Deviation 48.6 fL (36.4-46.3); Red Blood Count 3.45 M/uL (4.20-5.40); White Blood Count 16.18 K/ul (4.8-10.8)
[2025-01-18] MEDS: amLODIPine BESYLATE 5 MG TAB PO SCH (08:33)
[2025-01-18] MEDS: CYANOCOBALAMIN (B-12) 500 MCG TABLET PO SCH (08:33)
[2025-01-18] MEDS: PANTOprazole 40 MG TAB PO SCH (08:33)
[2025-01-18] MEDS: CEROVITE ADV FORMULA TAB PO SCH (08:34)
[2025-01-18] MEDS: TIMOLOL MALEATE 0.25% OP SOLN 5 ML BTL OPB SCH (08:34)
[2025-01-18] MEDS: CALCIUM CARBONATE 1250MG TAB PO SCH (08:34)
[2025-01-18] MEDS: MIRTAZAPINE TAB 15 MG TAB PO SCH (08:34)
[2025-01-18] MEDS: lisinopril 40 MG TAB PO SCH (08:34)
[2025-01-18] MEDS: CHOLECALCIFEROL 25 MCG (1000 UNITS) TAB PO SCH (08:34)
[2025-01-18 08:39] LABS: BUN Creatinine Ratio 24.7 (10-20); Calcium 9.4 mg/dl (8.6-10.3); Creatinine Clr Calc Pharmacy 43.1 ml/min
--- NOTE | 2025-01-18 08:52 | Pharmacy Report ---
Pharmacy Glycemic Short Note 2 - Date of Service January 18, 2025 - Glycemic Short BSG Results (Last 24 hours): 01/17/25 01/17/25 01/17/25 10:20 17:06 19:51 Glucose 255 H POC Glucose 202 H 215 H 01/18/25 01/18/25 07:12 08:37 Glucose 176 H POC Glucose 178 H OUTPATIENT ANTIDIABETIC REGIMEN: * Metformin 500 mg PO BIDM HbA1c: ordered for 01/18/25 ASSESSMENT: * SYLVIA is an 89 year old female who presented to ED via EMS on 01/17/25 due to altered mental status and fever * Ceftriaxone started for suspected recurrent UTI (cultures currently pending) * Pharmacy consulted for glycemic management due to hyperglycemia on presentation (blood glucose > 250 mg/dL) * Will be conservative with insulin dosing at this time given advanced age/comorbidities in insulin naive patient * Lunch blood glucose of 235 mg/dL, morning Novolog held by hospitalist - will keep current Novolog parameters PLAN FOR INPATIENT GLYCEMIC CONTROL: * Hold outpatient oral diabetes medications * Basal insulin * hold basal at this time * Bolus insulin * NovoLog per scale ACHS or Q6hrs while NPO * Goal Range: Low 120 mg/dL - High 160 mg/dL * Correction Factor: 35 mg/dL/unit * Nutritional / Prandial insulin per carb ratio of 1 unit per 15 grams CHO consumed
[2025-01-18] MEDS ORDERED: hydrALAZINE HCL 20 MG/ML VIAL IV PRN (08:59)
[2025-01-18] MEDS: cefTRIAXone SODIUM 1,000 MG/50 ML BAG IV SCH (09:02)
[2025-01-18] MEDS: ACETAMINOPHEN 1,000 MG/100 ML VIAL IV PRN (11:14)
[2025-01-18 14:28] LABS: Estimated Average Glucose 177 mg/dl; Hemoglobin A1C 7.8 % (4.5-5.6)
[2025-01-18 15:56] LABS: A calco-baum cmplx NotReported Not Detected (NotDetected); Bact fragilis Not Reported Not Detected (NotDetected); Blood Culture Id Panel PCR Panel Negative (NotDetected); C auris Not Reported Not Detected (NotDetected); Calbicans Not Reported Not Detected (NotDetected); Candida glabrata Not Reported Not Detected (NotDetected); Candida krusei Not Reported Not Detected (NotDetected); Cneoformans/gatti Not Reported Not Detected (NotDetected); Cparapsilosis Not Reported Not Detected (NotDetected); E cloacae compx Not Reported Not Detected (NotDetected); Efaecalis Not Reported Not Detected (NotDetected); Efaecium Not Reported Not Detected (NotDetected); Enterobacterales Not Reported Not Detected (NotDetected); Escherichia coli Not Reported Not Detected (NotDetected); H influenzae Not Reported Not Detected (NotDetected); K aerogenes Not Reported Not Detected (NotDetected); Koxytoca Not Reported Not Detected (NotDetected); Kpneumoniae grp Not Reported Not Detected (NotDetected); Lmonocyt Not Reported Not Detected (NotDetected); N meningitidis Not Reported Not Detected (NotDetected); P aeruginosa Not Reported Not Detected (NotDetected); Proteus spp Not Reported Not Detected (NotDetected); Salmonella spp Not Reported Not Detected (NotDetected); Staph lugdunensis Not Reported Not Detected (NotDetected); Staph spp. Not Reported Not Detected (NotDetected); Staphaureus Not Reported Not Detected (NotDetected); Staphepi Not Reported Not Detected (NotDetected); Stenmaltophilia Not Reported Not Detected (NotDetected); Strep agal(GrpB) Not Reported Not Detected (NotDetected); Strep pneum Not Reported Not Detected (NotDetected); Strep pyog (GrpA) Not Reported Not Detected (NotDetected); Strep spp Not Reported Not Detected (NotDetected)
[2025-01-18] MEDS: KETOROLAC TROMETHAMINE 15 MG/ML VIAL IV ONE (18:07)
[2025-01-18] MEDS: D5W AND 1/2NSS 1,000 ML IV SCH (18:40)
--- NOTE | 2025-01-19 07:58 | Hospitalist Progress Note ---
Date of Service January 19, 2025 Assessment & Plan (1) Recurrent UTI: (2) Type 2 diabetes mellitus without complication: (3) Pacemaker: (4) Non-sustained ventricular tachycardia: (5) Third degree heart block: (6) Dyslipidemia: (7) Fibromyalgia: Plan 89yo F presented with fever, weakness, confusion along with poor appetite, nausea and possible emesis x 1.(Hx limited by dementia). WBC 15k, temp 38.4C. Lactic wnl. No hypotension/tachycardia or sepsis. Procal wnl. Flu/RSV/COVID negative. CXR w/o acute process UA concerning for UTI Cefepime given in ER #Complicated UTI-- suspected cause for fever/weakness/confusion/Metabolic encephalopathy in patient w/ underlying dementia per most recent PCP notes Ceftriaxone IV continued (day 2) Urine cx ecoli, Aerococcus urinae- discussed w/ pharmacy and should be covered w/ CTX and will continue Blood cx 1/4 bottles GNR but ID PCR negative and suspected contaminant but will monitor WBC 12.8k, no further temp overnight but does have again this afternoon 38.2C and IV Tylenol being provided. Did get one time dose ibuprofen on 01/18 as was not yet due IVF for poor PO intake, BUN/Cr improved but still at times with issues and additional 500cc NS for today Continue pureed diet, aspiration precautions. Speech on consult PT/OT consults pending but suspect needing SNF/rehab prior to returning to prior level of living however per CM notes appears family wanting to take her home. #Demand ischemia Trop 42.7 on admission with repeat 43.2 suspected 2nd to demand ischemia. Paced on monitor and denies CP at this time. Pacemaker interrogation has been ordered and remains paced on radiation oncology nurse for any issues #Type II DM Only on metformin at baseline -- prior hospitalization with conservative glargine caused hyperglycemia Basal deferred due to this, did hold AM dose 01/18 for poor PO intake and can continue for BSG 200s this afternoon/monitor Chronic stable issues: Third-degree heart block: S/p pacemaker in place and interrogation has been ordered Hypertension: BP stable. Continue lisinopril/amlodipine as able but unable to give PO this morning and Hydralazine IV has been ordered HLD: continues on statin Dementia: continues on memantine, remeron. Delirium precautions/prevention strategies to be in place. Per sister, alert to person/place at baseline but not year/date typically Hx CAD in the past, aspirin has been resumed daily. Prior use eliquis for DVT but confirmed with sister Cady she is no longer on this DVT proph:Lovenox SQ while inpatient, PPI once daily (IV to ensure getting). Venous dopplers given hx of DVT but no concerns for PE given no hypoxia/hypotension and ECHO w/o elevated RVSP or RV dilatation. Dispo: continued inpatient stay on IV abx and monitor final blood cultures to ensure contaminant. Possible transition to PO abx in AM if blood cx remain negative PT/OT evals rec rehab, however I reached out to sister Richelle and preference is to get patient home. Hopefully in next 24-48 hrs pending reponse Admission and Anticipated Discharge Date Admission Date: January 17, 2025 Supervising Physician Co-Signing Physician Notes The patient was not seen by me. The chart was reviewed. Case discussed with EVELIN Brand. Agree with assessment and plan Subjective Eval this morning, resting in bed. Reports feeling MUCH better. No significant back/flank pain today. Remains on antibiotics. Ate some breakfast, per nursing took about 5 bites of oatmeal, did order boost. Took pills this morning but did spit some back out. Remains on modified diet. Alert to person, intermittent to place but not event/time at present and will continue to monitor. Slightly dry on appearance but avoiding IVF for now and will monitor. No further fevers. Denies CP/SOB. Questions/concerns addressed at this time. Updated sister via phone -- does fruits and protein powders in a shakes when she isn't eating well. We are to provide boost. Richelle reported was eating well mashed potatoes about 2 days prior to admission. Physical Exam 2 Physical Exam: General: 89yo female resting in bed, reports feeling better, no further L flank pain on exam, NAD HEENT: head atraumatic, normocephalic, mm slightly dry but improved, trachea midline Resp: even/unlabored, slightly diminished in the bases but no wheezing/rales, on room air 96% CV: paced on telemetry, rates improved, trace LE edema but no calf tenderness, pulses present, cap refill wnl GI: +BS, slight distension but no overt tenderness/guarding : purewick draining concentrated urine MSK/Neuro: nonfocal, no slurred speech/facial droop but +dementia at baseline Psych: alert to person, not place/time/events but cooperative with exam Results & Data Results & Data Vital Signs (Past 12 Hours) Vital Signs Temp Pulse Pulse Pulse Resp BP Pulse Ox 01/19/25 07:49 37.5 C 79 15 138/80 95 01/19/25 07:35 94 H 01/19/25 02:38 37.3 C 96 H 18 177/74 H 94 01/19/25 00:27 73 01/18/25 22:22 36.6 C 80 18 149/62 H 97 01/18/25 22:09 O2 Del Method 01/19/25 07:49 Room Air 01/19/25 07:35 01/19/25 02:38 Room Air 01/19/25 00:27 01/18/25 22:22 Room Air 01/18/25 22:09 Room Air Laboratory Results 01/19/25 09:27 01/19/25 09:27 Diagnostic Findings Venous Doppler Study 01/19/25 15:07 BILATERAL LOWER EXTREMITY VENOUS DOPPLER HISTORY: swelling, hx dvt, ams COMPARISON STUDY: 01/16/2024 FINDINGS: No evidence of DVT seen of bilateral lower extremity. IMPRESSION: No DVT seen. ACT 112: Negative or not required by law. Electronically signed by: Ralph Mack M.D. 01/19/2025 3:52 PM PG Care Time/CCT Total # of Minutes Spent Total Time Spent with Patient: Total time spent is greater than 50% in coordination of care (as documented) at patient's floor/unit and/or counseling patient: Coding Level of Care Code 04410 SUB INP/OBS CARE 3/50MIN Diagnoses Recurrent UTI N39.0 Type 2 diabetes mellitus without complication E11.9 Pacemaker Z95.0 Non-sustained ventricular tachycardia I47.2 Third degree heart block I44.2 Dyslipidemia E78.5 Fibromyalgia M79.7
[2025-01-19] MEDS: PANTOprazole 40 MG/10 ML SYR IV SCH (08:47)
[2025-01-19 09:43] LABS: Basophils # (auto) 0.04 K/uL (0.00-0.20); Basophils % (auto) 0.3 %; Eosinophils # (auto) 0.05 K/uL (0.00-0.50); Eosinophils % (auto) 0.4 %; Hematocrit (blood only) 29.4 % (37.0-47.0); Hemoglobin 9.3 g/dl (12.0-16.0); Immature Granulocytes # (auto) 0.07 K/uL (0.01-0.20); Immature Granulocytes % (auto) 0.5 %; Lymphocytes # (auto) 3.26 K/uL (1.20-3.40); Lymphocytes % (auto) 25.3 %; Mean Corpuscular Hemoglobin 28.1 pg (25.0-34.0); Mean Corpuscular Hgb Conc 31.6 g/dL (32.0-36.0); Mean Corpuscular Volume 88.8 fL (80.0-100.0); Mean Platelet Volume 10.2 fL (9.4-12.4); Monocytes # (auto) 1.06 K/uL (0.11-0.59); Monocytes % (auto) 8.2 %; Neutrophils # (auto) 8.41 K/uL (1.40-6.50); Neutrophils % (auto) 65.3 %; Platelet Count 239 K/uL (130-400); RDW Coefficient of Variation 14.5 % (11.5-14.5); RDW Standard Deviation 46.7 fL (36.4-46.3); Red Blood Count 3.31 M/uL (4.20-5.40); White Blood Count 12.89 K/ul (4.8-10.8)
[2025-01-19 10:01] LABS: BUN Creatinine Ratio 20.5 (10-20); Calcium 8.8 mg/dl (8.6-10.3); Creatinine Clr Calc Pharmacy 39.7 ml/min; Magnesium 1.8 mg/dl (1.7-2.4); Potassium 3.6 mmol/L (3.5-5.1)
[2025-01-19] MEDS: MAGNESIUM SULFATE / D5W 1 GM/100 ML BAG IV ONE (12:32)
--- NOTE | 2025-01-19 12:50 | XCELERA ---
[id number] [id number]
--- NOTE | 2025-01-19 13:01 | Pharmacy Report ---
Pharmacy Glycemic Short Note 2 - Date of Service January 19, 2025 - Glycemic Short BSG Results (Last 24 hours): 01/18/25 01/18/25 01/19/25 16:57 20:08 08:40 Glucose POC Glucose 148 H 208 H 203 H 01/19/25 01/19/25 09:27 12:02 Glucose 216 H POC Glucose 131 H OUTPATIENT ANTIDIABETIC REGIMEN: * Metformin 500 mg PO BIDM HbA1c: 7.8% (01/18/25) ASSESSMENT: 01/19/25: * Blood sugars ranging 148-235 mg/dL yesterday * Received 5 units of bolus insulin (no basal) * Due to poor PO intake, dextrose-containing maintenance IV fluids were started x 1 liter * IV fluids are now discontinued * Significant correction from pre-breakfast to lunch today (203 -> 131 mg/dL) * Will make minor changes to Novolog goal range today and add basal scale 01/18/25: * SYLVIA is an 89 year old female who presented to ED via EMS on 01/17/25 due to altered mental status and fever * Ceftriaxone started for suspected recurrent UTI (cultures currently pending) * Pharmacy consulted for glycemic management due to hyperglycemia on presentation (blood glucose > 250 mg/dL) * Will be conservative with insulin dosing at this time given advanced age/comorbidities in insulin naive patient * Lunch blood glucose of 235 mg/dL, morning Novolog held by hospitalist - will keep current Novolog parameters PLAN FOR INPATIENT GLYCEMIC CONTROL: * Hold outpatient oral diabetes medications * Basal insulin * Lantus 0-4 units SC HS (200 mg/dL threshold) * Bolus insulin * NovoLog per scale ACHS or Q6hrs while NPO * Goal Range: Low 140 mg/dL - High 180 mg/dL * Correction Factor: 35 mg/dL/unit * Nutritional / Prandial insulin per carb ratio of 1 unit per 15 grams CHO consumed
--- NOTE | 2025-01-19 15:54 | Ultrasound Report ---
BILATERAL LOWER EXTREMITY VENOUS DOPPLER HISTORY: swelling, hx dvt, ams COMPARISON STUDY: 01/16/2024 FINDINGS: No evidence of DVT seen of bilateral lower extremity. IMPRESSION: No DVT seen. ACT 112: Negative or not required by law. Electronically signed by: Ralph Mack M.D. 01/19/2025 3:52 PM
[2025-01-19] MEDS: SODIUM CHLORIDE 0.9% 500 ML IV SCH (17:24)
[2025-01-19] MEDS: LANTUS PER UNIT CHARGE SC SCH (21:21)
[2025-01-20 06:05] LABS: Basophils # (auto) 0.04 K/uL (0.00-0.20); Basophils % (auto) 0.3 %; Eosinophils # (auto) 0.09 K/uL (0.00-0.50); Eosinophils % (auto) 0.7 %; Hematocrit (blood only) 28.6 % (37.0-47.0); Hemoglobin 9.3 g/dl (12.0-16.0); Immature Granulocytes # (auto) 0.06 K/uL (0.01-0.20); Immature Granulocytes % (auto) 0.5 %; Lymphocytes # (auto) 3.07 K/uL (1.20-3.40); Lymphocytes % (auto) 25.5 %; Mean Corpuscular Hemoglobin 28.5 pg (25.0-34.0); Mean Corpuscular Hgb Conc 32.5 g/dL (32.0-36.0); Mean Corpuscular Volume 87.7 fL (80.0-100.0); Mean Platelet Volume 9.9 fL (9.4-12.4); Monocytes # (auto) 0.98 K/uL (0.11-0.59); Monocytes % (auto) 8.1 %; Neutrophils # (auto) 7.79 K/uL (1.40-6.50); Neutrophils % (auto) 64.9 %; Platelet Count 265 K/uL (130-400); RDW Coefficient of Variation 14.3 % (11.5-14.5); RDW Standard Deviation 45.9 fL (36.4-46.3); Red Blood Count 3.26 M/uL (4.20-5.40); White Blood Count 12.03 K/ul (4.8-10.8)
[2025-01-20 06:10] LABS: BUN Creatinine Ratio 18.7 (10-20); Calcium 8.5 mg/dl (8.6-10.3); Creatinine Clr Calc Pharmacy 46.6 ml/min; Magnesium 1.9 mg/dl (1.7-2.4); Potassium 3.3 mmol/L (3.5-5.1)
--- NOTE | 2025-01-20 07:19 | Hospitalist Progress Note ---
Date of Service January 20, 2025 Assessment & Plan (1) Recurrent UTI: (2) Type 2 diabetes mellitus without complication: (3) Pacemaker: (4) Non-sustained ventricular tachycardia: (5) Third degree heart block: (6) Dyslipidemia: (7) Fibromyalgia: Plan 89yo F presented with fever, weakness, confusion along with poor appetite, nausea and possible emesis x 1.(Hx limited by dementia). WBC 15k, temp 38.4C. Lactic wnl. No hypotension/tachycardia or sepsis. Procal wnl. Flu/RSV/COVID negative. CXR w/o acute process UA concerning for UTI Cefepime given in ER #Complicated UTI - suspected cause for fever/weakness/confusion/Metabolic encephalopathy in patient w/ underlying dementia per most recent PCP notes WBC improved, 16k--> 12.8, 12k Low grade temp 37.7 this moring but no further fever since 38.2C on 01/19 Urine cx ecoli, Aerococcus urinae- covered w/ CTX Ceftriaxone IV (day 3) Blood cx corynebacterium on preliminary, likely contaminant 500cc NSS on 01/19, improved PO intake today and continues on aspiration precautions/pureed diet (sister does blend fruit/protein for her at home) Plan to transition to PO abx in AM to complete course and dc w/ HH services despite therapy evals per patient and sister Richelle's wishes and do suspect Cherelle will do better in her home environment #Demand ischemia Trop 42.7 on admission with repeat 43.2 suspected 2nd to demand ischemia. Paced on monitor and denies CP at this time. Pacemaker interrogation has been ordered and remains paced on telemetry and can dc #Type II DM Only on metformin at baseline -- prior hospitalization with conservative glargine caused hyperglycemia but I've had her and she has gone low in the past. Basal per scale and remains on SSI with acceptable BSGs and will monitor Anemia Appears chronic in nature No bleeding reported but hgb appearing 10-11 baseline and checked iron studies for completeness. hgb 9.3 on repeat despite IVF on admission and 500cc on01/19 with improvement in PO intake --> iron studies LOW, SERENA w/ iron 10 w/ trans % sat 4 and will give dose Venofer IV for today and consider repeat dose in AM prior to dc Monitor CBC/any bleeding Chronic stable issues: Third-degree heart block: S/p pacemaker in place and interrogation has been ordered. Stable. HR paced 70-80s on telemetry and can remove telemetry Hypertension: BP stable. Continue lisinopril/amlodipine as able, stable BP 147/82 and hydralazine IV available if needed HLD: continues on statin Dementia: continues on memantine, remeron. Delirium precautions/prevention strategies to be in place. Per sister, alert to person/place at baseline but not year/date typically Hx CAD in the past, aspirin has been resumed daily and continued Prior use eliquis for DVT but confirmed with sister Cady she is no longer on this., Venous dopplers NEGATIVE for any DVT-no concerns for PE given no hypoxia/hypotension and ECHO w/o RV dilatation or elevated RVSP DVT proph:Lovenox SQ Dispo: continued inpatient stay and plan to convert abx to PO in am/consider repeat dose of Venofer in AM but plan for dc w/ HH services 01/21. CM notified of plan/to confirm HH services with Richelle and I can plan to call w/ updated plan in AM prior to dc and was discussed with her evening 01/19 Admission and Anticipated Discharge Date Admission Date: January 17, 2025 Supervising Physician Co-Signing Physician Notes The patient was not seen by me. The chart was reviewed. Case discussed with EVELIN Brand. Agree with assessment and plan Subjective Patient eval this morning, sitting up in bed. Pleasant/cooperative. Alert to self. Would like ot go home. Discussed if blood cx remain negative plans to dc in AM on PO abx per sister and patient wishes. No CP/SOB reported. No nausea/vomiting, tolerating PO/pureed. diet. Questions/concerns addressed. Physical Exam 2 Physical Exam: General: 89yo female sitting up in the chair, NAD, appears improved/stable. alert to person, not place/time (per sister never time/year) Head atraumatic, normocephalic, mm improved, trachea midline Resp: even/unlabored, 98% on RA CV: pacede on telemetry, no significant pitting edema, calves nontender GI: +BS, soft/NT : purewick MSK/Neuro: nonfocal, no slurred speech/facial droop but +dementia at baseline Psych: alert to person, not place/time/events but cooperative with exam Results & Data Results & Data Vital Signs (Past 12 Hours) Vital Signs Temp Pulse Pulse Resp BP Pulse Ox O2 Del Method 01/20/25 04:00 37.0 C 90 18 150/74 H 94 Room Air 01/19/25 23:21 36.7 C 87 18 126/80 94 Room Air 01/19/25 23:07 71 01/19/25 22:46 Room Air 01/19/25 19:34 36.8 C 76 18 102/64 93 Room Air Laboratory Results 01/20/25 05:37 01/20/25 05:37 Mag 1.9 Iron 10, Transferrin 182, trans % sat 4 ferritin 195 PG Care Time/CCT Total # of Minutes Spent Total Time Spent with Patient: Total time spent is greater than 50% in coordination of care (as documented) at patient's floor/unit and/or counseling patient: Coding Level of Care Code 61302 SUB INP/OBS CARE 3/50MIN Diagnoses Recurrent UTI N39.0 Type 2 diabetes mellitus without complication E11.9 Pacemaker Z95.0 Non-sustained ventricular tachycardia I47.2 Third degree heart block I44.2 Dyslipidemia E78.5 Fibromyalgia M79.7
[2025-01-20] MEDS: ASPIRIN 81 MG ECTAB PO SCH (08:26)
[2025-01-20 08:46] LABS: Ferritin 195.1 ng/ml (8-388)
[2025-01-20] MEDS: POTASSIUM CHLORIDE 20 MEQ/15 ML UDC PO STA (10:14)
[2025-01-20] MEDS: IRON SUCROSE 300 MG in SODIUM CHLORIDE 0.9% 250 ML IV ONE (15:39)
[2025-01-21 06:23] LABS: Basophils # (auto) 0.05 K/uL (0.00-0.20); Basophils % (auto) 0.5 %; Eosinophils # (auto) 0.16 K/uL (0.00-0.50); Eosinophils % (auto) 1.6 %; Hematocrit (blood only) 28.5 % (37.0-47.0); Hemoglobin 8.9 g/dl (12.0-16.0); Immature Granulocytes # (auto) 0.06 K/uL (0.01-0.20); Immature Granulocytes % (auto) 0.6 %; Lymphocytes # (auto) 1.98 K/uL (1.20-3.40); Lymphocytes % (auto) 19.8 %; Mean Corpuscular Hemoglobin 28.1 pg (25.0-34.0); Mean Corpuscular Hgb Conc 31.2 g/dL (32.0-36.0); Mean Corpuscular Volume 89.9 fL (80.0-100.0); Mean Platelet Volume 9.8 fL (9.4-12.4); Monocytes # (auto) 0.81 K/uL (0.11-0.59); Monocytes % (auto) 8.1 %; Neutrophils # (auto) 6.96 K/uL (1.40-6.50); Neutrophils % (auto) 69.4 %; Platelet Count 278 K/uL (130-400); RDW Coefficient of Variation 14.7 % (11.5-14.5); RDW Standard Deviation 48.7 fL (36.4-46.3); Red Blood Count 3.17 M/uL (4.20-5.40); White Blood Count 10.02 K/ul (4.8-10.8)
[2025-01-21 06:39] LABS: BUN Creatinine Ratio 15.7 (10-20); Calcium 8.6 mg/dl (8.6-10.3); Magnesium 1.8 mg/dl (1.7-2.4); Potassium 4.2 mmol/L (3.5-5.1)
--- NOTE | 2025-01-21 08:03 | Hospitalist Progress Note ---
Date of Service January 21, 2025 Assessment & Plan (1) Recurrent UTI: (2) Type 2 diabetes mellitus without complication: (3) Pacemaker: (4) Non-sustained ventricular tachycardia: (5) Third degree heart block: (6) Dyslipidemia: (7) Fibromyalgia: Plan 89yo F presented with fever, weakness, confusion along with poor appetite, nausea and possible emesis x 1.(Hx limited by dementia). WBC 15k, temp 38.4C. Lactic wnl. No hypotension/tachycardia or sepsis. Procal wnl. Flu/RSV/COVID negative. CXR w/o acute process UA concerning for UTI Cefepime given in ER #Complicated UTI - suspected cause for fever/weakness/confusion/Metabolic encephalopathy in patient w/ underlying dementia per most recent PCP notes WBC improved, 16k--> 12.8, 12k Urine cx ecoli, Aerococcus urinae Ceftriaxone IV (day 4) Blood cx corynebacterium on preliminary, likely contaminant 500cc IVF on 01/19, improved PO since but aspiration precautions/purred diet Biofire today/sore throat, Venofer IV. Pending course afternoon/biofire consideration for home with HH services vs another 24 hours and could complete 5 day IV abx course inpatient vs transition to Cefuroxime given resistance on cx cefazolin would avoid keflex #Demand ischemia Trop 42.7 on admission with repeat 43.2 suspected 2nd to demand ischemia. Paced on tele, interrogation stable and HR improved w/ IVF and no CP reported #Type II DM Only on metformin at baseline -- prior hospitalization with conservative glargine caused hyperglycemia but I've had her and she has gone low in the past. Basal per scale and remains on SSI with acceptable BSGs and will monitor Anemia Appears chronic in nature No bleeding reported but hgb appearing 10-11 baseline and checked iron studies for completeness. hgb 9.3 on repeat despite IVF on admission and 500cc on01/19 with improvement in PO intake --> iron studies LOW, SERENA w/ iron 10 w/ trans % sat 4 Venofer 300mg IV x 1 on 01/20, repeat for 01/21 prior to dc. Can give 3rd dose if remains inpatient Chronic stable issues: Third-degree heart block: S/p pacemaker in place and interrogation has been ordered. Stable. HR paced 70-80s on telemetry and can remove telemetry Hypertension: BP stable. Continue lisinopril/amlodipine as able, stable BP 147/82 and hydralazine IV available if needed HLD: continues on statin Dementia: continues on memantine, remeron. Delirium precautions/prevention strategies to be in place. Per sister, alert to person/place at baseline but not year/date typically Hx CAD in the past, aspirin has been resumed daily and continued Prior use eliquis for DVT but confirmed with sister Cady she is no longer on this., Venous dopplers NEGATIVE for any DVT-no concerns for PE given no hy poxia/hypotension and ECHO w/o RV dilatation or elevated RVSP DVT proph:Lovenox SQ Dispo: continued inpatient stay and plan to convert abx to PO in am/consider repeat dose of Venofer in AM but plan for dc w/ HH services 01/21. CM notified of plan/to confirm HH services with Richelle and I can plan to call w/ updated plan in AM prior to dc and was discussed with her evening 01/19 HOPEFUL DC 01/21 with HH services and PO Cefuroxime to complete course for +UTI Admission and Anticipated Discharge Date Admission Date: January 17, 2025 Subjective Eval this morning, resting in bed. Sore throat, slight cough but no SOB reported. Cough drops ordered, biofire. If stable/feeling ok this afternoon can plan for home with family vs staying inpatient but WBC normalized and blood cultures without further growth. No abdominal pain reported. Physical Exam Physical Exam: General: 89yo female resting in bed, NAD but reporting sore throat, no stridor or significant erythema Head atraumatic, normocephalic, mm slightly dry, trachea midline Resp: even/unlabored, on room air CV: paced on telemetry (now downgraded), rates controlled, no significant edema, calves nontender GI: +BS, soft/NT : purewick MSK/Neuro: nonfocal, no slurred speech/facial droop but +dementia at baseline Psych: alert to person, not place/time/events but cooperative with exam Results & Data Results & Data Vital Signs (Past 12 Hours) Vital Signs Temp Pulse Resp BP Pulse Ox O2 Del Method 01/21/25 03:20 36.8 C 85 18 141/73 H 96 Room Air 01/20/25 23:00 36.8 C 78 18 141/77 H 97 Room Air Laboratory Results 01/21/25 01/21/25 01/21/25 Range/Units 11:51 07:53 06:09 WBC 10.02 (4.8-10.8) K/ul RBC 3.17 L (4.20-5.40) M/uL Hgb 8.9 L (12.0-16.0) g/dl Hct 28.5 L (37.0-47.0) % MCV 89.9 (80.0-100.0) fL MCH 28.1 (25.0-34.0) pg MCHC 31.2 L (32.0-36.0) g/dL RDW Std Deviation 48.7 H (36.4-46.3) fL RDW Coeff of Vinh 14.7 H (11.5-14.5) % Plt Count 278 (130-400) K/uL MPV 9.8 (9.4-12.4) fL Immature Gran % (Auto) 0.6 % Neut % (Auto) 69.4 % Lymph % (Auto) 19.8 % [place] % (Auto) 8.1 % Eos % (Auto) 1.6 % Baso % (Auto) 0.5 % Neut # (Auto) 6.96 H (1.40-6.50) K/uL Lymph # (Auto) 1.98 (1.20-3.40) K/uL [place] # (Auto) 0.81 H (0.11-0.59) K/uL Eos # (Auto) 0.16 (0.00-0.50) K/uL Baso # (Auto) 0.05 (0.00-0.20) K/uL Immature Gran # (Auto) 0.06 (0.01-0.20) K/uL Sodium 140 (136-145) mmol/L Potassium 4.2 D (3.5-5.1) mmol/L Chloride 108 H (98-107) mmol/L Carbon Dioxide 24 (21-32) mmol/L Anion Gap 8 (3-11) BUN 13 (6-23) mg/dl Creatinine 0.83 (0.6-1.2) mg/dl Est Cr Clr Drug Dosing 42.0 ml/min eGFR 68.19 BUN/Creatinine Ratio 15.7 (10-20) Glucose 170 H (70-99(Fasting)) mg/dl POC Glucose 161 H 170 H (70-99) mg/dl Calcium 8.6 (8.6-10.3) mg/dl Magnesium 1.8 (1.7-2.4) mg/dl 01/20/25 01/20/25 01/20/25 Range/Units 20:28 17:13 12:23 WBC (4.8-10.8) K/ul RBC (4.20-5.40) M/uL Hgb (12.0-16.0) g/dl Hct (37.0-47.0) % MCV (80.0-100.0) fL MCH (25.0-34.0) pg MCHC (32.0-36.0) g/dL RDW Std Deviation (36.4-46.3) fL RDW Coeff of Vinh (11.5-14.5) % Plt Count (130-400) K/uL MPV (9.4-12.4) fL Immature Gran % (Auto) % Neut % (Auto) % Lymph % (Auto) % [place] % (Auto) % Eos % (Auto) % Baso % (Auto) % Neut # (Auto) (1.40-6.50) K/uL Lymph # (Auto) (1.20-3.40) K/uL [place] # (Auto) (0.11-0.59) K/uL Eos # (Auto) (0.00-0.50) K/uL Baso # (Auto) (0.00-0.20) K/uL Immature Gran # (Auto) (0.01-0.20) K/uL Sodium (136-145) mmol/L Potassium (3.5-5.1) mmol/L Chloride (98-107) mmol/L Carbon Dioxide (21-32) mmol/L Anion Gap (3-11) BUN (6-23) mg/dl Creatinine (0.6-1.2) mg/dl Est Cr Clr Drug Dosing ml/min eGFR BUN/Creatinine Ratio (10-20) Glucose (70-99(Fasting)) mg/dl POC Glucose 128 H 213 H 161 H (70-99) mg/dl Calcium (8.6-10.3) mg/dl Magnesium (1.7-2.4) mg/dl PG Care Time/CCT Total # of Minutes Spent Total Time Spent with Patient: Total time spent is greater than 50% in coordination of care (as documented) at patient's floor/unit and/or counseling patient: Coding Diagnoses Recurrent UTI N39.0 Type 2 diabetes mellitus without complication E11.9 Pacemaker Z95.0 Non-sustained ventricular tachycardia I47.2 Third degree heart block I44.2 Dyslipidemia E78.5 Fibromyalgia M79.7
[2025-01-21] MEDS: CHLORASEPTIC (PHENOL) 1.4% SOLN 180 ML BTL MT PRN (08:29)
--- NOTE | 2025-01-21 09:40 | Pharmacy Report ---
Pharmacy Glycemic Short Note 2 - Date of Service January 21, 2025 - Glycemic Short BSG Results (Last 24 hours): 01/20/25 01/20/25 01/20/25 12:23 17:13 20:28 Glucose POC Glucose 161 H 213 H 128 H 01/21/25 01/21/25 06:09 07:53 Glucose 170 H POC Glucose 170 H OUTPATIENT ANTIDIABETIC REGIMEN: * Metformin 500 mg PO BIDM HbA1c: 7.8% (01/18/25) ASSESSMENT: 01/21/25 * Patient received only 6 units of insulin yesterday (all were bolus) * BSGs were a little better controlled yesterday (241-830-546-128mg/dL) * Fasting BSG was 170mg/dL this morning. Patient still appears to have poor oral intake so will not adjust bolus insulin parameters at this time. Basal scale at HS will remain as is also (0,2, or 4 units depending on BSG). 01/19/25: * Blood sugars ranging 148-235 mg/dL yesterday * Received 5 units of bolus insulin (no basal) * Due to poor PO intake, dextrose-containing maintenance IV fluids were started x 1 liter * IV fluids are now discontinued * Significant correction from pre-breakfast to lunch today (203 -> 131 mg/dL) * Will make minor changes to Novolog goal range today and add basal scale 01/18/25: * SYLVIA is an 89 year old female who presented to ED via EMS on 01/17/25 due to altered mental status and fever * Ceftriaxone started for suspected recurrent UTI (cultures currently pending) * Pharmacy consulted for glycemic management due to hyperglycemia on presentation (blood glucose > 250 mg/dL) * Will be conservative with insulin dosing at this time given advanced age/comorbidities in insulin naive patient * Lunch blood glucose of 235 mg/dL, morning Novolog held by hospitalist - will keep current Novolog parameters PLAN FOR INPATIENT GLYCEMIC CONTROL: * Hold outpatient oral diabetes medications * Basal insulin * Lantus scale at HS (hold if BSG < 140, 2 units for BSG 140-200, 4 units for BSG > 200) * Bolus insulin * NovoLog per scale ACHS or Q6hrs while NPO * Goal Range: Low 140 mg/dL - High 180 mg/dL * Correction Factor: 35 mg/dL/unit * Nutritional / Prandial insulin per carb ratio of 1 unit per 15 grams CHO consumed
[2025-01-21] MEDS: IRON SUCROSE 300 MG in SODIUM CHLORIDE 0.9% 250 ML IV ONE (11:10)
[2025-01-21 11:20] VITALS: RESP 14
[2025-01-21 12:04] VITALS: TEMP 99
[2025-01-21 13:41] LABS: Adenovirus PCR Not Detected (NotDetected); Bordetella parapertussis PCR Not Detected (NotDetected); Bordetella pertussis PCR Not Detected (NotDetected); Chlamydia pneumoniae PCR Not Detected (NotDetected); Coronavirus 229E PCR Not Detected (NotDetected); Coronavirus CoV-2 (COVID19)PCR Not Detected (NotDetected); Coronavirus HKU1 PCR Not Detected (NotDetected); Coronavirus NL63 PCR Not Detected (NotDetected); Coronavirus OC43PCR Not Detected (NotDetected); Human Metapneumovirus PCR Not Detected (NotDetected); Influenza A PCR Not Detected (NotDetected); Influenza B PCR Not Detected (NotDetected); Mycoplasma pneumoniae PCR Not Detected (NotDetected); Parainfluenza Virus 1 PCR Not Detected (NotDetected); Parainfluenza Virus 2 PCR Not Detected (NotDetected); Parainfluenza Virus 3 PCR Not Detected (NotDetected); Parainfluenza Virus 4 PCR Not Detected (NotDetected); Respiratory Syncytial VirusPCR Not Detected (NotDetected); Rhinovirus/Enterovirus PCR Not Detected (NotDetected)
[2025-01-21] MEDS: COUGH DROP (SUGAR FREE) LOZ 24 LOZ/1 BOX BUCCAL STA (13:56)
[2025-01-21] MEDS: COUGH DROP (SUGAR FREE) LOZ 24 LOZ/1 BOX BUCCAL ONE (13:59)
--- NOTE | 2025-01-21 14:26 | Discharge Summary ---
Discharge Summary Date of Service January 21, 2025 Principal Dx & Hospital Course #1 = Principal Diagnosis (1) Recurrent UTI: (2) Type 2 diabetes mellitus without complication: (3) Pacemaker: (4) Non-sustained ventricular tachycardia: (5) Third degree heart block: (6) Dyslipidemia: (7) Fibromyalgia: Plan 89yo F presented with fever, weakness, confusion/metabolic encephalopathy along with poor appetite, nausea and possible emesis x 1. UTI/meatbolic encephalopathy WBC elevated to 15k with temp 38.4C on admission with normal lactic and no hypotension/tachycardia. Flu/RSV/COVID negative and CXR w/o acute process but UA concerning for UTI similar to episodes in the past Was given Cefepime on admission and continued on Ceftriaxone and received 4 doses IV while inpatient Urine cx w/ ecoli, aerococcus urinae and discussed w/ pharmacy covers and sent additional day cefuroxime BID to complete 5 day course. Blood cx w/ corynbacterium on prelim and no further growth and suspected contaminant Was given IVF for poor PO intake w/ improvement but continued pureed diet with aspiration precautions and noah and sister Richelle reports giving blended shakes between meals for nutritoin Therapy evals undertaken and rec rehab but has set up at home and family/patient preference to take home and CM to arrange for HH services. Did have little bit of sore throat and given cough drop prior to dc but on RA and repeat biofire ne gative and wanting to go home and fmaily friend coming to get. Discussed s/sx to return but otherwise f/u PCP. WBC normalized prior to dc and last temp 3 #Demand ischemia Slight bump in trop suspected 2nd to demand ischemia from infection above, no CP reported and stable tele/pacer interrogation and HR improved w/ IVF for ongoing poor PO intake on admission but as above not septic on initial presentation #Type II DM Only on metformin at baseline, utilized SSI while inpatient and resumed home metformin at dc but if ongoing issues consider holding in f/u for GI side effects given presentation Anemia Appears chronic in nature without bleeding reported and did get IVF and suspect some dilutional aspect. Given Venofer 300mg IV x 2 for low iron/trans % sat prior to dc and PCP can arrange third. Avoided PO iron given risk for constipation in elderly Chronic stable issues: Third-degree heart block: S/p pacemaker in place and interrogation has been ordered. Stable. HR paced 70-80s on telemetry and discontinued Hypertension: BP stable on home meds and were continued. 138/65 prior to dc HLD: continues on statin as well as baby aspirin for hx CAD (not on home med list) Dementia: continues on memantine, remeron. Typically alert to person, place (issues w/ delirium in hospital) but not year/month per family. Pleasant/cooperative. Frequent orientation recommended/day/sleep schedule Also O2 HS and sleeping and uses at home Hx DVT, venous doppler obtained and NEGATIVE. Had completed 6 mo Eliquis in the past and remained on LOVENOX SQ while inpatient and daily PPI as takes at home -no concerns for PE given no hypoxia/hypotension and ECHO w/o RV dilatation or elevated RVSP Dispo: dc w/ HH services with sister per family/patient wishes Notes For Next Care Provider Consider stopping metformin/alternative agent if issues w/ GI effects w/ resumption in metformin at dc consider increasing PPI to twice daily vs pepcid at night Medication Changes From Visit Cefuroxime BID for another 1 day for 5 day course Admission HPI Per Admitting Provider Cherelle is an 89-year-old female with a past medical history of NSVT, third-degree heart block s/p pacemaker, cerebral ischemia, dementia, hypertension, type II DM who presents with fever, weakness, confusion. Hx limited by dementia. Due to high fever quad screen has been ordered to screen for flu. Chest x-ray no acute findings Clear seen at the bedside. Due to dementia and mental status is not able to give any meaningful history at time of bedside visit. She has a friend at bedside who reports that per Cherelle sister Richelle she had some nausea, poor appetite, fever and possibly an episode of emesis yesterday. Cherelle reports she feels "okay ". Denies chest pain, chest pressure, shortness of breath, abdominal pain, dysuria, falls. On exam she does not grimace and has no guarding or indication of discomfort on abdominal palpation. She smiles occasionally during exam and is pleasant but mostly keeps her eyes closed and is tremulous and repeats "the Lord is good, he is good "but that does not give other meaningful history or generally answer questions more than giving affirmation/declination Call was placed to patient's sister Richelle who is reportedly her medical decision-maker as well. Call was placed at [phone]. No answer x 2, voicemail was left for call back. Prior history shows full code, will continue this for now. Patient does not demonstrate DMC regarding her medical decisions at time of admission Sister Richelle primary phone# [phone] Medical History: Reviewed Medications: Reviewed Surgical History: Reviewed Family history: Reviewed Allergies: Reviewed Social History: Reviewed Code Status: Full code per chart review Admission Exam Per Admitting Provider General: Oriented to name only. No acute distress. Follows some commands, limited historian HEENT: Atraumatic, normocephalic. Vision and hearing grossly intact. Mucous membranes dry Pulm: Diminished but grossly clear symmetrical chest rise. No increased work of breathing. No respiratory distress. Cardiac: RRR, -mrg. Radial pulses intact and symmetrical. Abdominal: Nontender, nondistended, soft. Extremities: Warm, dry Discharge Exam General: 89yo female resting in bed, NAD but reporting sore throat, no stridor or significant erythema Head atraumatic, normocephalic, mm slightly improved/slightly dry, trachea midline Resp: even/unlabored, on room air CV: paced,, rates controlled, no significant edema, calves nontender GI: +BS, soft/NT : purewick MSK/Neuro: nonfocal, no slurred speech/facial droop but +dementia at baseline Psych: alert to person, not place/time/events but cooperative with exam Discharge Plan Discharge Items Patient Disposition: Home - Home Health Services Reason For Visit: FEVER, UTI Discharge Diagnosis: Urinary Tract Infection Goals: You have been hospitalized for an acute medical problem. During your stay at [facility], we have made an effort to correct the problem that brought you to the hospital while keeping you as comfortable as possible. Medications were used to bring your condition under control and your discharge instructions will include directions for any medications you should take after leaving the hospital. Please make sure you see your Primary Care Provider as part of your follow up plan. Activity: As commented below Non-emergency contact: Primary Care Provider Call non-emergency contact if: you have any medication questions, your symptoms worsen, your pain is concerning for you and you have a fever Follow-up/Referrals: Lucero Alves MD [Primary Care Provider] - 02/01/25 3:30 pm Diet: Carb Consistent or DM2 Diet Texture: Pureed (blended smooth) Addtl Attending Provider Instructions: You have been hospitalized for weakness and confusion with concerns for urinary tract infection. You were provided with IV fluids for hydration as well as antibiotics and at discharge are being sent on CEFUROXIME which should be taken once tomorrow morning and once in the evening to complete a 5 day course. Please follow up with primary care in the next 7-10 days from discharge to monitor your status. Please return to the ER with any recurrence of fever/chills, chest pain, shortness of breath, worsening mental status/confusion or for any other symptoms concerning for you. It has been a pleasure being a part of the medical team providing for you while you have been in the hospital. Take care! Pending Studies at Discharge: Yes Studies:: blood cultures Stand-Alone Forms: My [facility] BoardVitals, Smoking Cessation Medications and DC Order Prescriptions: New cefuroxime axetil 250 mg tablet 250 mg PO BID 1 Days Qty: 2 0RF Continued cholecalciferol (vitamin D3) 25 mcg (1,000 unit) capsule 25 mcg PO DAILY mecobalamin (vitamin B12) 1,000 mcg tablet,chewable 1,000 mcg PO DAILY omeprazole 20 mg capsule,delayed release(DR/EC) 20 mg PO DAILY Qty: 90 3RF methenamine hippurate 1 gram tablet 1 g PO BID Qty: 60 11RF memantine 10 mg tablet 10 mg PO BID 90 Days Qty: 180 3RF mirtazapine 15 mg tablet 15 mg PO DAILY Qty: 90 3RF metformin 500 mg tablet 500 mg PO BID 90 Days Qty: 180 3RF Rx Instructions: with a meal amlodipine 10 mg tablet 10 mg PO DAILY Qty: 90 3RF Hold Instructions: per [employer] D/C summary melatonin 3 mg tablet 3 mg PO HS PRN (Reason: Insomnia) docusate sodium 100 mg capsule 100 mg PO BID PRN (Reason: Constipation) Qty: 60 Rx Instructions: per sister, pt wont take any medications that are in a gel like capsule. She spits them back out vit C,I-Og-epgrc-lutein-zeaxan 60 mg-13.5 mg- 15 mg-2 mg-6 mg capsule 1 cap PO DAILY Rx Instructions: per sister, she's not sure if pt takes this medication. calcium carbonate 600 mg calcium (1,500 mg) tablet 600 mg PO DAILY timolol maleate 0.25 % drops 1 drp OPB QAM atorvastatin 40 mg tablet 40 mg PO HS nystatin 100,000 unit/gram powder 1 applic topical BID PRN (Reason: Other) lisinopril 40 mg tablet 40 mg PO QAM Discharge Orders: Discharge Order (Routine); Ordered 01/21/25 Ordered By: Heather Calix/Other Patient Handouts: Managing Type 2 Diabetes Admission Data Admit Date/Time: 01/17/25 13:07 Attending Provider: Gadiel Sood Admit Provider: Johan Olivarez Primary Care Provider: Lucero Alves Other Providers: [facility] Fax; Johan Olivarez Hospital Stay Data Consultations 01/17/25 12:37 ED Decision to Admit Stat Diagnostic Imagining Performed Chest X-Ray 01/17/25 08:54 XR chest 1V portable CLINICAL HISTORY: Sepsis COMPARISON STUDY: 10/14/2023 FINDINGS: Stable pacemaker. Stable cardiomegaly without pulmonary vascular congestion. Inspiration is shallow. No effusion, consolidation, or pneumothorax. Stable old fracture proximal left humerus. IMPRESSION: No acute findings. ACT 112: Negative or not required by law. Electronically signed by: Ralph aMck M.D. 01/17/2025 9:[address] 01/17/25 09:03 CT OF THE HEAD WITHOUT CONTRAST CLINICAL HISTORY: Altered mental status. COMPARISON STUDY: Head CT October 14, 2023. CT DOSE: 625.8 mGy.cm TECHNIQUE: Helical axial images of the head were obtained without IV contrast. Automated exposure control was utilized for the study. A dose lowering technique was utilized adhering to the principles of ALARA. FINDINGS: No acute intracranial hemorrhage, midline shift or mass effect is present. Ventricular system is stable. The basal cisterns are patent. There are no extra-axial collections. White matter hypodensities are unchanged. 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 There are no findings to suggest acute dural sinus thrombosis or acute territorial infarct. There are no calvarial fractures. Right sphenoid sinus is largely opacified and contains secretions. Similar findings were shown on prior CT. There are also secretions within the left sphenoid sinus. There is mild ethmoid sinus mucosal thickening. IMPRESSION: 1. No acute intracranial findings. No significant change in appearance of the brain. 2. Sphenoid and ethmoid sinus opacification, as described above. ACT 112: Negative or not required by law. Electronically signed by: Genaro Encinas M.D. 01/17/2025 9:43 AM Venous Doppler Study 01/19/25 15:07 BILATERAL LOWER EXTREMITY VENOUS DOPPLER HISTORY: swelling, hx dvt, ams COMPARISON STUDY: 01/16/2024 FINDINGS: No evidence of DVT seen of bilateral lower extremity. IMPRESSION: No DVT seen. ACT 112: Negative or not required by law. Electronically signed by: Ralph Mack M.D. 01/19/2025 3:52 PM ECHOCARDIOGRAM 01/19/2025 Left ventricular systolic function is normal RV systolic pressure is normal No significant valvular heart disease Pending Results Patient Have Any Pending Studies at Discharge: Yes Discharge Instructions Given to Patient (Per Discharging Provider) You have been hospitalized for weakness and confusion with concerns for urinary tract infection. You were provided with IV fluids for hydration as well as antibiotics and at discharge are being sent on CEFUROXIME which should be taken once tomorrow morning and once in the evening to complete a 5 day course. Please follow up with primary care in the next 7-10 days from discharge to monitor your status. Please return to the ER with any recurrence of fever/chills, chest pain, shortness of breath, worsening mental status/confusion or for any other symptoms concerning for you. It has been a pleasure being a part of the medical team providing for you while you have been in the hospital. Take care! Supervising Physician Co-Signing Physician Notes The patient was not seen by me. The chart was reviewed. Case discussed with EVELIN Brand. Agree with assessment and plan Total Time Total Time Spent Total Time Spent (In Minutes): 45 Coding Level of Care Code 84218 INP/OBS DISCH >30 MIN Diagnoses Recurrent UTI N39.0 Type 2 diabetes mellitus without complication E11.9 Pacemaker Z95.0 Non-sustained ventricular tachycardia I47.2 Third degree heart block I44.2 Dyslipidemia E78.5 Fibromyalgia M79.7
[2025-01-21 16:21] VITALS: BP 156/76; PULSE 79; O2SAT 96
== END 2025-01-21 17:21 | disposition home health service (06) | DRG 689 ==
LOC: ED 08:42 → EDINP 13:07 → SUATTDRO 13:07 → 2W 14:59